=== PATIENT | female | born 1950 | race Caucasian/White ===

== ENCOUNTER 2019-06-16 08:32 | Emergency (ER) | payer MEDICARE, SELFPAY ==
--- NOTE | ~2019-06-16 | XR_ITS ---
XR humerus LT 06/16/2019 08:59 INDICATION: Left arm pain after fall. Bruising. PROCEDURE: 2 views left humerus COMPARISON: No prior studies for comparison. FINDINGS: Fracture, dislocation or subluxation is not identified. There are mild degenerative changes of the left shoulder and elbow. The soft tissues appear within normal limits. No foreign bodies are identified. IMPRESSION: 1: NO ACUTE BONE OR JOINT ABNORMALITY IDENTIFIED. Reviewed, dictated and finalized at location A.
--- NOTE | ~2019-06-16 | XR_ITS ---
[XR ribs LT 2V ] INDICATION: Left rib pain after fall TECHNIQUE: Frontal projection of the upper left ribs, frontal projection of the lower left ribs, obli que projection of all the left ribs, frontal inspiratory chest x-ray for interpretation. FINDINGS: There are no displaced rib fractures identified. There are no soft tissue abnormality see n. The lungs are clear. IMPRESSION: 1:No displaced rib fractures. Reviewed, dictated and finalized at location A.
[2019-06-16 08:42] VITALS: BP 176/7; PULSE 58; RESP 16; TEMP 36.9; O2SAT 96
--- NOTE | 2019-06-16 08:48 | ED.FALL ---
HPI - Fall General Chief Complaint: Fall Stated Complaint: fall Time Seen by Provider: 06/16/19 08:45 History of Present Illness HPI Narrative: 69 yo female presents from home c/o pain in the left arm and left chest wall. The pain started after a fall. She struck her arm on a counter she is not sure if her chest wall actually made contact with anything. The pain in the arm is moderate and associated with bruising and swelling. The chest wall is mild, but worse with coughing or deep breathing. No SOB, fever. Related Data Home Medications Medication Instructions Recorded Confirmed amlodipine 5 mg tablet 5 mg PO DAILY 12/17/18 cholecalciferol (vitamin D3) 50 2,000 unit PO DAILY 12/17/18 mcg (2,000 unit) tablet fluoxetine 40 mg capsule 40 mg PO QAM 12/17/18 levothyroxine 175 mcg tablet 175 mcg PO DAILY 12/17/18 loratadine 10 mg tablet 10 mg PO DAILY 12/17/18 omeprazole 20 mg capsule,delayed 20 mg PO BID 12/17/18 release scopolamine base 1 mg over 3 days 1 patch TRANSDERM Q3D PRN 12/17/18 transdermal patch Allergies Allergy/AdvReac Type Severity Reaction Status Date / Time Sulfa (Sulfonamide Allergy Unknown Unknown Verified 06/16/19 08:46 Antibiotics) Tetanus Vaccines and Toxoid Allergy Unknown Unknown Verified 06/16/19 08:46 Review of Systems Review of Systems: All systems reviewed & are unremarkable except as noted in HPI and below Constitutional: Constitutional: Denies fever(s) ENT: Denies sore throat Cardiovascular: Cardiovascular: Denies radiating jaw, neck or arm pain Respiratory: Respiratory: Denies chest congestion and Denies dyspnea Gastrointestinal: Gastrointestinal: Denies abdominal pain Musculoskeletal: Musculoskeletal: Denies back pain Neurologic: Denies dizziness and Denies weakness [facility] Past Medical History Medical History Chronic GERD Essential (primary) hypertension Hypothyroidism, unspecified Obstructive sleep apnea (adult) (pediatric) Osteoporosis Family History Family History Grandparent Family history of coronary artery disease Social History Social History Smoking status: Never smoker Alcohol intake: current Gender identity (if verbalized by the patient): Female Exam Const: General: healthy appearing, no acute distress and alert Orientation/consciousness: patient oriented x3 HENMT: Head: normal to inspection Neck: Neck: normal visual inspection Chest: Chest palpation & inspection: tenderness rib (left lateral) Resp: Effort & Inspection: normal respiratory effort Auscultation: clear to auscultation bilaterally, no rales, no rhonchi and no wheezes Cardio: Jugular venous distension: no JVD Rate: regular rate Rhythm: regular rhythm Heart sounds: no murmurs GI: GI Palp: Yes Soft to palpation and No Tenderness to palpation present (GI) Skin: Other: Bruising of left upper arm and proximal forearm Neuro: General: patient oriented x3 and moves all extremities Speech: normal speech Extrem: General: no edema Other: Tenderness over left midhumerus Psych: Appearance: well kempt Affect: normal affect Course Vital Signs Vital signs: Vital Signs Temperature 36.9 C 06/16/19 08:42 Pulse Rate 58 L 06/16/19 08:42 Respiratory Rate 16 06/16/19 08:42 Blood Pressure 176/7 H 06/16/19 08:42 Pulse Oximetry 96 06/16/19 08:42 Temperature 36.9 C 06/16/19 08:42 Pulse Rate 48 L 06/16/19 09:38 Respiratory Rate 20 06/16/19 09:38 Blood Pressure 145/65 H 06/16/19 09:38 Pulse Oximetry 99 06/16/19 09:38 MDM - Fall MDM Narrative Medical decision making narrative: DDx: humerus fracture, ribfracture, contusion, strain No fracture on imaging. Medical Records Attestation: I reviewed the patient's medical records. Imaging Data Attestation: I personally revi
[2019-06-16] MEDS: CYCLOBENZAPRINE HCL 10 MG TABLET PO (09:20)
[2019-06-16 09:38] VITALS: BP 145/65; PULSE 48; RESP 20; O2SAT 99
== END 2019-06-16 09:42 | disposition home or self-care (01) ==
PROVIDERS: Emergency Provider Emergency Medicine; PCP Family Medicine
DX: S29.011A Strain of muscle and tendon of front wall of thorax, initial encounter (principal); S40.022A Contusion of left upper arm, initial encounter; K21.9 Gastro-esophageal reflux disease without esophagitis; I10 Essential (primary) hypertension; E03.9 Hypothyroidism, unspecified; G47.33 Obstructive sleep apnea (adult) (pediatric); M81.0 Age-related osteoporosis without current pathological fracture; W01.198A Fall on same level from slipping, tripping and stumbling with subsequent striking against other object, initial encounter
CPT/HCPCS: 71100; 73060; 99284; A9270

== ENCOUNTER 2019-07-22 10:11 | Outpatient (CLI) | payer MEDICARE, SELFPAY ==
[2019-07-22 10:30] LABS: Hematocrit 39.9 % (37.0-47.0); Mean Corpuscular HGB Conc 32.6 g/dl (32-36); Mean Corpuscular Hemoglobin 29.3 pg (26-34); Mean Corpuscular Volume 89.9 fl (80-100); Platelet Count Result 253 k/mm3 (150-375); Red Blood Count 4.44 M/mm3 (4.2-5.4); Red Cell Distribution Width 12.9 % (11.5-14.5); White Blood Count 5.5 K/mm3 (4.5-10.0)
[2019-07-22 10:44] LABS: Alanine Aminotransferase 15 U/L (4-35); Albumin Level 4.2 g/dL (3.5-5.1); Alkaline Phosphatase 93 U/L (38-126); Aspartate Amino Transferase 18 U/L (14-36); Bilirubin,Total 0.7 mg/dL (0.2-1.3); Blood Urea Nitrogen 14 mg/dL (7-17); Carbon Dioxide 25 mmol/L (22-30); Chloride 106 mmol/L (98-107); Cholesterol 157 mg/dL (0-200); Estimated Glomerular Filt Rate > 60; Glucose 101 mg/dL (65-105); HDL Direct 44 mg/dL; Potassium 4.3 mmol/L (3.4-5.0); Sodium 139 mmol/L (137-145); Triglycerides 78 mg/dL (<150)
[2019-07-22 10:55] LABS: LDL Cholesterol Direct 95 mg/dL
[2019-07-22 11:24] LABS: Vitamin D 25 Hydroxy 43.2 ng/mL
[2019-07-22 11:37] LABS: Thyroid Stimulating Hormone Reflex 0.176 uIU/mL (0.465-4.68)
[2019-07-22 12:46] LABS: Free T4 Free Thyroxine Reflex 1.98 ng/dL (0.78-2.19)
[2019-07-22 15:06] LABS: Total Triiodothyronine (T3) 1.39 NG/ML (0.97-1.69)
== END 2019-07-22 10:12 | disposition home or self-care (01) ==
PROVIDERS: PCP Family Medicine; Visit Provider Nurse Practitioner Family
DX: I10 Essential (primary) hypertension (principal); E03.9 Hypothyroidism, unspecified; E55.9 Vitamin D deficiency, unspecified
CPT/HCPCS: 36415; 80053; 80061; 82306; 84439; 84443; 84480; 85027

== ENCOUNTER 2020-04-03 09:32 | Outpatient (CLI) | payer MEDICARE, SELFPAY ==
--- NOTE | 2020-04-03 09:49 | EST_ITS ---
Patient Info Name: Matilde Breen Age: 70 years : 1950 Gender: Female Ht: 66 in Wt: 240 lbs BSA: 2.30 m2 HR: 55 bpm BP: 146 / 63 mmHg Exam Date: 04/03/2020 10:00 AM Exam Location: [facility] Patient Status: Outpatient Admit Date: 04/03/2020 Staff Ordering Physician: Viktoria Caban NP 3D Specialist: Cassandra Chow RDCS Attending Provider: Viktoria Caban NP Referring Physician: Arsh BISHOP; Exercise Technologist: Sepideh Aquino RDCS Exercise Physician: Alexis Andersen DO Exam Type: CA stress echo Study Info Indications R06.02 - Shortness of breath Treadmill exercise stress echocardiogram is performed. Summary 1. 1. Negative Srinivasan exercise stress test for ischemic ST changes by ECG criteria. 2. 2. Poor functional capacity, achieving 5.6 METs of workload. 3. 3. Baseline hypertension. 4. 4. Appropriate HR response to exercise. 5. 5. Appropriate HR recovery at 1 minute post exercise. 6. 6. Negative stress echocardiogram for ischemia by wall motion analysis. 7. 7. Patient informed of the above results. Stress Echo Findings Left Ventricle Appropriate increase in LV endocardial thickening with systole. Appropriate augmentation of contractility with systole. No wall motion abnormality. Left Ventricle Normal LV systolic function, no wall motion abnormality. Protocol: Srinivasan Stress ECG Details Stage: REST Duration (min): 11 min : 17 sec Speed (mph): 0.0 Grade (%): 0 HR (bpm): 55 SBP (mmHg): 146 DBP (mmHg): 63 METS: --- Stage: REST Duration (min): 24 min : 7 sec Speed (mph): 0.0 Grade (%): 0 HR (bpm): 54 SBP (mmHg): 146 DBP (mmHg): 63 METS: --- Stage: STAGE 1 Duration (min): 1 min : 0 sec Speed (mph): 1.7 Grade (%): 10 HR (bpm): 89 SBP (mmHg): 146 DBP (mmHg): 63 METS: --- Stage: STAGE 1 Duration (min): 2 min : 0 sec Speed (mph): 1.7 Grade (%): 10 HR (bpm): 108 SBP (mmHg): 146 DBP (mmHg): 63 METS: --- Stage: STAGE 1 Duration (min): 3 min : 0 sec Speed (mph): 1.7 Grade (%): 10 HR (bpm): 117 SBP (mmHg): 173 DBP (mmHg): 66 METS: --- Stage: STAGE 2 Duration (min): 0 min : 35 sec Speed (mph): 0.0 Grade (%): 0 HR (bpm): 99 SBP (mmHg): 173 DBP (mmHg): 66 METS: --- Stage: RECOVERY Duration (min): 0 min : 24 sec Speed (mph): 0.0 Grade (%): 0 HR (bpm): 123 SBP (mmHg): 173 DBP (mmHg): 66 METS: --- Stage: RECOVERY Duration (min): 1 min : 24 sec Speed (mph): 0.0 Grade (%): 0 HR (bpm): 105 SBP (mmHg): 173 DBP (mmHg): 66 METS: --- Stage: RECOVERY Duration (min): 2 min : 24 sec Speed (mph): 0.0 Grade (%): 0 HR (bpm): 88 SBP (mmHg): 173 DBP (mmHg): 66 METS: --- Stage: RECOVERY Duration (min): 3 min : 24 sec Speed (mph): 0.0 Grade (%): 0 HR (bpm): 75 SBP (mmHg): 200 DBP (mmHg): 51 METS: --- Stage: RECOV
== END 2020-04-03 09:33 | disposition home or self-care (01) ==
PROVIDERS: PCP Family Medicine; Visit Provider Nurse Practitioner
DX: R06.02 Shortness of breath (principal); R00.1 Bradycardia, unspecified
CPT/HCPCS: 93351

== ENCOUNTER 2020-06-29 07:33 | Outpatient (CLI) | payer MEDICARE, SELFPAY ==
--- NOTE | ~2020-06-29 | XR_ITS ---
XR knee RT 2V DATE: 06/29/2020 08:07 INDICATION: Right knee pain for 3 weeks TECHNIQUE: AP and lateral views COMPARISON: None FINDINGS: There is tricompartment osteoarthritis, particularly severe at the patellofemoral and then medial compartments. No fracture or dislocation or joint effusion. No periosteal reaction or bone destruction. No radiopaq ue intra-articular loose body or chondrocalcinosis is evident. 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 IMPRESSION: Tricompartment osteoarthritis, most severe at the patellofemoral co mpartment and then the medial compartment
--- NOTE | ~2020-06-29 | XR_ITS ---
XR knee LT 2V DATE: 06/29/2020 08:07 INDICATION: Bilateral knee pain for 3 weeks TECHNIQUE: AP and lateral views COMPARISON: None FINDINGS: There is tricompartment osteoarthritis, most severe at the patellofemoral joint with very p rominent hypertrophic spurring. There is prominent periarticular spurring at the medial compartment a s well. Prominence of the tibial spines. The patellar enthesopathy at the quadriceps and patellar tendon insertion sites. No fracture or dislocation or joint effusion is evident. No periosteal reaction or bone destruction, radiopaque intra-articular loose body or chondrocalcinosis is evident. IMPRESSION: Tricompartment osteoarthritis, most severe at the patellofemoral and then medial compartm ents Reviewed, dictated and finalized at location B. IMPRESSION: Tricompartment osteoarthritis, most severe at the patellofemoral an d then medial compartments
== END 2020-06-29 07:34 | disposition home or self-care (01) ==
PROVIDERS: PCP Family Medicine; Visit Provider Nurse Practitioner Family
DX: M17.0 Bilateral primary osteoarthritis of knee (principal)
CPT/HCPCS: 73560

== ENCOUNTER 2020-07-01 05:02 | Emergency (ER) | payer MEDICARE, SELFPAY ==
[2020-07-01 05:10] VITALS: BP 176/65; PULSE 65; RESP 16; TEMP 36.1; O2SAT 99
--- NOTE | 2020-07-01 05:19 | PC.NURSE ---
Pt reports she took a sleeping pill last night and feels that as well as her sore feet/knees contributed to her falling. No CP or SOB. No CASTRO. No head trauma. Pt a/o x 3. No current active bleeding to buttock.
[2020-07-01 05:20] VITALS: BP 177/66; PULSE 53; RESP 18; O2SAT 97
--- NOTE | 2020-07-01 05:21 | ED.FALL ---
HPI - Fall General Chief Complaint: Fall Stated Complaint: dizziness, fell on wire basket, buttock wound Time Seen by Provider: 07/01/20 05:10 History of Present Illness HPI Narrative: 70 yo female presents to the ED after a fall. She reports that she turned too quickly and lost her balance. SHe says that this is not unusual for her. No dizziness, weakness, syncope. She did not hit her head. She did land on wire shelving which caused a laceration to her right bottock. She has moderate pain and significant bleeding. Denies any additional pain or injury. No blood thinners. Related Data Home Medications Medication Instructions Recorded Confirmed cholecalciferol (vitamin D3) 50 2,000 unit PO DAILY 12/17/18 06/18/20 mcg (2,000 unit) tablet Allergies Allergy/AdvReac Type Severity Reaction Status Date / Time Sulfa (Sulfonamide Allergy Unknown Unknown Verified 07/01/20 05:18 Antibiotics) Tetanus Vaccines and Toxoid Allergy Unknown Unknown Verified 07/01/20 05:18 Review of Systems Review of Systems: All systems reviewed & are unremarkable except as noted in HPI and below Constitutional: Constitutional: Denies fever(s) Eyes: Eyes: Reports no additional eye complaints ENT: Denies dizziness Cardiovascular: Cardiovascular: Denies chest pain Respiratory: Respiratory: Denies dyspnea Gastrointestinal: Gastrointestinal: Denies nausea Musculoskeletal: Musculoskeletal: Denies back pain Neurologic: Denies dizziness, Denies syncope, Denies numbness and Denies weakness Hematologic/Lymphatic: Hematologic/Lymphatic: Denies easy bleeding and Denies easy bruising PMFSH Past Medical History Medical History Chronic GERD Essential (primary) hypertension Hypothyroidism, unspecified Obstructive sleep apnea (adult) (pediatric) Osteoporosis Family History Family History Grandparent Family history of coronary artery disease Social History Social History Smoking status: Never smoker Alcohol intake: current Gender identity (if verbalized by the patient): Female Exam Const: General: no acute distress and alert Nutritional Appearance: obese Orientation/consciousness: patient oriented x3 HENMT: Head: normal to inspection Resp: Effort & Inspection: normal respiratory effort Auscultation: clear to auscultation bilaterally, no rales, no rhonchi and no wheezes Cardio: Jugular venous distension: no JVD Rate: regular rate Rhythm: regular rhythm Heart sounds: no murmurs GI: Inspection: non-distended GI Palp: Yes Soft to palpation and No Tenderness to palpation present (GI) Skin: General skin exam: normal color Other: 3 cm laceration to medial right buttock adjacent to rectum, but without rectal involvement. This is surrounded by numerous very small skin tears with large underlying hematoma Neuro: General: patient oriented x3 and moves all extremities Speech: normal speech Extrem: General: no edema Psych: Appearance: well kempt Affect: normal affect Course Vital Signs Vital signs: Vital Signs Temperature 36.1 C L 07/01/20 05:10 Pulse Rate 65 07/01/20 05:10 Respiratory Rate 16 07/01/20 05:10 Blood Pressure 176/65 H 07/01/20 05:10 Pulse Oximetry 99 07/01/20 05:10 Temperature 36.1 C L 07/01/20 05:10 Pulse Rate 55 L 07/01/20 07:14 Respiratory Rate 18 07/01/20 07:14 Blood Pressure 162/61 H 07/01/20 07:14 Pulse Oximetry 98 07/01/20 07:14 Procedures Laceration Laceration 1: Site: lower extremity Side (If applicable): right Size (cm): 3 Description: irregular Depth: simple, single layer Local Anesthetic: lidocaine 1% and with epi Amount of anesthesia used (mL): 5 Pre-repair: wound explored and irrigated extensively ====== Skin Level ======
[2020-07-01] MEDS: LIDO 1%/EPINEPHRINE 1:100,000 20 ML VIAL INFILTRATE (06:15)
[2020-07-01 06:19] VITALS: BP 135/52; PULSE 52; RESP 18
[2020-07-01] MEDS: AMOXICILLIN/CLAVULANATE K 875-125 MG TAB 1 TABLET PO (06:19)
[2020-07-01 06:47] VITALS: BP 133/49; PULSE 47; RESP 18
[2020-07-01 07:14] VITALS: BP 162/61; PULSE 55; RESP 18; O2SAT 98
== END 2020-07-01 07:13 | disposition home or self-care (01) ==
PROVIDERS: Emergency Provider Emergency Medicine; PCP Family Medicine
DX: S31.811A Laceration without foreign body of right buttock, initial encounter (principal); K21.9 Gastro-esophageal reflux disease without esophagitis; I10 Essential (primary) hypertension; E03.9 Hypothyroidism, unspecified; G47.33 Obstructive sleep apnea (adult) (pediatric); M81.0 Age-related osteoporosis without current pathological fracture; W01.118A Fall on same level from slipping, tripping and stumbling with subsequent striking against other sharp object, initial encounter
CPT/HCPCS: 12002; 99283; A9270

== ENCOUNTER 2020-09-26 12:32 | Outpatient (CLI) | payer MEDICARE, SELFPAY ==
--- NOTE | ~2020-09-26 | XR_ITS ---
EXAMINATION: XR lg joint inject/asp w image DATE: 09/26/2020 13:15 INDICATION: Unilateral primary osteoarthritis of the left hip TECHNIQUE: A time-out was performed to verify the patient's name, date of , and procedure to b e performed. The procedure including the risks, benefits, and alternatives was discussed with the pat ient. Risks discussed included bleeding and infection. The patient understood the risks and agreed to proceed. The skin overlying the left hip joint was prepped and draped in usual sterile fashion. Ane sthetic was administered with 1% lidocaine subcutaneously. A 22 G needle was advanced under fluorosc opic guidance into the joint. Injection of 1 mL of Omnipaque 240 confirmed intra-articular position of the needle. Subsequently, injectate consisting of 7 mm of a 5:2 mixture of 1% lidocaine: 10 mg/mL Kenalog for a total dosage of 20 mg Kenalog was instilled. Washout of contrast was seen confirming i ntra-articular administration. The needle was removed and the entry site was cleaned and dressed. Th ere were no immediate complications. Fluoroscopy exposure time was 0.1 minutes. The total number of i mages was 2. Total DAP was 0.98 mGycm^2 FINDINGS: Real-time fluoroscopy demonstrates the needle in the tip joint. Patient's pain prior to pro cedure:09/18. Patient's pain following the procedure: 02/18. IMPRESSION: 1. Left hip joint injection of local anesthetic and steroid with decrease in the patient's presenting pain. Reviewed, dictated and finalized at location A. IMPRESSION: 1. Left hip joint injection of local anesthetic and steroid with decrease in th e patient's presenting pain.
== END 2020-09-26 12:33 | disposition home or self-care (01) ==
PROVIDERS: PCP Family Medicine; Visit Provider Orthopaedic Surgery
DX: M16.12 Unilateral primary osteoarthritis, left hip (principal)
CPT/HCPCS: 20610; 77002; J3301; Q9966

== ENCOUNTER → 2021-01-14 10:36 | Outpatient (CLI) | payer MEDICARE, SELFPAY ==
--- NOTE | ~2021-01-14 | XR_ITS ---
EXAMINATION: XR chest 2V DATE: 01/14/2021 11:20 INDICATION: Wheezing TECHNIQUE: PA and lateral views of the chest are obtained. COMPARISON: 06/08/2009 FINDINGS: The lungs are free of acute opacities. There is no pleural effusion or pneumothorax. The ca rdiomediastinal silhouette is normal. There is moderate thoracic spondylosis. IMPRESSION: 1. No acute cardiopulmonary abnormality. Reviewed, dictated and finalized at location A. 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
== END ==
PROVIDERS: PCP Nurse Practitioner Family; Visit Provider Nurse Practitioner Family
DX: R06.2 Wheezing (principal)
CPT/HCPCS: 71046

== ENCOUNTER 2021-02-19 07:51 | Outpatient (CLI) | payer MEDICARE, SELFPAY ==
--- NOTE | 2021-02-19 12:37 | WPDPFTINT ---
PFT Procedure Performed PFT Procedure Performed Spirometry with Pre/Post Bronchodilator Plethysmography (Lung Vol) Diffusing Cap (DLCO) Flow Vol Loop PFT Interpretation This is a pulmonary function test with pre and post-bronchodilator spirometry, plethysmography and diffusing capacity. The test was performed and results interpreted in accordance with the 2019 and 2005 ATS/ERS Task Force guidelines respectively using the Global Lung Function Initiative-2012 reference equations. Patient demonstrated good effort and cooperation. Reproducibility criteria were met. The quality of the pre bronchodilator spirometry maneuver was Grade A and post bronchodilator spirometry maneuver was Grade A. Findings: Spirometry: The contour the inspiratory and expiratory flow tracing are normal. The pre bronchodilator FVC is 2.95 L, 104% predicted. The pre bronchodilator FEV1 is 2.39 L, 109% predicted. The FEV1: FVC ratio is 81%. The post bronchodilator FVC is 2.89 L, representing a 2% decrease. The post bronchodilator FEV1 is 2.42 L, representing a 2% increase. The post bronchodilator FEV1: FVC ratio was 84%. Plethysmography: The total lung capacity is 4.79 L, 92% predicted. The functional residual capacity is 1.95 L, 65% predicted. The residual volume is 1.84 L, 80% predicted. Diffusing capacity: The absolute diffusion capacity is 16.5, 80% predicted. The diffusing capacity corrected for alveolar volume is 3.68, 88% predicted. Impression: The spirometry is normal without evidence of an obstructive abnormality. There is no significant improvement after inhaling a single dose of albuterol. The lung volumes are normal. The diffusing capacity is normal. There are no prior studies for comparison
== END 2021-02-19 07:52 | disposition home or self-care (01) ==
PROVIDERS: PCP Family Medicine; Visit Provider Nurse Practitioner Family
DX: R06.00 Dyspnea, unspecified (principal)
CPT/HCPCS: 94060; 94726; 94729

== ENCOUNTER 2021-05-17 00:55 | Day surgery (SDC) | payer MEDICARE, SELFPAY ==
[2021-05-07 16:03] VITALS: BMI 38.1
--- NOTE | 2021-05-17 11:11 | WPDGICN ---
Assessment and Plan Assessment and plan (1) History of colon polyps: Code(s): Z86.010 - Personal history of colonic polyps Status: Acute Assessment and Plan: Patient has a history of adenomatous colon polyp removed from the colon 2015. She presents today for follow-up colonoscopy. Further recommendations will be given after endoscopy. (2) Family hx of colon cancer: Code(s): Z80.0 - Family history of malignant neoplasm of digestive organs Status: Acute Assessment and Plan: Patient gives a history that her father had cancer. She reports that it was located in the small bowel when eventually identified. Continued surveillance at intervals is advised of patient's colon. GI Consult Note Consult date/time: 05/17/21 11:11 HPI: Matilde Breen is a 71 year old female Presents for screening colonoscopy. Patient has a prior history of colon polyps. In 2016 adenomatous colon polyp was removed from the colon. Patient reports that her current weight appetite and bowel movements are normal. She denies abdominal pain. She has had no bleeding. Family history is significant her father had carcinoma in the small bowel. Patient presents today for neoplasia screening. [facility] Past Medical History Medical History (Updated 05/17/21 @ 11:13 by Juliocesar Witt MD) Achilles tendinitis of both lower extremities Chronic GERD Degenerative arthritis of knee, bilateral Essential (primary) hypertension Hypothyroidism, unspecified Insomnia Obstructive sleep apnea (adult) (pediatric) Surgical History Surgical History H/O: hysterectomy History of esophagogastroduodenoscopy (EGD) Family History Family History Grandparent Family history of coronary artery disease Father Colon cancer Mother Cerebrovascular accident Social History Social History Alcohol intake: current Alcohol use details: Rarely Substance use: never Substance use type: does not use Living arrangements: with family Additional living arrangements comments: . 2 children both grown and out of house. 2 grandchildren and 2 step-grandchildren Gender identity (if verbalized by the patient): Female Sexual Orientation (if Verbalized by the Patient): Straight or Heterosexual Spiritual care concerns: No Agree to blood products: Yes Meds Home Medications and Allergies Home Medications Medication Instructions Recorded Confirmed Type cholecalciferol (vitamin D3) 50 2,000 unit PO DAILY 12/17/18 05/07/21 History mcg (2,000 unit) tablet zolpidem 10 mg tablet 10 mg PO QHS PRN #90 tablet 08/29/20 05/07/21 Rx meloxicam 15 mg tablet 15 mg PO DAILY tablet 10/24/20 05/07/21 History loratadine 10 mg tablet 10 mg PO DAILY PRN tablet 01/14/21 05/07/21 History omeprazole 20 mg capsule,delayed 40 mg PO DAILY cap 01/14/21 05/07/21 History release losartan 100 1 tablet PO DAILY #90 tablet 04/09/21 05/07/21 Rx mg-hydrochlorothiazide 12.5 mg tablet albuterol sulfate 90 mcg/actuation 1 puff INHALATION Q4H PRN #8.5 g 04/19/21 05/07/21 Rx aerosol inhaler fluticasone propionate 50 2 spray NASAL DAILY #9.9 ml 04/19/21 05/07/21 Rx mcg/actuation nasal spray,suspension inhalational spacing device #1 ea 04/19/21 04/19/21 Rx verapamil 120 mg 24 hr 120 mg PO DAILY #90 cap 04/19/21 05/07/21 Rx capsule,extended release duloxetine 30 mg capsule,delayed 60 mg PO DAILY #60 cap 05/02/21 05/07/21 Rx release levothyroxine 175 mcg tablet 175 mcg PO DAILY tablet 05/10/21 History Allergies Allergy/AdvReac Type Severity Reaction Status Date / Time Sulfa (Sulfonamide Allergy Unknown Hives Verified 05/10/21 13:50 Antibiotics) Tetanus Vaccines and Toxoid Allergy Unknown Swelling Verified 05/10/21 13:50 Exam Narr
[2021-05-17 11:25] VITALS: BP 141/77; PULSE 77; RESP 18; TEMP 36.7; O2SAT 98
[2021-05-17] MEDS: LACTATED RINGERS 1,000 ML 150 ML IV CONT (11:32)
--- NOTE | 2021-05-17 12:10 | WPDANESEPPF ---
Anes - Initial Pre Proc Eval Procedure: Operation Date: 05/17/21 12:30 Proposed Procedures p Screening Colonoscopy - Juliocesar Witt MD Date/Time: 05/17/21 12:10 Surgeon: Juliocesar Witt MD Pre Op Diagnosis: family hx of colon ca, hx of colon polyps Patient Data Age: 71 Gender: F Height: 1.65 m Weight: 106.6 kg Last Vital Signs Temp 36.7 C 05/17/21 11:25 Pulse 77 05/17/21 11:25 Resp 18 05/17/21 11:25 BP 141/77 H 05/17/21 11:25 Pulse Ox 98 05/17/21 11:25 Allergies Allergy/AdvReac Type Severity Reaction Status Date / Time Sulfa (Sulfonamide Allergy Unknown Hives Verified 05/17/21 11:23 Antibiotics) Tetanus Vaccines and Toxoid Allergy Unknown Swelling Verified 05/17/21 11:23 Home Medications Medication Instructions Recorded Confirmed Type cholecalciferol (vitamin D3) 50 2,000 unit PO DAILY 12/17/18 05/17/21 History mcg (2,000 unit) tablet zolpidem 10 mg tablet 10 mg PO QHS PRN #90 tablet 08/29/20 05/17/21 Rx meloxicam 15 mg tablet 15 mg PO DAILY tablet 10/24/20 05/17/21 History loratadine 10 mg tablet 10 mg PO DAILY PRN tablet 01/14/21 05/17/21 History omeprazole 20 mg capsule,delayed 40 mg PO DAILY cap 01/14/21 05/17/21 History release losartan 100 1 tablet PO DAILY #90 tablet 04/09/21 05/17/21 Rx mg-hydrochlorothiazide 12.5 mg tablet albuterol sulfate 90 mcg/actuation 1 puff INHALATION Q4H PRN #8.5 g 04/19/21 05/17/21 Rx aerosol inhaler fluticasone propionate 50 2 spray NASAL DAILY #9.9 ml 04/19/21 05/17/21 Rx mcg/actuation nasal spray,suspension inhalational spacing device #1 ea 04/19/21 05/17/21 Rx verapamil 120 mg 24 hr 120 mg PO DAILY #90 cap 04/19/21 05/17/21 Rx capsule,extended release duloxetine 30 mg capsule,delayed 60 mg PO DAILY #60 cap 05/02/21 05/17/21 Rx release levothyroxine 175 mcg tablet 175 mcg PO DAILY tablet 05/10/21 05/17/21 History Patient hx anesthesia problems: none Family hx anesthesia problems: none Results Review: All pre-operative results and documents have been reviewed as part of the pre-operative evaluation. [facility] Past Medical History Medical History Achilles tendinitis of both lower extremities Chronic GERD Degenerative arthritis of knee, bilateral Essential (primary) hypertension Hypothyroidism, unspecified Insomnia Obstructive sleep apnea (adult) (pediatric) Surgical History Surgical History H/O: hysterectomy History of esophagogastroduodenoscopy (EGD) Family History Family History Grandparent Family history of coronary artery disease Father Colon cancer Mother Cerebrovascular accident Social History Social History Alcohol intake: current Alcohol use details: Rarely Substance use: never Substance use type: does not use Living arrangements: with family Additional living arrangements comments: . 2 children both grown and out of house. 2 grandchildren and 2 step-grandchildren Gender identity (if verbalized by the patient): Female Sexual Orientation (if Verbalized by the Patient): Straight or Heterosexual Spiritual care concerns: No Agree to blood products: Yes Anes - Eval Final PreProcedure Day of Procedure 05/17/21 12:10 Patient weight: obese Heart: regular rate and rhythm Lungs: clear to auscultation Airway: Mallampati scale class II Neurological: alert and oriented Last oral intake: >/= 8 hours ASA classification: III Emergent: no Anesthetic plan: proceed Anesthesia type and monitoring: general GIVS and standard monitoring Results Review: All pre-operative results and documents have been reviewed as part of the pre-operative evaluation. Informed Consent: The patient's anesthetic plan and its attendant risks and benef
[2021-05-17 12:41] VITALS: BP 138/68; PULSE 56; RESP 17; O2SAT 97
[2021-05-17 12:51] VITALS: BP 128/71; PULSE 54; RESP 15; O2SAT 97
[2021-05-17 13:01] VITALS: BP 151/78; PULSE 60; RESP 16; O2SAT 96
== END 2021-05-17 13:31 | disposition home or self-care (01) ==
PROVIDERS: PCP Family Medicine; Visit Provider Internal Medicine Gastroenterology
PROC: 0DJD8ZZ Inspection of Lower Intestinal Tract, Via Natural or Artificial Opening Endoscopic (ICD-10-PCS; CPT 45378; principal; 2021-05-17 12:30)
DX: Z12.11 Encounter for screening for malignant neoplasm of colon (principal); K64.8 Other hemorrhoids; K63.5 Polyp of colon; K57.30 Diverticulosis of large intestine without perforation or abscess without bleeding; Z80.0 Family history of malignant neoplasm of digestive organs; K21.9 Gastro-esophageal reflux disease without esophagitis; I10 Essential (primary) hypertension; E03.9 Hypothyroidism, unspecified; G47.33 Obstructive sleep apnea (adult) (pediatric); Z79.51 Long term (current) use of inhaled steroids; E66.9 Obesity, unspecified; Z68.39 Body mass index [BMI] 39.0-39.9, adult
CPT/HCPCS: 45385; 88305; J2704; J7120

== ENCOUNTER 2021-07-04 07:35 | Outpatient (CLI) | payer MEDICARE, SELFPAY ==
--- NOTE | 2021-07-04 07:46 | ECHO_ITS ---
Patient Info Name: Matilde Breen Age: 71 years : 1950 Gender: Female Ht: 55 in Wt: 240 lbs BSA: 2.14 m2 BP: 200 / 96 mmHg Technical Quality: Good Exam Date: 07/04/2021 8:25 AM Exam Location: [facility] Patient Status: Outpatient Admit Date: 07/04/2021 Staff Ordering Physician: Alexis Andersen DO [place] Guide: Marcos Huynh RDCS, RT Attending Provider: Alexis Andersen DO Referring Physician: Ganesh FRANCOIS; Exam Type: CA echo doppler color flow Study Info Indications R06.00 - Dyspnea, unspecified Complete two-dimensional, color flow and Doppler transthoracic echocardiogram is performed. Strain analysis performed. Summary 1. Complete two-dimensional, color flow and Doppler transthoracic echocardiogram is performed. 2. Left ventricular chamber dimension is normal. 3. Left ventricular systolic function is normal, estimated at 60-65%. 4. There is mildly increased left ventricular wall thickness. 5. The left ventricular diastolic function is grade I diastolic dysfunction. 6. E/e' 11 is mildly elevated. 7. Global longitudinal strain is normal at -17.5%. 8. Left atrial chamber dimension is moderately enlarged. 9. There is trace aortic valve regurgitation. 10. The mitral valve has mildly calcified annulus. 11. There is mild tricuspid valve regurgitation. 12. No pulmonary hypertension, estimated pulmonary arterial systolic pressure is 35 mmHg. Left Ventricle E/e' 11 is mildly elevated. Global longitudinal strain is normal at -17.5%. Left ventricular chamber dimension is normal. Left ventricular systolic function is normal, estimated at 60-65%. There is mildly increased left ventricular wall thickness. The left ventricular diastolic function is grade I diastolic dysfunction. Right Ventricle Right ventricular chamber dimension is normal. Right ventricular systolic function is normal. Left Atria Left atrial chamber dimension is moderately enlarged. Right Atria Right atrial chamber dimension is normal. Aortic Valve The aortic valve is trileaflet. There is no aortic valve stenosis. There is trace aortic valve regurgitation. Pulmonic Valve There is no pulmonic regurgitation. Mitral Valve The mitral valve has mildly calcified annulus. There is no mitral valve stenosis. There is no mitral valve regurgitation. Tricuspid Valve There is mild tricuspid valve regurgitation. No pulmonary hypertension, estimated pulmonary arterial systolic pressure is 35 mmHg. Pericardium/Pleural There is no pericardial effusion. Inferior Vena Cava Normal inferior vena cava with >50% collapse upon inspiration consistent with normal right atrial pressure, 5 mmHg. Aorta The aortic root size at the sinus of Valsalva is normal. Left Ventricular Outflow Tract Name Value Normal LVOT 2D LVOT Diameter 2.0 cm LVOT Doppler LVOT Peak Gradient 6 mmHg LVOT Mean Gradient 3 mmHg LVOT VTI 31 cm LVOT VTI/AV VTI Ratio 0.7 LVOT Stroke Volume 100 ml
== END 2021-07-04 07:36 | disposition home or self-care (01) ==
LOC: ANHCARD 07:36
PROVIDERS: PCP Family Medicine; Visit Provider Internal Medicine Cardiovascular Disease
DX: R06.00 Dyspnea, unspecified (principal); I36.1 Nonrheumatic tricuspid (valve) insufficiency
CPT/HCPCS: 93306

== ENCOUNTER 2021-10-21 11:26 | Outpatient (CLI) | payer MEDICARE, SELFPAY ==
[2021-10-21 19:06] LABS: Alanine Aminotransferase 19 U/L (6-35); Albumin Level 4.3 g/dL (3.5-5.1); Alkaline Phosphatase 82 U/L (38-126); Anion Gap 12 mmol/L (8-16); Aspartate Amino Transferase 24 U/L (14-36); Bilirubin,Total 0.6 mg/dL (0.2-1.3); Blood Urea Nitrogen 27 mg/dL (7-17); Calcium 9.6 mg/dL (8.4-10.2); Carbon Dioxide 26 mmol/L (22-30); Chloride 101 mmol/L (98-107); Cholesterol 177 mg/dL (0-200); Estimated Glomerular Filt Rate 54; Glucose 94 mg/dL (65-110); HDL Direct 49 mg/dL; Potassium 4.1 mmol/L (3.4-5.0); Sodium 139 mmol/L (137-145); Triglycerides 136 mg/dL (<150)
[2021-10-21 19:17] LABS: LDL Cholesterol Direct 93 mg/dL
[2021-10-21 19:33] LABS: Vitamin D 25 Hydroxy 32.3 ng/mL
[2021-10-21 19:47] LABS: Hemoglobin A1C 5.5 % (<5.7)
== END 2021-10-21 11:27 | disposition home or self-care (01) ==
LOC: ANHGOSHLAB 11:30
PROVIDERS: PCP Family Medicine; Visit Provider Nurse Practitioner Family
DX: R73.01 Impaired fasting glucose (principal); I10 Essential (primary) hypertension; E78.5 Hyperlipidemia, unspecified; E55.9 Vitamin D deficiency, unspecified; E03.9 Hypothyroidism, unspecified
CPT/HCPCS: 36415; 80053; 80061; 82306; 83036; 84443

== ENCOUNTER 2022-01-16 08:29 | Outpatient (CLI) | payer MEDICARE, SELFPAY ==
--- NOTE | 2022-02-17 23:52 | WPDSLEEPSTUD ---
Sleep Study Date of Study: 01/16/22 Ordering Provider: Diogo Holm MD Interpreting Physician: Omaira Miner DO Sleep Study Type: Polysomnogram Height: 1.65 m Weight: 108.409 kg Body Mass Index: 39.7 Neck Circumference (inches): 17.5 [place]: 2 Reason for Sleep Study Daytime hypersomnia despite CPAP use. Sleep History The patient is a 72-year-old female with anxiety, GERD, hypertension, hypothyroidism, left ventricular hypertrophy, Sjogren syndrome and previously diagnosed JAYME that had a sleep study ordered by her rubber flap tuber machine operator. Despite using her CPAP, she still has daytime hypersomnia. She had a split night study in March 2013 that showed an overall AHI of 31.2 with titration to CPAP 11 cm H2O. The patient rarely awakens at night with heartburn, belching or cough. She constantly snores loud enough that others complain. She frequently has trouble sleeping when she has a cold. She occasionally wakes up gasping for air throughout the night. She frequently has breathing problems at night observed by herself or others. She denies sweating excessively at night. He rarely has heart palpitations or irregular heartbeats during the night. She occasionally falls asleep during the day but never while driving. She denies sleep paralysis and cataplexy. She denies having trouble at school or work due to sleepiness. She occasionally experiences vivid dreamlike scenes upon awakening or falling asleep. She denies feeling afraid of going to sleep. She occasionally has nightmares and frequently remembers her dreams. She frequently has thoughts racing through her mind. She occasionally feels sad, depressed and anxious. She rarely has muscular tension. She denies noticing parts of her body jerk. She frequently kicks during the night. She rarely experiences crawling and aching feelings in her legs and never has leg pain during the night. She currently uses an oral appliance for teeth grinding. She denies awakening with morning jaw pain. She is frequently bothered by pain during the day but rarely awakened by pain during the night. She occasionally wakes up feeling stiff in the morning. She occasionally wakes up with sore or achy muscles. She rarely wakes up with pain in the neck, spine and other joints. She goes to bed at 10:30 p.m. on both weekdays and weekends. She wakes up 2-3 times throughout the night for unknown reasons. When she awakens, she will try to relax and get back to sleep. She wakes up at 8:30 a.m. on both weekdays and weekends. He typically gets 8-9 hours of sleep per night. She will stay in bed for a few minutes after waking up in the morning. She currently lives with her . She does not consume any caffeinated beverages within 2 hours of bedtime. She does not engage in physical exercise before bedtime. She will read and watch television before falling asleep. She does not take naps in the afternoon or the evening. She drinks 4 caffeinated beverages per day. She will rarely have a glass of wine. She denies tobacco and recreational drug use. [facility] Past Medical History Medical History Abnormality of heart beat Achilles tendinitis of both lower extremities Anxiety Arthritis Chronic GERD Chronic headaches Claustrophobia Degenerative arthritis of knee, bilateral Essential (primary) hypertension Flexion contracture of knee Hyperthyroidism Hypothyroidism, unspecified Insomnia Obstructive sleep apnea (adult) (pediatric) Posterior calcaneal exostosis Vision changes Surgical History Surgical History H/O: hysterectomy History of esophagogastroduodenoscopy (EGD) History of knee replacement procedure of right knee Family History Family History Grandparent Family history of coronary artery disease Father Colon ca
[2022-02-18 00:35] VITALS: BMI 39.7
== END 2022-01-17 06:45 | disposition home or self-care (01) ==
LOC: ANHCSM 08:35
PROVIDERS: PCP Family Medicine; Visit Provider Internal Medicine Pulmonary Disease
DX: G47.33 Obstructive sleep apnea (adult) (pediatric) (principal); K21.9 Gastro-esophageal reflux disease without esophagitis; I10 Essential (primary) hypertension; E03.9 Hypothyroidism, unspecified
CPT/HCPCS: 95810

== ENCOUNTER 2022-03-11 08:11 | Outpatient (CLI) | payer MEDICARE, SELFPAY ==
--- NOTE | 2022-03-30 19:31 | WPDSLEEPSTUD ---
Sleep Study Date of Study: 03/11/22 Ordering Provider: Diogo Holm MD Interpreting Physician: Sheila Lenz MD Sleep Study Type: CPAP Titration Height: 1.65 m Weight: 106.594 kg Body Mass Index: 39.1 Neck Circumference (inches): 18 [place]: 6 Reason for Sleep Study Basic sleep study 01/16/2022 with severe obstructive sleep apnea, overall AHI of 36.6 with desaturation down to 76%.? The patient did not qualify for CPAP in the 2nd part of the study due to a prolonged sleep latency.? She presents for a PAP titration study. Sleep History Matilde Breen s a 72-year-old female with anxiety, GERD, hypertension, hypothyroidism, left ventricular hypertrophy, Sjogren syndrome and previously diagnosed JAYME that had a sleep study ordered by her grass cutter.? Despite using her CPAP, she still has daytime hypersomnia.? She had a split night study in March 2013 that showed an overall AHI of 31.2 with titration to CPAP 11 cm H2O.? The patient rarely awakens at night with heartburn, belching or cough.? She constantly snores loud enough that others complain.? She frequently has trouble sleeping when she has a cold.? She occasionally wakes up gasping for air throughout the night.? She frequently has breathing problems at night observed by herself or others.? She denies sweating excessively at night.? He rarely has heart palpitations or irregular heartbeats during the night.? She occasionally falls asleep during the day but never while driving.? She denies sleep paralysis and cataplexy.? She denies having trouble at school or work due to sleepiness.? She occasionally experiences vivid dreamlike scenes upon awakening or falling asleep.? She denies feeling afraid of going to sleep.? She occasionally has nightmares and frequently remembers her dreams.? She frequently has thoughts racing through her mind.? She occasionally feels sad, depressed and anxious.? She rarely has muscular tension.? She denies noticing parts of her body jerk.??She frequently kicks during the night.? She rarely experiences crawling and aching feelings in her legs and never has leg pain during the night.? She currently uses an oral appliance for teeth grinding.? She denies awakening with morning jaw pain.? She is frequently bothered by pain during the day but rarely awakened by pain during the night.? She occasionally wakes up feeling stiff in the morning.? She occasionally wakes up with sore or achy muscles.? She rarely wakes up with pain in the neck, spine and other joints.? She goes to bed at 10:30 p.m. on both weekdays and weekends.? She wakes up 2-3 times throughout the night for unknown reasons.? When she awakens, she will try to relax and get back to sleep.? She wakes up at 8:30 a.m. on both weekdays and weekends.? He typically gets 8-9 hours of sleep per night.? She will stay in bed for a few minutes after waking up in the morning.? She currently lives with her .? She does not consume any caffeinated beverages within 2 hours of bedtime.? She does not engage in physical exercise before bedtime.? She will read and watch television before falling asleep.? She does not take naps in the afternoon or the evening.? She drinks 4 caffeinated beverages per day.? She will rarely have a glass of wine.? She denies tobacco and recreational drug use. [facility] Past Medical History Medical History (Updated 04/07/22 @ 12:40 by Sheila Lenz MD) Abnormality of heart beat Achilles tendinitis of both lower extremities Anxiety Arthritis Chronic GERD Chronic headaches Claustrophobia Degenerative arthritis of knee, bilateral Essential (primary) hypertension Flexion contracture of knee Hyperthyroidism Hypothyroidism, unspecified Insomnia Obstructive sleep apnea (adult) (pediatric) Posterior calcaneal exostosis Vision changes Surgical History Surgical History H/O: hysterectomy History of esophagogastroduodenoscopy (EGD) History of knee r
[2022-04-07 12:39] VITALS: BMI 39.1
== END 2022-03-12 07:11 | disposition home or self-care (01) ==
LOC: ANHCSM 08:12
PROVIDERS: PCP Family Medicine; Visit Provider Internal Medicine Pulmonary Disease
DX: G47.33 Obstructive sleep apnea (adult) (pediatric) (principal)
CPT/HCPCS: 95811

== ENCOUNTER 2022-04-10 08:32 | Outpatient (CLI) | payer MEDICARE, SELFPAY | END 2022-04-10 08:33 | disposition home or self-care (01) | LOC: ANHGOSHLAB 08:33 | PROVIDERS: PCP Family Medicine; Visit Provider Nurse Practitioner Family | DX: M25.50 Pain in unspecified joint (principal); G47.61 Periodic limb movement disorder | CPT/HCPCS: 36415; 82728 ==

== ENCOUNTER 2022-05-21 09:01 | Outpatient (CLI) | payer MEDICARE, SELFPAY ==
[2022-05-21 18:51] LABS: Basophils Absolute Auto 0.1 K/mm3 (0.0-0.1); Basophils Percent Auto 1.2 % (0.2-1.2); Eosinophils Absolute Auto 0.4 K/mm3 (0-0.3); Eosinophils Percent Auto 6.6 % (0-4.4); Hemoglobin 11.9 g/dL (12.0-15.0); Immature Granulocyte Absolute 0.03 K/mm3 (0.00-0.031); Immature Granulocyte Percent A 0.5 % (0-0.5); Lymphocytes Absolute Auto 1.33 K/mm3 (0.9-3.2); Mean Corpuscular HGB Conc 31.3 g/dl (32-36); Mean Corpuscular Hemoglobin 29.5 pg (26-34); Mean Corpuscular Volume 94.1 fl (80-100); Mean Platelet Volume 10.3 fl (7.4-10.4); Monocytes Absolute Auto 0.7 K/mm3 (0.1-0.6); Monocytes Percent Auto 11.8 % (2.6-8.5); Neutrophils Absolute Auto 3.3 K/mm3 (1.3-6.7); Neutrophils Percent Auto 56.9 % (45.5-73.1); Platelet Count Result 294 k/mm3 (150-375); Red Blood Count 4.04 M/mm3 (4.2-5.4); Red Cell Distribution Width 13.7 % (11.5-14.5); White Blood Count 5.8 K/mm3 (4.5-10.0)
[2022-05-21 19:32] LABS: Alanine Aminotransferase 45 U/L (6-35); Albumin Level 4.2 g/dL (3.5-5.1); Alkaline Phosphatase 74 U/L (38-126); Anion Gap 6 mmol/L (8-16); Aspartate Amino Transferase 50 U/L (14-36); Bilirubin,Total 0.7 mg/dL (0.2-1.3); Blood Urea Nitrogen 18 mg/dL (7-17); Calcium 9.2 mg/dL (8.4-10.2); Carbon Dioxide 31 mmol/L (22-30); Chloride 102 mmol/L (98-107); Cholesterol 145 mg/dL (0-200); Estimated Glomerular Filt Rate > 60; Glucose 101 mg/dL (65-110); HDL Direct 46 mg/dL; Potassium 4.4 mmol/L (3.4-5.0); Sodium 139 mmol/L (137-145); Triglycerides 134 mg/dL (<150)
[2022-05-21 19:43] LABS: LDL Cholesterol Direct 66 mg/dL
== END 2022-05-21 09:02 | disposition home or self-care (01) ==
LOC: ANHGOSHLAB 09:05
PROVIDERS: PCP Family Medicine; Visit Provider Nurse Practitioner Family
DX: E03.9 Hypothyroidism, unspecified (principal); I10 Essential (primary) hypertension; E78.5 Hyperlipidemia, unspecified
CPT/HCPCS: 36415; 80053; 80061; 84443; 85025

== ENCOUNTER 2022-07-03 09:01 | Outpatient (CLI) | payer MEDICARE, SELFPAY ==
--- NOTE | ~2022-07-03 | DEXA_ITS ---
Bone Density Report Name: FLO MACIAS Age: 72 Sex: Female Ethnicity: White Date of : 1950 Indication: postmenopausal; screening for osteoporosis; height loss; hysterectomy; rheumatoid arthritis; Referring Provider: DENISE BONNER Study: Bone densitometry was performed. Exam Date: July 03, 2022 Accession number: [id number] Bone Density: Region BMD T-score Z-score Classification AP Spine(L1-L4) 1.444 3.6 6.0 Normal Femoral Neck (Left) 0.861 0.1 2.2 Normal Total Hip (Left) 1.094 1.2 3.0 Normal Femoral Neck (Right) 0.781 -0.6 1.4 Normal Total Hip (Right) 1.058 0.9 2.7 Normal Total Hip Mean 1.076 1.1 2.9 Normal World Health Organization criteria for BMD impression classify patients as: Normal (T-score at or above -1.0), Osteopenia (T-score between -1.0 and -2.5), or Osteoporosis (T-score at or below -2.5). 10-year Fracture Risk: FRAX not reported because: All T-scores for Spine Total, Hip Total, Femoral Neck at or above -1.0 Previous Exams: Region Exam Age BMD T-score BMD Change BMD Change Date g/cm2 vs Baseline vs Previous Total Hip(Left) 07/03/2022 72 1.094 1.2 0.006 (0.5%) -0.067 (-5.7%) 02/22/2019 69 1.161 1.8 0.073 (6.7%)* 0.073 (6.7%)* 09/07/2015 65 1.089 1.2 Total Hip(Right) 07/03/2022 72 1.058 0.9 0.074 (7.5%)* 0.014 (1.3%) 02/22/2019 69 1.044 0.8 0.060 (6.1%)* 0.060 (6.1%)* 09/07/2015 65 0.984 0.3 *Denotes significance at 95% confidence level, LSC for Total Hip = 0.027 g/cm2 Clinical Information Provided by Patient: Has rheumatoid arthritis Has used the following medications: Vitamin D Has the following medical conditions: Hysterectomy Patient maximum height was 67 Menopause Age: 29 No regular weight bearing exercise Drinks caffeinated beverages Onset of menses at age 11 Number of children 2 Impression: The patient has normal bone mass. The BMD for the Total Hip(Left) decreased, changing by -5.7% since the last DXA exam. Discussion: BONE DENSITY IS ABOVE THE MINIMUM DESIRABLE LEVEL AT ALL SKELETAL SITES TESTED. This patient?s bone mineral density is above the minimum desirable level (T-score -1.0 or better) at all sites measured. The patient should follow a healthful lifestyle (good nutrition with adequate calcium and vitamin D, and appropriate weight-bearing exercise). Follow-Up: Consider repeating this study in 3 to 4 years to reassess this patient's status, or sooner if there is some new
== END 2022-07-03 09:02 | disposition home or self-care (01) ==
PROVIDERS: PCP Family Medicine; Visit Provider Nurse Practitioner Family
DX: Z78.0 Asymptomatic menopausal state (principal)
CPT/HCPCS: 77080

== ENCOUNTER 2022-10-20 08:57 | Outpatient (CLI) | payer MEDICARE, SELFPAY ==
[2022-10-20 19:44] LABS: Basophils Absolute Auto 0.1 K/mm3 (0.0-0.1); Basophils Percent Auto 1.4 % (0.2-1.2); Eosinophils Absolute Auto 0.4 K/mm3 (0-0.3); Eosinophils Percent Auto 6.3 % (0-4.4); Hematocrit 36.1 % (37.0-47.0); Hemoglobin 11.2 g/dL (12.0-15.0); Immature Granulocyte Absolute 0.02 K/mm3 (0.00-0.031); Immature Granulocyte Percent A 0.3 % (0-0.5); Lymphocytes Absolute Auto 1.35 K/mm3 (0.9-3.2); Lymphocytes Percent Auto 23.1 % (18.3-44.2); Mean Corpuscular Hemoglobin 29.2 pg (26-34); Mean Platelet Volume 10.3 fl (7.4-10.4); Monocytes Absolute Auto 0.5 K/mm3 (0.1-0.6); Monocytes Percent Auto 8.5 % (2.6-8.5); Neutrophils Absolute Auto 3.5 K/mm3 (1.3-6.7); Neutrophils Percent Auto 60.4 % (45.5-73.1); Platelet Count Result 290 k/mm3 (150-375); Red Blood Count 3.84 M/mm3 (4.2-5.4); Red Cell Distribution Width 13.1 % (11.5-14.5); White Blood Count 5.9 K/mm3 (4.5-10.0)
== END 2022-10-20 08:58 | disposition home or self-care (01) ==
PROVIDERS: Nurse Practitioner Family; PCP Family Medicine; Visit Provider Internal Medicine Pulmonary Disease
DX: G47.61 Periodic limb movement disorder (principal); J44.9 Chronic obstructive pulmonary disease, unspecified; M25.50 Pain in unspecified joint
CPT/HCPCS: 36415; 82728; 85025

== ENCOUNTER 2022-10-23 10:13 | Emergency (ER) | payer MEDICARE, SELFPAY ==
[2022-10-23 10:21] VITALS: BP 169/63; PULSE 66; RESP 16; TEMP 36.2; O2SAT 98
--- NOTE | 2022-10-23 10:40 | ED.WOUNDLAC ---
HPI - Wound/Laceration General Chief Complaint: Wound/Laceration Stated Complaint: FOREHEAD LACERATION Time Seen by Provider: 10/23/22 10:14 Source: patient Mode of arrival: ambulatory Limitations: no limitations History of Present Illness HPI narrative: Matilde is a 72-year-old female patient presenting to the clinic today with complaints of a forehead laceration. She reports that she tripped over shoe and hit her head on a cardboard box causing the laceration to her forehead. She is reporting a little bit of neck pain but thinks this may be muscle related. She denies any LOC. Onset (ago): unknown Related Data Home Medications Medication Instructions Recorded Confirmed cholecalciferol (vitamin D3) 50 2,000 unit PO DAILY 12/17/18 10/23/22 mcg (2,000 unit) tablet hydroxychloroquine 100 mg tablet 100 mg PO BID 04/28/22 10/23/22 Allergies Allergy/AdvReac Type Severity Reaction Status Date / Time Sulfa (Sulfonamide Allergy Unknown Hives Verified 10/15/22 08:57 Antibiotics) Tetanus Vaccines and Toxoid Allergy Unknown Swelling Verified 10/15/22 08:57 codeine Allergy Other Verified 10/23/22 10:19 Review of Systems Review of Systems: Pertinent positives per HPI. Patient denies any fever, chills, rash, headache, visual changes, dizziness, cough, runny nose, sore throat, shortness of breath, chest pain, palpitations, nausea, vomiting, diarrhea, constipation, abdominal pain, or any urinary issues. PMFSH Past Medical History Medical History Abnormality of heart beat Achilles tendinitis of both lower extremities Anxiety Arthritis Chronic GERD Chronic headaches Claustrophobia Degenerative arthritis of knee, bilateral Essential (primary) hypertension Flexion contracture of knee Hyperthyroidism Hypothyroidism, unspecified Insomnia Obstructive sleep apnea (adult) (pediatric) Posterior calcaneal exostosis Vision changes Surgical History Surgical History H/O: hysterectomy History of esophagogastroduodenoscopy (EGD) History of knee replacement procedure of right knee Family History Family History Grandparent Family history of coronary artery disease Father Colon cancer Mother Cerebrovascular accident Other Depression HLD (hyperlipidemia) Heart disease Hypertension Social History Social History Smoking status: Never smoker Alcohol intake: current Alcohol use details: Rarely Substance use: never Substance use type: does not use Lack of Transportation: No Lack of Food: Never True Current Housing: I Have Housing Concerned About Future Housing: No Difficulty Paying Gas/Electric Bills: No Difficulty Paying for Meds: No Currently Unemployed: No Education: Bachelor's Degree Difficulty w/ Childcare or Family Care: No Living arrangements: with family Additional living arrangements comments: . 2 children both grown and out of house. 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 Gender identity (if verbalized by the patient): Female Sexual Orientation (if Verbalized by the Patient): Straight or Heterosexual Spiritual care concerns: No Agree to blood products: Yes Comments At the time of my signature, I reviewed and agree with the nursing past medical, surgical, social, and family history. There is no relevant family history pertinent to the patient complaint. Exam Narrative: General: Well-developed, well nourished, in no apparent distress Head: Normocephalic, atraumatic. Cardio: Regular rate and rhythm, s1 and s2 normal, no murmur appreciated. Resp: Clear to auscultation bilaterally, no rh
== END 2022-10-23 10:52 | disposition home or self-care (01) ==
PROVIDERS: Emergency Provider Nurse Practitioner Family; PCP Family Medicine
DX: S01.81XA Laceration without foreign body of other part of head, initial encounter (principal); S16.1XXA Strain of muscle, fascia and tendon at neck level, initial encounter; W18.09XA Striking against other object with subsequent fall, initial encounter; M19.90 Unspecified osteoarthritis, unspecified site; K21.9 Gastro-esophageal reflux disease without esophagitis; M17.0 Bilateral primary osteoarthritis of knee; E05.90 Thyrotoxicosis, unspecified without thyrotoxic crisis or storm; E03.9 Hypothyroidism, unspecified; Z96.653 Presence of artificial knee joint, bilateral
CPT/HCPCS: 99212; G0463

== ENCOUNTER 2022-11-13 09:29 | Outpatient (CLI) | payer MEDICARE, SELFPAY ==
[2022-11-13 18:33] LABS: Basophils Absolute Auto 0.1 K/mm3 (0.0-0.1); Eosinophils Absolute Auto 0.3 K/mm3 (0-0.3); Eosinophils Percent Auto 5.4 % (0-4.4); Hematocrit 35.9 % (37.0-47.0); Hemoglobin 11.3 g/dL (12.0-15.0); Immature Granulocyte Absolute 0.01 K/mm3 (0.00-0.031); Immature Granulocyte Percent A 0.2 % (0-0.5); Lymphocytes Absolute Auto 1.15 K/mm3 (0.9-3.2); Lymphocytes Percent Auto 20.1 % (18.3-44.2); Mean Corpuscular HGB Conc 31.5 g/dl (32-36); Mean Corpuscular Hemoglobin 29.2 pg (26-34); Mean Corpuscular Volume 92.8 fl (80-100); Mean Platelet Volume 10.7 fl (7.4-10.4); Monocytes Absolute Auto 0.5 K/mm3 (0.1-0.6); Monocytes Percent Auto 9.1 % (2.6-8.5); Neutrophils Absolute Auto 3.7 K/mm3 (1.3-6.7); Neutrophils Percent Auto 64.2 % (45.5-73.1); Platelet Count Result 293 k/mm3 (150-375); Red Blood Count 3.87 M/mm3 (4.2-5.4); White Blood Count 5.7 K/mm3 (4.5-10.0)
[2022-11-13 19:02] LABS: Vitamin D 25 Hydroxy 39.9 ng/mL
[2022-11-13 19:10] LABS: Alanine Aminotransferase 18 U/L (6-35); Albumin Level 4.2 g/dL (3.5-5.1); Alkaline Phosphatase 73 U/L (38-126); Anion Gap 9 mmol/L (8-16); Aspartate Amino Transferase 27 U/L (14-36); Bilirubin,Total 0.7 mg/dL (0.2-1.3); Blood Urea Nitrogen 21 mg/dL (7-17); Calcium 9.2 mg/dL (8.4-10.2); Carbon Dioxide 25 mmol/L (22-30); Chloride 103 mmol/L (98-107); Cholesterol 155 mg/dL (0-200); Estimated Glomerular Filt Rate > 60; Glucose 108 mg/dL (65-110); HDL Direct 51 mg/dL; Potassium 4.2 mmol/L (3.4-5.0); Sodium 137 mmol/L (137-145); Triglycerides 106 mg/dL (<150)
[2022-11-13 19:21] LABS: LDL Cholesterol Direct 76 mg/dL
[2022-11-13 20:20] LABS: Hemoglobin A1C 5.4 % (<5.7)
== END 2022-11-13 09:30 | disposition home or self-care (01) ==
LOC: ANHGOSHLAB 09:31
PROVIDERS: Internal Medicine Pulmonary Disease; PCP Family Medicine; Visit Provider Nurse Practitioner Family
DX: I10 Essential (primary) hypertension (principal); Z13.29 Encounter for screening for other suspected endocrine disorder; Z00.00 Encounter for general adult medical examination without abnormal findings; Z13.220 Encounter for screening for lipoid disorders; E11.9 Type 2 diabetes mellitus without complications; Z13.21 Encounter for screening for nutritional disorder; D64.9 Anemia, unspecified
CPT/HCPCS: 36415; 80053; 80061; 82306; 82728; 83036; 84443; 85025

== ENCOUNTER 2023-04-24 08:53 | Outpatient (CLI) | payer MEDICARE, SELFPAY | END 2023-04-24 08:54 | disposition home or self-care (01) | PROVIDERS: PCP Family Medicine; Visit Provider Nurse Practitioner Family | DX: D64.9 Anemia, unspecified (principal); R53.83 Other fatigue | CPT/HCPCS: 36415; 82607; 82728 ==

== ENCOUNTER 2023-05-12 10:17 | Emergency (ER) | payer MEDICARE, SELFPAY ==
--- NOTE | ~2023-05-12 | XR_ITS ---
Left Hand Technique: PA, oblique, and lateral views were obtained. Clinical History: Injury Findings: No acute fracture or dislocation is seen. Osseous alignment is anatomic. There is severe de generative change of the first CMC joint. There are mild scattered degenerative changes of the interp halangeal joints in the hand. Soft tissues are unremarkable. Impression: Degenerative changes, as above. Reviewed, dictated and finalized at location M. Impression: Degenerative changes, as above.
[2023-05-12 10:22] VITALS: BP 146/63; PULSE 61; RESP 16; TEMP 36.6; O2SAT 97
--- NOTE | 2023-05-12 10:32 | ED.UPPEXIN ---
HPI - Extremity Injury (Upper) General Chief Complaint: Extremity Injury, Upper Stated Complaint: Injured Finger Time Seen by Provider: 05/12/23 11:01 Source: patient and RN notes reviewed Mode of arrival: ambulatory Limitations: no limitations History of Present Illness HPI narrative: 73-year-old female presents with concern for pain to the 5th digit of the left hand below the 5th digit. Reports last night she hyperextended the finger while using any animal tract. She reports pain, swelling, pain with flexion MD complaint: injury to: left and hand Related Data Home Medications Medication Instructions Recorded Confirmed cholecalciferol (vitamin D3) 50 2,000 unit PO DAILY 12/17/18 05/12/23 mcg (2,000 unit) tablet albuterol sulfate 90 mcg/actuation 2 inh inhalation DIRECTED 05/12/23 05/12/23 aerosol inhaler Allergies Allergy/AdvReac Type Severity Reaction Status Date / Time Sulfa (Sulfonamide Allergy Unknown Hives Verified 05/12/23 10:18 Antibiotics) Tetanus Vaccines and Toxoid Allergy Unknown Swelling Verified 05/12/23 10:18 codeine Allergy Other Verified 05/12/23 10:18 Review of Systems Review of Systems: CONSTITUTIONAL: Denies malaise, chills, sweats, or fever. CARDIOVASCULAR: Denies chest pain, palpitations, or edema. RESPIRATORY: Denies cough or dyspnea. SKIN: Denies rash or itching, bruising, redness MUSCULOSKELETAL: Reports pain the 5th digit of left hand, swelling NEUROLOGIC: Denies numbness, weakness All systems reviewed & are unremarkable except as noted in HPI and below PMFSH Past Medical History Medical History Abnormality of heart beat Achilles tendinitis of both lower extremities Anxiety Arthritis Chronic GERD Chronic headaches Claustrophobia COVID Degenerative arthritis of knee, bilateral Essential (primary) hypertension Flexion contracture of knee Hyperthyroidism Hypothyroidism, unspecified Insomnia Obstructive sleep apnea (adult) (pediatric) Posterior calcaneal exostosis Vision changes Surgical History Surgical History H/O: hysterectomy History of esophagogastroduodenoscopy (EGD) History of knee replacement procedure of right knee Family History Family History Grandparent Family history of coronary artery disease Father Colon cancer Mother Cerebrovascular accident Other Depression HLD (hyperlipidemia) Heart disease Hypertension Social History Social History Smoking status: Never smoker Alcohol intake: current Alcohol use details: Rarely Substance use: never Substance use type: does not use Lack of Transportation: No Lack of Food: Never True Current Housing: I Have Housing Concerned About Future Housing: No Difficulty Paying Gas/Electric Bills: No Difficulty Paying for Meds: No Currently Unemployed: No Education: Bachelor's Degree Difficulty w/ Childcare or Family Care: No Living arrangements: with family Additional living arrangements comments: . 2 children both grown and out of house. 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 Gender identity (if verbalized by the patient): Female Sexual Orientation (if Verbalized by the Patient): Straight or Heterosexual Spiritual care concerns: No Agree to blood products: Yes Comments At time of signature, agree with nursing past medical, surgical, social and family history. There is no relevant family history pertinent to the presenting complaint Exam Narrative: GENERAL: Well-appearing, well-nourished, and in no acute distress. HEAD: Normocephalic, atraumatic. EYES: PERRLA, conjunctivae clear NECK: Supple. CHEST: Speaks in ful
== END 2023-05-12 11:20 | disposition home or self-care (01) ==
PROVIDERS: Emergency Provider Nurse Practitioner; PCP Family Medicine
DX: S63.92XA Sprain of unspecified part of left wrist and hand, initial encounter (principal); X50.9XXA Other and unspecified overexertion or strenuous movements or postures, initial encounter; M19.90 Unspecified osteoarthritis, unspecified site; K21.9 Gastro-esophageal reflux disease without esophagitis; M17.0 Bilateral primary osteoarthritis of knee; E05.90 Thyrotoxicosis, unspecified without thyrotoxic crisis or storm; E03.9 Hypothyroidism, unspecified; Z86.16 Personal history of COVID-19
CPT/HCPCS: 29130; 73130; 99213; G0463

== ENCOUNTER 2023-05-22 09:10 | Outpatient (CLI) | payer MEDICARE, SELFPAY ==
[2023-05-22 12:41] LABS: Basophils Absolute Auto 0.1 K/mm3 (0.0-0.1); Eosinophils Absolute Auto 0.5 K/mm3 (0-0.3); Eosinophils Percent Auto 7.7 % (0-4.4); Hematocrit 38.7 % (37.0-47.0); Hemoglobin 12.2 g/dL (12.0-15.0); Immature Granulocyte Absolute 0.02 K/mm3 (0.00-0.031); Immature Granulocyte Percent A 0.3 % (0-0.5); Lymphocytes Absolute Auto 1.39 K/mm3 (0.9-3.2); Lymphocytes Percent Auto 22.3 % (18.3-44.2); Mean Corpuscular HGB Conc 31.5 g/dl (32-36); Mean Corpuscular Hemoglobin 30.3 pg (26-34); Mean Platelet Volume 10.5 fl (7.4-10.4); Monocytes Absolute Auto 0.5 K/mm3 (0.1-0.6); Monocytes Percent Auto 8.2 % (2.6-8.5); Neutrophils Absolute Auto 3.8 K/mm3 (1.3-6.7); Neutrophils Percent Auto 60.5 % (45.5-73.1); Platelet Count Result 267 k/mm3 (150-375); Red Blood Count 4.03 M/mm3 (4.2-5.4); Red Cell Distribution Width 13.1 % (11.5-14.5); White Blood Count 6.2 K/mm3 (4.5-10.0)
[2023-05-22 12:58] LABS: Alanine Aminotransferase 15 U/L (6-35); Albumin Level 4.4 g/dL (3.5-5.1); Alkaline Phosphatase 84 U/L (38-126); Anion Gap 7 mmol/L (4-12); Aspartate Amino Transferase 28 U/L (14-36); Bilirubin,Total 0.5 mg/dL (0.2-1.3); Blood Urea Nitrogen 23 mg/dL (7-17); Calcium 9.7 mg/dL (8.4-10.2); Carbon Dioxide 26 mmol/L (22-30); Chloride 105 mmol/L (98-107); Cholesterol 158 mg/dL (0-200); Estimated Glomerular Filt Rate 48; Glucose 107 mg/dL (65-110); HDL Direct 48 mg/dL; Potassium 4.5 mmol/L (3.4-5.0); Sodium 138 mmol/L (137-145); Triglycerides 116 mg/dL (<150)
[2023-05-22 13:09] LABS: LDL Cholesterol Direct 84 mg/dL
[2023-05-22 14:26] LABS: Vitamin D 25 Hydroxy 29.3 ng/mL
[2023-05-22 15:11] LABS: Hemoglobin A1C 5.4 % (<5.7)
[2023-05-27 09:33] LABS: CRP, High Sensitivity >10.0 mg/L
== END 2023-05-22 09:11 | disposition home or self-care (01) ==
LOC: ANHGOSHLAB 09:11
PROVIDERS: PCP Family Medicine; Visit Provider Nurse Practitioner Family
DX: D64.9 Anemia, unspecified (principal); E03.9 Hypothyroidism, unspecified; E78.5 Hyperlipidemia, unspecified; G47.33 Obstructive sleep apnea (adult) (pediatric); G47.61 Periodic limb movement disorder; I10 Essential (primary) hypertension; I47.29 Other ventricular tachycardia; R79.82 Elevated C-reactive protein (CRP); Z13.29 Encounter for screening for other suspected endocrine disorder; E55.9 Vitamin D deficiency, unspecified; R73.03 Prediabetes; R06.02 Shortness of breath; E53.8 Deficiency of other specified B group vitamins
CPT/HCPCS: 36415; 80053; 80061; 82306; 82607; 83036; 84443; 85025; 86141

== ENCOUNTER 2023-06-26 11:27 | Outpatient (CLI) | payer MEDICARE, SELFPAY ==
--- NOTE | ~2023-06-26 | XR_ITS ---
AP view of the pelvis and AP and lateral views of the right hip Clinical history: Pain Findings: No acute fracture or dislocation is seen. Osseous alignment is anatomic. There is mild bila teral hip joint degenerative change. There is also mild degenerative change of the bilateral SI joint s. Soft tissues are unremarkable. Impression: Mild bilateral hip joint degenerative change. Mild degenerative changes bilateral SI joints. Reviewed, dictated and finalized at location . Impression: Mild bilateral hip joint degenerative change. Mild degenerative changes bilateral SI joints.
== END 2023-06-26 11:28 ==
PROVIDERS: PCP Family Medicine; Visit Provider Nurse Practitioner Family
DX: M25.551 Pain in right hip (principal); M16.0 Bilateral primary osteoarthritis of hip
CPT/HCPCS: 73502

== ENCOUNTER 2023-08-04 13:22 | Outpatient (CLI) | payer MEDICARE, SELFPAY ==
--- NOTE | ~2023-08-04 | XR_ITS ---
EXAMINATION: XR lg joint inject/asp w image DATE: 08/04/2023 14:08 INDICATION: Right hip pain. TECHNIQUE: A time-out was performed to verify the patient's name, date of , and procedure to b e performed. The procedure including the risks, benefits, and alternatives was discussed with the pat ient. Risks discussed included bleeding and infection. The patient understood the risks and agreed to proceed. The skin overlying the right hip joint was prepped and draped in usual sterile fashion. A nesthetic was administered with 1% lidocaine subcutaneously. A 22 G needle was advanced under fluoro scopic guidance into the joint. Subsequently, injectate consisting of 5 mL 1% lidocaine and 2 mL 10 mg/mL Kenalog was instilled. The needle was removed and the entry site was cleaned and dressed. The re were no immediate complications. Fluoroscopy exposure time w 0.1 minutes. The total number of jamal ges was 1. FINDINGS: Real-time fluoroscopy demonstrates the needle in the right hip joint. IMPRESSION: 1. Fluoroscopy guided right hip joint injection of local anesthetic and steroid. Reviewed, dictated and finalized at location A. IMPRESSION: 1. Fluoroscopy guided right hip joint injection of local anesthetic and steroid .
== END 2023-08-04 13:23 | disposition home or self-care (01) ==
PROVIDERS: PCP Family Medicine; Visit Provider Nurse Practitioner Family
DX: M25.551 Pain in right hip (principal)
CPT/HCPCS: 20610; 77002; J3301

== ENCOUNTER 2023-11-02 09:22 | Outpatient (CLI) | payer MEDICARE, SELFPAY ==
--- NOTE | ~2023-11-02 | XR_ITS ---
Lumbosacral Spine: AP and lateral views Clinical History: Pain Findings: The normal lordotic curve is maintained. No fracture seen. There is minimal grade 1 anterol isthesis of L4 over L5. There is advanced degenerative disc narrowing at L3-L4 and L5-S1. There is mo derate degenerative disc narrowing at remaining lumbar levels. There is severe facet arthropathy thro ughout the lumbar spine. The sacroiliac joints are normally outlined. Impression: Severe degenerative spondylosis, as above. Minimal grade 1 anterolisthesis of L4 over L5. Reviewed, dictated and finalized at location M. Impression: Severe degenerative spondylosis, as above. Minimal grade 1 anterolisthesis of L 4 over L5.
== END 2023-11-02 09:23 | disposition home or self-care (01) ==
PROVIDERS: PCP Chiropractor; Visit Provider Nurse Practitioner Family
DX: M54.50 Low back pain, unspecified (principal)
CPT/HCPCS: 72100

== ENCOUNTER 2024-01-19 07:45 | Outpatient (CLI) | payer MEDICARE, SELFPAY ==
--- NOTE | ~2024-01-19 | MR_ITS ---
MRI of the lumbar spine Clinical History: Spondylolisthesis Technique: Axial T2-weighted images, and sagittal T1-weighted, T2-weighted, and T2 fat-sat images wer e acquired. Findings: There is no fracture or subluxation of lumbar spine. Vertebral bodies maintain normal heigh t. No bone marrow signal abnormality seen. At L1-L2, there is moderate degenerative disc narrowing. There is mild disc bulge and moderate to adv anced facet arthropathy. No central canal stenosis. There is severe left neural foraminal narrowing, and moderate right neural foraminal narrowing. At L2-L3, there is moderate degenerative disc narrowing. Diffuse disc bulge and severe facet arthropa thy result in severe spinal canal stenosis/thecal sac compression. There is severe bilateral neural f oraminal, otherwise. At L3-L4, there is advanced degenerative disc narrowing. Disc bulge and severe facet arthropathy resu lt in severe spinal canal stenosis/thecal sac compression. There is severe bilateral neural foraminal compromise. At L4-L5, there is moderate to advanced degenerative disc narrowing. Disc bulge and severe facet arth ropathy result in severe spinal canal stenosis/thecal sac compression. There is moderate to advanced bilateral neural foraminal narrowing. At L5-S1, there is moderate degenerative disc narrowing. There is advanced facet arthropathy. No spin al canal stenosis. There is severe bilateral neural foraminal narrowing, left worse than right. Paravertebral soft tissues are unremarkable. Impression: Severe degenerative spondylosis throughout the lumbar spine, as detailed above. Reviewed, dictated and finalized at [facility]. RECOVERY OPERATOR Impression: Severe degenerative spondylosis throughout the lumbar spine, as detailed above.
== END 2024-01-19 07:46 | disposition home or self-care (01) ==
PROVIDERS: PCP Nurse Practitioner Family; Referring Provider Chiropractor; Visit Provider Nurse Practitioner Family
DX: M43.10 Spondylolisthesis, site unspecified (principal); M47.816 Spondylosis without myelopathy or radiculopathy, lumbar region
CPT/HCPCS: 72148

== ENCOUNTER 2024-03-10 08:00 | Outpatient (CLI) | payer MEDICARE, SELFPAY ==
--- NOTE | ~2024-03-10 | XR_ITS ---
EXAMINATION: XR hip BI 2V w AP pelvis DATE: 03/10/2024 09:06 INDICATION: Spondylosis without myelopathy or radiculopathy. TECHNIQUE: An anteroposterior view of the pelvis and 2 views of each hip were obtained. COMPARISON: Pelvis and hip radiographs 06/26/2023 FINDINGS: Alignment is normal. No fracture. There is severe lumbar spondylosis. There is severe right hip osteoarthritis and moderate left hip osteoarthritis. IMPRESSION: 1. Severe right hip osteoarthritis and moderate left hip osteoarthritis. Reviewed, dictated and finalized at location A. OUND SALES PROFESSIONAL
--- NOTE | ~2024-03-10 | XR_ITS ---
EXAMINATION: XR lumbar spine 6V w bending DATE: 03/10/2024 09:06 INDICATION: Spondylosis without myelopathy or radiculopathy. TECHNIQUE: 7 views of lumbar spine including standing views and flexion and extension views were obta ined. COMPARISON: Lumbar spine radiographs 11/02/2023 FINDINGS: There is 11 degrees dextroscoliosis of thoracolumbar spine. There is 3 mm anterolisthesis o f L4 on L5. Vertebral body heights are normal. There is mildly decreased disc height at L1-L2 and L2 on L3, moderately decreased disc height at L3-L4 and L4-L5, and severely decreased disc height at L5- S1. There is multilevel severe facet joint osteoarthritis. There is no abnormal motion on flexion or extension. IMPRESSION: 1. Severe lumbar spondylosis. 2. Thoracolumbar dextroscoliosis. Reviewed, dictated and finalized at location A. SECURITY CONSULTANT
--- NOTE | ~2024-03-10 | XR_ITS ---
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 TECHNIQUE: 3 views of the sacroiliac joints were obtained. COMPARISON: None. FINDINGS: There is thoracolumbar dextroscoliosis and severe lumbar spondylosis. No fracture. There is severe right hip osteoarthritis and moderate left hip osteoarthritis. There is mild osteoarthritis o f the sacroiliac joints. IMPRESSION: 1. Mild osteoarthritis of the sacroiliac joints. Reviewed, dictated and finalized at location A. T PREPPER
== END 2024-03-10 08:01 ==
LOC: GOSHIMG 03-30 10:13
PROVIDERS: PCP Nurse Practitioner Family; Referring Provider Family Medicine; Visit Provider Anesthesiology Pain Medicine
DX: M53.3 Sacrococcygeal disorders, not elsewhere classified (principal); M16.0 Bilateral primary osteoarthritis of hip; M47.896 Other spondylosis, lumbar region
CPT/HCPCS: 72114; 72202; 73521

== ENCOUNTER 2024-04-26 07:57 | Day surgery (SDC) | payer MEDICARE, SELFPAY ==
[2024-03-15 14:29] VITALS: BMI 41.6
--- NOTE | ~2024-04-26 | XR_ITS ---
INTRAOPERATIVE FLUOROSCOPY: CLINICAL HISTORY: 74 years old Female; NAKUL INTRA-ARTICULAR SI JT STEROID INJ PROCEDURE COMMENTS: Limited intraoperative fluoroscopy of the pelvis was performed. CUMULATIVE DOSE: 43.6 mGy FLUOROSCOPY TIME: 54.2 seconds FINDINGS/IMPRESSION: Please refer to operative note for further details. Reviewed, dictated and finalized at location A.
[2024-04-26 09:21] VITALS: BMI 41.3
--- OUTSIDE RECORDS SUMMARY | 2024-04-26 09:21 | XMS_ITS ---
Author Organization [facility] Address [address] [place], [place] [id number] Care Team Providers Care Stock Checker Name Role Phone IGLESIA TREVINO MD Primary Care Provider Unavailable Manjula Gallegos Unavailable [phone] Chaparrita Rivera Unavailable [phone] ALLERGIES Allergen (clinical drug ingredient) Drug/Non Drug Allergy documented on EMR Reaction Allergy Type Onset Date Status Tetanus (uncoded) swelling, loss of consciousness Allergy Active Sulfa (uncoded) hives Allergy Acti ve RESULTS Component Value Reference Range Notes AST (SGOT) Reviewed date:04/21/2024 03:04:50 PM Interpretation: Performing Lab:[facility] [place], [address] [place] [address], Phone - [phone], Director - PhDFreedomi Notes/Report: AST (SGOT) 17 0-40 IU/L Creatinine, Serum Reviewed date:04/21/2024 03:04:50 PM Interpretation: Performing Lab:[facility], [address] [place] [address], Phone - [phone], Director - PhDRicchiuti Notes/Report: Creatinine 1.03 0.57-1.00 mg/dL eGFR 56 >59 mL/min/1.73 ALT (SGPT) Reviewed date:04/21/2024 03:04:50 PM Interpretation: Performing Lab:[facility] [place], [address] [facility], Phone - [phone], Director - PhDRicflaviai Notes/Report: ALT (SGPT) 12 0-32 IU/L CBC With Differential/Platel et Reviewed date:04/21/2024 03:04:50 PM Interpretation: Performing Lab:[facility] [place], [address] [facility], Phone - [phone], Director - Sascha Notes/Report: WBC 6.5 3.4-10.8 [...] Westergren Reviewed date:04/21/2024 03:04:50 PM Interpretation: Performing Lab:[facility] [place], [address] [facility], Phone - [phone], Director - Sascha Notes/Report: Sedimentation Rate-Westergren 19 0-40 mm/hr Rheumatoid Arthritis Factor Reviewed date:04/21/2024 03:04:50 PM Interpretation: Performing Lab:[facility] [place], [address] [facility], Phone - [phone], Director - Sascha Notes/Report: Rheumatoid Factor (RF) <10.0 <14.0 IU/mL C-Reactive Protein, Quant Reviewed date:04/21/2024 03:04:50 PM Interpretation: Performing Lab:[facility], [address] [facility], Phone - [phone], Director - [facility] Notes/Report: C-Reactive Protein, Quant 14 0-10 mg/L CCP IgG Antibodies Reviewed date:04/21/2024 03:04:50 PM Interpretation: Performing Lab:[facility], [address] [facility], Phone - [phone], Director - Sascha Notes/Report: Anti-CCP Ab, IgG/IgA [...] [facility], [address] [place], [place] [id number] 04/20/2024 Chaparrita Rivera Primary generalized (osteo)arthritis M15.0 ; Positive anti-CCP test R76.8 and Other chcf (current) drug therapy Z79.899 ASSESSMENTS Encounter Date Diagnosis Assessment Notes Treatment Notes Treatment Clinical Notes 04/20/2024 Primary generalized (osteo)arthritis (ICD-10 - M15.0) 04/20/2024 Positive anti-CCP test (ICD-10 - R76.8) 04/20/2024 Other chcf (current) drug therapy (ICD-10 - Z79.899) PLAN OF TREATMENT Medication Medication Name Sig [...] Appt Details Follow Up: 6 Months, Reason: Provider Name:Chaparrita mcknight, 10/13/2024 10:20:00 AM, [address] [facility], [address], [place], [place], [id number], Progress Notes * Examination Category Sub-Category Detail Notes General Constitutional: No acute distres s HEENT: PERRLA, Neck supple, Normal sclerae and [...] Exam Shoulders No swelling. No tenderness. NROM. Elbows No swelling. No tend erness. NROM. [...] of Present Illness) Category Sub-Category Detail Notes Rheumatology Joint pain knees and hips Joint swelling Dyspnea/SOB dry eyes dry mouth Raynaud's/ dicoloration of fingers rash dysphagia photosensitivity Back pain Oral sores Crohn's/ ulcerative colitis Family History of Rheumatic Disease NSAID's difficulty sleeping Physical Examination Category Sub-Category Detail Notes MDHAQ Summary Function (0-10):: PATIENT DID NO T COMPLETE Pain (0-10):: PATIENT DID NOT COMPLETE Patient Global Assessment of Disease Activity (0-10):: PATIENT DID NOT COMPLETE RAPID3 Score (0-30):: COULD NOT SCORE PATIENT DID NOT COMPLETE ALL CATEGORIES Physician Global Assessment of Disease Activity (0-10):: 3 Prognosis Good w/tx Erosive Damage No
--- OUTSIDE RECORDS SUMMARY | 2024-04-26 09:21 | XMS_ITS ---
Author Organization [facility] Address [address] [place], [place] [phone] Care Team Providers Care Survival Specialist Name Role Phone IGLESIA TREVINO MD Primary Care Provider Unavailable Manjula Gallegos [phone] Encounters Encounter Location Date Provider Diagnosis [facility] [address], [address] [place], [place] [phone] 10/23/2023 Manjula Gallegos PLAN OF TREATMENT Next Appt Details Provider Name:Chaparrita mcknight, 10/13/2024 10:20:00 AM, [address], [address], [place], [place], [phone],
--- OUTSIDE RECORDS SUMMARY | 2024-04-26 09:21 | XMS_ITS ---
Author Organization [facility] Address [address] [place], [place] [id number] Care Team Providers Care Cardiovascular Tech Name Role Phone IGLESIA TREVINO MD Primary Care Provider Manjula Caldwell [phone] MEDICATIONS Medication SIG (Take, Route, Frequency, Duration) Notes Start Date End Date Status Hydroxychloroquine Sulfate 2 00 mg 1 tab(s) orally 2 times a day for 90 days Active meloxicam 15 mg 1 tab(s) orally once a day for 90 days Active Encounters Encounter Location Date Provider Diagnosis [facility] [address], [address] [place], [place] [id number] 10/22/2023 Manjula Gallegos PLAN OF TREATMENT Medication Medication Name Sig Start Date Stop Date Notes Hydroxychloroquine Sulfate 200 mg 1 tab( s) orally 2 times a day for 90 days meloxicam 15 mg 1 tab(s) orally once a day for 90 days Next Appt Details Provider Name:Chaparrita mcknight, 10/13/2024 10:20:00 AM, [address], [address], [place], [place], [phone],
--- OUTSIDE RECORDS SUMMARY | 2024-04-26 09:21 | XMS_ITS | Patient Health Record ---
Author Organization [facility] Address [address] [facility] [address] [place], [place] [address] Care Team Providers Care Window Draper Name Role Phone IGLESIA TREVINO MD Primary Care Provider Unavailable Manjula Gallegos Unavailable [phone] Chaparrita Rivera Unavailable [phone] ALLERGIES Allergen (clinical drug ingredient) Drug/Non Drug Allergy documented on EMR Reaction Allergy Type Onset Date Status Tetanus (uncoded) swelling, loss of consciousness Allergy Active Sulfa (uncoded) hives Allergy Acti ve RESULTS Component Value Reference Range Notes AST (SGOT) Reviewed date:10/23/2023 03:44:56 PM Interpretation: Performing Lab:[facility], [address] [place] [address], Phone - [phone], Director - PhDFreedomi Notes/Report: AST (SGOT) 15 0-40 IU/L Creatinine, Serum Reviewed date:10/23/2023 03:45:51 PM Interpretation: Performing Lab:[facility] [place], [address] [facility], Phone - [phone], Director - PhDRicchiuti Notes/Report: Creatinine 1.21 0.57-1.00 mg/dL eGFR 47 >59 mL/min/1.73 ALT (SGPT) Reviewed date:10/23/2023 03:44:56 PM Interpretation: Performing Lab:[facility] [place], [address] [facility], Phone - [phone], Director - PhDRicflaviai Notes/Report: ALT (SGPT) 13 0-32 IU/L CBC With Differential/Platel et Reviewed date:10/23/2023 03:46:11 PM Interpretation: [facility]forming [facility], [address] [place] [address], Phone - [phone], [facility] Notes/Report: WBC 6.1 3.4-10.8 x10E3/uL RBC 3.82 [...] Westergren Reviewed date:10/23/2023 03:46:00 PM Interpretation: Performing [facility], [address] [place] [address], Phone - [phone], [facility] - [facility] Notes/Report: Sedimentation Rate-Barronergren 19 0-40 mm/hr Rheumatoid Arthritis Factor Reviewed date:10/23/2023 03:46:11 PM Interpretation: Performing [facility], [address] [place] [address], Phone - [phone], Director - Sascha Notes/Report: Rheumatoid Factor (RF) <10.0 <14.0 IU/mL C-Reactive Protein, Quant Reviewed date:10/23/2023 03:46:11 PM Interpretation: Performing Lab:[address], Phone - [phone], [facility] Notes/Report: C-Reactive Protein, Quant 16 0-10 mg/L CCP IgG Antibodies Reviewed date:10/23/2023 03:45:55 PM Interpretation: Performing Lab:[address], Phone - [phone], [facility] Notes/Report: Anti-CCP Ab, IgG/IgA 77 0-19 units Negative <20 Weak positive 20 - 39 Moderate positive 40 - 59 Strong positive >59 AST (SGOT) Reviewed date:04/21/2024 03:04:50 PM Interpretation: Performing Lab:[address], Phone - [phone], [facility] Notes/Report: AST (SGOT) 17 0-40 IU/L Creatinine, Serum Reviewed date:04/21/2024 03:04:50 PM Interpretation: Performing Lab:[address], Phone - [phone], [facility] Notes/Report: Creatinine 1.03 0.57-1.00 mg/dL eGFR 56 >59 mL/min/1.73 ALT (SGPT) Reviewed date:04/21/2024 03:04:50 PM Interpretation: Performing Lab:[address], Phone - [phone], [facility] Notes/Report: ALT (SGPT) 12 0-32 IU/L CBC With Differential/Platel et Reviewed date:04/21/2024 03:04:50 PM Interpretation: Performing Lab:[address], Phone - [phone], [facility] Notes/Report: WBC 6.5 3.4-10.8 x10E3/uL RBC 3.93 [...] Westergren Reviewed date:04/21/2024 03:04:50 PM Interpretation: Performing Lab:[facility] [address], Phone - [phone], Director - [facility] Notes/Report: Sedimentation Rate-Westergren 19 0-40 mm/hr Rheumatoid Arthritis Factor Reviewed date:04/21/2024 03:04:50 PM Interpretation: Performing Lab:[facility], [address] [place] [address], Phone - [phone], Director - [facility] Notes/Report: Rheumatoid Factor (RF) <10.0 <14.0 IU/mL C-Reactive Protein, Quant Reviewed date:04/21/2024 03:04:50 PM Interpretation: Performing Lab:[facility], [address] [place] [address], Phone - [phone], Director - [facility] Notes/Report: C-Reactive Protein, Quant 14 0-10 mg/L CCP IgG Antibodies Reviewed date:04/21/2024 03:04:50 PM Interpretation: Performing Lab:[facility], [address] [place] [address], Phone - [phone], Director - [facility] Notes/Report: Anti-CCP Ab, IgG/IgA 67 0-19 units Negative <20 Weak positive 20 - 39 Moderate positive 40 - 59 Strong positive >59 REASON FOR REFERRAL No Information MEDICATIONS Medication SIG (Take, Route, Frequency, Duration) Notes Start Date End Date Status DULoxetine 30 mg 1 cap(s) orally 2 times a day Active Flonase 50 mcg/inh 1 spray(s) in each nostril once a day Active levothyroxine 175 mcg (0.175 mg) 1 tab(s) orally once a day Active metoprolol 50 mg 1 tab(s) orally once a day Active hydrALAZINE 50 mg 1 tab(s) oral bid Active omeprazole 20 mg 1 cap(s) orally once a day Active meloxicam 15 mg 1 tab(s) orally once a day Active Losartan-HCTZ 100/12.5mg Active Hydroxychloroquine Sulfate 2 00 mg 1 tab(s) orally 2 times a day Active SOCIAL HISTORY Sex Assigned At : Social History Observation Description Sex Assigned At Unknown PROBLEMS Problem Type ICD Code Onset Dates Problem Status W/U Status Risk SNOMED Code Notes Problem Sleeping difficulty (G47.9) Active confirmed 891866037 Problem Dry eye (H04.129) Active confirmed 1622 90116 Problem Polyarthralgia (M25.50) Active confirmed 38368920 Problem Dry mouth (R68.2) Active confirmed 8771 5008 Problem Low back pain at multiple sites (M54.5) Active confirmed Low back pain (finding) (021623986) Problem Primary generalized (osteo)arthritis (M15.0) Active confirmed 929694507 Problem Positive anti-CCP test (R76.8) Active confirmed 683775424 Problem Essential (primary) hypertension (I10) Active confirmed 05155752 VITAL SIGNS Heart Rate 59 /min 04/20/2024 Blood pressure diastolic 89 mm Hg 04/20/2024 Height 65 in 04/20/2024 Blood pressure systolic 160 mm Hg 04/20/2024 Weight 254 lbs 04/20/2024 BMI 42.26 kg/m2 04/20/2024 Encounters Encounter Location Date Provider Diagnosis [facility] [address], [address] [place], [place] [id number] 10/22/2023 Chaparrita Rivera Primary generalized (osteo)arthritis M15.0 ; Positive anti-CCP test R76.8 and Other intermediate accountant (current) drug therapy Z79.899 [facility], [address] [place], [place] [id number] 04/20/2024 Chaparrita Rivera Primary generalized (osteo)arthritis M15.0 ; Positive anti-CCP test R76.8 and Other long-term (current) drug therapy Z79.899 [facility], [address] [place], [place] [phone] 10/22/2023 Manjula Gallegos [facility], [address] [place], [place] [phone] 10/23/2023 Manjula Gallegos ASSESSMENTS Encounter Date Diagnosis Assessment Notes Treatment Notes Treatment Clinical Notes 10/22/2023 Positive anti-CCP test (ICD-10 - R76.8) 10/22/2023 Primary generalized (osteo)arthritis (ICD-10 - M15.0) 04/20/2024 Positive anti-CCP test (ICD-10 - R76.8) 04/20/2024 Primary generalized (osteo)arthritis (ICD-10 - M15.0) 10/22/2023 Other long-term (current) drug therapy (ICD-10 - Z79.899) 04/20/2024 Other intermediate accountant (current) drug therapy (ICD-10 - Z79.899) PLAN OF TREATMENT Pending Test Test Name Order Date Sed Rate (IH) 06/21/2021 AST (SGOT) 04/22/2023 Creatinine, Serum 04/22/2023 ALT (SGPT) 04/22/2023 CBC With Differential/Platelet Sed Rate - Westergren 04/22/2023 C-Reactive Protein, Quant 04/22/2023 Joint Injection - knee, left 10/22/2021 AST (IH) 10/23/2020 ALT (IH) 10/23/2020 Creatinine (IH) 10/23/2020 X ray : SI joints- outside order 021 X ray : Knee, right 3 views- outside ord er 08/09/2020 X ray : Knee, left, 3 views- outside ord er 08/09/2020 Eye exam - Plaquenil 02/19/2022 Eye exam - Plaquenil 06/19/2022 X ray : Foot Left- outside order 021 X ray : Foot Right- outside order 2020 Lab slip given 04/22/2023 PT Evaluate and treat 06/19/2022 Next Appt Details Provider Name:Chaparrita mcknight, 10/13/2024 10:20:00 AM, [address] [facility], [address], [place], [place], [phone], Insurance Providers Payer Name Payer Address Payer Phone Subscriber Number Group Number Insured Name Patient Relationship to Insured Coverage Start Date Coverage End Date MEDICARE [address] [address] [place] [address] [id number] Matilde Breen Self - patient is the insured 3 DEVIN Conde/SHANA SUPP [address] [place] [address] [id number] Matilde Breen Self - patient is the insured 3 MEDICAL (GENERAL) HISTORY Medical History History ICD Code depression tension headaches sinus problems thyroid disease anxiety irregular heart beat difficulty breathing diarrhea Lack of bladder control Hot Flashes high blood pressure hemorrhoids frequent urination Surgical History Surgery Date(Month/Year) prolapse 2012 esophagus 1996,2001 hysterectomy 1979
--- OUTSIDE RECORDS SUMMARY | 2024-04-26 09:21 | XMS_ITS | Referral Summary ---
Author Organization [facility] Address [address] [place] [address] Care Team Providers Care Robotic Machine Tender Production Name Role Phone Vonda Leahy MD Primary Care Provider Allergies No known active allergies Social History Tobacco Use Types Packs/Day Years Used Date Smoking Tobacco: Never Assessed Comments No Sex and Gender Information Value Date Recorded Sex Assigned at Not on file Legal Sex Female 2:44 AM MUSEUM DOCENT Gender Identity Not on file Sexual Orientation Not on file Last Filed Vital Signs Vital Sign Reading Time Taken Comments Blood Pressure 168/79 07/10/2021 10:24 AM CDT Pulse 52 07/10/2021 10:24 AM CDT Temperature - - Respiratory Rate - - Oxygen Saturation - - Inhaled Oxygen Concentration - - Weight 98.9 kg (218 lb) 12/31/2019 8:25 AM MUSEUM DOCENT Height 165.1 cm (5' 5 ) 12/31/2019 8:25 AM MUSEUM DOCENT Body Mass Index 36.28 12/31/2019 8:25 AM MUSEUM DOCENT Plan of Treatment Not on file Procedures Procedure Name Priority Date/Time Associated Diagnosis Comments SCREENING MAMMOGRAM BILATERAL W PETAR Schedule Routine, Read Routine (OP Routine) 03/26/2023 8:41 AM MUSEUM DOCENT Screening mammogram, encounter for from Last 3 Months or Most Recently Relevant to Health Maintenance Results * Screening Mammogram Bilateral W Petar (03/26/2023 8:41 AM MUSEUM DOCENT) Anatomical Region Laterality Modality Breast Bilateral Mammography 03/26/2023 8:4 8 AM MUSEUM DOCENT Impressions 03/26/2023 8:48 AM MUSEUM DOCENT There is no mammographic evidence of malignancy. A 1 year screening mammogram is recommended. BI-RADS: 1 - Negative. The patient has been or will be contacted. The patient will be entered into a reminder system with a target due date of 1 year for her next mammogram. Electronically signed by: Earl Dee M.D. Narrative 03/26/2023 8:48 AM MUSEUM DOCENT EXAMINATION: SCREENING MAMMOGRAM BILATERAL W PETAR ORDERING HEALTHCARE PROVIDER: SELF SCREENING MAMMOGRAM HISTORY: Routine screening mammography. COMPARISON: 11/20/2021, 01/10/2021, 12/31/2019, 11/22/2018, 10/14/2017 TECHNIQUE: CC and MLO views of the bilateral breasts were obtained with digital technique using breast tomosynthesis with C view. Computer aided detection was utilized. FINDINGS: DENSITY: There are scattered fibroglandular elements in the bilateral breasts. BREASTS: There are no suspicious masses, suspicious calcifications, or other suspicious findings in either breast. There has been no suspicious interval change. us Self Screening Mammogram IMG MAMMO PROCEDURES Fi nal Result from Last 3 Months or Most Recently Relevant to Health Maintenance Insurance MEDICARE [facility] MEDICARE MEDICARE Care Teams Robotic Machine Tender Production Relationship Specialty Start Date End Date Vonda Leahy MD PCP - General Family Practice 01/16/22
--- OUTSIDE RECORDS SUMMARY | 2024-04-26 09:21 | XMS_ITS | Clinical Summary ---
Author Organization [facility] Address [address] [place] [address] Care Team Providers Care Milling Machine Set Up Operator Name Role Phone Vonda Leahy MD Primary Care Provider Allergies No known active allergies Surgical History Surgery Date Site/Laterality Comments HYSTERECTOMY Social History Tobacco Use Types Packs/Day Years Used Date Smoking Tobacco: Never Assessed Comments No Sex and Gender Information Value Date Recorded Sex Assigned at Not on file Legal Sex Female 2:44 AM PHARMACEUTICAL SALESPERSON Gender Identity Not on file Sexual Orientation Not on file Obstetrics History Para Term AB IAB SAB Ectopic Multiple Livin g Live Births 2 2 2 Date Outcome GA Total Labor Labor/2nd/3rd Weight Sex Type Anes PTL Meredith A1 A5 Name Clin Term Term Last Filed Vital Signs Vital Sign Reading Time Taken Comments Blood Pressure 168/79 07/10/2021 10:24 AM CDT Pulse 52 07/10/2021 10:24 AM CDT Temperature - - Respiratory Rate - - Oxygen Saturation - - Inhaled Oxygen Concentration - - Weight 98.9 kg (218 lb) 12/31/2019 8:25 AM PHARMACEUTICAL SALESPERSON Height 165.1 cm (5' 5 ) 12/31/2019 8:25 AM PHARMACEUTICAL SALESPERSON Body Mass Index 36.28 12/31/2019 8:25 AM PHARMACEUTICAL SALESPERSON Plan of Treatment Health Maintenance Due Date Last Done Comments Depression Screening 1948 Fall Risk Assessment 1950 Hepatitis C Screening 1950 Osteoporosis Screening-Bone Density Scan 1950 DTaP/Tdap/Td Vaccine (1 - Tdap) 02/08/1959 Hepatitis B Screening 02/08/1966 Well Visit 65+ 02/08/2013 Pneumococcal vaccine 65+ (2 of 2 - PCV) 2017 02/10/2016 Zoster Vaccine (2 of 2) 01/04/2019 11/09/2018 Influenza Vaccine (#1) 2023 9, 11/09/2017, 02/17/2013 Breast Cancer Screening-Mammogram Discontinued 03/26/2023, 01/18/2022, 01/10/2021, Additional history exists Procedures Procedure Name Priority Date/Time Associated Diagnosis Comments SCREENING MAMMOGRAM BILATERAL W PETAR Schedule Routine, Read Routine (OP Routine) 03/26/2023 8:41 AM PHARMACEUTICAL SALESPERSON Screening mammogram, encounter for from Last 3 Months or Most Recently Relevant to Health Maintenance Results * Screening Mammogram Bilateral W Petar (03/26/2023 8:41 AM PHARMACEUTICAL SALESPERSON) Anatomical Region Laterality Modality Breast Bilateral Mammography 03/26/2023 8:48 AM PHARMACEUTICAL SALESPERSON Impressions 03/26/2023 8:48 AM PHARMACEUTICAL SALESPERSON There is no mammographic evidence of malignancy. A 1 year screening mammogram is recommended. BI-RADS: 1 - Negative. The patient has been or will be contacted. The patient will be entered into a reminder system with a target due date of 1 year for her next mammogram. Electronically signed by: Earl Dee M.D. Narrative 03/26/2023 8:48 AM PHARMACEUTICAL SALESPERSON EXAMINATION: SCREENING MAMMOGRAM BILATERAL W PETAR ORDERING [...] Relevant to Health Maintenance Insurance MEDICARE [facility] MEDICARE MEDICARE Care Teams Milling Machine Set Up Operator Relationship Specialty Start Date End Date Vonda Leahy MD PCP - General Family Practice 01/16/22
--- OUTSIDE RECORDS SUMMARY | 2024-04-26 09:21 | XMS_ITS | Clinical Summary ---
Author Organization [facility] Address [address] [facility] [place] [address] Care Team Providers Care Shoe Reconditioner Name Role Phone Vonda Leahy MD Primary Care Provider Alexis Andersen DO Unavailable Source Comments [facility],non-owned Affiliates and Associated Physician Practices is amultiple site organization consisting of ambulatory clinics and hospital sitesin [place], [place], [place] and [place]. This disclosure is being madepursuant to the Care Everywhere program and may not contain all information available regarding this patient. Last updated 17.[facility] Allergies Active Allergy Reactions Criticality Noted Date Comments Codeine Other Medium 03/25/2011 Tachycardia and Light headed Sulfa Drugs Urticaria Medium 03/25/2011 Sulfacetamide Urticaria Medium 08/04/2022 Tetanus Toxoid Swelling,Other High 04/02/2011 Loss of consciousness/ passed out Other reaction(s): swelling, loss of consciousness Medications * Be aware that medications may not be up to date on this document. Alwaysverify current medications with the patient. Medication Sig Dispensed Refills Start Date End Date Status docusate sodium (COLACE) 100 MG capsuleIndicatio ns:Constipation Take 1 Cap by mouth 2 times daily. 60 Cap 2 04/08/2011 Active omeprazole (PRILOSEC) 20 MG capsuleIndicatio ns:Gastroesophag eal Reflux Disease Take 1 capsule by mouth 2 times daily Reasons: Gastroesophageal Reflux Disease 06/07/2021 Active meloxicam (MOBIC) 15 MG tabletIndication s:Rheumatoid Arthritis Take 1 tablet by mouth once daily Reasons: Rheumatoid Arthritis 06/19/2021 Active DULoxetine (CYMBALTA) 30 MG capsuleIndicatio ns:Major Depressive Disorder Take 2 capsules by mouth once daily Reasons: Major Depressive Disorder 07/03/2021 Active EUTHYROX 175 MCG tabletIndication s:Hypothyroidism Take 1 tablet by mouth once daily Reasons: Underactive Thyroid 05/02/2021 Active hydrALAZINE (Apresoline) 50 MG tabletIndication s:Hypertension Take 1 tablet by mouth 2 times daily Reasons: High Blood Pressure Disorder 09/16/2021 Active tobramycin-dexAM ETHasone (Tobradex) 0.3-0.1 % ophthalmic suspension INSTILL 1 DROP INTO EACH EYE AT BEDTIME 10/11/2021 Active fluticasone propionate (Flonase) 50 MCG/ACT nasal sprayIndications :Allergic Rhinitis [place] 2 (two) sprays into each nostril once daily Reasons: Allergic Rhinitis Active zolpidem (Ambien) 10 MG tabletIndication s:Insomnia Take 1 tablet by mouth nightly as needed for Insomnia Reasons: Trouble Sleeping Active Vitamin D, Cholecalciferol, 25 MCG (1000 UT) CAPSIndications: Vitamin D Deficiency Take 3 capsules by mouth once daily Reasons: Vitamin D Deficiency Active Probiotic Product (PROBIOTIC BLEND PO) Take 1 tablet by mouth once daily Active losartan-hydroCH LOROthiazide (Hyzaar) 100-12.5 MG tabletIndication s:Hypertension Take 1 (one) tablet by mouth once daily Reasons: High Blood Pressure Disorder Active metoprolol succinate XL 24hr (Toprol XL) 25 MG tabletIndication s:Hypertension Take 25 mg by mouth once daily Reasons: High Blood Pressure Disorder 05/30/2022 Active FeroSul 325 (65 Fe) MG tabletIndication s:Iron Deficiency Take 1 tablet by mouth once daily Reasons: Iron Deficiency 04/15/2022 Active hydroxychloroqui ne (Plaquenil) 200 MG tabletIndication s:Rheumatoid Arthritis Take 1 tablet by mouth 2 times daily Reasons: Rheumatoid Arthritis Active polyethylene glycol 3350 (GlycoLax) 17 GM/SCOOP powderIndication s:Constipation Take 17 g by mouth once daily as needed for Constipation. Indications: Constipation Active oxyCODONE, immediate release, (Roxicodone) 5 MG tabletIndication s:Acute Pain Take 1 (one) tablet to 2 (two) tablets by mouth every 6 hours as needed for Pain (pain) Reasons: Acute Pain 56 tablet 07/18/2022 Active Active Problems Problem Noted Date Diagnosed Date Primary osteoarthritis of both knees 08/01/2021 Family History Medical History Relation Name Comments Elevated Lipids Father DVT - Deep Vein Thrombosis Mother A fter hsyterectomy Elevated Lipids Mother Relation Name Status Comments Father Mother Social History Tobacco Use Types Packs/Day Years Used Date Smoking Tobacco: Never Smokeless Tobacco: Never Tobacco Cessation:Counseling Given: Not Answered Alcohol Use Standard Drinks/Week Comments Yes 0 (1 standard drink = 0.6 oz pur e alcohol) rare OASIS D0700: Social Isolation Answer Da te Recorded Frequency of experiencing loneliness or isolatio n Never 08/01/2022 OASIS A1250: Transportation Answer Date Recorded Lack of Transportation (Medical) No 08/01/2022 Lack of Transportation (Non-Medical) No 08/01/2022 Patient Unable or Declines to Respond No 08/01/2022 OASIS B1300: Health Literacy Answer Uriah e Recorded Frequency of needing help to read materials from doctor or pharmacy Never 08/01/2022 AUDIT-C Answer Date Recorded Q1: How often do you have a drink containing alc ohol? Monthly or less 07/14/2022 Q2: How many drinks containi ng alcohol do you have on a typical day when you are drinking? 1 or 2 07/14/2022 Q3: How often do you have si x or more drinks on one occasion? Never 07/14/2022 Hunger Vital Sign Answer Date Recorded Within the past 12 months, y ou worried that your food would run out before you got the money to buy more. Never true 11/13/19 22 Within the past 12 months, t he food you bought just didn't last and you didn't have money to get more. Never true 11/12/2021 Sex and Gender Information Value Date Recorded Sex Assigned at Not on file Gender Identity Not on file Sexual Orientation Not on file Last Filed Vital Signs Vital Sign Reading Time Taken Comments Blood Pressure 130/70 08/01/2022 9:16 AM CDT Pulse 54 08/01/2022 9:16 AM CDT Temperature 36.1 C (96.9 F) 08/01/2022 9:16 AM CDT Respiratory Rate 16 08/01/2022 9:16 AM CDT Oxygen Saturation 95% 08/01/2022 9:16 AM CDT Inhaled Oxygen Concentration - - Weight 112.9 kg (249 lb) 07/14/2022 5:59 AM CDT Height 162.6 cm (5' 4 ) 07/14/2022 5:59 AM CDT Body Mass Index 42.74 07/14/2022 5:59 AM CDT Plan of Treatment Health Maintenance Due Date Last Done Comments BONE DENSITY TESTING 1948 COLOGUARD (AGES 45-75) - COL ON CA SCREENING 1948 COLON MONITORING 1948 COLONOSCOPY - COLON CA SCREENING 1948 CT COLONOGRAPHY - COLON CA SCREENING 1948 Colorectal Cancer Screening 1948 FIT - COLON CA SCREENING 1948 FLEX SIG - COLON CA SCREENING 1948 LIPID TESTING 1948 MAMMOGRAM 1948 01/18/2022, 01/10/2021 MEDICARE AWV 12 MONTHS 1948 HEPATITIS C SCREENING 02/04/1966 DTAP/TDAP/TD VACCINES (1 - Tdap) 02/08/1967 PNEUMOCOCCAL VACCINE 50+ (1 of 1 - PCV) 02/08/1998 ZOSTER VACCINE (1 of 2) 02/08/1998 Respiratory Syncytial Virus (RSV) Vaccine Pt: or over 60 yrs (1 - 1-dose 75+ series) 02/08/2023 COVID-19 VACCINE ( - 2023-2 5 season) 2023 INFLUENZA VACCINE (#1) 2023 DEPRESSION SCREENING 02/10/2024 HEPATITIS B VACCINE Aged Out No longe r eligible based on patient's age to complete this topic HIB VACCINE Aged Out No longer eligi ble based on patient's age to complete this topic HPV VACCINE Aged Out No longer eligi ble based on patient's age to complete this topic MENINGOCOCCAL (Group B) VACCINE SHARED DECISION-MAKING Aged Out No longer eligible based on patient's age to complete this topic MENINGOCOCCAL GROUPS A/C/Y/W VACCINE Aged Out No longer eligible b ased on patient's age to complete this topic Medical Devices Implanted Type Area Skoog Machine Operator Device Identifier Shelf Expiration Date Model / Serial / Lot Glenn Bone Temple-G Hv 40/20 Implanted:Qty: 1 on 11/11/2021 by Carlos Manuel Acevedo MD at [facility] Right: Knee [employer] 03/07/2023 [id number] / / [id number] Tray Tib 71mm Kn Cocr I Beam Implanted:Qty: 1 on 11/11/2021 by Carlos Manuel Acevedo MD at [facility] Right: Knee [employer] 09/07/2031 [id number] / / [id number] Cmpnt Fem Kn Rt Cr Cmnt Prm Vngrd Intlk 67.5 Mm Implanted:Qty: 1 on 11/11/2021 by Carlos Manuel Acevedo MD at [facility] Right: Knee [employer] 10/05/2031 [id number] / / [id number] Cmpnt Ptlr Std 28mm 1 Pg Wire Kn Ser A Implanted:Qty: 1 on 11/11/2021 by Carlos Manuel Acevedo MD at [facility] Right: Knee [employer] 10/23/2025 [id number] / / [id number] Brng [id number] Vngrd Arcm Kn Ant Stab Implanted:Qty: 1 on 11/11/2021 by Carlos Manuel Acevedo MD at [facility] Right: Knee [employer] 09/02/2026 [id number] / / [id number] Brng [id number] Vngrd Arcm Kn Ant Stab Implanted:Qty: 1 on 07/14/2022 by Carlos Manuel Acevedo MD at [facility] Left: Knee [employer] 03/31/2027 [id number] / / [id number] Cmnt Bone Plc R 40gm Grn Implanted:Qty: 1 on 07/14/2022 by Carlos Manuel Acevedo MD at [facility] Left: Knee [employer] 08/08/2024 [id number] / / [id number] Cmpnt Fem Kn Lt Cr Cmnt Prm Vngrd Intlk 67.5mm Implanted:Qty: 1 on 07/14/2022 by Carlos Manuel Acevedo MD at [facility] Left: Knee [employer] 03/06/2032 [id number] / / [id number] Tray Tib 75mm Kn Cocr I Beam Implanted:Qty: 1 on 07/14/2022 by Carlos Manuel Acevedo MD at [facility] Left: Knee [employer] 03/22/2032 [id number] / / [id number] Cmpnt Ptlr Std 28mm 3 Pg Kn Ser A Implanted:Qty: 1 on 07/14/2022 by Carlos Manuel Acevedo MD at [facility] Left: Knee [employer] 05/23/2027 [id number] / / [id number] Advance Directives * Full Code (Latest Code Status on File) Date Activated Date Inactivated Comments 07/16/2022 1:18 PM To update the p atient's code status, place a code status order. Do not modify or discontinue any currently active code status orders. * Full Code Date Activated Date Inactivated Comments 07/14/2022 10:40 AM 07/15/2022 5:30 PM * Full Code Date Activated Date Inactivated Comments 11/11/2021 3:32 PM 11/13/2021 3:28 PM * FULL RESUSCITATION Date Activated Date Inactivated Comments 04/07/2011 1:40 PM 04/08/2011 11:08 PM Care Teams Shoe Reconditioner Relationship Specialty Start Date End Date Vonda Leahy MD [address] [place] [address] PCP - General Family Medicine 07/23/21 Alexis Andersen DO [address] [place] [address] Internal Medicine 07/02/22
--- OUTSIDE RECORDS SUMMARY | 2024-04-26 09:21 | XMS_ITS | Encounter Summary ---
Author Organization [facility] Address [address] [place] [address] Care Team Providers Care Manager Ct Name Role Phone Vonda Leahy MD Primary Care Provider Alexis Andersen DO Unavailable Encounter Details Date Type Department Care Team (Late st Contact Info) Description 03/06/2022 Lab Requisition [facility] Care DermPath Lab [address] [facility] [place] [id number] Juan Yuan MD [address] [place] [address] Social History Tobacco Use Types Packs/Day Years Used Date Smoking Tobacco: Never Smokeless Tobacco: Never Alcohol Use Standard Drinks/Week Comments Yes 0 (1 standard drink = 0.6 oz pur e alcohol) rare Hunger Vital Sign Answer Date Recorded Within [...] on file Sexual Orientation Not on file documented as of this encounter Functional Status Functional Status Response Date of Assess ment Is person deaf or have serious hearing difficult y? No 11/13/2021 Is person blind or have serious difficulty seein g? No 11/13/2021 Does person have serious dif ficulty walking/climbing stairs? Yes 11/13/2021 Does person have difficulty dressing/bathing? Ye s 11/13/2021 Does person have difficulty doing errands alone? Yes 11/13/2021 Cognitive Status Response Date of Assessm ent Does person have difficulty concentrating/remembering/making decisions? No 11/13/2021 documented as of this encounter Plan of Treatment Not on file documented as of this encounter Procedures Procedure Name Priority Date/Time Associated Diagnosis Comments DERMATOPATHOLOGY Routine 03/04/2022 12:0 0 AM [employer]BER POL[employer]Y AND STRATEGY PLANNER documented in this encounter Results * DERMATOPATHOLOGY (03/04/2022 12:00 AM CYBER POLICY AND STRATEGY PLANNER) Case Report Dermatopathology Report Case: [id number] Authorizing Provider: Juan Yuan MD Collected: 03/04/2022 12:00 AM Ordering Location: [facility] DermPath Lab Received: 03/06/2022 01:29 PM Pathologist: Elizabeth Garvin MD Specimen: Skin, right medial cheek 3 3:47 PM [facility] DERMATOPATHOLOGY LABORATORY Final Diagnosis Specimen A. SKIN, right medial cheek: SEBACEOUS HYPERPLASIA, SUPERFICIAL PORTIONS OF (L73.8) (see microscopic description and comment) 3 3:47 PM [facility] DERMATOPATHOLOGY LABORATORY Clinical History R/O SCC, BCC 3 3:47 PM [facility] DERMATOPATHOLOGY LABORATORY Gross Description Specimen A: Received is one formalin filled container labeled with the patient's name and designated right medial cheek. The specimen consists of a shave biopsy measuring 3x3x1 mm. Jar 0. 3 3:47 PM [facility] DERMATOPATHOLOGY LABORATORY Microscopic Description Specimen A. SKIN, right medial cheek: There are superficial portions of prominent sebaceous gland lobules surrounding a dilated hair follicle. Additional deeper sections were obtained and reviewed. COMMENT: Given the superficial nature of the biopsy specimen, a deeper dermal process cannot be excluded. 3 3:47 PM [facility] DERMATOPATHOLOGY LABORATORY Disclaimer An external and internal positive and negative controls are appropriate for the histochemical, immunohistochemical and immunofluorescence stain(s) in this case (if any), except where stated explicitly. The performance characteristics of the stain(s) cited in this report were developed and its performance characteristic determined by the Dermatopathology Laboratory at [facility], directed by Dr. Sadia Barillas. These tests need not be, and therefore are not, approved by the [place] Food and Drug Administration. The tests are used for clinical purposes. Billing Codes Specimen Charges Stain Charges 29009 1 3 3:47 PM [employer] DERMATOPATHOLOGY LABORATORY Embedded Images 3 3:47 PM [employer] DERMATOPATHOLOGY LABORATORY Pathology/Cytolog y TISSUE SPECIMEN FROM SKIN / Unknown 03/04/2022 03/06/2022 1:29 PM CYBER POL[employer] AND STRATEGY PL[employer]NER Juan Yuan MD LAB - PATHOLOGY/CYTO LOGY ORDERABLES Performing Organization Address City/State/[facility] Co de Phone Number DERMATOPATHOLOGY LABORATORY [facility] - Department of Dermatology [address], [address] [phone] documented in this encounter Visit Diagnoses Not on filedocumented in this encounter Care Teams Manager Ct Relationship Specialty Start Date End Date Vonda Leahy MD [address] [place] [address] PCP - General Family Medicine 07/23/21 Alexis Andersen DO [address] [facility] [address] [place], [place] [id number] Internal Medicine 07/02/22 documented as of this encounter
[2024-04-26 09:22] VITALS: BP 161/67; PULSE 54; RESP 18; TEMP 36.6; O2SAT 95
--- NOTE | 2024-04-26 09:53 | PM.HPGS ---
History of Present Illness History of Present Illness Consent: Risks, benefits, and alternatives have been discussed and questions answered. Patient agrees to proceed with procedure. Chief complaint: Sacroiliitis, chronic low back pain Narrative: Matilde Breen is a 74 year old female with chronic, recalcitrant and disabling bilateral lumbosacral back pain secondary to degenerative spondylosis, sacroiliac joint arthropathy, sacroiliitis with failure to respond to aggressive conservative measures including PT, oral and topical analgesics, opioid and nonopioid analgesics, rest, time and activity/behavioral modification over the past 1-2 years who presents for therapeutic intra-articular steroid injection of the bilateral SI joints under fluoroscopic guidance and with contrast control. [facility] Past Medical History Medical History Degenerative spondylolisthesis (~10/2023) Lumbar xray 11/02/23 severe lumbar spondylosis Posterior calcaneal exostosis Flexion contracture of knee Arthritis Anxiety Hyperthyroidism Abnormality of heart beat Vision changes Chronic headaches Claustrophobia Insomnia Degenerative arthritis of knee, bilateral Achilles tendinitis of both lower extremities Chronic GERD Essential (primary) hypertension Hypothyroidism, unspecified Obstructive sleep apnea (adult) (pediatric) Surgical History Surgical History History of knee replacement procedure of right knee History of esophagogastroduodenoscopy (EGD) H/O: hysterectomy Family History Family History Grandparent Family history of coronary artery disease Father Colon cancer Mother Cerebrovascular accident Other Depression HLD (hyperlipidemia) Heart disease Hypertension Social History Social History Smoking status: Never smoker Second hand tobacco smoke exposure: No Alcohol intake: current Alcohol use details: rarely glass of wine Substance use: never Substance use type: does not use Lack of Transportation: No Lack of Food: Never True Current Housing: I Have Housing Concerned About Future Housing: No Difficulty Paying Gas/Electric Bills: No Difficulty Paying for Meds: No Currently Unemployed: No Education: Bachelor's Degree Difficulty w/ Childcare or Family Care: No Living arrangements: with family Additional living arrangements comments: . 2 children both grown and out of house. 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 Gender identity (if verbalized by the patient): Female Sexual Orientation (if Verbalized by the Patient): Straight or Heterosexual Spiritual care concerns: No Agree to blood products: Yes Meds Home Medications and Allergies Home Medications ?Medication ?Instructions ?Recorded ?Confirmed ?Type cholecalciferol (vitamin D3) 50 2,000 unit PO DAILY 12/17/18 04/26/24 History mcg (2,000 unit) tablet fluticasone propionate 50 2 spray intranasal DAILY #9.9 mL 04/19/21 04/26/24 Rx mcg/actuation nasal spray,suspension (Flonase Allergy Relief) hydroxychloroquine 200 mg tablet 200 mg PO BID 05/21/23 04/26/24 History hydralazine 50 mg tablet See Rx Instructions .Route 10/15/23 04/26/24 Rx .COMPLEX #135 tabs meloxicam 7.5 mg tablet 7.5 mg PO DAILY #90 tabs 12/21/23 04/26/24 Rx metoprolol succinate 25 mg See Rx Instructions .Route 01/05/24 04/26/24 Rx tablet,extended release 24 hr .COMPLEX #90 tabs levothyroxine 175 mcg tablet See Rx Instructions .Route 03/03/24 04/26/24 Rx .COMPLEX #90 tabs duloxetine 60 mg capsule,delayed 60 mg PO DAILY 03/07/24 04/26/24 History release hydrocodone 5 mg-acetaminophen 325 1 tablet PO BID PRN pain 30 days 03/28/24 04/26/24 Rx mg tablet #60 tabs zolpidem 10 mg tablet (Ambien) 10 mg PO QHS PRN sleep #90 tabs 03/29/24 04/26/24 Rx losartan 100 1 tablet PO DAILY #90 tabs 03/30/24 04/26/24 Rx mg-hydrochlorothiazide 12.5 mg tablet acetaminophen 650 mg 650 mg PO Q8H PRN pain 04/05/24 04/26/24 History tablet,extended release (Arthritis Pain Relief (acetaminophen) ER) ferrous sulfate 325 mg (65 mg 325 mg PO DAILY 04/05/24 04/26/24 History iron) tablet (iron) omeprazole 20 mg capsule,delayed 20 mg PO BID #180 caps 04/18/24 04/26/24 Rx release Allergies Allergy/AdvReac Type Severity Reaction Status Date / Time Sulfa (Sulfonamide Allergy Unknown Hives Verified 04/26/24 09:12 Antibiotics) Tetanus Vaccines and Toxoid Allergy Unknown Swelling Verified 04/26/24 09:12 codeine AdvReac Other Verified 04/26/24 09:12 Vital Signs Vital Signs - 24 hr 04/26/24 09:22 Temperature 97.9 F Pulse Rate 54 L Respiratory Rate 18 Blood Pressure 161/67 H Pulse Oximetry 95 Oxygen Delivery Room Air Exam Narrative: The patient's physical exam is essentially unchanged from prior examination on 03/07/2024. Specifically, patient demonstrates normal lung capacity, tidal volume and respiratory rate without wheezes, crackles, rales or rubs. Heart rate and rhythm are regular without murmurs, gallops or rubs. No JVD. Pulses 2+ globally without increasing peripheral edema. AAOx3 with no evidence of confusion, intoxication or altered mental state, NC/AT without acute distress or altered consciousness. Speech, cognition, mood, insight and judgment at baseline and within normal limits. Assessment and Plan Assessment and plan (1) Dorsalgia: Code(s): M54.9 - Dorsalgia, unspecified Status: Acute (2) Bilateral sacroiliitis: Code(s): M46.1 - Sacroiliitis, not elsewhere classified Status: Acute (3) Arthropathy of sacroiliac joint: Code(s): M47.818 - Spondylosis without myelopathy or radiculopathy, sacral and sacrococcygeal region Status: Acute (4) Chronic low back pain: Code(s): M54.50 - Low back pain, unspecified; G89.29 - Other chronic pain Status: Acute Plan Okay to proceed with planned therapeutic intra-articular steroid injection of the bilateral SI joints under fluoroscopic guidance and with contrast control.
--- NOTE | 2024-04-26 09:56 | WPDHPUPDATE1 ---
History and Physical Update Update Date/Time: 04/26/24 09:56 History and Physical has been reviewed, including an updated exam of the patient. There are NO changes in the patient's condition. Risks, benefits, and alternatives have been discussed and questions answered. Patient agrees to proceed with procedure.
--- NOTE | 2024-04-26 09:57 | P.OP_ITS ---
Procedure Note - Detailed Date of Procedure 04/26/24 Pre-op Diagnosis Sacroiliitis, chronic low back pain Post-op Diagnosis Same Procedure Performed Bilateral Sacroiliac Joint Steroid Injection under Fluoroscopic Guidance and with Contrast Control. Surgeon Carlos Manuel Jose MD Owner Professional Engineer None Anesthesia Local Description of Procedure INFORMED CONSENT: Risks, benefits and alternatives to the procedure were discussed in detail with the patient who expressed explicit understanding and consent to proceed. Patient was informed verbally and in written form regarding the risks associated with the procedure including the low risk of serious infection, bleeding/bruising, allergic reaction, nerve or organ injury, paralysis, procedural site pain or discomfort, worsening pain and/or mobility, failure to treat and/or disfigurement. The patient expressed explicit understanding and consent to proceed. All materials required for the procedure were available prior to procedure start. Site and side were marked prior to procedure and confirmed in the presence of the patient. PROCEDURE IN DETAIL: The patient was brought to the procedural suite and placed in the prone position. Patient was made comfortable with use of pillows under the head/chest, hips and ankles. Skin overlying the injection site on the affected side(s) was prepared broadly with ChloraPrep applicator and draped in a sterile manner. Aseptic technique was used throughout. The right SI joint was identified in the AP view and contralateral oblique angulation with caudal tilt was utilized to optimize visualization of the inferior and medial joint line representing the posterior portion of the joint. Local anesthesia was established by infiltration with approximately 5 mL of 2% lidocaine via a 1-1/2 inch 27-gauge needle. A 22-gauge 3.5 inch Quincke spinal needle was advanced until the needle entered the inferior third of the joint space approximately 1cm cephalad from its most inferior point. In the AP view, 0.5 mL of Omnipaque 300 contrast medium was injected after negative aspiration for CSF, blood or other bodily fluid, showing appropriate intra-articular spread of contrast without evidence of intravascular, perineural or intrathecal placement. A 1.5 mL solution containing 3 mg of betamethasone in 0.5% PF bupivacaine was injected after repeat negative aspiration. Appropriate spread of the injectate was confirmed with washout of previous injected contrast. No parasthesias were elicited. Needle was removed completely intact without difficulty. The same exact procedure was repeated for all remaining levels on the contralateral side, left SI joint, modified as necessary to accommodate for the new target location with identical findings/results and no evidence of complication. Images were saved and documented in the patient chart. Patient's skin was cleansed and sterile bandage applied. The patient tolerated the procedure well. The patient was transported to the recovery area in stable condition where they were observed for an appropriate amount of time prior to discharge, without evidence of complication. The patient was instructed to avoid excessive activity for the next 48 hours, including climbing and frequent use of stairs. Showers only for 48 hours. They were instructed not to drive or operate heavy machinery for 24 hours. They are to monitor for severe headaches, fevers, chills, night sweats, erythema/swelling at the site or any other signs of infection, bleeding/bruising, bowel or bladder changes as well as new pain, weakness or numbness in the upper or lower extremity. Should they notice these changes, they are instructed to call our office immediately or report directly to the nearest Emergency Department if no answer or if after posted office hours. COMPLICATIONS: None COMMENTS: None CONTRAST WASTED: 29mL Omnipaque 300. Complications No immediate complications Condition Stable Disposition Same day [facility] Billing Surgery - Charge Forward: Surgery Billing
[2024-04-26 10:06] VITALS: BP 138/75; PULSE 72; RESP 16; O2SAT 96
[2024-04-26 10:12] VITALS: BP 159/81; PULSE 60; RESP 18; O2SAT 97
[2024-04-26] MEDS: BETAMETHASONE SODIUM PHOSPHATE PF INJ 6 MG/ML VIAL INFILTRATE (10:12)
[2024-04-26 10:15] VITALS: BP 173/78; PULSE 57; RESP 17; O2SAT 95
[2024-04-26 10:19] VITALS: BP 154/57; PULSE 54; RESP 16; O2SAT 98
[2024-04-26] MEDS: LIDOCAINE 1% PF INJ 5 ML VIAL INFILTRATE (10:21)
[2024-04-26] MEDS: BUPivacaine HCL 0.5% 10 ML AMP 2 ML INFILTRATE (10:21)
== END 2024-04-26 10:36 | disposition home or self-care (01) ==
PROVIDERS: PCP Nurse Practitioner Family; Visit Provider Anesthesiology Pain Medicine
PROC: (CPT G0260; principal; 2024-04-26 10:00)
DX: M46.1 Sacroiliitis, not elsewhere classified (principal); M54.50 Low back pain, unspecified; G89.29 Other chronic pain
CPT/HCPCS: G0260; 27096; 99199

== ENCOUNTER 2024-05-16 01:25 | Day surgery (SDC) | payer MEDICARE, SELFPAY ==
--- NOTE | 2024-05-13 09:28 | PC.NURSE ---
Report to the Outpatient Waiting Room, entrance under the green pavilion located off [facility], at time __2:30 pm on date __05/16/24 . Planned Procedure Time: __3:30 pm .? Time changes happen often and if your time is changed the preop area will call you the afternoon before. - You and your visitor will be asked to self-screen and do not enter if you have any COVID symptoms. Please call surgeon if you need to reschedule. - A mask is optional within the hospital at this time. MAY HAVE A LIGHT LUNCH-NOTHING TO EAT OR DRINK 2 HOURS PRIOR TO PROCEDURE TIME(1:30 PM) PER DR MCCORD MAY TAKE MEDS WITH A SIP OF WATER Take only the following medications with a SIP of water on the morning of surgery: ____ALL ROUTINE MEDICATIONS DO NOT STOP ANY OF YOUR OTHER PRESCRIPTION MEDICATIONS PRIOR TO SURGERY EXCEPT THE FOLLOWING Medications to discontinue per physician NONE Please no make-up, nail pashto, hairspray, perfume, deodorant, or body powder the day of surgery.? No jewelry (including any body piercings) or valuables the day of surgery, leave them at home.? Please take a shower or bath the night before, AND the morning of, surgery with an antibacterial soap.? Wear comfortable, loose fitting clothing.? Children are encouraged to wear pajamas. - Jewelry must be removed prior to entering the operating room.? Rings and piercings that are not removed may be cut off. - The hospital will not accept responsibility for valuables.? - Please leave all valuables, including medications, at home the day of surgery. If you are going home after surgery, a licensed solo truck driver must drive you home.? - NO public transportation without another adult if you receive anesthesia. - We recommend that an adult stay with you for 24 hours following discharge. - We also recommend that you do not drive, make important decision, drink alcoholic beverages, or take any drugs that were not prescribed by your health care provider for at least 24 hours after your discharge time. DO NOT DRIVE 24 HOURS AFTER PROCEDURE PER DR MCCORD Follow any additional instructions given to you from your surgeon. Telephone instructions given to __PATIENT and asked if any additional questions and then verbalized understanding. Patient advised to call surgeon office or pre surgery nurse liaison [phone] if any additional questions.
[2024-05-13 09:45] VITALS: BMI 39.9
--- NOTE | ~2024-05-16 | XR_ITS ---
INTRAOPERATIVE FLUOROSCOPY: CLINICAL HISTORY: 74 years old Female; BLOCK BILATERAL L3, L4, L5 MEDIAL BRANCH/DORSAL RAMI PROCEDURE COMMENTS: Limited intraoperative fluoroscopy of the lumbar spine was performed. CUMULATIVE DOSE: 83 mGy FLUOROSCOPY TIME: 60 seconds FINDINGS/IMPRESSION: Please refer to operative note for further details. Reviewed, dictated and finalized at location A.
--- OUTSIDE RECORDS SUMMARY | 2024-05-16 01:29 | XMS_ITS | Encounter Summary ---
Author Organization [facility] Address [address] [place] [address] Care Team Providers Care Finishing Frame Runner Name Role Phone Vonda Leahy MD Primary Care Provider Alexis Andersen DO Unavailable Encounter Details Date Type Department Care Team (Late st Contact Info) Description 03/06/2022 Lab Requisition [facility] Care DermPath Lab [address] [place] [id number] Juan Yuan MD [address] [place] [address] Social History Tobacco Use Types [...] Comments DERMATOPATHOLOGY Routine 03/04/2022 12:0 0 AM ORTHODONTIC TECHNICIAN ASSISTANT documented in this encounter Results * DERMATOPATHOLOGY (03/04/2022 12:00 AM ORTHODONTIC TECHNICIAN ASSISTANT) Case Report Dermatopathology Report Case: [id number] Authorizing Provider: Juan Yuan MD Collected: 03/04/2022 12:00 AM Ordering Location: [facility] DermPath Lab Received: 03/06/2022 01:29 PM Pathologist: Elizabeth Garvin MD Specimen: Skin, right medial cheek 3 3:47 PM [facility] DERMATOPATHOLOGY [facility]OR[facility] Final Diagnosis Specimen A. SKIN, right medial cheek: SEBACEOUS HYPERPLASIA, SUPERFICIAL PORTIONS OF (L73.8) (see microscopic description and comment) 3 3:47 PM [facility] DERMATOPATH[facility]Y [facility] Clinical History R/O SCC, BCC 3 3:47 PM [facility]ERMAT[facility] Gross Description Specimen A: Received is one formalin filled container labeled with the patient's name and designated right medial cheek. The specimen consists of a shave biopsy measuring 3x3x1 mm. Jar 0. 3 3:47 PM [facility] DERMATOPATH[facility]Y [facility] Microscopic Description Specimen A. SKIN, right medial cheek: There are superficial portions of prominent sebaceous gland lobules surrounding a dilated hair follicle. Additional deeper sections were obtained and reviewed. COMMENT: Given the superficial nature of the biopsy specimen, a deeper dermal process cannot be excluded. 3 3:47 PM [facility]ERMATOP[facility] Disclaimer An external and internal positive and negative controls are appropriate for the histochemical, immunohistochemical and immunofluorescence stain(s) in this case (if any), except where stated explicitly. The performance characteristics of the stain(s) cited in this report were developed and its performance characteristic determined by the Dermatopathology Laboratory at [facility], directed by Dr. Sadia Barillas. These tests need not be, and therefore are not, approved by the [place] Food and Drug Administration. The tests are used for clinical purposes. Billing Codes Specimen Charges Stain Charges 38854 1 3 3:47 PM ORTHODONTIC TECHNICIAN ASSISTANT DERMATOPATHOLOGY LABORATORY Embedded Images 3 3:47 PM ORTHODONTIC TECHNICIAN ASSISTANT DERMATOPATHOLOGY LABORATORY Pathology/Cytolog y TISSUE SPECIMEN FROM SKIN / Unknown 03/04/2022 03/06/2022 1:29 PM ORTHODONTIC TECHNICIAN ASSISTANT Juan Yuan MD LAB - PATHOLOGY/CYTO LOGY ORDERABLES Performing Organization Address City/State/[facility] Co de Phone Number DERMATOPATHOLOGY LABORATORY [facility] - Department of Dermatology [address], [address] [phone] documented in this encounter Visit Diagnoses Not on filedocumented in this encounter Care Teams Finishing Frame Runner Relationship Specialty Start Date End Date Vonda Leahy MD [address] [place] [address] PCP - General Family Medicine 07/23/21 Alexis Andersen DO [address] [place], [place] [id number] Internal Medicine 07/02/22 documented as of this encounter
--- OUTSIDE RECORDS SUMMARY | 2024-05-16 01:29 | XMS_ITS | Referral Summary ---
Author Organization [facility] Address [address] [place] [address] Care Team Providers Care Boiler Repair Supervisor Name Role Phone Vonda Leahy MD Primary Care Provider Allergies No known active allergies Social History Tobacco Use Types Packs/Day Years Used Date Smoking Tobacco: Never Assessed Comments No Sex and Gender Information Value Date Recorded Sex Assigned at Not on file Legal Sex Female 2:44 AM CERTIFIED WELDING INSPECTOR Gender Identity Not on file Sexual Orientation Not on file Last Filed Vital Signs Vital Sign Reading Time Taken Comments Blood Pressure 168/79 07/10/2021 10:24 AM CDT Pulse 52 07/10/2021 10:24 AM CDT Temperature - - Respiratory Rate - - Oxygen Saturation - - Inhaled Oxygen Concentration - - Weight 98.9 kg (218 lb) 12/31/2019 8:25 AM CERTIFIED WELDING INSPECTOR Height 165.1 cm (5' 5 ) 12/31/2019 8:25 AM CERTIFIED WELDING INSPECTOR Body Mass Index 36.28 12/31/2019 8:25 AM CERTIFIED WELDING INSPECTOR Plan of Treatment Not on file Procedures Procedure Name Priority Date/Time Associated Diagnosis Comments SCREENING MAMMOGRAM BILATERAL W PETAR Schedule Routine, Read Routine (OP Routine) 03/26/2023 8:41 AM CERTIFIED WELDING INSPECTOR Screening mammogram, encounter for from Last 3 Months or Most Recently Relevant to Health Maintenance Results * Screening Mammogram Bilateral W Petar (03/26/2023 8:41 AM CERTIFIED WELDING INSPECTOR) Anatomical Region Laterality Modality Breast Bilateral Mammography 03/26/2023 8:4 8 AM CERTIFIED WELDING INSPECTOR Impressions 03/26/2023 8:48 AM CERTIFIED WELDING INSPECTOR There is no mammographic evidence of malignancy. A 1 year screening mammogram is recommended. BI-RADS: 1 - Negative. The patient has been or will be contacted. The patient will be entered into a reminder system with a target due date of 1 year for her next mammogram. Electronically signed by: Earl Dee M.D. Narrative 03/26/2023 8:48 AM CERTIFIED WELDING INSPECTOR EXAMINATION: SCREENING MAMMOGRAM BILATERAL W PETAR ORDERING [...] Recently Relevant to Health Maintenance Insurance MEDICARE [facility] MEDICARE BLUE CROSS MEDICARE SUPPLEMENT MEDICARE Care Teams Boiler Repair Supervisor Relationship Specialty Start Date End Date Vonda Leahy MD PCP - General Family Practice 01/16/22
--- OUTSIDE RECORDS SUMMARY | 2024-05-16 01:29 | XMS_ITS | Clinical Summary ---
Author Organization [facility] Address [address] [place] [address] Care Team Providers Care Aviation Engineer Name Role Phone Vonda Leahy MD Primary Care Provider Alexis Andersen DO Unavailable Source Comments [facility],non-owned Affiliates and Associated Physician Practices is amultiple site organization consisting of ambulatory clinics and hospital sitesin [place], [place], [place] and [place]. This disclosure is being madepursuant to the Care Everywhere program and may not contain all information available regarding this patient. Last updated 17.[facility] Allergies Active Allergy Reactions Criticality Noted Date [...] (Flonase) 50 MCG/ACT nasal sprayIndications :Allergic Rhinitis [place] 2 (two) sprays into each nostril once [...] VACCINE ( - 2023-2 5 season) 2023 DEPRESSION SCREENING 02/10/2024 INFLUENZA VACCINE (Season Ended) 2024 HEPATITIS B VACCINE Aged Out No longe [...] this topic Medical Devices Implanted Type Area Youth Services Specialist Device Identifier Shelf Expiration Date Model / Serial / Lot Glenn Bone Duson-G Hv 40/20 Implanted:Qty: 1 on 11/11/2021 by Carlos Manuel Acevedo MD at [facility] Right: Knee [employer] 03/07/2023 [id number] / / [id number] Tray Tib 71mm Kn Cocr I Beam Implanted:Qty: 1 on 11/11/2021 by Carlos Manuel Acevedo MD at [facility] Right: Knee [employer] 09/07/2031 [id number] / / [id number] Cmpnt Fem Kn Rt Cr Cmnt Prm Vngrd Intlk 67.5 Mm Implanted:Qty: 1 on 11/11/2021 by Carlos Manuel Acevedo MD at [facility] Right: Knee [employer] 10/05/2031 [id number] / / [id number] Cmpnt Ptlr Std 28mm 1 Pg Wire Kn Ser A Implanted:Qty: 1 on 11/11/2021 by Carlos Manuel Acevedo MD at [facility] Right: Knee [employer] 10/23/2025 [id number] / / [id number] Brng [id number] Vngrd Arcm Kn Ant Stab Implanted:Qty: 1 on 11/11/2021 by Carlos Manuel Acevedo MD at [facility] Right: Knee [employer] 09/02/2026 [id number] / / [id number] Brng [id number] Vngrd Arcm Kn Ant Stab Implanted:Qty: 1 on 07/14/2022 by Carlos Manuel Acevedo MD at [facility] Left: Knee [employer] 03/31/2027 [id number] / / [id number] Cmnt Bone Plc R 40gm Grn Implanted:Qty: 1 on 07/14/2022 by Carlos Manuel Acevedo MD at [facility] Left: Knee [employer] 08/08/2024 [id number] / / [id number] Cmpnt Fem Kn Lt Cr Cmnt Prm Vngrd Intlk 67.5mm Implanted:Qty: 1 on 07/14/2022 by Carlos Manuel Acevedo MD at [facility] Left: Knee [employer] 03/06/2032 [id number] / / [id number] Tray Tib 75mm Kn Cocr I Beam Implanted:Qty: 1 on 07/14/2022 by Carlos Manuel Acevedo MD at [facility] Left: Knee [employer] 03/22/2032 [id number] / / [id number] Cmpnt Ptlr Std 28mm 3 Pg Kn Ser A Implanted:Qty: 1 on 07/14/2022 by Carlos Manuel Acevedo MD at [facility] Left: Knee [employer] 05/23/2027 [id number] / / [id number] Advance Directives * Full Code (Latest Code [...] 1:40 PM 04/08/2011 11:08 PM Care Teams Aviation Engineer Relationship Specialty Start Date End Date Vonda Leahy MD [address] [place] [address] PCP - General Family Medicine 07/23/21 Alexis Andersen DO [address] [place] [address] Internal Medicine 07/02/22
--- OUTSIDE RECORDS SUMMARY | 2024-05-16 01:29 | XMS_ITS | Clinical Summary ---
Author Organization [facility] Address [address] [place] [address] Care Team Providers Care Corporate Development Manager Name Role Phone Vonda Leahy MD Primary Care Provider Allergies No known active allergies Surgical History Surgery Date Site/Laterality Comments HYSTERECTOMY Social History Tobacco Use Types Packs/Day Years Used Date Smoking Tobacco: Never Assessed Comments No Sex and Gender Information Value Date Recorded Sex Assigned at Not on file Legal Sex Female 2:44 AM GUIDE RAIL CLEANER Gender Identity Not on file Sexual Orientation [...] 98.9 kg (218 lb) 12/31/2019 8:25 AM GUIDE RAIL CLEANER Height 165.1 cm (5' 5 ) 12/31/2019 8:25 AM GUIDE RAIL CLEANER Body Mass Index 36.28 12/31/2019 8:25 AM GUIDE RAIL CLEANER Plan of Treatment Health Maintenance Due Date Last Done Comments Depression Screening 1950 Fall Risk Assessment 1950 Hepatitis C Screening 1950 Osteoporosis Screening-Bone Density Scan 1950 DTaP/Tdap/Td Vaccine (1 - Tdap) 02/08/1959 Hepatitis B Screening 02/08/1966 Well Visit 65+ 02/08/2013 Pneumococcal vaccine 65+ (2 of 2 - PCV) 2017 02/10/2016 Zoster Vaccine (2 of 2) 01/04/2019 11/09/2018 Influenza Vaccine (Season Ended) 2024 11/09/2018, 11/09/2017, 02/17/2013 Breast Cancer Screening-Mammogram Discontinued 03/26/2023, 01/18/2022, 01/10/2021, Additional history exists Procedures Procedure Name Priority Date/Time Associated Diagnosis Comments SCREENING MAMMOGRAM BILATERAL W PETAR Schedule Routine, Read Routine (OP Routine) 03/26/2023 8:41 AM GUIDE RAIL CLEANER Screening mammogram, encounter for from Last 3 Months or Most Recently Relevant to Health Maintenance Results * Screening Mammogram Bilateral W Petar (03/26/2023 8:41 AM GUIDE RAIL CLEANER) Anatomical Region Laterality Modality Breast Bilateral Mammography 03/26/2023 8:48 AM GUIDE RAIL CLEANER Impressions 03/26/2023 8:48 AM GUIDE RAIL CLEANER There is no mammographic evidence of malignancy. A 1 year screening mammogram is recommended. BI-RADS: 1 - Negative. The patient has been or will be contacted. The patient will be entered into a reminder system with a target due date of 1 year for her next mammogram. Electronically signed by: Earl Dee M.D. Narrative 03/26/2023 8:48 AM GUIDE RAIL CLEANER EXAMINATION: SCREENING MAMMOGRAM BILATERAL W PETAR ORDERING [...] Recently Relevant to Health Maintenance Insurance MEDICARE [facility] MEDICARE BLUE CROSS MEDICARE SUPPLEMENT MEDICARE Care Teams Corporate Development Manager Relationship Specialty Start Date End Date Vonda Leahy MD PCP - General Family Practice 01/16/22
--- NOTE | 2024-05-16 13:36 | WPDHPUPDATE1 ---
History and Physical Update Update Date/Time: 05/16/24 13:36 History and Physical has been reviewed, including an updated exam of the patient. There are NO changes in the patient's condition. Risks, benefits, and alternatives have been discussed and questions answered. Patient agrees to proceed with procedure.
--- NOTE | 2024-05-16 13:37 | P.OP_ITS ---
Procedure Note - Detailed Date of Procedure 05/16/24 Pre-op Diagnosis Spondylosis of Lumbar Sacral Region Post-op Diagnosis Same Procedure Performed Diagnostic Bilateral Lumbar Medial Branch/Dorsal Ramus Blocks at L3, L4, L5 Treating the Bilateral L4-5, L5-S1 Facet Joints Under Fluoroscopic Guidance and with Contrast Control. (4 levels blocked). Surgeon Carlos Manuel Jose MD Facility Rehab Director None. Anesthesia Local Description of Procedure INFORMED CONSENT: Risks, benefits and alternatives to the procedure were discussed in detail with the patient who expressed explicit understanding and consent to proceed. Patient was informed verbally and in written form regarding the risks associated with the procedure including the low risk of serious infection, bleeding/bruising, allergic reaction, nerve or organ injury, paralysis, procedural site pain or discomfort, worsening pain and/or mobility, failure to treat and/or disfigurement. The patient expressed explicit understanding and consent to proceed. All materials required for the procedure were available prior to procedure start. Site and side were marked prior to procedure and confirmed in the presence of the patient. PROCEDURE IN DETAIL: The patient was brought to the procedural suite and placed in the prone position. Patient was made comfortable with use of pillows under the head/chest, hips and ankles. Skin overlying the injection site on the affected side(s) was prepared broadly with ChloraPrep applicator and draped in a sterile manner. Aseptic technique was used throughout. The endplates of the vertebral bodies at the site(s) of interest were aligned in the AP view. Ipsilateral oblique angulation was utilized to optimize visualization of the intersection between the superior articulating process and transverse process at each target site. Local anesthesia was established by infiltration with approximately 5 mL of 1% lidocaine via a 1-1/2 inch 27-gauge needle. A 25-gauge 5.0 inch Quincke spinal needle was advanced until the needle tip contacted periosteum at the target site, right L3. Lateral view was utilized to confirm the appropriate placement of the needle tip just anterior to the facet line and superior to the pedicle. In the Lateral view, 0.25 mL of Omnipaque 300 contrast medium was injected after negative aspiration for CSF, blood or other bodily fluid, showing appropriate extra-articular spread of contrast without evidence of intravascular, foraminal or intrathecal placement. A 0.5 mL solution of 0.5% PF bupivacaine was injected after negative repeat aspiration. Appropriate spread of the injectate was confirmed with washout of previously injected contrast. No parasthesias were elicited. Needle was removed completely intact without difficulty. The same exact procedure was repeated for all remaining levels on the ipsilateral side, right L4, L5 medial branches/dorsal ramus, modified as necessary to accommodate for the new target location with identical findings and results and no evidence of complication. The same exact procedure was repeated for all remaining levels on the contralateral side, left L3, L4, L5 medial branches/dorsal ramus, modified as necessary to accommodate for the new target location with identical findings and results and no evidence of complication. Images were saved and documented in the patient chart. Patient's skin was cleaned and sterile bandage applied. The patient tolerated the procedure well. The patient was transported to the recovery area in stable condition where they were observed for an appropriate amount of time prior to discharge, without evidence of complication. Patient was instructed on the appropriate completion of a pain diary over the next 12-24 hours. The patient was instructed to avoid excessive activity for the next 48 hours, including climbing and frequent use of stairs. Showers only for 48 hours. They were instructed not to drive or operate heavy machinery for 24 hours. They are to monitor for severe headaches, fevers, chills, night sweats, erythema/swelling at the site or any other signs of infection, bleeding/bruising, bowel or bladder changes as well as new pain, weakness or numbness in the upper or lower extremity. Should they notice these changes, they are instructed to call our office immediately or report directly to the nearest Emergency Department if no answer or if after posted office hours. COMPLICATIONS: None COMMENTS: None CONTRAST WASTED: 28.5mL Omnipaque 300. Complications No immediate complications Condition Stable Disposition Same day [facility] Billing Surgery - Charge Forward: Surgery Billing
[2024-05-16 14:00] VITALS: BP 175/69; PULSE 51; RESP 14; TEMP 36.2; O2SAT 98
[2024-05-16 14:22] VITALS: BP 186/97; PULSE 60; RESP 14; O2SAT 96
[2024-05-16] MEDS: BUPivacaine HCL 0.5% PF 30 ML VIAL INFILTRATE (14:30)
[2024-05-16 14:31] VITALS: BP 194/91; PULSE 59; RESP 16; O2SAT 97
[2024-05-16 14:42] VITALS: BP 167/66; PULSE 52; RESP 16; O2SAT 96
== END 2024-05-16 15:06 | disposition home or self-care (01) ==
PROVIDERS: Visit Provider Anesthesiology Pain Medicine
PROC: (CPT 64493; principal; 2024-05-16 14:15)
DX: M54.9 Dorsalgia, unspecified (principal); M47.817 Spondylosis without myelopathy or radiculopathy, lumbosacral region; I10 Essential (primary) hypertension; E03.9 Hypothyroidism, unspecified; G47.33 Obstructive sleep apnea (adult) (pediatric); K21.9 Gastro-esophageal reflux disease without esophagitis; F41.9 Anxiety disorder, unspecified; E05.90 Thyrotoxicosis, unspecified without thyrotoxic crisis or storm; R51.9 Headache, unspecified; R00.9 Unspecified abnormalities of heart beat; F40.240 Claustrophobia; G47.00 Insomnia, unspecified; M17.0 Bilateral primary osteoarthritis of knee; M16.11 Unilateral primary osteoarthritis, right hip; Z98.890 Other specified postprocedural states; Z80.0 Family history of malignant neoplasm of digestive organs; Z82.49 Family history of ischemic heart disease and other diseases of the circulatory system
CPT/HCPCS: 64493; 64494; 64495; 99199; J2003; Q9965

== ENCOUNTER 2024-06-03 16:20 | Emergency (ER) | payer MEDICARE, SELFPAY ==
[2024-06-03 16:32] VITALS: BP 110/62; PULSE 58; RESP 16; TEMP 36.4; O2SAT 99
--- NOTE | 2024-06-03 16:33 | ED_ITS ---
HPI - URI/Sore Throat General Chief Complaint: Upper Respiratory Infection Stated Complaint: COUGH Time Seen by Provider: 06/03/24 16:24 Source: patient and RN notes reviewed Mode of arrival: ambulatory Limitations: no limitations History of Present Illness HPI Narrative: 74-year-old female presents with concern for cough that started yesterday. She reports history of bronchitis. She denies fever. Reports runny nose. MD elicited complaint: cough Related Data Home Medications ?Medication ?Instructions ?Recorded ?Confirmed ?Last Taken ?Type cholecalciferol (vitamin D3) 50 2,000 unit PO DAILY 12/17/18 05/13/24 04/26/24 History mcg (2,000 unit) tablet hydroxychloroquine 200 mg tablet 200 mg PO BID 05/21/23 05/13/24 04/26/24 History acetaminophen 650 mg 650 mg PO Q8H PRN pain 04/05/24 05/13/24 04/26/24 History tablet,extended release (Arthritis Pain Relief (acetaminophen) ER) ferrous sulfate 325 mg (65 mg 325 mg PO DAILY 04/05/24 05/13/24 04/26/24 History iron) tablet (iron) Allergies Allergy/AdvReac Type Severity Reaction Status Date / Time Sulfa (Sulfonamide Allergy Unknown Hives Verified 06/03/24 16:33 Antibiotics) Tetanus Vaccines and Toxoid Allergy Unknown Swelling Verified 06/03/24 16:33 codeine AdvReac Other Verified 06/03/24 16:33 Review of Systems Review of Systems: CONSTITUTIONAL: Denies malaise, chills, sweats, or fever. EYES: Denies visual changes, redness, or discharge. ENT: Reports rhinorrhea. Denies congestion, sinus pain, otalgia and sore throat. CARDIOVASCULAR: Denies chest pain, palpitations, or edema. RESPIRATORY: Reports cough. Denies dyspnea. GASTROINTESTINAL: Denies abdominal pain, nausea, vomiting, diarrhea SKIN: Denies rash or itching. MUSCULOSKELETAL: Denies myalgia. NEUROLOGIC: Denies headache. All systems reviewed & are unremarkable except as noted in HPI and below PMFSH Past Medical History Medical History Degenerative spondylolisthesis (~10/2023) Lumbar xray 11/02/23 severe lumbar spondylosis Posterior calcaneal exostosis Flexion contracture of knee Arthritis Anxiety Hyperthyroidism Abnormality of heart beat Vision changes Chronic headaches Claustrophobia Insomnia Degenerative arthritis of knee, bilateral Achilles tendinitis of both lower extremities Chronic GERD Essential (primary) hypertension Hypothyroidism, unspecified Obstructive sleep apnea (adult) (pediatric) Surgical History Surgical History History of knee replacement procedure of right knee History of esophagogastroduodenoscopy (EGD) H/O: hysterectomy Family History Family History Grandparent Family history of coronary artery disease Father Colon cancer Mother Cerebrovascular accident Other Depression HLD (hyperlipidemia) Heart disease Hypertension Social History Social History Smoking status: Never smoker Second hand tobacco smoke exposure: No Alcohol intake: current Alcohol use details: rarely glass of wine Substance use: never Substance use type: does not use Lack of Transportation: No Lack of Food: Never True Current Housing: I Have Housing Concerned About Future Housing: No Difficulty Paying Gas/Electric Bills: No Difficulty Paying for Meds: No Currently Unemployed: No Education: Bachelor's Degree Difficulty w/ Childcare or Family Care: No Living arrangements: with family Additional living arrangements comments: . 2 children both grown and out of house. 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 Gender identity (if verbalized by the patient): Female Sexual Orientation (if Verbalized by the Patient): Straight or Heterosexual Spiritual care concerns: No Agree to blood products: Yes Comments At time of signature, agree with nursing past medical, surgical, social and family history. There is no relevant family history pertinent to the presenting complaint Exam Narrative: GENERAL: Well-appearing, well-nourished, and in no acute distress. HEAD: Normocephalic EYES: PERRLA, conjunctivae clear ENT: Nares clear, turbinates edematous and erythematous, clear discharge. Mucous membranes moist. TM pearly moraes with dull light reflex bilaterally; no tragal tenderness. Oropharynx not erythematous without lesions. Tonsils not enlarged and without exudate, no drooling, no hoarseness, no trismus, uvula midline. NECK: Supple. No lymphadenopathy CHEST: Clear to auscultation, breath sounds equal. No wheezing, rhonchi, rales, or stridor. No respiratory distress, speaks in full sentences. HEART: Regular rate and rhythm. No murmur heard. SKIN: Warm, dry, no rash. NEURO: Alert and oriented x3. PSYCH: Normal mood and affect Course Course Emergency Course: Patient is aware of diagnosis, understands and agrees to treatment plan. Anticipatory guidance given. Patient agrees to follow-up as directed and is aware of reasons to seek care at the emergency department. Portions of this record may have been created with voice recognition software Level of Care: Express Care Visit Vital Signs Vital signs: Vital Signs Temperature 97.5 F L 06/03/24 16:32 Pulse Rate 58 L 06/03/24 16:32 Respiratory Rate 16 06/03/24 16:32 Blood Pressure 110/62 06/03/24 16:32 Pulse Oximetry 99 06/03/24 16:32 Temperature 97.5 F L 06/03/24 16:32 Pulse Rate 58 L 06/03/24 16:32 Respiratory Rate 16 06/03/24 16:32 Blood Pressure 110/62 06/03/24 16:32 Pulse Oximetry 99 06/03/24 16:32 Reviewed. MDM - URI/Sore Throat MDM Narrative Medical decision making narrative: Differential diagnosis considered: Hyde virus, strep pharyngitis, allergic rhinitis, upper respiratory tract infection, sinusitis, rhinosinusitis, nasopharyngitis. viral pharyngitis, otitis media, otitis externa, pneumonia, bronchitis, viral cough syndrome, viral syndrome, and influenza. Exam findings show no acute concerns or changes; patient is non-toxic appearing and is in no distress. Patient is appropriate for outpatient treatment and follow-up. Lab Data Attestation: I reviewed the patient's lab results. Critical Care Time Critical Care Time Critical Care Time: No Discharge Plan Discharge Clinical Impression: Bronchitis Patient Disposition: Home Condition: Stable Instructions: How to Use a Metered-Dose Inhaler (ED), Acute Bronchitis (ED) Additional Instructions: Viral illness may last between 7-21 days; antibiotics do not cure viral illness and are NOT recommended at this time. Recommend antihistamine such as Benadryl at night time and Zyrtec or Leslie during the day Use inhaler as needed for cough, wheezing, shortness of breath or chest tightness. Also, recommend symptomatic treatment includes: rest, fluids, and increase humidity of the air at home. Recommend Acetaminophen as directed on the bottle to reduce fever, pain, headache. Avoid smoking/second-hand smoke. Please schedule a follow-up visit with your personal physician for further evaluation and treatment within 3-5days. If your symptoms persist, change or worsen significantly before you can contact your personal physician then please, without delay, go to the emergency department for further evaluation. Patient Language: Spanish Prescriptions: New methylprednisolone [Medrol (Lucian)] 4 mg tablets,dose pack See Rx Instructions .ROUTE .COMPLEX Qty: 21 0RF Rx Instructions: orally per package directions albuterol sulfate 90 mcg/actuation HFA aerosol inhaler 2 puff INHALATION QID PRN (Reason: shortness of breath or wheezing) Qty: 8.5 0RF No Action metoprolol succinate 25 mg tablet extended release 24 hr See Rx Instructions .ROUTE .COMPLEX Qty: 90 2RF Dose Instruction: Take 1 tablet by mouth once daily Rx Instructions: Take 1 tablet by mouth once daily hydrocodone-acetaminophen 5-325 mg tablet 1 tablet PO QHS PRN (Reason: pain) 30 Days Qty: 30 0RF Rx Instructions: take 1 tab p.o. q.h.s. p.r.n. severe pain, maximum 1 per day cholecalciferol (vitamin D3) 2,000 unit tablet 2,000 unit PO DAILY fluticasone propionate [Flonase Allergy Relief] 50 mcg/actuation spray,suspension 2 spray NASAL DAILY Qty: 9.9 3RF Patient Comments: prn hydroxychloroquine 200 mg tablet 200 mg PO BID meloxicam 7.5 mg tablet 7.5 mg PO DAILY Qty: 90 1RF hydralazine 50 mg tablet See Rx Instructions .ROUTE .COMPLEX Qty: 135 5RF Dose Instruction: TAKE 1 & 1/2 (ONE & ONE-HALF) TABLETS BY MOUTH TWICE DAILY Rx Instructions: TAKE 1 & 1/2 (ONE & ONE-HALF) TABLETS BY MOUTH TWICE DAILY zolpidem [Ambien] 10 mg tablet 10 mg PO QHS PRN (Reason: sleep) Qty: 90 0RF losartan-hydrochlorothiazide 100-12.5 mg tablet 1 tablet PO DAILY Qty: 90 1RF omeprazole 20 mg capsule,delayed release(DR/EC) 20 mg PO BID Qty: 180 1RF duloxetine 60 mg capsule,delayed release(DR/EC) See Rx Instructions .ROUTE .COMPLEX Qty: 90 1RF Dose Instruction: Take 1 capsule by mouth once daily Rx Instructions: Take 1 capsule by mouth once daily levothyroxine 175 mcg tablet See Rx Instructions .ROUTE .COMPLEX Qty: 90 1RF Dose Instruction: Take 1 tablet by mouth once daily Rx Instructions: Take 1 tablet by mouth once daily ferrous sulfate [iron] 325 mg (65 mg iron) tablet 325 mg PO DAILY acetaminophen [Arthritis Pain Relief (acetam)] 650 mg tablet extended release 650 mg PO Q8H PRN (Reason: pain) Follow-up/Referrals: Pedro Pablo Leahy MD [Primary Care Provider] - Time of Disposition: 16:43
== END 2024-06-03 16:55 | disposition home or self-care (01) ==
PROVIDERS: Emergency Provider Nurse Practitioner; PCP Family Medicine
DX: J40 Bronchitis, not specified as acute or chronic (principal); I10 Essential (primary) hypertension; E03.9 Hypothyroidism, unspecified
CPT/HCPCS: 99213; G0463

== ENCOUNTER 2024-06-14 01:10 | Day surgery (SDC) | payer MEDICARE, SELFPAY ==
[2024-06-09 09:49] VITALS: BMI 40.8
--- NOTE | 2024-06-09 10:02 | PC.NURSE ---
Report to the Outpatient Waiting Room, entrance under the green pavilion located off [facility], at time __1:45pm on date _06/14/24 . Planned Procedure Time: _2:45pm .? Time changes happen often and if your time is changed the preop area will call you the afternoon before. - You and your visitor will be asked to self-screen and do not enter if you have any COVID symptoms. Please call surgeon if you need to reschedule. - A mask is optional within the hospital at this time. MAY HAVE A LIGHT LUNCH-NOTHING TO EAT OR DRINK 2 HOURS PRIOR TO PROCEDURE TIME(12:45 PM) PER DR MCCORD MAY TAKE MEDS WITH A SIP OF WATER Take only the following medications with a SIP of water on the morning of surgery: ____ALL ROUTINE MEDICATIONS DO NOT STOP ANY OF YOUR OTHER PRESCRIPTION MEDICATIONS PRIOR TO SURGERY EXCEPT THE FOLLOWING Medications to discontinue per physician NONE Date to take last dose None Please no make-up, nail romansh, hairspray, perfume, deodorant, or body powder the day of surgery.? No jewelry (including any body piercings) or valuables the day of surgery, leave them at home.? Please take a shower or bath the night before, or the morning of, surgery with an antibacterial soap.? Wear comfortable, loose fitting clothing.? Children are encouraged to wear pajamas. - Jewelry must be removed prior to entering the operating room.? Rings and piercings that are not removed may be cut off. - The hospital will not accept responsibility for valuables.? - Please leave all valuables, including medications, at home the day of surgery. If you are going home after surgery, a licensed flatbed truck driver must drive you home.? - NO public transportation without another adult if you receive anesthesia. - We recommend that an adult stay with you for 24 hours following discharge. - We also recommend that you do not drive, make important decision, drink alcoholic beverages, or take any drugs that were not prescribed by your health care provider for at least 24 hours after your discharge time. Follow any additional instructions given to you from your surgeon. Telephone instructions given to ___Patient and asked if any additional questions and then verbalized understanding. Patient advised to call surgeon office or pre surgery nurse liaison [phone] if any additional questions.
--- NOTE | ~2024-06-14 | XR_ITS ---
EXAMINATION: XR fluoroscopy no charge DATE: 06/14/2024 13:40 CDT INDICATION: DIAG/PROG BLKS OF NAKLU L3,L4,L5 MED BRANCHES/DORSAL RAMI . TECHNIQUE: 13 fluoroscopic images of the lumbar spine were obtained during diagnostic/prognostic bloc ks of the bilateral L3, L4, and L5 medial branches and dorsal rami, performed by Carlos Manuel Jose MD. I was not present during the procedure. Fluoroscopy exposure time was 1 minute 4.6 seconds. Air Kerm a 71.003 mGy. DAP 12.324 mGym2. COMPARISON: None FINDINGS/IMPRESSION: Fluoroscopic documentation of diagnostic/prognostic blocks of the bilateral L3, L4, and L5 medial bra nches and dorsal rami. Please refer to the operative note for complete procedural details. Reviewed, dictated and finalized at location K.
--- OUTSIDE RECORDS SUMMARY | 2024-06-14 01:15 | XMS_ITS | Referral Summary ---
Author Organization [facility] Address [address] [place] [address] Care Team Providers Care Canning Machine Operator Name Role Phone Vonda Leahy MD Primary Care Provider Encounters Date Type Department Care Team Description 05/21/2024 11:12 AM CDT - 05/21/2024 11:59 PM CDT Hospital Encounter [facility] [address] [place], [place] [id number] Screening mammogram, encounter for Discharge Disposition: Discharge to home or self care from Last 3 Months Allergies No known active allergies Social History Tobacco Use Types Packs/Day Years Used Date Smoking Tobacco: Never Assessed Comments No Sex and Gender Information Value Date Recorded Sex Assigned at Not on file Legal Sex Female 2:44 AM JAVA TECH LEAD Gender Identity Not on file Sexual Orientation Not on file Last Filed Vital Signs Vital Sign Reading Time Taken Comments Blood Pressure 168/79 07/10/2021 10:24 AM CDT Pulse 52 07/10/2021 10:24 AM CDT Temperature - - Respiratory Rate - - Oxygen Saturation - - Inhaled Oxygen Concentration - - Weight 98.9 kg (218 lb) 12/31/2019 8:25 AM JAVA TECH LEAD Height 165.1 cm (5' 5 ) 12/31/2019 8:25 AM JAVA TECH LEAD Body Mass Index 36.28 12/31/2019 8:25 AM JAVA TECH LEAD Plan of Treatment Not on file Procedures Procedure Name Priority Date/Time Associated Diagnosis Comments SCREENING MAMMOGRAM BILATERAL W PETAR Schedule Routine, Read Routine (OP Routine) 05/21/2024 11:28 AM CDT Screening mammogram, encounter for from Last 3 Months Results * Screening Mammogram Bilateral W Petar (05/21/2024 11:28 AM CDT) Anatomical Region Laterality Modality Breast Bilateral Mammography 05/23/2024 8:26 AM CDT Impressions 05/23/2024 8:26 AM CDT There is no mammographic evidence of malignancy. A 1 year screening mammogram is recommended. BI-RADS: 1 - Negative. The patient has been or will be contacted. The patient will be entered into a reminder system with a target due date of 1 year for her next mammogram. Electronically signed by: Jessica Henderson M.D. Narrative 05/23/2024 8:26 AM CDT EXAMINATION: SCREENING MAMMOGRAM BILATERAL W PETAR ORDERING HEALTHCARE PROVIDER: SELF SCREENING MAMMOGRAM HISTORY: Routine screening mammography. COMPARISON: 03/26/2023, 01/18/2022, 01/10/2021, 12/31/2019, 11/22/2018 TECHNIQUE: CC and MLO views of the bilateral breasts were obtained with digital technique using breast tomosynthesis with C view. Computer aided detection was utilized. FINDINGS: DENSITY: There are scattered areas of fibroglandular density. BREASTS: There are benign bilateral microcalcifications. There are no suspicious masses, suspicious calcifications, or other suspicious findings in either breast. There has been no suspicious interval change. us Self Screening Mammogram IMG MAMMO PROCEDURES Fi nal Result from Last 3 Months Insurance MEDICARE [facility] MEDICARE BLUE CROSS MEDICARE SUPPLEMENT MEDICARE [facility] MEDICARE SUPPLEMENT Care Teams Canning Machine Operator Relationship Specialty Start Date End Date Vonda Leahy MD PCP - General Family Practice 01/16/22
--- OUTSIDE RECORDS SUMMARY | 2024-06-14 01:15 | XMS_ITS | Clinical Summary ---
Author Organization [facility] Address [address] [place] [address] Care Team Providers Care Auto Adjudication Specialist Name Role Phone Vonda Leahy MD Primary Care Provider Allergies No known active allergies Encounters Date Type Department Care Team Description 05/21/2024 11:12 AM CDT - 05/21/2024 11:59 PM CDT Hospital Encounter [facility] Center [address] [place], [place] [id number] Screening mammogram, encounter for Discharge Disposition: Discharge to home or self care from Last 3 Months Surgical History Surgery Date Site/Laterality Comments HYSTERECTOMY Social History Tobacco Use Types Packs/Day Years Used Date Smoking Tobacco: Never Assessed Comments No Sex and Gender Information Value Date Recorded Sex Assigned at Not on file Legal Sex Female 2:44 AM TAX EXPERT Gender Identity Not on file Sexual Orientation [...] 98.9 kg (218 lb) 12/31/2019 8:25 AM TAX EXPERT Height 165.1 cm (5' 5 ) 12/31/2019 8:25 AM TAX EXPERT Body Mass Index 36.28 12/31/2019 8:25 AM TAX EXPERT Plan of Treatment Health Maintenance Due Date [...] 11/09/2018, 11/09/2017, 02/17/2013 Breast Cancer Screening-Mammogram Discontinued 05/21/2024, 03/26/2023, 01/18/2022, Additional history exists Procedures Procedure Name Priority [...] Last 3 Months Insurance MEDICARE [facility] MEDICARE BLUE CROSS MEDICARE SUPPLEMENT MEDICARE [facility] Address: [address] [phone] [facility] MEDICARE SUPPLEMENT Care Teams Auto Adjudication Specialist Relationship Specialty Start Date End Date Vonda Leahy MD PCP - General Family Practice 01/16/22
--- OUTSIDE RECORDS SUMMARY | 2024-06-14 01:15 | XMS_ITS | Encounter Summary ---
Author Organization [facility] Address [address] [place] [address] Care Team Providers Care Employment Director Name Role Phone Vonda Leahy MD Primary Care Provider Alexis Andersen DO Unavailable Encounter Details Date Type Department Care Team (Late st Contact Info) Description 03/06/2022 Lab Requisition [facility] [address] [place] [id number] Juan Yuan MD [address] [place] [address] Social History Tobacco Use Types [...] money to get more. Never true 11/12/2021 Comments Unknown Sex and Gender Information Value Date Recorded Sex Assigned at Not on file Legal Sex Female 1:01 PM CONTACT AGENT Gender Identity Not on file Sexual Orientation Not on file documented as of this encounter Functional Status * Is person deaf or have serious hearing difficulty? Answer Date of Assessment Author No 11/13/2021 2:21 PM CDRoshan Smith RN * Is person blind or have serious difficulty seeing? Answer Date of Assessment Author No 11/13/2021 2:21 PM CDT Roshan Miranda RN * Does person have serious difficulty walking/climbing stairs? Answer Date of Assessment Author Yes 11/13/2021 2:21 PM CDT Roshan Miranda RN * Does person have difficulty dressing/bathing? Answer Date of Assessment Author Yes 11/13/2021 2:21 PM CDT Roshan Miranda RN * Does person have difficulty doing errands alone? Answer Date of Assessment Author Yes 11/13/2021 2:21 PM CDT Roshan Miranda RN documented as of this encounter Mental Status * Does person have difficulty concentrating/remembering/making decisions? Answer Entry Date Author No 11/13/2021 2:21 PM CDT Roshan Miranda RN documented in this encounter Plan of Treatment Upcoming Encounters Date Type Department Care Team (Late st Contact Info) Description 06/16/2024 10:30 AM CDT Office Visit [facility] [address], [address] [place] [phone] Jane Chung [place] [address] [place] [address] documented as of this encounter Procedures Procedure Name Priority Date/Time Associated Diagnosis Comments DERMATOPATHOLOGY Routine 03/04/2022 12:0 0 AM CONTACT AGENT documented in this encounter Results * DERMATOPATHOLOGY (03/04/2022 12:00 AM CONTACT AGENT) Case Report Dermatopathology Report Case: [id number] Authorizing Provider: Juan Yuan MD Collected: 03/04/2022 12:00 AM Ordering Location: [facility] DermPath Lab Received: 03/06/2022 01:29 PM Pathologist: Elizabeth Garvin MD Specimen: Skin, right medial cheek 3:47 PM CONTACT AGENT DERMATOPATHOLOGY LABORATORY Final Diagnosis Specimen A. SKIN, right medial cheek: SEBACEOUS HYPERPLASIA, SUPERFICIAL PORTIONS OF (L73.8) (see microscopic description and comment) 3 3:47 PM [facility] DERMATOPATHOLOGY LABORATORY Clinical History R/O SCC, BCC 3 3:47 PM [facility] DERMATOPATHOLOGY LABORATORY Gross Description Specimen A: Received is one formalin filled container labeled with the patient's name and designated right medial cheek. The specimen consists of a shave biopsy measuring 3x3x1 mm. Jar 0. 3 3:47 PM [facility] DERMATOPATHOLOGY LABORATORY Microscopic Description Specimen A. SKIN, right medial cheek: There are superficial portions of prominent sebaceous gland lobules surrounding a dilated hair follicle. Additional deeper sections were obtained and reviewed. COMMENT: Given the superficial nature of the biopsy specimen, a deeper dermal process cannot be excluded. 3 3:47 PM [facility] DERMATOPATHOLOGY LABORATORY Disclaimer An external and internal positive and negative controls are appropriate for the histochemical, immunohistochemical and immunofluorescence stain(s) in this case (if any), except where stated explicitly. The performance characteristics of the stain(s) cited in this report were developed and its performance characteristic determined by the Dermatopathology Laboratory at [facility], directed by Dr. Sadia Barillas. These tests need not be, and therefore are not, approved by the [place] Food and Drug Administration. The tests are used for clinical purposes. Billing Codes Specimen Charges Stain Charges 65028 1 3 3:47 PM [facility] DERMATOPATHOLOGY LABORATORY Embedded Images 3 3:47 PM [facility] DERMATOPATHOLOGY LABORATORY Pathology/Cytolog y TISSUE SPECIMEN FROM SKIN / Unknown 03/04/2022 03/06/2022 1:29 PM CONTACT AGENT us Juan Yuan MD LAB - PATHOLOGY/CYTOLOGY ORD ERABLES Final Result DERMATOPATHOLOGY LABORATORY [facility] - Department of Dermatology [address] [phone] documented in this encounter Visit Diagnoses Not on filedocumented in this encounter Care Teams Employment Director Relationship Specialty Start Date End Date Vonda Leahy MD [address] [place] [phone] PCP - General Family Medicine 07/23/21 Alexis Andersen DO [address] [place], [place] [phone] Internal Medicine 07/02/22 documented as of this encounter
--- OUTSIDE RECORDS SUMMARY | 2024-06-14 01:15 | XMS_ITS | Clinical Summary ---
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 This disclosure is being madepursuant to the Care Everywhere program and may not contain all information available regarding this patient. Last updated 17.[facility] Allergies Active Allergy Reactions Criticality Noted Date Comments Codeine Other Medium 03/25/2011 Tachycardia and Light headed Sulfa Drugs Urticaria Medium 03/25/2011 Sulfacetamide Urticaria Medium 08/04/2022 Tetanus Toxoid Swelling,Other High 04/02/2011 Loss of consciousness/ passed out Other reaction(s): swelling, loss of consciousness Medications * Be aware that medications may not be up to date on this document. Alwaysverify current medications with the patient. docusate sodium (COLACE) 100 MG capsuleIndicat ions:Constipat ion Take 1 Cap by mouth 2 times daily. 60 Cap 2 04/08/19 12 Active omeprazole (PRILOSEC) 20 MG capsuleIndicat ions:Gastroeso phageal Reflux Disease Take 1 capsule by mouth 2 times daily Reasons: Gastroesophageal Reflux Disease 06/08/19 22 Active meloxicam (MOBIC) 15 MG tabletIndicati ons:Rheumatoid Arthritis Take 1 tablet by mouth once daily Reasons: Rheumatoid Arthritis 06/20/19 22 Active DULoxetine (CYMBALTA) 30 MG capsuleIndicat ions:Major Depressive Disorder Take 2 capsules by mouth once daily Reasons: Major Depressive Disorder 07/04/19 22 Active EUTHYROX 175 MCG tabletIndicati ons:Hypothyroi dism Take 1 tablet by mouth once daily Reasons: Underactive Thyroid 05/03/19 22 Active hydrALAZINE (Apresoline) 50 MG tabletIndicati ons:Hypertensi on Take 1 tablet by mouth 2 times daily Reasons: High Blood Pressure Disorder 09/17/19 22 Active tobramycin-dex AMETHasone (Tobradex) 0.3-0.1 % ophthalmic suspension INSTILL 1 DROP INTO EACH EYE AT BEDTIME 10/12/19 22 Active fluticasone propionate (Flonase) 50 MCG/ACT nasal sprayIndicatio ns:Allergic Rhinitis [place] 2 (two) sprays into each nostril once daily Reasons: Allergic Rhinitis Active zolpidem (Ambien) 10 MG tabletIndicati ons:Insomnia Take 1 tablet by mouth nightly as needed for Insomnia Reasons: Trouble Sleeping Active Vitamin D, Cholecalcifero l, 25 MCG (1000 UT) CAPSIndication s:Vitamin D Deficiency Take 3 capsules by mouth once daily Reasons: Vitamin D Deficiency Active Probiotic Product (PROBIOTIC BLEND PO) Take 1 tablet by mouth once daily Active losartan-hydro CHLOROthiazide (Hyzaar) 100-12.5 MG tabletIndicati ons:Hypertensi on Take 1 (one) tablet by mouth once daily Reasons: High Blood Pressure Disorder Active metoprolol succinate XL 24hr (Toprol XL) 25 MG tabletIndicati ons:Hypertensi on Take 25 mg by mouth once daily Reasons: High Blood Pressure Disorder 05/31/19 23 Active FeroSul 325 (65 Fe) MG tabletIndicati ons:Iron Deficiency Take 1 tablet by mouth once daily Reasons: Iron Deficiency 04/16/19 23 Active hydroxychloroq uine (Plaquenil) 200 MG tabletIndicati ons:Rheumatoid Arthritis Take 1 tablet by mouth 2 times daily Reasons: Rheumatoid Arthritis Active polyethylene glycol 3350 (GlycoLax) 17 GM/SCOOP powderIndicati ons:Constipati on Take 17 g by mouth once daily as needed for Constipation. Indications: Constipation Active oxyCODONE, immediate release, (Roxicodone) 5 MG tabletIndicati ons:Acute Pain Take 1 (one) tablet to 2 (two) tablets by mouth every 6 hours as needed for Pain (pain) Reasons: Acute Pain 56 tablet 07/19/19 Active Active Problems Problem Noted Date Diagnosed [...] money to buy more. Never true 11/13/19 Within the past 12 months, t he food you bought just didn't last and you didn't have money to get more. 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, [address] [place] [address] Jane Chung PA [facility] [address] [address] [place] [address] Health Maintenance Due Date Last Done Comments BONE DENSITY TESTING 1950 MEDICARE AWV 12 MONTHS 1950 HEPATITIS C SCREENING 02/04/1966 DTAP/TDAP/TD VACCINES (1 - Tdap) 02/08/1967 PNEUMOCOCCAL VACCINE 50+ (1 of 1 - PCV) 02/08/1998 ZOSTER VACCINE (1 of 2) 02/08/1998 Respiratory Syncytial Virus (RSV) Vaccine Pt: or over 60 yrs (1 - 1-dose 75+ series) 02/08/2023 COVID-19 VACCINE (1 - 2023-2 5 season) 2023 DEPRESSION SCREENING [...] to complete this topic MENINGOCOCCAL (Group B) VACC INE SHARED DECISION-MAKING Aged Out No longer eligibl e based on patient's age to complete this topic MENINGOCOCCAL GROUPS A/C/Y/W VACCINE Aged Out No longer eligible b ased on patient's age to complete this topic Medical Devices Implanted Type Area Hyperion Developer Device Identifier Shelf Expiration Date Model / Serial / Lot Glenn Bone [place]-G Hv 40/20 Implanted:Qty: 1 on 11/11/2021 by Carlos Manuel Acevedo MD at [facility] Right: Knee [employer] 03/07/2023 [id number] / / [id number] Tray Tib 71mm Kn Cocr I Beam Implanted:Qty: 1 on 11/11/2021 by Carlos Manuel Acevedo MD at [facility] Right: Knee [employer] 09/07/2031 [id number] / / [id number] Cmpnt Fem Kn Rt Cr Cmnt Prm Vngrd Intlk 67.5 Mm Implanted:Qty: 1 on 11/11/2021 by Carlos Manuel Acevedo MD at [facility] Right: Knee [employer] 10/05/2031 [id number] / / [id number] Cmpnt Ptlr Std 28mm 1 Pg Wire Kn Ser A Implanted:Qty: 1 on 11/11/2021 by Carlos Manuel Acevedo MD at [facility] Right: Knee [employer] 10/23/2025 [id number] / / [id number] Brng [id number] Vngrd Arcm Kn Ant Stab Implanted:Qty: 1 on 11/11/2021 by Carlos Manuel Acevedo MD at [facility] Right: Knee [employer] 09/02/2026 [id number] / / [id number] Brng [id number] Vngrd Arcm Kn Ant Stab Implanted:Qty: 1 on 07/14/2022 by Carlos Manuel Acevedo MD at [facility] Left: Knee [employer] 03/31/2027 [id number] / / [id number] Cmnt Bone Plc R 40gm Grn Implanted:Qty: 1 on 07/14/2022 by Carlos Manuel Acevedo MD at [facility] Left: Knee [employer] 08/08/2024 [id number] / / [id number] Cmpnt Fem Kn Lt Cr Cmnt Prm Vngrd Intlk 67.5mm Implanted:Qty: 1 on 07/14/2022 by Carlos Manuel Acevedo MD at [facility] Left: Knee [employer] 03/06/2032 [id number] / / [id number] Tray Tib 75mm Kn Cocr I Beam Implanted:Qty: 1 on 07/14/2022 by Carlos Manuel Acevedo MD at [facility] Left: Knee [employer] 03/22/2032 [id number] / / [id number] Cmpnt Ptlr Std 28mm 3 Pg Kn Ser A Implanted:Qty: 1 on 07/14/2022 by Carlos Manuel Acevedo MD at [facility] Left: Knee [employer] 05/23/2027 [id number] / / [id number] Insurance MEDICARE [facility] MEDICARE [facility] Advance Directives * Full Code (Latest Code [...] 1:40 PM 04/08/2011 11:08 PM 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
--- NOTE | 2024-06-14 13:32 | P.OP_ITS ---
Procedure Note - Detailed Date of Procedure 06/14/24 Pre-op Diagnosis spondylosis lumbosacral region Post-op Diagnosis Same Procedure Performed Diagnostic bilateral Lumbar Medial Branch/Dorsal Ramus Blocks (# 2) at L3, L4, L5 Treating the bilateral L4-5, L5-S1 Facet Joints Under Fluoroscopic Guidance and with Contrast Control. (4 levels blocked). Surgeon Carlos Manuel Jose MD Compressor Station Chief Engineer None. Anesthesia Local Description of Procedure INFORMED CONSENT: Risks, benefits and alternatives to the procedure were discussed in detail with the patient who expressed explicit understanding and consent to proceed. Patient was informed verbally and in written form regarding the risks associated with the procedure including the low risk of serious infection, bleeding/bruising, allergic reaction, nerve or organ injury, paralysis, procedural site pain or discomfort, worsening pain and/or mobility, failure to treat and/or disfigurement. The patient expressed explicit understanding and consent to proceed. All materials required for the procedure were available prior to procedure start. Site and side were marked prior to procedure and confirmed in the presence of the patient. PROCEDURE IN DETAIL: The patient was brought to the procedural suite and placed in the prone position. Patient was made comfortable with use of pillows under the head/chest, hips and ankles. Skin overlying the injection site on the affected side(s) was prepared broadly with ChloraPrep applicator and draped in a sterile manner. Aseptic technique was used throughout. The endplates of the vertebral bodies at the site(s) of interest were aligned in the AP view. Ipsilateral oblique angulation was utilized to optimize visualization of the intersection between the superior articulating process and transverse process at each target site. Local anesthesia was established by infiltration with approximately 5 mL of 1% lidocaine via a 1-1/2 inch 27-gauge needle. A 25-gauge 5.0 inch Quincke spinal needle was advanced until the needle tip contacted periosteum at the target site, right L3. Lateral view was utilized to confirm the appropriate placement of the needle tip just anterior to the facet line and superior to the pedicle. In the Lateral view, 0.25 mL of Omnipaque 300 contrast medium was injected after negative aspiration for CSF, blood or other bodily fluid, showing appropriate extra-articular spread of contrast without evidence of intravascular, foraminal or intrathecal placement. A 0.5 mL solution of 2.0% PF lidocaine was injected after negative repeat aspiration. Appropriate spread of the injectate was confirmed with washout of previously injected contrast. No parasthesias were elicited. Needle was removed completely intact without difficulty. The same exact procedure was repeated for all remaining levels on the ipsilateral side, right L4, L5 medial branches/dorsal ramus, modified as necessary to accommodate for the new target location with identical findings and results and no evidence of complication. The same exact procedure was repeated for all remaining levels on the contralateral side, left L3, L4, L5 medial branches/dorsal ramus, modified as necessary to accommodate for the new target location with identical findings and results and no evidence of complication. Images were saved and documented in the patient chart. Patient's skin was cleaned and sterile bandage applied. The patient tolerated the procedure well. The patient was transported to the recovery area in stable condition where they were observed for an appropriate amount of time prior to discharge, without evidence of complication. Patient was instructed on the appropriate completion of a pain diary over the next 12-24 hours. The patient was instructed to avoid excessive activity for the next 48 hours, including climbing and frequent use of stairs. Showers only for 48 hours. They were instructed not to drive or operate heavy machinery for 24 hours. They are to monitor for severe headaches, fevers, chills, night sweats, erythema/swelling at the site or any other signs of infection, bleeding/bruising, bowel or bladder changes as well as new pain, weakness or numbness in the upper or lower extremity. Should they notice these changes, they are instructed to call our office immediately or report directly to the nearest Emergency Department if no answer or if after posted office hours. COMPLICATIONS: None COMMENTS: None CONTRAST WASTED: 28.5mL Omnipaque 300. Complications No immediate complications Condition Stable Disposition Same day [facility] Billing Surgery - Charge Forward: Surgery Billing
--- NOTE | 2024-06-14 13:32 | WPDHPUPDATE1 ---
History and Physical Update Update Date/Time: 06/14/24 13:32 History and Physical has been reviewed, including an updated exam of the patient. There are NO changes in the patient's condition. Risks, benefits, and alternatives have been discussed and questions answered. Patient agrees to proceed with procedure.
[2024-06-14 13:50] VITALS: BP 162/66; PULSE 56; RESP 16; O2SAT 97
[2024-06-14 13:55] VITALS: BP 153/70; PULSE 52; RESP 16; O2SAT 97
[2024-06-14] MEDS: LIDOCAINE 2% PF LOCAL INJ 5 ML VIAL 10 ML INFILTRATE (13:55)
[2024-06-14] MEDS: LIDOCAINE 1% PF INJ 5 ML VIAL INFILTRATE (13:58)
[2024-06-14 14:00] VITALS: BP 138/58; BP 147/72; PULSE 52; PULSE 59; RESP 14; RESP 16; TEMP 36.2; O2SAT 95
[2024-06-14 14:06] VITALS: BP 150/77; PULSE 51; RESP 17; O2SAT 96
[2024-06-14 14:35] VITALS: BP 157/65; PULSE 50; RESP 16
--- NOTE | 2024-06-14 14:43 | SUR.PHASEII ---
Pt is awaiting ride from friend to discharge home.
[2024-06-14 15:05] VITALS: BP 139/60; PULSE 50; RESP 16
== END 2024-06-14 15:10 | disposition home or self-care (01) ==
PROVIDERS: PCP Family Medicine; Visit Provider Anesthesiology Pain Medicine
PROC: (CPT 64493; principal; 2024-06-14 14:45)
DX: M47.817 Spondylosis without myelopathy or radiculopathy, lumbosacral region (principal)
CPT/HCPCS: 64493; 64494 ×2; 64495 ×2; 99199; J2003

== ENCOUNTER 2024-07-02 08:03 | Outpatient (CLI) | payer MEDICARE, SELFPAY ==
--- OUTSIDE RECORDS SUMMARY | 2024-07-02 08:06 | XMS_ITS ---
Author Organization [facility] Address [address] [place], [place] [id number] Care Team Providers Care Rn Support Services Name Role Phone IGLESIA TREVINO MD Primary Care Provider Unavailable Manjula Gallegos [phone] Encounters Encounter Location Date Provider Diagnosis [facility] [address], [address] [place], [place] [phone] 10/23/2023 Manjula Gallegos PLAN OF TREATMENT Next Appt Details Provider Name:Chaparrita mcknight, 10/13/2024 10:20:00 AM, [address], [address], [place], [place], [phone],
--- OUTSIDE RECORDS SUMMARY | 2024-07-02 08:06 | XMS_ITS | Patient Health Record ---
Author Organization [facility] Address [address] [facility] [address] [place], [place] [id number] Care Team Providers Care Director Of Acquisitions Name Role Phone IGLESIA TREVINO MD Primary Care Provider Unavailable Manjula Gallegos Unavailable [phone] Chaparrita Rivera Unavailable [phone] ALLERGIES Allergen (clinical drug ingredient) Drug/Non Drug Allergy documented on EMR Reaction Allergy Type Onset Date Status Tetanus (uncoded) swelling, loss of consciousness Allergy Active Sulfa (uncoded) hives Allergy Acti ve RESULTS Component Value Reference Range Notes AST (SGOT) Reviewed date:10/23/2023 03:44:56 PM Interpretation: Performing Lab:[facility] [place], [address] [place] [address], Phone - [phone], Director - PhDFreedomi Notes/Report: AST (SGOT) 15 0-40 IU/L Creatinine, Serum Reviewed date:10/23/2023 03:45:51 PM Interpretation: Performing Lab:[facility] [place], [address] [facility], Phone - [phone], Director - PhDRicchiuti Notes/Report: Creatinine 1.21 0.57-1.00 mg/dL eGFR 47 >59 mL/min/1.73 ALT (SGPT) Reviewed date:10/23/2023 03:44:56 PM Interpretation: Performing Lab:[facility] [place], [address] [facility], Phone - [phone], Director - PhDRicflaviai Notes/Report: ALT (SGPT) 13 0-32 IU/L CBC With Differential/Platel et Reviewed date:10/23/2023 03:46:11 PM Interpretation: Performing [facility], [address] [place] [address], Phone - [phone], Director - [facility] Notes/Report: WBC 6.1 3.4-10.8 x10E3/uL RBC [...] Westergren Reviewed date:10/23/2023 03:46:00 PM Interpretation: Performing [facility], [address] [place] [address], Phone - [phone], Director - [facility] Notes/Report: Sedimentation Rate-Barronergren 19 0-40 mm/hr Rheumatoid Arthritis Factor Reviewed date:10/23/2023 03:46:11 PM Interpretation: Performing [facility], [address] [place] [address], Phone - [phone], Director - Sascha Notes/Report: Rheumatoid Factor (RF) <10.0 <14.0 IU/mL C-Reactive Protein, Quant Reviewed date:10/23/2023 03:46:11 PM Interpretation: Performing Lab:[address], Phone - [phone], [facility] Notes/Report: C-Reactive Protein, Quant 16 0-10 mg/L CCP IgG Antibodies Reviewed date:10/23/2023 03:45:55 PM Interpretation: Performing Lab:[address], Phone - [phone], [facility] Notes/Report: Anti-CCP Ab, IgG/IgA 77 0-19 units Negative <20 Weak positive 20 - 39 Moderate positive 40 - 59 Strong positive >59 AST (SGOT) Reviewed date:04/21/2024 03:04:50 PM Interpretation: Performing Lab:[address], Phone - [phone], [facility] Notes/Report: AST (SGOT) 17 0-40 IU/L Creatinine, Serum Reviewed date:04/21/2024 03:04:50 PM Interpretation: Performing Lab:[address], Phone - [phone], [facility] Notes/Report: Creatinine 1.03 0.57-1.00 mg/dL eGFR 56 >59 mL/min/1.73 ALT (SGPT) Reviewed date:04/21/2024 03:04:50 PM Interpretation: Performing Lab:[address], Phone - [phone], [facility] Notes/Report: ALT (SGPT) 12 0-32 IU/L CBC With Differential/Platel et Reviewed date:04/21/2024 03:04:50 PM Interpretation: Performing Lab:[address], Phone - [phone], [facility] Notes/Report: WBC 6.5 3.4-10.8 x10E3/uL RBC 3.93 [...] Westergren Reviewed date:04/21/2024 03:04:50 PM Interpretation: Performing Lab:[facility] [address], Phone - [phone], Director - [facility] Notes/Report: Sedimentation Rate-Westergren 19 0-40 mm/hr Rheumatoid Arthritis Factor Reviewed date:04/21/2024 03:04:50 PM Interpretation: Performing Lab:[facility] [place], [address] [place] [address], Phone - [phone], Director - [facility] Notes/Report: Rheumatoid Factor (RF) <10.0 <14.0 IU/mL C-Reactive Protein, Quant Reviewed date:04/21/2024 03:04:50 PM Interpretation: Performing Lab:[facility] [place], [address] [place] [address], Phone - [phone], Director - [facility] Notes/Report: C-Reactive Protein, Quant 14 0-10 mg/L CCP IgG Antibodies Reviewed date:04/21/2024 03:04:50 PM Interpretation: Performing Lab:[facility] [place], [address] [place] [address], Phone - [phone], Director - [facility] Notes/Report: Anti-CCP Ab, IgG/IgA 67 0-19 units Negative <20 Weak positive 20 - 39 Moderate positive 40 - 59 Strong positive >59 REASON FOR REFERRAL No Information MEDICATIONS Medication SIG (Take, Route, Frequency, Duration) Notes Start Date End Date Status DULoxetine 30 mg 1 cap(s) orally 2 times a day Active Flonase 50 mcg/inh 1 spray(s) in each nostril once a day Active meloxicam 15 mg 1 tab(s) orally once a day for 90 days Active levothyroxine 175 mcg (0.175 mg) 1 tab(s) orally once a day Active Hydroxychloroquine Sulfate 2 00 mg 1 tab(s) orally 2 times a day for 90 days Active metoprolol 50 mg 1 tab(s) orally once a day Active hydrALAZINE 50 mg 1 tab(s) oral bid Active omeprazole 20 mg 1 cap(s) orally once a day Active Losartan-HCTZ 100/12.5mg Active SOCIAL HISTORY Sex Assigned At : Social History Observation Description Sex Assigned At Unknown PROBLEMS Problem Type ICD Code Onset Dates Problem Status W/U Status Risk SNOMED Code Notes Problem Sleeping difficulty (G47.9) Active confirmed 356491687 Problem Dry eye (H04.129) Active confirmed 1622 41899 Problem Polyarthralgia (M25.50) Active confirmed 32425790 Problem Dry mouth (R68.2) Active confirmed 8771 5008 Problem Low back pain at multiple sites (M54.5) Active confirmed Problem Primary generalized (osteo)arthritis (M15.0) Active confirmed 385282075 Problem Positive anti-CCP test (R76.8) Active confirmed 265759355 Problem Essential (primary) hypertension (I10) Active confirmed 10756407 VITAL SIGNS Heart Rate 59 /min 04/20/2024 Blood pressure diastolic 89 mm Hg 04/20/2024 Height 65 in 04/20/2024 Blood pressure systolic 160 mm Hg 04/20/2024 Weight 254 lbs 04/20/2024 BMI 42.26 kg/m2 04/20/2024 Encounters Encounter Location Date Provider Diagnosis [facility], [address], [address] [place], [place] [phone] 10/22/2023 Chaparrita Rivera Primary generalized (osteo)arthritis M15.0 ; Positive anti-CCP test R76.8 and Other intermediate accountant (current) drug therapy Z79.899 [facility], [address], [address] [place], [place] [phone] 04/20/2024 Chaparrita Rivera Primary generalized (osteo)arthritis M15.0 ; Positive anti-CCP test R76.8 and Other intermediate accountant (current) drug therapy Z79.899 [facility] [address] [facility], [address] [place], [place] [phone] 10/22/2023 Manjula Gallegos [facility] [address] [facility], [address] [place], [place] [phone] 10/23/2023 Manjula Gallegos ASSESSMENTS Encounter Date Diagnosis Assessment Notes Treatment Notes Treatment Clinical Notes 10/22/2023 Positive anti-CCP test (ICD-10 - R76.8) 10/22/2023 Primary generalized (osteo)arthritis (ICD-10 - M15.0) 04/20/2024 Positive anti-CCP test (ICD-10 - R76.8) 04/20/2024 Primary generalized (osteo)arthritis (ICD-10 - M15.0) 10/22/2023 Other fdc (current) drug therapy (ICD-10 - Z79.899) 04/20/2024 [...] Name:Chaparrita mcknight, 10/13/2024 10:20:00 AM, [address], [address], [place], [place], [id number], Insurance Providers Payer Name Payer Address Payer Phone Subscriber Number Group Number Insured Name Patient Relationship to Insured Coverage Start Date Coverage End Date MEDICARE [address] [address] [place] [address] [id number] Matilde Breen Self - patient is the insured [facility] [address] [place] [address] [id number] Matilde Breen Self - patient is the insured 3 MEDICAL (GENERAL) HISTORY Medical History History ICD Code depression tension headaches sinus problems thyroid disease anxiety irregular heart beat difficulty breathing diarrhea Lack of bladder control Hot Flashes high blood pressure hemorrhoids frequent urination Surgical History Surgery Date(Month/Year) prolapse 2012 esophagus 1996,2001 hysterectomy 1979
--- OUTSIDE RECORDS SUMMARY | 2024-07-02 08:07 | XMS_ITS ---
Author Organization [facility] Address [address] [place], [place] [address] Care Team Providers Care Residential Green Building Designer Name Role Phone IGLESIA TREVINO MD Primary Care Provider Unavailable Manjula Gallegos Unavailable [phone] Chaparrita Rivera Unavailable [phone] ALLERGIES Allergen (clinical drug ingredient) Drug/Non Drug Allergy documented on EMR Reaction Allergy Type Onset Date Status Tetanus (uncoded) swelling, loss of consciousness Allergy Active Sulfa (uncoded) hives Allergy Acti ve RESULTS Component Value Reference Range Notes AST (SGOT) Reviewed date:04/21/2024 03:04:50 PM Interpretation: Performing Lab:[facility], [address] [place] [address], Phone - [phone], Director - PhDFreedomi Notes/Report: AST (SGOT) 17 0-40 IU/L Creatinine, Serum Reviewed date:04/21/2024 03:04:50 PM Interpretation: Performing Lab:[facility], [address] [place] [address], Phone - [phone], Director - PhDRicchiuti Notes/Report: Creatinine 1.03 0.57-1.00 mg/dL eGFR 56 >59 mL/min/1.73 ALT (SGPT) Reviewed date:04/21/2024 03:04:50 PM Interpretation: Performing Lab:[facility], [address] [facility], Phone - [phone], Director - PhDRicflaviai Notes/Report: ALT (SGPT) 12 0-32 IU/L CBC With Differential/Platel et Reviewed date:04/21/2024 03:04:50 PM Interpretation: Performing Lab:[facility] [place], [address] [facility], Phone - [phone], Director - Sascha Notes/Report: WBC 6.5 3.4-10.8 [...] Westergren Reviewed date:04/21/2024 03:04:50 PM Interpretation: Performing Lab:[facility] [place], [address] [facility], Phone - [phone], Director - Sascha Notes/Report: Sedimentation Rate-Westergren 19 0-40 mm/hr Rheumatoid Arthritis Factor Reviewed date:04/21/2024 03:04:50 PM Interpretation: Performing Lab:[facility] [place], [address] [facility], Phone - [phone], Director - Sascha Notes/Report: Rheumatoid Factor (RF) <10.0 <14.0 IU/mL C-Reactive Protein, Quant Reviewed date:04/21/2024 03:04:50 PM Interpretation: Performing Lab[facility], [address] [facility], Phone - [phone], [facility] - [facility] Notes/Report: C-Reactive Protein, Quant 14 0-10 mg/L CCP IgG Antibodies Reviewed date:04/21/2024 03:04:50 PM Interpretation: Performing Lab[facility] [place], [address] [facility], Phone - [phone], Director - Ssacha Notes/Report: Anti-CCP Ab, IgG/IgA 67 0-19 units [...] Location Date Provider Diagnosis [facility], [address] [place], [place] [phone] 04/20/2024 Chaparrita Rivera Primary generalized (osteo)arthritis M15.0 ; Positive anti-CCP test R76.8 and 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 [facility], [address], [place], [place], [phone], Progress Notes * Examination Category Sub-Category Detail [...]
--- OUTSIDE RECORDS SUMMARY | 2024-07-02 08:07 | XMS_ITS | Referral Summary ---
Author Organization [facility] Address [address] [place] [address] Care Team Providers Care Renewable Energy Project Manager Name Role Phone Vonda Leahy MD Primary Care Provider Encounters Date Type Department Care Team Description 05/21/2024 11:12 AM CDT - 05/21/2024 11:59 PM CDT Hospital Encounter [facility] [address] [place], [place] [id number] Screening mammogram, encounter for Discharge Disposition: Discharge to home or self care from Last 3 Months Allergies No known active allergies Social History Tobacco Use Types Packs/Day Years Used Date Smoking Tobacco: Never Assessed Comments No Sex and Gender Information Value Date Recorded Sex Assigned at Not on file Legal Sex Female 2:44 AM LENDING CONSULTANT Gender Identity Not on file Sexual Orientation Not on file Last Filed Vital Signs Vital Sign Reading Time Taken Comments Blood Pressure 168/79 07/10/2021 10:24 AM CDT Pulse 52 07/10/2021 10:24 AM CDT Temperature - - Respiratory Rate - - Oxygen Saturation - - Inhaled Oxygen Concentration - - Weight 98.9 kg (218 lb) 12/31/2019 8:25 AM LENDING CONSULTANT Height 165.1 cm (5' 5 ) 12/31/2019 8:25 AM LENDING CONSULTANT Body Mass Index 36.28 12/31/2019 8:25 AM LENDING CONSULTANT Plan of Treatment Not on file Procedures [...] Result from Last 3 Months Insurance MEDICARE [facility] MEDICARE BLUE CROSS MEDICARE SUPPLEMENT MEDICARE [facility] MEDICARE SUPPLEMENT Care Teams Renewable Energy Project Manager Relationship Specialty Start Date End Date Vonda Leahy MD PCP - General Family Practice 01/16/22
--- OUTSIDE RECORDS SUMMARY | 2024-07-02 08:07 | XMS_ITS | Encounter Summary ---
Author Organization [facility] Address [address] [facility] [place] [address] Care Team Providers Care Microeconomics Professor Name Role Phone Vonda Leahy MD Primary Care Provider Alexis Andersen DO Unavailable Encounter Details Date Type Department Care Team (Late st Contact Info) Description 03/06/2022 Lab Requisition [facility] D[facility] Lab [address] [facility], [place] [phone] Juan Yuan MD [address] [place] [address] Social History Tobacco Use Types [...] on file Legal Sex Female 1:01 PM MAGNETIC RESONANCE TECHNOLOGIST Gender Identity Not on file Sexual Orientation [...] Upcoming Encounters Date Type Department Care Team (Latest Contact Info) Description 08/19/2024 9:50 AM CDT Office Visit [facility] Orthopedics [address] [facility] [address] [place] [address] [place] [address] [address] [address] 08/29/2024 9:30 AM CDT [facility] [address] [place] [address] 10/06/2024 10:45 AM CDT Hospital Encounter [facility] - Perioperative Surgery [address] [place] [address] [place] [address] [address] [place], [place] [phone] Surgery General 10/06/2024 10:45 AM CDT - 10/06/2024 1:31 PM CDT Surgery [facility] - Perioperative Surgery [address] [place] [address] [place] [address] [address] [place] [address] RIGHT TOTAL ANTERIOR HIP ARTHROPLASTY 10/24/2024 4:00 PM CDT Office Visit [facility] [address] [place] [address], [address] [phone] [place] [address] [address] [address] 11/11/2024 9:45 AM CDT Office Visit [facility] [address] [place] [address], [address] [address] Maribell Ramirez PA-C [address] [address] [address] 12/19/2024 2:50 PM MAGNETIC RESONANCE TECHNOLOGIST Office Visit [address], [address] [address] [place] [address] [address] [address] Scheduled Procedures Name Priority Associated Diagnoses Date/Ti me ARTHROPLASTY TOTAL HIP (ANTERIOR) 10/06/2024 10:45 AM CDT documented as of this encounter Procedures Procedure Name Priority Date/Time Associated Diagnosis Comments DERMATOPATHOLOGY Routine 03/04/2022 12:0 0 AM MAGNETIC RESONANCE TECHNOLOGIST documented in this encounter Results * DERMATOPATHOLOGY (03/04/2022 12:00 AM MAGNETIC RESONANCE TECHNOLOGIST) Case Report Dermatopathology Report Case: [id number] Authorizing Provider: Juan Yuan MD Collected: 03/04/2022 12:00 AM Ordering Location: [facility] DermPath Lab Received: 03/06/2022 01:29 PM Pathologist: Elizabeth Garvin MD Specimen: Skin, right medial cheek 3:47 PM MAGNETIC RESONANCE TECHNOLOGIST DERMATOPATHOLOGY LABORATORY Final Diagnosis Specimen A. SKIN, right medial cheek: SEBACEOUS HYPERPLASIA, SUPERFICIAL PORTIONS OF (L73.8) (see microscopic description and comment) 3 3:47 PM [facility] DERMATOPATHOLOGY LABORATORY at [address]47 MAGNETIC RESONANCE TECHNOLOGIST Clinical History R/O SCC, BCC 3 3:47 PM [facility] DERMATOPATHOLOGY LABORATORY Gross Description Specimen A: Received is one formalin filled container labeled with the patient's name and designated right medial cheek. The specimen consists of a shave biopsy measuring 3x3x1 mm. Jar 0. 3 3:47 PM [facility] DERMATOPATHOLOGY LABORATORY Microscopic Description Specimen A. SKIN, right medial cheek: There are superficial portions of prominent sebaceous gland lobules surrounding a dilated hair follicle. Additional deeper sections were obtained and reviewed. COMMENT: Given the superficial nature of the biopsy specimen, a deeper dermal process cannot be excluded. 3 3:47 PM [facility] DERMATOPATHOLOGY LABORATORY Disclaimer An external and internal positive and negative controls are appropriate for the histochemical, immunohistochemical and immunofluorescence stain(s) in this case (if any), except where stated explicitly. The performance characteristics of the stain(s) cited in this report were developed and its performance characteristic determined by the Dermatopathology Laboratory at [facility], directed by Dr. Sadia Barillas. These tests need not be, and therefore are not, approved by the [place] Food and Drug Administration. The tests are used for clinical purposes. Billing Codes Specimen Charges Stain Charges 71049 1 3 3:47 PM [facility] DERMATOPATHOLOGY LABORATORY Embedded Images 3 3:47 PM [facility] DERMATOPATHOLOGY LABORATORY Pathology/Cytolog y TISSUE SPECIMEN FROM SKIN / Unknown 03/04/2022 03/06/2022 1:29 PM [facility] us Juan Yuan MD LAB - PATHOLOGY/CYTOLOGY ORD ERABLES Final Result DERMATOPATHOLOGY LABORATORY [facility] - Department of Dermatology [address], [address] [phone] documented in this encounter Visit Diagnoses Not on filedocumented in this encounter Care Teams Microeconomics Professor Relationship Specialty Start Date End Date Vonda Leahy MD [address] [place] [address] PCP - General Family Medicine 07/23/21 Alexis Andersen DO [address] [facility] [address] [place] [address] Internal Medicine 07/02/22 documented as of this encounter
--- OUTSIDE RECORDS SUMMARY | 2024-07-02 08:07 | XMS_ITS ---
Author Organization [facility] Address [address] [place], [place] [id number] Care Team Providers Care Field Party Manager Name Role Phone IGLESIA TREVINO MD Primary Care Provider Manjula Caldwell [phone] MEDICATIONS Medication SIG (Take, Route, Frequency, Duration) Notes Start Date End Date Status Hydroxychloroquine Sulfate 2 00 mg 1 tab(s) orally 2 times a day for 90 days Active meloxicam 15 mg 1 tab(s) orally once a day for 90 days Active Encounters Encounter Location Date Provider Diagnosis [facility] [address] [place], [place] [phone] 10/22/2023 Manjula Gallegos PLAN OF TREATMENT Medication Medication Name Sig Start Date Stop Date Notes Hydroxychloroquine Sulfate 200 mg 1 tab( s) orally 2 times a day for 90 days meloxicam 15 mg 1 tab(s) orally once a day for 90 days Next Appt Details Provider Name:Chaparrita mcknight, 10/13/2024 10:20:00 AM, [address], [address], [place], [place], [phone],
--- OUTSIDE RECORDS SUMMARY | 2024-07-02 08:07 | XMS_ITS | Clinical Summary ---
Author Organization [facility] Address [address] [place] [address] Care Team Providers Care Track Repairer Helper Name Role Phone Vonda Leahy MD Primary Care Provider Allergies No known active allergies Encounters Date Type Department Care Team Description 05/21/2024 11:12 AM CDT - 05/21/2024 11:59 PM CDT Hospital Encounter [facility] [address] [place], [place] [id number] Screening mammogram, encounter for Discharge Disposition: Discharge to home or self care from Last 3 Months Surgical History Surgery Date Site/Laterality Comments HYSTERECTOMY Social History Tobacco Use Types Packs/Day Years Used Date Smoking Tobacco: Never Assessed Comments No Sex and Gender Information Value Date Recorded Sex Assigned at Not on file Legal Sex Female 2:44 AM CONCRETE BUCKET HOOKER Gender Identity Not on file Sexual Orientation [...] 98.9 kg (218 lb) 12/31/2019 8:25 AM CONCRETE BUCKET HOOKER Height 165.1 cm (5' 5 ) 12/31/2019 8:25 AM CONCRETE BUCKET HOOKER Body Mass Index 36.28 12/31/2019 8:25 AM CONCRETE BUCKET HOOKER Plan of Treatment Health Maintenance Due Date [...] from Last 3 Months Insurance MEDICARE [facility] MEDICARE BLUE CROSS MEDICARE SUPPLEMENT MEDICARE [facility] Address: [address] [address] [facility] MEDICARE SUPPLEMENT Care Teams Track Repairer Helper Relationship Specialty Start Date End Date Vonda Leahy MD PCP - General Family Practice 01/16/22
--- OUTSIDE RECORDS SUMMARY | 2024-07-02 08:07 | XMS_ITS | Clinical Summary ---
Author Organization [facility] Address [address] [facility] [place] [address] Care Team Providers Care Customer Support Agent Name Role Phone Vonda Leahy MD Primary Care Provider Alexis Andersen DO Unavailable Source Comments [facility],non-owned Affiliates and Associated Physician Practices is amultiple site organization consisting of ambulatory clinics and hospital sitesin [place], [place], [place] and [place]. This disclosure is being madepursuant to the Care Everywhere program and may not contain all information available regarding this patient. Last updated 17.[facility] Allergies Active Allergy Reactions Criticality Noted Date [...] (Flonase) 50 MCG/ACT nasal sprayIndicatio ns:Allergic Rhinitis Newell 2 (two) sprays into each nostril once [...] Date Primary osteoarthritis of both knees 08/01/2021 Encounters Date Type Department Care Team Description 06/22/2024 Travel 06/16/2024 10:30 AM CDT Office Visit [facility] [address] [facility], [address] [place] [address] Jane Chung PA Right hip pain (Primary Dx) 06/16/2024 10:10 AM CDT Ancillary Procedure [facility] - Radiology [address] [place] [address] Jane Chung PA Right hip pain from Last 3 Months Family History Medical History Relation Name Comments [...] on file Legal Sex Female 1:01 PM OUTSOLE SKIVER Gender Identity Not on file Sexual Orientation [...] Description 08/19/2024 9:50 AM CDT Office Visit [facility] [address] [facility], [facility] [address] [place] [address] [place] [address] [address] [address] 08/29/2024 9:30 AM CDT Appointment [facility] [address] [place] [address] 10/06/2024 10:45 AM CDT Hospital Encounter [facility] - Perioperative Surgery [address] [place] [address] [place] [address] [address] [place] [address] Surgery General 10/06/2024 10:45 AM CDT - 10/06/2024 1:31 PM CDT Surgery [facility] - Perioperative Surgery [address] [place] [address] [place] [address] [address] [address] RIGHT TOTAL ANTERIOR HIP ARTHROPLASTY 10/24/2024 4:00 PM CDT Office Visit [facility] [address] [place] [address], [address] [address] [place] [address] [address] [address] 11/11/2024 9:45 AM CDT Office Visit [address], [address] [address] Maribell Ramirez PAAdonisC [address] [address] [address] 12/19/2024 2:50 PM OUTSOLE SKIVER Office Visit [address], [address] [address] [place] [address] [address] [address] Scheduled Procedures Name Priority Associated Diagnoses Date/Ti me ARTHROPLASTY TOTAL HIP (ANTERIOR) 10/06/2024 10:45 AM CDT Health Maintenance Due Date Last Done Comments [...] on patient's age to complete this topic Goals Goal Patient Goal Type Associated Problems Recent Progress Patient-Stated? Author Autogenera breezy Goal Care Plan Autogenerated Problem No Jaimie [employer] Implanted Type Area Cigar Making Supervisor Device Identifier Shelf Expiration Date Model / Serial / Lot Glenn Bone Hoopa-G Hv 40/20 Implanted:Qty: 1 on 11/11/2021 by Carlos Manuel Acevedo MD at [facility] Right: Knee [employer] 03/07/2023 600-15-100 / / [id number] Tray Tib 71mm Kn Cocr I Beam Implanted:Qty: 1 on 11/11/2021 by Carlos Manuel Acevedo MD at [facility] Right: Knee [employer] 09/07/2031 [id number] / / [id number] Cmpnt Fem Kn Rt Cr Cmnt Prm Vngrd Intlk 67.5 Mm Implanted:Qty: 1 on 11/11/2021 by Carlos Manuel Acevedo MD at [facility] Right: Knee [employer] 10/05/2031 [id number] / / [id number] Cmpnt Ptlr Std 28mm 1 Pg Wire Kn Ser A Implanted:Qty: 1 on 11/11/2021 by Carlos Manuel Acevedo MD at [facility] Right: Knee [employer] 10/23/2025 [id number] / / [id number] Brng [id number] Vngrd Arcm Kn Ant Stab Implanted:Qty: 1 on 11/11/2021 by Carlos Manuel Acevedo MD at [facility] Right: Knee [employer] 09/02/2026 [id number] / / [id number] Brng [id number] Vngrd Arcm Kn Ant Stab Implanted:Qty: 1 on 07/14/2022 by Carlos Manuel Acevedo MD at [facility] Left: Knee [employer] 03/31/2027 [id number] / / [id number] Cmnt Bone Plc R 40gm Grn Implanted:Qty: 1 on 07/14/2022 by Carlos Manuel Acevedo MD at [facility] Left: Knee [employer] 08/08/2024 [id number] / / [id number] Cmpnt Fem Kn Lt Cr Cmnt Prm Vngrd Intlk 67.5mm Implanted:Qty: 1 on 07/14/2022 by Carlos Manuel Acevedo MD at [facility] Left: Knee [employer] 03/06/2032 [id number] / / [id number] Tray Tib 75mm Kn Cocr I Beam Implanted:Qty: 1 on 07/14/2022 by Carlos Manuel Acevedo MD at [facility] Left: Knee [employer] 03/22/2032 [id number] / / [id number] Cmpnt Ptlr Std 28mm 3 Pg Kn Ser A Implanted:Qty: 1 on 07/14/2022 by Carlos Manuel Acevedo MD at [facility] Left: Knee [employer] 05/23/2027 [id number] / / [id number] Procedures Procedure Name Priority Date/Time Associated Diagnosis Comments XR HIP RIGHT 2VW OR MORE Routine 06/16/2024 10:17 AM CDT Right hip pain from Last 3 Months Results * XR Hip Right 2Vw or More (06/16/2024 10:17 AM CDT) Narrative [facility] [address] - 06/16/2024 10:17 AM CDT Please see progress note in Epic for results. us Jane [facility] ORDERABLES Final Result [facility] [address] from Last 3 Months Additional Health Concerns Active Problems Noted Date Diagnosed Date Autogenerated Problem 06/16/2024 Insurance MEDICARE [facility] MEDICARE [facility] Advance Directives * Full Code (Latest Code [...] 1:40 PM 04/08/2011 11:08 PM Care Teams Customer Support Agent Relationship Specialty Start Date End Date Vonda Leahy MD [address] [place] [address] PCP - General Family Medicine 07/23/21 Alexis Andersen DO [address] [facility] [address] [place] [address] Internal Medicine 07/02/22
[2024-07-02 08:41] LABS: Basophils Absolute Auto 0.1 K/mm3 (0.0-0.1); Basophils Percent Auto 0.9 % (0.2-1.2); Eosinophils Absolute Auto 0.4 K/mm3 (0-0.3); Eosinophils Percent Auto 6.6 % (0-4.4); Hematocrit 36.9 % (37.0-47.0); Hemoglobin 12.1 g/dL (12.0-15.0); Immature Granulocyte Absolute 0.02 K/mm3 (0.00-0.031); Immature Granulocyte Percent A 0.3 % (0-0.5); Lymphocytes Absolute Auto 1.52 K/mm3 (0.9-3.2); Lymphocytes Percent Auto 23.5 % (18.3-44.2); Mean Corpuscular HGB Conc 32.8 g/dl (32-36); Mean Corpuscular Volume 94.6 fl (80-100); Mean Platelet Volume 9.4 fl (7.4-10.4); Monocytes Absolute Auto 0.6 K/mm3 (0.1-0.6); Monocytes Percent Auto 9.4 % (2.6-8.5); Neutrophils Absolute Auto 3.8 K/mm3 (1.3-6.7); Neutrophils Percent Auto 59.3 % (45.5-73.1); Platelet Count Result 282 k/mm3 (150-375); Red Cell Distribution Width 12.9 % (11.5-14.5); White Blood Count 6.5 K/mm3 (4.5-10.0)
[2024-07-02 08:51] LABS: Alanine Aminotransferase 20 U/L (6-35); Albumin Level 4.2 g/dL (3.5-5.1); Alkaline Phosphatase 76 U/L (38-126); Anion Gap 6 mmol/L (4-12); Aspartate Amino Transferase 25 U/L (14-36); Bilirubin,Total 0.6 mg/dL (0.2-1.3); Blood Urea Nitrogen 23 mg/dL (7-17); Calcium 9.1 mg/dL (8.4-10.2); Carbon Dioxide 28 mmol/L (22-30); Chloride 104 mmol/L (98-107); Cholesterol 143 mg/dL (0-200); Estimated Glomerular Filt Rate 55; Glucose 97 mg/dL (65-110); HDL Direct 52 mg/dL; Potassium 4.1 mmol/L (3.4-5.0); Sodium 138 mmol/L (137-145); Triglycerides 121 mg/dL (<150)
[2024-07-02 09:02] LABS: LDL Cholesterol Direct 56 mg/dL
[2024-07-02 10:06] LABS: Vitamin D 25 Hydroxy 30.3 ng/mL
== END 2024-07-02 08:04 | disposition home or self-care (01) ==
PROVIDERS: PCP Family Medicine; Visit Provider Nurse Practitioner Family
DX: I10 Essential (primary) hypertension (principal); E55.9 Vitamin D deficiency, unspecified
CPT/HCPCS: 36415; 80053; 80061; 82306; 85025

== ENCOUNTER 2024-07-21 16:26 | Outpatient (CLI) | payer MEDICARE, SELFPAY ==
--- OUTSIDE RECORDS SUMMARY | 2024-07-21 15:58 | XMS_ITS ---
Author Organization [facility] Address [address] [place], [place] [id number] Care Team Providers Care Otologist Name Role Phone IGLESIA TREVINO MD Primary Care Provider Unavailable Manjula Gallegos [phone] Encounters Encounter Location Date Provider Diagnosis [facility] [address] [place], [place] [phone] 10/23/2023 Manjula Gallegos PLAN OF TREATMENT Next Appt Details Provider Name:Chaparrita mcknight, 10/13/2024 10:20:00 AM, [address], [address], [place], [place], [phone],
--- OUTSIDE RECORDS SUMMARY | 2024-07-21 15:59 | XMS_ITS | Referral Summary ---
Author Organization [facility] Address [address] [place] [address] Care Team Providers Care Reset Merchandiser Name Role Phone Vonda Leahy MD Primary Care Provider Encounters Date Type Department Care Team Description 05/21/2024 11:12 AM CDT - 05/21/2024 11:59 PM CDT Hospital Encounter [facility] [address] [place], [place] [id number] Screening mammogram, encounter for Discharge Disposition: Discharge to home or self care from Last 3 Months Allergies No known active allergies Social History Tobacco Use Types Packs/Day Years Used Date Smoking Tobacco: Never Assessed Comments No Sex and Gender Information Value Date Recorded Sex Assigned at Not on file Legal Sex Female 2:44 AM BUSINESS CONTINUITY CONSULTANT Gender Identity Not on file Sexual Orientation Not on file Last Filed Vital Signs Vital Sign Reading Time Taken Comments Blood Pressure 168/79 07/10/2021 10:24 AM CDT Pulse 52 07/10/2021 10:24 AM CDT Temperature - - Respiratory Rate - - Oxygen Saturation - - Inhaled Oxygen Concentration - - Weight 98.9 kg (218 lb) 12/31/2019 8:25 AM BUSINESS CONTINUITY CONSULTANT Height 165.1 cm (5' 5) 12/31/2019 8:25 AM BUSINESS CONTINUITY CONSULTANT Body Mass Index 36.28 12/31/2019 8:25 AM BUSINESS CONTINUITY CONSULTANT Plan of Treatment Not on file [...] Result from Last 3 Months Insurance MEDICARE [facility]1983 MEDICARE BLUE CROSS MEDICARE SUPPLEMENT MEDICARE [facility] MEDICARE SUPPLEMENT Care Teams Reset Merchandiser Relationship Specialty Start Date End Date Vonda Leahy MD PCP - General Family Practice 01/16/22
--- OUTSIDE RECORDS SUMMARY | 2024-07-21 15:59 | XMS_ITS | Encounter Summary ---
Author Organization [facility] Address [address] [place] [address] Care Team Providers Care Doughnut Fryer Name Role Phone Vonda Leahy MD Primary Care Provider Alexis Andersen DO Unavailable Encounter Details Date Type Department Care Team (Late st Contact Info) Description 03/06/2022 Lab Requisition [facility] [address] [facility], [place] [phone] Juan Yuan MD [address] [place] [address] Social History Tobacco Use Types [...] on file Legal Sex Female 1:01 PM BASS SINGER Gender Identity Not on file Sexual Orientation [...] Description 08/19/2024 9:50 AM CDT Office Visit [facility] [address] [facility], [facility] [address] [place] [address] [place] [address] [address] [address] 08/23/2024 9:30 AM CDT [facility] [address] [place] [address] 10/06/2024 10:45 AM CDT Hospital Encounter [facility] - Perioperative Surgery [address] [place] [address] [place] [address] [address] [place], [place] [id number] Surgery General 10/06/2024 10:45 AM CDT - 10/06/2024 1:31 PM CDT Surgery [facility] - Perioperative Surgery [address] [place] [address] [place] [address] [address] [place] [address] RIGHT TOTAL ANTERIOR HIP ARTHROPLASTY 10/24/2024 4:00 PM CDT Office Visit [facility] [address] [place] [address], [address] [phone] [place] [address] [address] [address] 11/11/2024 9:45 AM CDT Office Visit [facility] [address] [place] [address], [address] [address] Maribell Ramirez PA-C [address] [address] 12/19/2024 2:50 PM BASS SINGER Office Visit [address], [address] [address] [place] [address] [address] [address] Scheduled Procedures Name Priority Associated Diagnoses Date/Ti me ARTHROPLASTY TOTAL HIP (ANTERIOR) 10/06/2024 10:45 AM CDT documented as of this encounter Procedures Procedure Name Priority Date/Time Associated Diagnosis Comments DERMATOPATHOLOGY Routine 03/04/2022 12:0 0 AM BASS SINGER documented in this encounter Results * DERMATOPATHOLOGY (03/04/2022 12:00 AM BASS SINGER) Case Report Dermatopathology Report Case: [id number] Authorizing Provider: Juan Yuan MD Collected: 03/04/2022 12:00 AM Ordering Location: [facility] DermPath Lab Received: 03/06/2022 01:29 PM Pathologist: Elizabeth Garvin MD Specimen: Skin, right medial cheek 3:47 PM BASS SINGER DERMATOPATHOLOGY LABORATORY Final Diagnosis Specimen A. SKIN, right medial cheek: SEBACEOUS HYPERPLASIA, SUPERFICIAL PORTIONS OF (L73.8) (see microscopic description and comment) 3 3:47 PM [facility] DERMATOPATHOLOGY LABORATORY at [address] BASS SINGER Clinical History R/O SCC, BCC 3 3:47 PM [facility] DERMATOPATHOLOGY LABORATORY Gross Description Specimen A: Received is one formalin filled container labeled with the patient's name and designated right medial cheek. The specimen consists of a shave biopsy measuring 3x3x1 mm. Jar 0. 3 3:47 PM [facility] DERMATOPATHOLOGY LABORATORY Microscopic Description Specimen A. SKIN, right medial cheek: There are superficial portions of prominent sebaceous gland lobules surrounding a dilated hair follicle. Additional deeper sections were obtained and reviewed. COMMENT: Given the superficial nature of the biopsy specimen, a deeper dermal process cannot be excluded. 3 3:47 PM [facility] DERMATOPATHOLOGY LABORATORY Disclaimer An external and internal positive and negative controls are appropriate for the histochemical, immunohistochemical and immunofluorescence stain(s) in this case (if any), except where stated explicitly. The performance characteristics of the stain(s) cited in this report were developed and its performance characteristic determined by the Dermatopathology Laboratory at [facility], directed by Dr. Sadia Barillas. These tests need not be, and therefore are not, approved by the [place] Food and Drug Administration. The tests are used for clinical purposes. Billing Codes Specimen Charges Stain Charges 85786 1 3 3:47 PM [facility] DERMATOPATHOLOGY LABORATORY Embedded Images 3 3:47 PM [facility] DERMATOPATHOLOGY LABORATORY Pathology/Cytolog y TISSUE SPECIMEN FROM SKIN / Unknown 03/04/2022 03/06/2022 1:29 PM [facility] us Juan Yuan MD LAB - PATHOLOGY/CYTOLOGY ORD ERABLES Final Result DERMATOPATHOLOGY LABORATORY [facility] - Department of Dermatology [address], [address] [phone] documented in this encounter Visit Diagnoses Not on filedocumented in this encounter Care Teams Doughnut Fryer Relationship Specialty Start Date End Date Vonda Leahy MD [address] [place] [address] PCP - General Family Medicine 07/23/21 Alexis Andersen DO [address] [facility] [address] [place] [address] Internal Medicine 07/02/22 documented as of this encounter
--- OUTSIDE RECORDS SUMMARY | 2024-07-21 15:59 | XMS_ITS | Patient Health Record ---
Author Organization [facility] Address [address] [facility] [address] [place], [place] [address] Care Team Providers Care Machine Group Leader Name Role Phone IGLESIA TREVINO MD Primary Care Provider Unavailable Manjula Gallegos Unavailable [phone] Chaparrita Rivera Unavailable [phone] ALLERGIES Allergen (clinical drug ingredient) Drug/Non Drug Allergy documented on EMR Reaction Allergy Type Onset Date Status Tetanus (uncoded) swelling, loss of consciousness Allergy Active Sulfa (uncoded) hives Allergy Acti ve RESULTS Component Value Reference Range Notes AST (SGOT) Reviewed date:10/23/2023 03:44:56 PM Interpretation: Performing Lab:[facility], [address] [place] [address], Phone - [phone], Director - PhDFreedomi Notes/Report: AST (SGOT) 15 0-40 IU/L Creatinine, Serum Reviewed date:10/23/2023 03:45:51 PM Interpretation: Performing Lab:[facility] [place], [address] [facility], Phone - [phone], Director - PhDRicchiuti Notes/Report: Creatinine 1.21 0.57-1.00 mg/dL eGFR 47 >59 mL/min/1.73 ALT (SGPT) Reviewed date:10/23/2023 03:44:56 PM Interpretation: Performing Lab:[facility] [place], [address] [facility], Phone - [phone], Director - PhDRicflaviai Notes/Report: ALT (SGPT) 13 0-32 IU/L CBC With Differential/Platel et Reviewed date:10/23/2023 03:46:11 PM Interpretation: Performing Lab:[facility], [address] [place] [address], Phone - [phone], Director - [facility] Notes/Report: WBC 6.1 3.4-10.8 x10E3/uL RBC 3.82 [...] Westergren Reviewed date:10/23/2023 03:46:00 PM Interpretation: Performing Lab:[facility], [address] [place] [address], Phone - [phone], Director - [facility] Notes/Report: Sedimentation Rate-Barronergren 19 0-40 mm/hr Rheumatoid Arthritis Factor Reviewed date:10/23/2023 03:46:11 PM Interpretation: Performing Lab[facility], [address] [place] [address], Phone - [phone], Director - Sascha Notes/Report: Rheumatoid Factor (RF) <10.0 <14.0 IU/mL C-Reactive Protein, Quant Reviewed date:10/23/2023 03:46:11 PM Interpretation: Performing Lab:[address], Phone - [phone], [facility] Notes/Report: C-Reactive Protein, Quant 16 0-10 mg/L CCP IgG Antibodies Reviewed date:10/23/2023 03:45:55 PM Interpretation: Performing Lab:[address], Phone - [phone], [facility] Notes/Report: Anti-CCP Ab, IgG/IgA 77 0-19 units Negative <20 Weak positive 20 - 39 Moderate positive 40 - 59 Strong positive >59 AST (SGOT) Reviewed date:04/21/2024 03:04:50 PM Interpretation: Performing Lab:[address], Phone - [phone], [facility] Notes/Report: AST (SGOT) 17 0-40 IU/L Creatinine, Serum Reviewed date:04/21/2024 03:04:50 PM Interpretation: Performing Lab:[address], Phone - [phone], [facility] Notes/Report: Creatinine 1.03 0.57-1.00 mg/dL eGFR 56 >59 mL/min/1.73 ALT (SGPT) Reviewed date:04/21/2024 03:04:50 PM Interpretation: Performing Lab:[address], Phone - [phone], [facility] Notes/Report: ALT (SGPT) 12 0-32 IU/L CBC With Differential/Platel et Reviewed date:04/21/2024 03:04:50 PM Interpretation: Performing Lab:[address], Phone - [phone], [facility] Notes/Report: WBC 6.5 3.4-10.8 x10E3/uL RBC 3.93 [...] [place]gren Reviewed date:04/21/2024 03:04:50 PM Interpretation: Performing Lab:[facility] [address], Phone - [phone], Director - [facility] Notes/Report: Sedimentation Rate-Westergren 19 0-40 mm/hr Rheumatoid Arthritis Factor Reviewed date:04/21/2024 03:04:50 PM Interpretation: Performing Lab:[facility] [place], [address] [place] [address], Phone - [phone], Director - [facility] Notes/Report: Rheumatoid Factor (RF) <10.0 <14.0 IU/mL C-Reactive Protein, Quant Reviewed date:04/21/2024 03:04:50 PM Interpretation: Performing Lab:[facility], [address] [place] [address], Phone - [phone], Director - [facility] Notes/Report: C-Reactive Protein, Quant 14 0-10 mg/L CCP IgG Antibodies Reviewed date:04/21/2024 03:04:50 PM Interpretation: Performing Lab:[facility], [address] [place] [address], Phone - [phone], Director - [facility] Notes/Report: Anti-CCP Ab, IgG/IgA 67 0-19 [...] once a day Active Losartan-HCTZ 100/12.5mg Active PROBLEMS Problem Type ICD Code Onset Dates Problem Status W/U Status Risk SNOMED Code Notes Problem Sleeping difficulty (G47.9) Active confirmed 086836317 Problem Dry eye (H04.129) Active confirmed 1622 83954 Problem Polyarthralgia (M25.50) Active confirmed 71185662 Problem Dry mouth (R68.2) Active confirmed 8771 5008 Problem Low back pain at multiple sites (M54.5) Active confirmed Problem Primary generalized (osteo)arthritis (M15.0) Active confirmed 207787427 Problem Positive anti-CCP test (R76.8) Active confirmed 998822199 Problem Essential (primary) hypertension (I10) Active confirmed 13610949 VITAL SIGNS Heart Rate 59 /min 04/20/2024 Blood pressure diastolic 89 mm Hg 04/20/2024 Height 65 in 04/20/2024 Blood pressure systolic 160 mm Hg 04/20/2024 Weight 254 lbs 04/20/2024 BMI 42.26 kg/m2 04/20/2024 Encounters Encounter Location Date Provider Diagnosis 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 [address], [address] [place], [place] [phone] 04/20/2024 Chaparrita Rivera Primary generalized (osteo)arthritis M15.0 ; Positive anti-CCP test R76.8 and Other retirement (current) drug therapy Z79.899 [facility] [address] [place], [place] [phone] 10/22/2023 Manjula Gallegos [facility] 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 Continue current therapy. Avoid OTC NSAIDS. Labs today. Continue eye exam. Discussed if creatinine is elevated may need to stop NSAIDS (meloxicam). On Duloxetine. Continue PT. F/u scheduled. 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 Continue current therapy. Avoid OTC NSAIDS. Labs today. Continue eye exam. Discussed if creatinine is elevated may need to stop NSAIDS (meloxicam). On Duloxetine. Continue PT. F/u scheduled. 04/20/2024 Positive anti-CCP test (ICD-10 [...] to help with pain. F/u scheduled. 04/20/2024 Primary generalized (osteo)arthritis (ICD-10 - M15.0) [...] mg to help with pain. F/u scheduled. 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 Continue current therapy. Avoid OTC NSAIDS. Labs today. Continue eye exam. Discussed if creatinine is elevated may need to stop NSAIDS (meloxicam). On Duloxetine. Continue PT. F/u scheduled. 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 F/u scheduled. PLAN OF TREATMENT Pending Test Test Name [...] treat 06/19/2022 Next Appt Details Provider Name:Chaparrita Vazquez , 10/13/2024 10:20:00 AM, [address] [facility], [address], [place], [place], [phone], Insurance Providers Payer Name Payer Address Payer Phone Subscriber Number Group Number Insured Name Patient Relationship to Insured Coverage Start Date Coverage End Date MEDICARE [address] [address] [place] [address] [id number] Matilde Breen Self - patient is the insured DEVIN Conde/[employer] [facility] [address] [place] [address] [id number] Matilde Breen Self - patient is the insured 3 MEDICAL (GENERAL) HISTORY Medical History History ICD Code depression tension headaches sinus problems thyroid disease anxiety irregular heart beat difficulty breathing diarrhea Lack of bladder control Hot Flashes high blood pressure hemorrhoids frequent urination Surgical History Surgery Date(Month/Year) prolapse 2012 esophagus 1996,2001 hysterectomy 1979
--- OUTSIDE RECORDS SUMMARY | 2024-07-21 15:59 | XMS_ITS | Clinical Summary ---
Author Organization [facility] Address [address] [place] [address] Care Team Providers Care Hay Stacker Name Role Phone Vonda Leahy MD Primary Care Provider Allergies No known active allergies Encounters Date Type Department Care Team Description 05/21/2024 11:12 AM CDT - 05/21/2024 11:59 PM CDT Hospital Encounter [facility] [address] [place], [place] [phone] Screening mammogram, encounter for Discharge Disposition: Discharge to home or self care from Last 3 Months Surgical History Surgery Date Site/Laterality Comments HYSTERECTOMY Social History Tobacco Use Types Packs/Day Years Used Date Smoking Tobacco: Never Assessed Comments No Sex and Gender Information Value Date Recorded Sex Assigned at Not on file Legal Sex Female 2:44 AM STORE SHOPPER Gender Identity Not on file Sexual Orientation [...] 98.9 kg (218 lb) 12/31/2019 8:25 AM STORE SHOPPER Height 165.1 cm (5' 5) 12/31/2019 8:25 AM STORE SHOPPER Body Mass Index 36.28 12/31/2019 8:25 AM STORE SHOPPER Plan of Treatment Health Maintenance Due Date [...] Last 3 Months Insurance MEDICARE [facility] MEDICARE BLUE CROSS MEDICARE SUPPLEMENT MEDICARE [facility] MEDICARE SUPPLEMENT Care Teams Hay Stacker Relationship Specialty Start Date End Date Vonda Leahy MD PCP - General Family Practice 01/16/22
--- OUTSIDE RECORDS SUMMARY | 2024-07-21 15:59 | XMS_ITS | Clinical Summary ---
Author Organization [facility] Address [address] [facility] [address] Care Team Providers Care Cheese Specialist Name Role Phone Vonda Leahy MD Primary Care Provider Alexis Andersen DO Unavailable Source Comments [facility],non-owned Affiliates and Associated Physician Practices is amultiple site organization consisting of ambulatory clinics and hospital sitesin [place], [place], [place] and [place]. This disclosure is being madepursuant to the Care Everywhere program and may not contain all information available regarding this patient. Last updated 17.[facility] Allergies Active Allergy Reactions Criticality Noted [...] (Flonase) 50 MCG/ACT nasal sprayIndicatio ns:Allergic Rhinitis Ruby 2 (two) sprays into each nostril once [...] Travel 06/16/2024 10:30 AM CDT Office Visit [facility]oped[facility] [address], [address] [place] [address] Jane Chung PA Right hip pain (Primary Dx) 06/16/2024 10:10 AM CDT Ancillary Procedure [facility] - Radiology [id number] [place] [address] Jane Chung PA Right hip pain [...] on file Legal Sex Female 1:01 PM AGRONOMY LOCATION MANAGER Gender Identity Not on file Sexual Orientation [...] 5:59 AM CDT Height 162.6 cm (5' 4) 07/14/2022 5:59 AM CDT Body Mass Index 42.74 07/14/2022 5:59 AM CDT Plan of Treatment Upcoming Encounters Date Type Department Care Team (Latest Contact Info) Description 08/19/2024 9:50 AM CDT Office Visit [facility] Orthopedics [address] [facility], [facility] [address] [place] [address] [place] [address] [address] [address] 08/23/2024 9:30 AM CDT Appointment [facility] [address] [place] [address] 10/06/2024 10:45 AM CDT Hospital Encounter [facility] - Perioperative Surgery [address] [place] [address] [place] [address] [address] [place] [address] Surgery General 10/06/2024 10:45 AM CDT - 10/06/2024 1:31 PM CDT Surgery [facility] - Perioperative Surgery [address] [place] [address] [place] [address] [address] [address] [address] RIGHT TOTAL ANTERIOR HIP ARTHROPLASTY 10/24/2024 4:00 PM CDT Office Visit [facility] [address] [place] [address], [address] [address] [place] [address] [address] [address] 11/11/2024 9:45 AM CDT Office Visit [address], [address] [address] Maribell Ramirez PAAdonisC [address] [address] 12/19/2024 2:50 PM AGRONOMY LOCATION MANAGER Office Visit [address], [address] [address] [place] [address] [address] [address] Scheduled Procedures Name Priority Associated Diagnoses Date/Ti [...] Goal Care Plan Autogenerated Problem No Jaimie Butler Medical Devices Implanted Type Area Home Care Scheduler Device Identifier Shelf Expiration Date Model / Serial / Lot Glenn Bone [place]-G Hv 40/20 Implanted:Qty: 1 on 11/11/2021 by Carlos Manuel Acevedo MD at [facility] Right: Knee [employer] 03/07/2023 600-15-100 / / [id number] Tray Tib 71mm Kn Cocr I Beam Implanted:Qty: 1 on 11/11/2021 by Carlos Manuel Acevedo MD at [facility] Right: Knee [employer] 09/07/2031 [id number] / / [id number] Cmpnt Fem Kn Rt Cr Cmnt Prm Vngrd Intlk 67.5 Mm Implanted:Qty: 1 on 11/11/2021 by Carlos Manuel Acevedo MD at [facility] Right: Knee [employer] 10/05/2031 [id number] / / [id number] Cmpnt Ptlr Std 28mm 1 Pg Wire Kn Ser A Implanted:Qty: 1 on 11/11/2021 by Carlos Manuel Acevedo MD at [facility] Right: Knee [employer] 10/23/2025 [id number] / / [id number] Brng [id number] Vngrd Arcm Kn Ant Stab Implanted:Qty: 1 on 11/11/2021 by Carlos Manuel Acevedo MD at [facility] Right: Knee [employer] 09/02/2026 [id number] / / [id number] Brng [id number] Vngrd Arcm Kn Ant Stab Implanted:Qty: 1 on 07/14/2022 by Carlos Manuel Acevedo MD at [facility] Left: Knee [employer] 03/31/2027 [id number] / / [id number] Cmnt Bone Plc R 40gm Grn Implanted:Qty: 1 on 07/14/2022 by Carlos Manuel Acevedo MD at [facility] Left: Knee [employer] 08/08/2024 [id number] / / [id number] Cmpnt Fem Kn Lt Cr Cmnt Prm Vngrd Intlk 67.5mm Implanted:Qty: 1 on 07/14/2022 by Carlos Manuel Acevedo MD at [facility] Left: Knee [employer] 03/06/2032 [id number] / / [id number] Tray Tib 75mm Kn Cocr I Beam Implanted:Qty: 1 on 07/14/2022 by Carlos Manuel Acevedo MD at [facility] Left: Knee [employer] 03/22/2032 [id number] / / [id number] Cmpnt Ptlr Std 28mm 3 Pg Kn Ser A Implanted:Qty: 1 on 07/14/2022 by Carlos Manuel Acevedo MD at [facility] Left: Knee [employer] 05/23/2027 [id number] / / [id number] Procedures Procedure Name Priority Date/Time Associated Diagnosis Comments XR HIP RIGHT 2VW OR MORE Routine 06/16/2024 10:17 AM CDT Right hip pain from Last 3 Months Results * XR Hip Right 2Vw or More (06/16/2024 10:17 AM CDT) Narrative [facility] [address] - 06/16/2024 10:17 AM CDT Please see progress note in Epic for results. us Jane [facility] DIAGNO[facility] IMAG[facility] ORDERABLES Final Result [facility] [address] from Last 3 Months Additional Health Concerns Active Problems Noted Date Diagnosed Date Autogenerated Problem 06/16/2024 Insurance MEDICARE [facility] MEDICARE [facility] Advance Directives * Full Code (Latest [...] 1:40 PM 04/08/2011 11:08 PM Care Teams Cheese Specialist Relationship Specialty Start Date End Date Vonda Leahy MD [address] [place] [address] PCP - General Family Medicine 07/23/21 Alexis Andersen DO [address] [facility] [address] [place] [address] Internal Medicine 07/02/22
--- OUTSIDE RECORDS SUMMARY | 2024-07-21 15:59 | XMS_ITS ---
Author Organization [facility] Address [address] [place], [place] [address] Care Team Providers Care Javascript Programmer Name Role Phone IGLESIA TREVINO MD Primary Care Provider Unavailable Manjula Gallegos Unavailable [phone] Chaparrita Rivera Unavailable [phone] ALLERGIES Allergen (clinical drug ingredient) Drug/Non Drug Allergy documented on EMR Reaction Allergy Type Onset Date Status Tetanus (uncoded) swelling, loss of consciousness Allergy Active Sulfa (uncoded) hives Allergy Acti ve RESULTS Component Value Reference Range Notes AST (SGOT) Reviewed date:04/21/2024 03:04:50 PM Interpretation: Performing Lab:[facility], [address] [place] [address], Phone - [phone], Director - PhDFreedomi Notes/Report: AST (SGOT) 17 0-40 IU/L Creatinine, Serum Reviewed date:04/21/2024 03:04:50 PM Interpretation: Performing Lab:[facility], [address] [place] [address], Phone - [phone], Director - PhDRicchiuti Notes/Report: Creatinine 1.03 0.57-1.00 mg/dL eGFR 56 >59 mL/min/1.73 ALT (SGPT) Reviewed date:04/21/2024 03:04:50 PM Interpretation: Performing Lab:[facility], [address] [facility], Phone - [phone], Director - PhDRicflaviai Notes/Report: ALT (SGPT) 12 0-32 IU/L CBC With Differential/Platel et Reviewed date:04/21/2024 03:04:50 PM Interpretation: Performing Lab:[facility] [place], [address] [facility], Phone - [phone], Director - Sascha Notes/Report: WBC 6.5 3.4-10.8 [...] Westergren Reviewed date:04/21/2024 03:04:50 PM Interpretation: Performing Lab:[facility] [place], [address] [facility], Phone - [phone], Director - Sascha Notes/Report: Sedimentation Rate-Westergren 19 0-40 mm/hr Rheumatoid Arthritis Factor Reviewed date:04/21/2024 03:04:50 PM Interpretation: Performing Lab:[facility] [place], [address] [facility], Phone - [phone], Director - Sascha Notes/Report: Rheumatoid Factor (RF) <10.0 <14.0 IU/mL C-Reactive Protein, Quant Reviewed date:04/21/2024 03:04:50 PM Interpretation: Performing Lab:[facility], [address] [facility], Phone - [phone], Director - Sascha Notes/Report: C-Reactive Protein, Quant 14 0-10 mg/L CCP IgG Antibodies Reviewed date:04/21/2024 03:04:50 PM Interpretation: Performing Lab:[facility], [address] [facility], Phone - [phone], Director - Sascha Notes/Report: Anti-CCP Ab, IgG/IgA [...] Location Date Provider Diagnosis [facility], [address] [place], [place] [id number] 04/20/2024 Chaparrita Rivera Primary generalized (osteo)arthritis M15.0 ; Positive anti-CCP test R76.8 and Other [facility] (current) drug therapy Z79.899 ASSESSMENTS Encounter Date [...] help with pain. F/u scheduled. 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 [facility], [address], [place], [place], [phone], Progress Notes * Examination Category Sub-Category Detail [...]
--- OUTSIDE RECORDS SUMMARY | 2024-07-21 15:59 | XMS_ITS ---
Author Organization [facility] Address [address] [place], [place] [address] Care Team Providers Care Message Clerk Name Role Phone IGLESIA TREVINO MD Primary Care Provider Manjula Caldwell [phone] MEDICATIONS Medication SIG (Take, Route, Frequency, Duration) Notes Start Date End Date Status Hydroxychloroquine Sulfate 2 00 mg 1 tab(s) orally 2 times a day for 90 days Active meloxicam 15 mg 1 tab(s) orally once a day for 90 days Active Encounters Encounter Location Date Provider Diagnosis [facility] [address] [place], [place] [id number] 10/22/2023 Manjula Gallegos PLAN OF TREATMENT Medication Medication Name Sig Start Date Stop Date Notes Hydroxychloroquine Sulfate 200 mg 1 tab( s) orally 2 times a day for 90 days meloxicam 15 mg 1 tab(s) orally once a day for 90 days Next Appt Details Provider Name:Chaparrita mcknight, 10/13/2024 10:20:00 AM, [address], [address], [place], [place], [phone],
--- OUTSIDE RECORDS SUMMARY | 2024-07-21 16:34 | XMS_ITS | Clinical Summary ---
Author Organization [facility] Address [address] [facility] [place] [address] Care Team Providers Care Yard Engineer Name Role Phone Vonda Leahy MD Primary Care Provider Alexis Andersen DO Unavailable Source Comments [facility],non-owned Affiliates and Associated Physician Practices is amultiple site organization consisting of ambulatory clinics and hospital sitesin [place], [place], [place] and [place]. This disclosure is being madepursuant to the Care Everywhere program and may not contain all information available regarding this patient. Last updated 17.[facility] Allergies Active Allergy Reactions Criticality Noted [...] (Flonase) 50 MCG/ACT nasal sprayIndicatio ns:Allergic Rhinitis [place] 2 (two) sprays into each nostril once [...] Travel 06/16/2024 10:30 AM CDT Office Visit [facility] Orthopedics [address] [facility], [address] [place] [address] Jane Chung PA Right hip pain (Primary Dx) 06/16/2024 10:10 AM CDT Ancillary Procedure [facility] Orthopedics - Radiology [id number] [place] [address] Jane Chung PA Right hip pain [...] on file Legal Sex Female 1:01 PM ENGAGEMENT ENGINEER Gender Identity Not on file Sexual Orientation [...] Description 08/19/2024 9:50 AM CDT Office Visit [facility] [address] [facility], [facility] [address] [place] [address] [place] [address] [address] [address] 08/23/2024 9:30 AM CDT Appointment [facility] Pret[facility] Center [address] [place] [address] 10/06/2024 10:45 AM CDT Hospital Encounter [facility] - Perioperative Surgery [address] [place] [address] [place] [address] [address] [place] [address] Surgery General 10/06/2024 10:45 AM CDT - 10/06/2024 1:31 PM CDT Surgery [facility] - Perioperative Surgery [address] [place] [address] [place] [address] [address] [address] RIGHT TOTAL ANTERIOR HIP ARTHROPLASTY 10/24/2024 4:00 PM CDT Office Visit [facility] [address] [place] [address], [address] [address] [place] [address] [address] [address] 11/11/2024 9:45 AM CDT Office Visit [address], [address] [address] Maribell Ramirez PAAdonisC [address] [address] [address] 12/19/2024 2:50 PM ENGAGEMENT ENGINEER Office Visit [address], [address] [address] [place] [address] [address] [address] Scheduled Procedures Name Priority Associated Diagnoses Date/Ti [...] Jaimie Butler Medical Devices Implanted Type Area Extrusion Supervisor Device Identifier Shelf Expiration Date Model / Serial / Lot Glenn Bone [place]-G Hv 40/20 Implanted:Qty: 1 on 11/11/2021 by Carlos Manuel Acevedo MD at [facility] Right: Knee [employer] 03/07/2023 600-15-100 / / [id number] Tray Tib 71mm Kn Cocr I Beam Implanted:Qty: 1 on 11/11/2021 by Carlos Manuel Acevedo MD at [facility] Right: Knee [employer] 09/07/2031 [id number] / / [id number] Cmpnt Fem Kn Rt Cr Cmnt Prm Vngrd Intlk 67.5 Mm Implanted:Qty: 1 on 11/11/2021 by Carlos Manuel Acevedo MD at [facility] Right: Knee [employer] 10/05/2031 [id number] / / [id number] Cmpnt Ptlr Std 28mm 1 Pg Wire Kn Ser A Implanted:Qty: 1 on 11/11/2021 by Carlos Manuel Acevedo MD at [facility] Right: Knee [employer] 10/23/2025 [id number] / / [id number] Brng [id number] Vngrd Arcm Kn Ant Stab Implanted:Qty: 1 on 11/11/2021 by Carlos Manuel Acevedo MD at [facility] Right: Knee [employer] 09/02/2026 [id number] / / [id number] Brng [id number] Vngrd Arcm Kn Ant Stab Implanted:Qty: 1 on 07/14/2022 by Carlos Manuel Acevedo MD at [facility] Left: Knee [employer] 03/31/2027 [id number] / / [id number] Cmnt Bone Plc R 40gm Grn Implanted:Qty: 1 on 07/14/2022 by Carlos Manuel Acevedo MD at [facility] Left: Knee [employer] 08/08/2024 [id number] / / [id number] Cmpnt Fem Kn Lt Cr Cmnt Prm Vngrd Intlk 67.5mm Implanted:Qty: 1 on 07/14/2022 by Carlos Manuel Acevedo MD at [facility] Left: Knee [employer] 03/06/2032 [id number] / / [id number] Tray Tib 75mm Kn Cocr I Beam Implanted:Qty: 1 on 07/14/2022 by Carlos Manuel Acevedo MD at [facility] Left: Knee [employer] 03/22/2032 [id number] / / [id number] Cmpnt Ptlr Std 28mm 3 Pg Kn Ser A Implanted:Qty: 1 on 07/14/2022 by Carlos Manuel Acevedo MD at [facility] Left: Knee [employer] 05/23/2027 [id number] / / [id number] Procedures Procedure Name Priority Date/Time Associated Diagnosis Comments XR HIP RIGHT 2VW OR MORE Routine 06/16/2024 10:17 AM CDT Right hip pain from Last 3 Months Results * XR Hip Right 2Vw or More (06/16/2024 10:17 AM CDT) Narrative [facility] [address] - 06/16/2024 10:17 AM CDT Please see progress note in Epic for results. us Jane [facility]ER DIAGNOST[facility] IMAGING ORDERABLES Final Result [facility] [address] from Last 3 Months Additional Health Concerns Active Problems Noted Date Diagnosed Date Autogenerated Problem 06/16/2024 Insurance [facility]ICARE [facility] Advance Directives * Full Code (Latest [...] 1:40 PM 04/08/2011 11:08 PM Care Teams Yard Engineer Relationship Specialty Start Date End Date Vonda Leahy MD [address] [place] [address] PCP - General Family Medicine 07/23/21 Alexis Andersen DO [address] [facility] [address] [place] [address] Internal Medicine 07/02/22
--- OUTSIDE RECORDS SUMMARY | 2024-07-21 16:34 | XMS_ITS | Referral Summary ---
Author Organization [facility] Address [address] [place] [address] Care Team Providers Care Mine Equipment Design Engineer Name Role Phone Vonda Leahy MD Primary Care Provider Encounters Date Type Department Care Team Description 05/21/2024 11:12 AM CDT - 05/21/2024 11:59 PM CDT Hospital Encounter [facility] [address] [place], [place] [phone] Screening mammogram, encounter for Discharge Disposition: Discharge to home or self care from Last 3 Months Allergies No known active allergies Social History Tobacco Use Types Packs/Day Years Used Date Smoking Tobacco: Never Assessed Comments No Sex and Gender Information Value Date Recorded Sex Assigned at Not on file Legal Sex Female 2:44 AM BEAM SEALER Gender Identity Not on file Sexual Orientation Not on file Last Filed Vital Signs Vital Sign Reading Time Taken Comments Blood Pressure 168/79 07/10/2021 10:24 AM CDT Pulse 52 07/10/2021 10:24 AM CDT Temperature - - Respiratory Rate - - Oxygen Saturation - - Inhaled Oxygen Concentration - - Weight 98.9 kg (218 lb) 12/31/2019 8:25 AM BEAM SEALER Height 165.1 cm (5' 5) 12/31/2019 8:25 AM BEAM SEALER Body Mass Index 36.28 12/31/2019 8:25 AM BEAM SEALER Plan of Treatment Not on file Procedures [...] Result from Last 3 Months [place] [address] [facility] [place] [address] [employer] MEDICARE SUPPLEMENT MEDICARE [facility] MEDICARE SUPPLEMENT Care Teams Mine Equipment Design Engineer Relationship Specialty Start Date End Date Vonda Leahy MD PCP - General Family Practice 01/16/22
--- OUTSIDE RECORDS SUMMARY | 2024-07-21 16:34 | XMS_ITS | Encounter Summary ---
Author Organization [facility] Address [address] [place] [address] Care Team Providers Care Major Gifts Officer Name Role Phone Vonda Leahy MD Primary Care Provider Alexis Andersen DO Unavailable Encounter Details Date Type Department Care Team (Late st Contact Info) Description 03/06/2022 Lab Requisition [facility] DermPath Lab [address] [facility], [place] [phone] Juan Yuan MD [address] [place] [address] Social History Tobacco Use Types [...] on file Legal Sex Female 1:01 PM SAP SD ANALYST Gender Identity Not on file Sexual Orientation [...] 08/19/2024 9:50 AM CDT Office Visit [facility] Orthopedics [address] [facility], [facility] [address] [place] [address] [place] [address] [address] [address] 08/23/2024 9:30 AM CDT [facility] [address] [place] [address] 10/06/2024 10:45 AM CDT Hospital Encounter [facility] - Perioperative Surgery [address] [place] [address] [place] [address] [address] [place], [place] [address] Surgery General 10/06/2024 10:45 AM CDT - 10/06/2024 1:31 PM CDT Surgery [facility] - Perioperative Surgery [address] [place] [address] [place] [address] [address] [place] [address] RIGHT TOTAL ANTERIOR HIP ARTHROPLASTY 10/24/2024 4:00 PM CDT Office Visit [facility] [address] [place] [address], [address] [address] [place] [address] [address] [address] 11/11/2024 9:45 AM CDT Office Visit [facility] [address] [place] [address], [address] [address] Maribell Ramirez PA-C [address] [address] [address] 12/19/2024 2:50 PM SAP SD ANALYST Office Visit [address], [address] [address] [place] [address] [address] [address] Scheduled Procedures Name Priority Associated Diagnoses Date/Ti me ARTHROPLASTY TOTAL HIP (ANTERIOR) 10/06/2024 10:45 AM CDT documented as of this encounter Procedures Procedure Name Priority Date/Time Associated Diagnosis Comments DERMATOPATHOLOGY Routine 03/04/2022 12:0 0 AM SAP SD ANALYST documented in this encounter Results * DERMATOPATHOLOGY (03/04/2022 12:00 AM SAP SD ANALYST) Case Report Dermatopathology Report Case: [id number] Authorizing Provider: Juan Yuan MD Collected: 03/04/2022 12:00 AM Ordering Location: [facility] DermPath Lab Received: 03/06/2022 01:29 PM Pathologist: Elizabeth Garvin MD Specimen: Skin, right medial cheek 3:47 PM SAP SD ANALYST DERMATOPATHOLOGY LABORATORY Final Diagnosis Specimen A. SKIN, right medial cheek: SEBACEOUS HYPERPLASIA, SUPERFICIAL PORTIONS OF (L73.8) (see microscopic description and comment) 3 3:47 PM [facility] DERMATOPATHOLOGY LABORATORY at [address]47 SAP SD ANALYST Clinical History R/O SCC, BCC 3 3:47 PM [facility] DERMATOPATHOLOGY LABORATORY Gross Description Specimen A: Received is one formalin filled container labeled with the patient's name and designated right medial cheek. The specimen consists of a shave biopsy measuring 3x3x1 mm. Jar 0. 3 3:47 PM [facility] DERMATOPATHOLOGY LABORATORY Microscopic Description Specimen A. SKIN, right medial cheek: There are superficial portions of prominent sebaceous gland lobules surrounding a dilated hair follicle. Additional deeper sections were obtained and reviewed. COMMENT: Given the superficial nature of the biopsy specimen, a deeper dermal process cannot be excluded. 3 3:47 PM [facility] DERMATOPATHOLOGY LABORATORY Disclaimer An external and internal positive and negative controls are appropriate for the histochemical, immunohistochemical and immunofluorescence stain(s) in this case (if any), except where stated explicitly. The performance characteristics of the stain(s) cited in this report were developed and its performance characteristic determined by the Dermatopathology Laboratory at [facility], directed by Dr. Sadia Barillas. These tests need not be, and therefore are not, approved by the [place] Food and Drug Administration. The tests are used for clinical purposes. Billing Codes Specimen Charges Stain Charges 07533 1 3 3:47 PM [facility] DERMATOPATHOLOGY LABORATORY Embedded Images 3 3:47 PM [facility] DERMATOPATHOLOGY LABORATORY Pathology/Cytolog y TISSUE SPECIMEN FROM SKIN / Unknown 03/04/2022 03/06/2022 1:29 PM [facility] us Juan Yuan MD LAB - PATHOLOGY/CYTOLOGY ORD ERABLES Final Result DERMATOPATHOLOGY LABORATORY [facility] - Department of Dermatology [address] [phone] documented in this encounter Visit Diagnoses Not on filedocumented in this encounter Care Teams Major Gifts Officer Relationship Specialty Start Date End Date Vonda Leahy MD [address] [place] [address] PCP - General Family Medicine 07/23/21 Alexis Andersen DO [address] [facility] [address] [place] [address] Internal Medicine 07/02/22 documented as of this encounter
--- OUTSIDE RECORDS SUMMARY | 2024-07-21 16:34 | XMS_ITS | Clinical Summary ---
Author Organization [facility] Address [address] [place] [address] Care Team Providers Care Wave Solder Offbearer Name Role Phone Vonda Leahy MD Primary Care Provider Allergies No known active allergies Encounters Date Type Department Care Team Description 05/21/2024 11:12 AM CDT - 05/21/2024 11:59 PM CDT Hospital Encounter [facility] 1 [place], [place] [phone] Screening mammogram, encounter for Discharge Disposition: Discharge to home or self care from Last 3 Months Surgical History Surgery Date Site/Laterality Comments HYSTERECTOMY Social History Tobacco Use Types Packs/Day Years Used Date Smoking Tobacco: Never Assessed Comments No Sex and Gender Information Value Date Recorded Sex Assigned at Not on file Legal Sex Female 2:44 AM HUMAN RESOURCES SUPERVISOR Gender Identity Not on file Sexual Orientation [...] 98.9 kg (218 lb) 12/31/2019 8:25 AM HUMAN RESOURCES SUPERVISOR Height 165.1 cm (5' 5) 12/31/2019 8:25 AM HUMAN RESOURCES SUPERVISOR Body Mass Index 36.28 12/31/2019 8:25 AM HUMAN RESOURCES SUPERVISOR Plan of Treatment Health Maintenance Due Date [...] Result from Last 3 Months Insurance MEDICARE [facility] MEDICARE BLUE CROSS MEDICARE SUPPLEMENT MEDICARE [facility] Address: [address] [address] [facility] MEDICARE SUPPLEMENT Care Teams Wave Solder Offbearer Relationship Specialty Start Date End Date Vonda Leahy MD PCP - General Family Practice 01/16/22
[2024-07-21 16:58] LABS: Partial Thromboplastin Time 26.9 Seconds (22.3-36.8)
== END 2024-07-21 16:27 | disposition home or self-care (01) ==
PROVIDERS: Anesthesiology Pain Medicine; PCP Nurse Practitioner Family; Visit Provider Anesthesiology
DX: R06.02 Shortness of breath (principal)
CPT/HCPCS: 36415; 85610; 85730

== ENCOUNTER 2024-07-26 02:51 | Day surgery (SDC) | payer MEDICARE, SELFPAY ==
[2024-07-15 11:11] VITALS: BMI 41.2
--- NOTE | 2024-07-15 11:39 | PC.NURSE ---
Report to the Outpatient Waiting Room, entrance under the green pavilion located off [facility], at time _12:45PM on date ___07/26/24____. Planned Procedure Time: __2:45PM .? Time changes happen often and if your time is changed the preop area will call you the afternoon before. - You and your visitor will be asked to self-screen and do not enter if you have any COVID symptoms. Please call surgeon if you need to reschedule. - A mask is optional within the hospital at this time. - NO FOOD OR DRINK PER DR MCCORD from midnight until time of surgery and no smoking, or chewing tobacco (or any form of nicotine). No chewing gum, candy or mints. Take only the following medications with a SIP of water on the morning of surgery: __DULOXETINE, HYDRALAZINE, LEVOTHYROXINE, METOPROLOL DO NOT STOP ANY OF YOUR OTHER PRESCRIPTION MEDICATIONS PRIOR TO SURGERY EXCEPT THE FOLLOWING Hold all vitamins and supplements for 3 days per anesthesiologist.-LAST DOSE 07/22/24. Medications to discontinue per physician ____HOLD MELOXICAM(NSAIDS) PER DR MCCORD Date to take last dose Please no make-up, nail kazakh, hairspray, perfume, deodorant, or body powder the day of surgery.? No jewelry (including any body piercings) or valuables the day of surgery, leave them at home.? Please take a shower or bath the night before, or the morning of, surgery with an antibacterial soap.? Wear comfortable, loose fitting clothing.? TAKE SHOWER OR BATH NIGHT BEFORE AND MORNING OF PROCEDURE PER DR MCCORD. - Jewelry must be removed prior to entering the operating room.? Rings and piercings that are not removed may be cut off. - The hospital will not accept responsibility for valuables.? - Please leave all valuables, including medications, at home the day of surgery. If you are going home after surgery, a licensed tow driver must drive you home.? - NO public transportation without another adult if you receive anesthesia. - We recommend that an adult stay with you for 24 hours following discharge. - We also recommend that you do not drive, make important decision, drink alcoholic beverages, or take any drugs that were not prescribed by your health care provider for at least 24 hours after your discharge time. Follow any additional instructions given to you from your surgeon. Telephone instructions given to ___PATIENT and asked if any additional questions and then verbalized understanding. Patient advised to call surgeon office or pre surgery nurse liaison [phone] if any additional questions.
--- NOTE | 2024-07-21 15:48 | PC.NURSE ---
PT CANCELED, NOW RESCHEDULED ON SAME DAY(07/26/24) AFTER MEDICARE APPROVAL. Report to the Outpatient Waiting Room, entrance under the green pavilion located off [facility], at time ___11:30AM____ on date ____07/26/24___. Planned Procedure Time: __1:30PM .? Time changes happen often and if your time is changed the preop area will call you the afternoon before. - You and your visitor will be asked to self-screen and do not enter if you have any COVID symptoms. Please call surgeon if you need to reschedule. - A mask is optional within the hospital at this time. PER DR MCCORD, NO FOOD OR DRINK FROM MIDNIGHT until time of surgery and no smoking, or chewing tobacco (or any form of nicotine). No chewing gum, candy or mints. Take only the following medications with a SIP of water on the morning of surgery: ____DULOXETINE, HYDRALAZINE, LEVOTHYROXINE, METOPROLOL DO NOT STOP ANY OF YOUR OTHER PRESCRIPTION MEDICATIONS PRIOR TO SURGERY EXCEPT THE FOLLOWING Hold all vitamins and supplements for 3 days per anesthesiologist.-LAST DOSE 07/22/24. Medications to discontinue per physician ___HOLD MELOXICAM PER DR MCCORD. Date to take last dose Please no make-up, nail british, hairspray, perfume, deodorant, or body powder the day of surgery.? No jewelry (including any body piercings) or valuables the day of surgery, leave them at home.? Please take a shower or bath the night before, or the morning of, surgery with an antibacterial soap.? Wear comfortable, loose fitting clothing.? - Jewelry must be removed prior to entering the operating room.? Rings and piercings that are not removed may be cut off. - The hospital will not accept responsibility for valuables.? - Please leave all valuables, including medications, at home the day of surgery. If you are going home after surgery, a licensed milk delivery driver must drive you home.? - NO public transportation without another adult if you receive anesthesia. - We recommend that an adult stay with you for 24 hours following discharge. - We also recommend that you do not drive, make important decision, drink alcoholic beverages, or take any drugs that were not prescribed by your health care provider for at least 24 hours after your discharge time. Follow any additional instructions given to you from your surgeon. Telephone instructions given to ____PATIENT and asked if any additional questions and then verbalized understanding. Patient advised to call surgeon office or pre surgery nurse liaison [phone] if any additional questions.
--- NOTE | ~2024-07-26 | XR_ITS ---
EXAMINATION: XR fluoroscopy no charge DATE: 07/26/2024 15:05 INDICATION: Lumbar ablation TECHNIQUE: 10 fluoroscopic images of the lumbar spine were obtained during procedure performed by Dr. Jose. Radiologist was not present for the imaging or procedure. The amount of fluoroscopy time used during this procedure was 1.1 minutes. Total DAP was 15.749 Gycm^2. COMPARISON: None. FINDINGS/IMPRESSION: Images demonstrate needles advanced with distal tips projecting along the superolateral margin of the pedicles on the left and right at L4, L5 and S1. See procedure note for further detail. Reviewed, dictated and finalized at location B.
--- OUTSIDE RECORDS SUMMARY | 2024-07-26 02:55 | XMS_ITS | Clinical Summary ---
Author Organization [facility] Address [address] [facility] [place] [address] Care Team Providers Care Financial Sales Representative Name Role Phone Vonda Leahy MD Primary Care Provider Alexis Andersen DO Unavailable Source Comments [facility],non-owned Affiliates and Associated Physician Practices is amultiple site organization consisting of ambulatory clinics and hospital sitesin [place], [place]. This disclosure is being madepursuant to the Care Everywhere program and may not contain all information available regarding this patient. Last updated 17.[facility] Allergies Active Allergy Reactions Criticality Noted Date [...] (Flonase) 50 MCG/ACT nasal sprayIndicatio ns:Allergic Rhinitis [place] 2 (two) sprays into each nostril once [...] Travel 06/16/2024 10:30 AM CDT Office Visit [facility] [address] [facility] [place], [address] [place] [address] Jane Chung PA Right hip pain (Primary Dx) 06/16/2024 10:10 AM CDT Ancillary Procedure [facility] - Radiology [id number] [place] [address] Jane Chung PA Right hip pain [...] on file Legal Sex Female 1:01 PM COMMUNITY THEATER ACTOR Gender Identity Not on file Sexual Orientation [...] Description 08/19/2024 9:50 AM CDT Office Visit [facility] [address] [facility], [place], [facility] [address] [place] [address] [place] [address] [address] [address] 08/23/2024 9:30 AM CDT Appointment [facility] [address] [place] [address] 10/06/2024 10:45 AM CDT Hospital Encounter [facility] - Perioperative Surgery [address] [place] [address] [place] [address] [address] [place] [address] Surgery General 10/06/2024 10:45 AM CDT - 10/06/2024 1:31 PM CDT Surgery [facility]operative Surgery [address] [place] [address] [place] [address] [address] [address] RIGHT TOTAL ANTERIOR HIP ARTHROPLASTY 10/24/2024 4:00 PM CDT Office Visit [facility] [address] [place] [address], [address] [address] [place] [address] [address] [address] 11/11/2024 9:45 AM CDT Office Visit [address], [address] [address] Maribell Ramirez PAAdonisC [address] [address] [address] 12/19/2024 2:50 PM COMMUNITY THEATER ACTOR Office Visit [address], [address] [address] [place] [address] [address] [address] Scheduled Procedures Name Priority Associated Diagnoses Date/Ti [...] [employer] Devices Implanted Type Area Substance Abuse Clinician Device Identifier Shelf Expiration Date Model / Serial / Lot Glenn Bone Markle-G Hv 40/20 Implanted:Qty: 1 on 11/11/2021 by Carlos Manuel Acevedo MD at [facility] Right: Knee [employer] 03/07/2023 [id number] / / [id number] Tray Tib 71mm Kn Cocr I Beam Implanted:Qty: 1 on 11/11/2021 by Carlos Manuel Acevedo MD at [facility] Right: Knee [employer] 09/07/2031 [id number] / / [id number] Cmpnt Fem Kn Rt Cr Cmnt Prm Vngrd Intlk 67.5 Mm Implanted:Qty: 1 on 11/11/2021 by Carlos Manuel Acevedo MD at [facility] Right: Knee [employer] 10/05/2031 [id number] / / [id number] Cmpnt Ptlr Std 28mm 1 Pg Wire Kn Ser A Implanted:Qty: 1 on 11/11/2021 by Carlos Manuel Acevedo MD at [facility] Right: Knee [employer] 10/23/2025 [id number] / / [id number] Brng [id number] Vngrd Arcm Kn Ant Stab Implanted:Qty: 1 on 11/11/2021 by Carlos Manuel Acevedo MD at [facility] Right: Knee [employer] 09/02/2026 [id number] / / [id number] Brng [id number] Vngrd Arcm Kn Ant Stab Implanted:Qty: 1 on 07/14/2022 by Carlos Manuel Acevedo MD at [facility] Left: Knee [employer] 03/31/2027 [id number] / / [id number] Cmnt Bone Plc R 40gm Grn Implanted:Qty: 1 on 07/14/2022 by Carlos Manuel Acevedo MD at [facility] Left: Knee [employer] 08/08/2024 [id number] / / [id number] Cmpnt Fem Kn Lt Cr Cmnt Prm Vngrd Intlk 67.5mm Implanted:Qty: 1 on 07/14/2022 by Carlos Manuel Acevedo MD at [facility] Left: Knee [employer] 03/06/2032 [id number] / / [id number] Tray Tib 75mm Kn Cocr I Beam Implanted:Qty: 1 on 07/14/2022 by Carlos Manuel Acevedo MD at [facility] Left: Knee [employer] 03/22/2032 [id number] / / [id number] Cmpnt Ptlr Std 28mm 3 Pg Kn Ser A Implanted:Qty: 1 on 07/14/2022 by Carlos Manuel Acevedo MD at [facility] Left: Knee [employer] 05/23/2027 [id number] / / [id number] Procedures Procedure Name Priority Date/Time Associated Diagnosis Comments XR HIP RIGHT 2VW OR MORE Routine 06/16/2024 10:17 AM CDT Right hip pain from Last 3 Months Results * XR Hip Right 2Vw or More (06/16/2024 10:17 AM CDT) Narrative [facility] [address] - 06/16/2024 10:17 AM CDT Please see progress note in Epic for results. us Jane [facility] ORDER[facility]LES Final Result [facility] [address] from Last 3 Months Additional Health Concerns Active Problems Noted Date Diagnosed Date Autogenerated Problem 06/16/2024 Insurance MEDICARE [facility]IC[facility] Advance Directives * Full Code (Latest Code [...] 1:40 PM 04/08/2011 11:08 PM Care Teams Financial Sales Representative Relationship Specialty Start Date End Date Vonda Leahy MD [address] [place] [address] PCP - General Family Medicine 07/23/21 Alexis Andersen DO [address] [facility] [address] [place] [address] Internal Medicine 07/02/22
--- OUTSIDE RECORDS SUMMARY | 2024-07-26 02:55 | XMS_ITS | Clinical Summary ---
Author Organization [facility] Address [address] [place] [address] Care Team Providers Care Tricot Knitting Machine Operator Name Role Phone Vonda Leahy MD Primary Care Provider Allergies No known active allergies Encounters Date Type Department Care Team Description 05/21/2024 11:12 AM CDT - 05/21/2024 11:59 PM CDT Hospital Encounter [facility] 1 [place], [place] [id number] Screening mammogram, encounter for Discharge Disposition: Discharge to home or self care from Last 3 Months Surgical History Surgery Date Site/Laterality Comments HYSTERECTOMY Social History Tobacco Use Types Packs/Day Years Used Date Smoking Tobacco: Never Assessed Comments No Sex and Gender Information Value Date Recorded Sex Assigned at Not on file Legal Sex Female 2:44 AM SMOKING PIPE DRILLER AND THREADER Gender Identity Not on file Sexual Orientation [...] 98.9 kg (218 lb) 12/31/2019 8:25 AM SMOKING PIPE DRILLER AND THREADER Height 165.1 cm (5' 5) 12/31/2019 8:25 AM SMOKING PIPE DRILLER AND THREADER Body Mass Index 36.28 12/31/2019 8:25 AM SMOKING PIPE DRILLER AND THREADER Plan of Treatment Health Maintenance Due Date [...] Result from Last 3 Months Insurance MEDICARE [facility] MEDICARE BLUE CROSS MEDICARE SUPPLEMENT [facility]ARE [facility] MEDICARE SUPPLEMENT Care Teams Tricot Knitting Machine Operator Relationship Specialty Start Date End Date Vonda Leahy MD PCP - General Family Practice 01/16/22
--- OUTSIDE RECORDS SUMMARY | 2024-07-26 02:55 | XMS_ITS | Encounter Summary ---
Author Organization [facility] Address [address] [place] [place] [address] Care Team Providers Care Electric Motor Winder Name Role Phone Vonda Leahy MD Primary Care Provider Alexis Andersen DO Unavailable Encounter Details Date Type Department Care Team (Late st Contact Info) Description 03/06/2022 Lab Requisition [facility] Care Derm[facility] Lab [address] [facility], [place] [phone] Juan Yuan MD [address] [place] [address] Social History Tobacco Use Types [...] on file Legal Sex Female 1:01 PM BOOM STICK MAN Gender Identity Not on file Sexual Orientation [...] Description 08/19/2024 9:50 AM CDT Office Visit [facility] [address] [facility] [address] [place] [address] [place] [address] [address] [address] 08/23/2024 9:30 AM CDT [facility]ment [facility] [address] [place] [address] 10/06/2024 10:45 AM CDT Hospital Encounter [facility] - Perioperative Surgery [address] [place] [address] [place] [address] [address] [place], [place] [phone] Surgery General 10/06/2024 10:45 AM CDT - 10/06/2024 1:31 PM CDT Surgery [facility] - Perioperative Surgery [address] [place] [address] [place] [address] [address] [place] [address] RIGHT TOTAL ANTERIOR HIP ARTHROPLASTY 10/24/2024 4:00 PM CDT Office Visit [facility] [address] [place] [address], [address] [phone] [place] [address] [address] [address] 11/11/2024 9:45 AM CDT Office Visit [facility] [address] [place] [address], [address] [address] Maribell Ramirez PA-C [address] [address] [address] 12/19/2024 2:50 PM BOOM STICK MAN Office Visit [address], [address] [address] [place] [address] [address] [address] Scheduled Procedures Name Priority Associated Diagnoses Date/Ti me ARTHROPLASTY TOTAL HIP (ANTERIOR) 10/06/2024 10:45 AM CDT documented as of this encounter Procedures Procedure Name Priority Date/Time Associated Diagnosis Comments DERMATOPATHOLOGY Routine 03/04/2022 12:0 0 AM BOOM STICK MAN documented in this encounter Results * DERMATOPATHOLOGY (03/04/2022 12:00 AM BOOM STICK MAN) Case Report Dermatopathology Report Case: [id number] Authorizing Provider: Juan Yuan MD Collected: 03/04/2022 12:00 AM Ordering Location: [facility] Received: 03/06/2022 01:29 PM Pathologist: Elizabeth Garvin MD Specimen: Skin, right medial cheek 3:47 PM BOOM STICK MAN DERMATOPATHOLOGY LABORATORY Final Diagnosis Specimen A. SKIN, right medial cheek: SEBACEOUS HYPERPLASIA, SUPERFICIAL PORTIONS OF (L73.8) (see microscopic description and comment) 3 3:47 PM [facility] DERMATOPATHOLOGY LABORATORY at [address] BOOM STICK MAN Clinical History R/O SCC, BCC 3 3:47 PM [facility] DERMATOPATHOLOGY LABORATORY Gross Description Specimen A: Received is one formalin filled container labeled with the patient's name and designated right medial cheek. The specimen consists of a shave biopsy measuring 3x3x1 mm. Jar 0. 3 3:47 PM [facility] DERMATOPATHOLOGY LABORATORY Microscopic Description Specimen A. SKIN, right medial cheek: There are superficial portions of prominent sebaceous gland lobules surrounding a dilated hair follicle. Additional deeper sections were obtained and reviewed. COMMENT: Given the superficial nature of the biopsy specimen, a deeper dermal process cannot be excluded. 3 3:47 PM [facility] DERMATOPATHOLOGY LABORATORY Disclaimer An external and internal positive and negative controls are appropriate for the histochemical, immunohistochemical and immunofluorescence stain(s) in this case (if any), except where stated explicitly. The performance characteristics of the stain(s) cited in this report were developed and its performance characteristic determined by the Dermatopathology Laboratory at [facility], directed by Dr. Sadia Barillas. These tests need not be, and therefore are not, approved by the [place] Food and Drug Administration. The tests are used for clinical purposes. Billing Codes Specimen Charges Stain Charges 75476 1 3 3:47 PM [facility] DERMATOPATHOLOGY LABORATORY Embedded Images 3 3:47 PM [facility] DERMATOPATHOLOGY LABORATORY Pathology/Cytolog y TISSUE SPECIMEN FROM SKIN / Unknown 03/04/2022 03/06/2022 1:29 PM [facility] us Juan Yuan MD LAB - PATHOLOGY/CYTOLOGY ORD ERABLES Final Result DERMATOPATHOLOGY LABORATORY [facility] - Department of Dermatology [address], [address] [phone] documented in this encounter Visit Diagnoses Not on filedocumented in this encounter Care Teams Electric Motor Winder Relationship Specialty Start Date End Date Vonda Leahy MD [address] [place] [address] PCP - General Family Medicine 07/23/21 Alexis Andersen DO [address] [facility] [address] [place] [address] Internal Medicine 07/02/22 documented as of this encounter
--- OUTSIDE RECORDS SUMMARY | 2024-07-26 02:55 | XMS_ITS | Referral Summary ---
Author Organization [facility] Address [address] [place] [address] Care Team Providers Care Waitress Name Role Phone Vonda Leahy MD Primary Care Provider Encounters Date Type Department Care Team Description 05/21/2024 11:12 AM CDT - 05/21/2024 11:59 PM CDT Hospital Encounter [facility] 1 [place], [place] [phone] Screening mammogram, encounter for Discharge Disposition: Discharge to home or self care from Last 3 Months Allergies No known active allergies Social History Tobacco Use Types Packs/Day Years Used Date Smoking Tobacco: Never Assessed Comments No Sex and Gender Information Value Date Recorded Sex Assigned at Not on file Legal Sex Female 2:44 AM KINDERGARTNER Gender Identity Not on file Sexual Orientation Not on file Last Filed Vital Signs Vital Sign Reading Time Taken Comments Blood Pressure 168/79 07/10/2021 10:24 AM CDT Pulse 52 07/10/2021 10:24 AM CDT Temperature - - Respiratory Rate - - Oxygen Saturation - - Inhaled Oxygen Concentration - - Weight 98.9 kg (218 lb) 12/31/2019 8:25 AM KINDERGARTNER Height 165.1 cm (5' 5) 12/31/2019 8:25 AM KINDERGARTNER Body Mass Index 36.28 12/31/2019 8:25 AM KINDERGARTNER Plan of Treatment Not on file Procedures [...] Result from Last 3 Months Insurance MEDICARE [facility] MEDICARE BLUE CROSS MEDICARE SUPPLEMENT MEDICARE [facility] MEDICARE SUPPLEMENT Care Teams Waitress Relationship Specialty Start Date End Date Vonda Leahy MD PCP - General Family Practice 01/16/22
--- NOTE | 2024-07-26 10:11 | WPDHPUPDATE1 ---
History and Physical Update Update Date/Time: 07/26/24 10:11 History and Physical has been reviewed, including an updated exam of the patient. There are NO changes in the patient's condition. Risks, benefits, and alternatives have been discussed and questions answered. Patient agrees to proceed with procedure.
--- NOTE | 2024-07-26 10:13 | W.PM.PROC2 ---
Procedure Note - Detailed Date of Procedure 07/26/24 Pre-op Diagnosis spondylosis lumbosacral region Post-op Diagnosis Same Procedure Performed Thermal Radiofrequency Ablation of the Bilateral Lumbar Medial Branches/Dorsal Ramus at the L3, L4, L5 Levels Treating the Bilateral L4-5, L5-S1 Facet Joints Under Fluoroscopic Guidance (4 Levels Treated). Surgeon Carlos Manuel Jose MD Weighbridge Operator None. Anesthesia Local (w/ MAC) Description of Procedure INFORMED CONSENT: Risks, benefits and alternatives to the procedure were discussed in detail with the patient who expressed explicit understanding and consent to proceed. Patient was informed verbally and in written form regarding the risks associated with the procedure including the low risk of serious infection, bleeding/bruising, allergic reaction, nerve or organ injury, paralysis, procedural site pain or discomfort, worsening pain and/or mobility, failure to treat and/or disfigurement. The patient expressed explicit understanding and consent to proceed. All materials required for the procedure were available prior to procedure start. Site and side were marked prior to procedure and confirmed in the presence of the patient. PROCEDURE IN DETAIL: The patient was brought to the procedural suite and placed in the prone position. Patient was made comfortable with use of pillows under the head/chest, hips and ankles. ASA standard monitors were applied and used throughout the procedure. Skin overlying the injection site on the affected side(s) was prepared broadly with ChloraPrep applicator and draped in a sterile manner. Aseptic technique was used throughout. The endplates of the vertebral bodies at the site(s) of interest were aligned in the AP view. Ipsilateral oblique angulation was utilized to optimize visualization of the intersection between the superior articulating process and transverse process at each target site. Local anesthesia was established by infiltration with approximately 5 mL of 1% lidocaine via a 1-1/2 inch 27-gauge needle divided over each site treated. A 16-gauge 150mm Cmuneian RF needle with curved 10mm active tip was advanced in the AP view until the needle tip contacted the periosteum at the target site, the right L3 medial branch. Lateral view was utilized to adjust and confirm the appropriate placement of the needle tip just anterior to the facet line, superior to the pedicle and posterior to the foramen. Grounding electrode was in place and functioning. The appropriately-sized RF cannula was inserted into the RF needle and motor stimulation was performed with no subjective or objective evidence of recruited muscle activity with stimulation up to 2.0 volts at a frequency of 2Hz. 1.5 mL of 2.0% PF lidocaine was injected after negative aspiration. After a 90s pause, lesioning was performed to 90 degrees centigrade for 90s ensuring lack of symptoms in the extremity throughout. Needle was rotated 180 degrees and lesioning repeated in a similar manner. Patient tolerated this well. No parasthesias were elicited. Needle was removed completely intact without difficulty. The same procedure was repeated for all intended levels/ structures on the ipsilateral side, right L4, L5 medial branch/dorsal ramus with identical methodology, modified to compensate for new location, with similar results and no evidence of complication. The same exact procedure was repeated for all remaining levels on the contralateral side, left L3, L4, L5 medial branches/dorsal ramus, modified as necessary to accommodate for the new target location with identical findings/results and no evidence of complication. Images were saved and documented in the patient chart. Patient's skin was cleansed and sterile bandage applied. The patient tolerated the procedure well. The patient was transported to the recovery area in stable condition where they were observed for an appropriate amount of time prior to discharge, without evidence of complication. The patient was instructed to avoid excessive activity for the next 48 hours, including climbing and frequent use of stairs. Showers only for 48 hours. They were instructed not to drive or operate heavy machinery for 24 hours. They are to monitor for severe headaches, fevers, chills, night sweats, erythema/swelling at the site or any other signs of infection, bleeding/bruising, bowel or bladder changes as well as new pain, weakness or numbness in the upper or lower extremity. Should they notice these changes, they are instructed to call our office immediately or report directly to the nearest Emergency Department if no answer or if after posted office hours. COMPLICATIONS: None COMMENTS: None Complications No immediate complications Condition Stable Disposition PACU [facility] Billing Surgery - Charge Forward: Surgery Billing
[2024-07-26 12:23] VITALS: BP 145/57; PULSE 51; RESP 14; TEMP 36.4; O2SAT 97
[2024-07-26 12:24] VITALS: BMI 43.4
--- NOTE | 2024-07-26 13:05 | P.PNAN_ITS ---
Anes - Initial Pre Proc Eval Procedure: Operation Date: 07/26/24 13:00 Proposed Procedures p Thermal Radio Frequency Ablation Bilateral L3, L4, L5 Medial Branches/Dorsal Rami Addressing Bilateral L4-5, L5-S1 Facet Joints Under Fluoroscopic Guidance - Carlos Manuel Jose MD Date/Time: 07/26/24 13:05 Surgeon: Carlos Manuel Jose MD Pre Op Diagnosis: spondylosis lumbosacral region Patient Data Age: 74 Gender: F Height: 1.63 m Weight: 115 kg Last Vital Signs Temp 36.4 C L 07/26/24 12:23 Pulse 51 L 07/26/24 12:23 Resp 14 07/26/24 12:23 BP 145/57 H 07/26/24 12:23 Pulse Ox 97 07/26/24 12:23 Allergies Allergy/AdvReac Type Severity Reaction Status Date / Time Sulfa (Sulfonamide Allergy Unknown Hives Verified 07/26/24 12:16 Antibiotics) Tetanus Vaccines and Toxoid Allergy Unknown Swelling Verified 07/26/24 12:16 codeine AdvReac Other Verified 07/26/24 12:16 Home Medications ?Medication ?Instructions ?Recorded ?Confirmed ?Type cholecalciferol (vitamin D3) 50 2,000 unit PO DAILY 12/17/18 07/18/24 History mcg (2,000 unit) tablet hydroxychloroquine 200 mg tablet 200 mg PO BID 05/21/23 07/18/24 History losartan 100 1 tablet PO DAILY #90 tabs 03/30/24 07/18/24 Rx mg-hydrochlorothiazide 12.5 mg tablet acetaminophen 650 mg 1,300 mg PO Q8H PRN pain 04/05/24 07/26/24 History tablet,extended release (Arthritis Pain Relief (acetaminophen) ER) ferrous sulfate 325 mg (65 mg 650 mg PO DAILY 04/05/24 07/18/24 History iron) tablet (iron) omeprazole 20 mg capsule,delayed 20 mg PO BID #180 caps 04/18/24 07/18/24 Rx release meloxicam 7.5 mg tablet 3.75 mg PO DAILY 06/09/24 07/18/24 History duloxetine 60 mg capsule,delayed 60 mg PO DAILY 07/05/24 07/26/24 History release hydralazine 50 mg tablet 75 mg PO BID 07/05/24 07/26/24 History hydrocodone 5 mg-acetaminophen 325 1 tablet PO QHS PRN pain 07/05/24 07/18/24 History mg tablet levothyroxine 175 mcg tablet 175 mcg PO DAILY 07/05/24 07/18/24 History metoprolol succinate 25 mg 25 mg PO DAILY 07/05/24 07/26/24 History tablet,extended release 24 hr zolpidem 10 mg tablet (Ambien) 10 mg PO QHS PRN sleep #90 tabs 07/05/24 07/18/24 Rx albuterol sulfate 90 mcg/actuation 2 puff inhalation Q4-6H PRN 07/15/24 07/18/24 History aerosol inhaler shortness of breath or wheezing fluticasone propionate 50 2 spray intranasal DAILY PRN nasal 07/15/24 07/21/24 History mcg/actuation nasal congestion spray,suspension (Flonase Allergy Relief) Patient hx anesthesia problems: none Family hx anesthesia problems: none Results Review: All pre-operative results and documents have been reviewed as part of the pre- operative evaluation. [facility] Past Medical History Medical History PSVT (paroxysmal supraventricular tachycardia) Degenerative spondylolisthesis (~10/2023) Lumbar xray 11/02/23 severe lumbar spondylosis Posterior calcaneal exostosis Flexion contracture of knee Arthritis Anxiety Hyperthyroidism Abnormality of heart beat Vision changes Chronic headaches Claustrophobia Insomnia Degenerative arthritis of knee, bilateral Achilles tendinitis of both lower extremities Chronic GERD Essential (primary) hypertension Hypothyroidism, unspecified Obstructive sleep apnea (adult) (pediatric) Surgical History Surgical History History of knee replacement procedure of right knee History of esophagogastroduodenoscopy (EGD) H/O: hysterectomy Family History Family History Grandparent Family history of coronary artery disease Father Colon cancer Mother Cerebrovascular accident Other Depression HLD (hyperlipidemia) Heart disease Hypertension Social History Social History Smoking status: Never smoker Second hand tobacco smoke exposure: No Alcohol intake: current Alcohol use details: rarely glass of wine Substance use: never Substance use type: does not use Lack of Transportation: No Lack of Food: Never True Current Housing: I Have Housing Concerned About Future Housing: No Difficulty Paying Gas/Electric Bills: No Difficulty Paying for Meds: No Currently Unemployed: No Education: Bachelor's Degree Difficulty w/ Childcare or Family Care: No Living arrangements: with family Additional living arrangements comments: [facility] Occupation/Education: occupation 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 Gender identity (if verbalized by the patient): Female Sexual Orientation (if Verbalized by the Patient): Straight or Heterosexual Spiritual care concerns: No Agree to blood products: Yes Anes - Eval Final PreProcedure Day of Procedure 07/26/24 13:05 Patient weight: morbidly obese Heart: regular rate and rhythm Lungs: clear to auscultation Airway: Mallampati scale class II Neurological: alert and oriented Last oral intake: >/= 8 hours ASA classification: III Emergent: no Anesthetic plan: proceed Anesthesia type and monitoring: general GIVS and standard monitoring Results Review: All pre-operative results and documents have been reviewed as part of the pre- operative evaluation. Informed Consent: The patient's anesthetic plan and its attendant risks and benefits were discu ssed with the patient/family/POA. Questions were solicited and answers provided to the satisfaction of the patient/family/POA.
[2024-07-26] MEDS: LIDOCAINE 2% PF LOCAL INJ 5 ML VIAL 10 ML INFILTRATE (14:26)
[2024-07-26] MEDS: BUPivacaine HCL 0.5% 10 ML AMP INFILTRATE (14:26)
[2024-07-26] MEDS: LIDOCAINE 1% PF INJ 5 ML VIAL 10 ML INFILTRATE (14:49)
[2024-07-26 14:54] VITALS: BP 162/54; PULSE 48; RESP 16; O2SAT 96
[2024-07-26] MEDS: LACTATED RINGERS 1,000 ML 30 ML IV CONT (14:54)
[2024-07-26 15:20] VITALS: BP 159/55; PULSE 48; RESP 16; O2SAT 93
[2024-07-26 15:40] VITALS: BP 149/52; PULSE 49; RESP 16
== END 2024-07-26 15:55 | disposition home or self-care (01) ==
PROVIDERS: PCP Nurse Practitioner Family; Visit Provider Anesthesiology Pain Medicine
PROC: (CPT 64635; principal; 2024-07-26 13:00)
DX: M47.817 Spondylosis without myelopathy or radiculopathy, lumbosacral region (principal); E66.01 Morbid (severe) obesity due to excess calories; Z68.41 Body mass index [BMI] 40.0-44.9, adult
CPT/HCPCS: 64635; 64636 ×6; 99199; J2003; J2250; J2704; J3010; J7120

== ENCOUNTER 2024-09-13 12:29 | Emergency (ER) | payer MEDICARE, SELFPAY ==
--- NOTE | ~2024-09-13 | US_ITS ---
EXAMINATION: US venous doppler LE RT DATE: 09/13/2024 15:10 INDICATION: Right lower limb swelling TECHNIQUE: Grayscale ultrasound images without and with compression and Doppler ultrasound images of the right lower extremity veins were obtained. COMPARISON: None. FINDINGS: The visualized portions of right common femoral vein, profunda (deep) femoral vein, femoral vein, pop liteal vein, peroneal trunk, posterior tibial veins, peroneal veins, gastrocnemius vein and proximal to mid greater saphenous vein are patent. IMPRESSION: 1. No deep venous thrombosis in the right lower limb. Reviewed, dictated and finalized at location A.
--- OUTSIDE RECORDS SUMMARY | 2024-09-13 12:31 | XMS_ITS ---
Author Organization [facility] Address [address] [place], [place] [id number] Care Team Providers Care Diesel Mechanic Helper Name Role Phone IGLESIA TREVINO MD Primary Care Provider Manjula Caldwell [phone] MEDICATIONS Medication SIG (Take, Route, Frequency, Duration) Notes Start Date End Date Status Hydroxychloroquine Sulfate 2 00 mg 1 tab(s) orally 2 times a day for 90 days Active meloxicam 15 mg 1 tab(s) orally once a day for 90 days Active Encounters Encounter Location Date Provider Diagnosis [facility] [address] [place], [place] [phone] 10/22/2023 Manjula Gallegos PLAN OF TREATMENT Medication Medication Name Sig Start Date Stop Date Notes Hydroxychloroquine Sulfate 200 mg 1 tab( s) orally 2 times a day for 90 days meloxicam 15 mg 1 tab(s) orally once a day for 90 days Next Appt Details Provider Name:Chaparrita mcknight, 10/13/2024 10:20:00 AM, [address], [address], [place], [place], [phone],
--- OUTSIDE RECORDS SUMMARY | 2024-09-13 12:31 | XMS_ITS | Encounter Summary ---
Author Organization [facility] Address [address] [place] [address] Care Team Providers Care Data Operations Manager Name Role Phone Vonda Leahy MD Primary Care Provider Alexis Andersen DO Unavailable Alexis Andersen DO Unavailable Chaparrita Rivera CUSTOMER TECHNICAL SERVICES MANAGER-BIOSTATISTICS DIRECTOR Unavailable Manjula Gallegos MD Unavailable Encounter Details Date Type Department Care Team (Late st Contact Info) Description 09/13/2024 Results Follow-Up [facility] [address] [place] [address] Steph Vergara APRN-CNP [address] [place] [address] Social History Tobacco Use Types Packs/Day Years [...] on file Legal Sex Female 1:01 PM CORPORATE PILOT Gender Identity Not on file Sexual Orientation Not on file documented as of this encounter Functional Status * Is person deaf or have serious hearing difficulty? Answer Date of Assessment Author No 07/14/2022 10:46 AM Chacha Romero RN * Is person blind or have serious difficulty seeing? Answer Date of Assessment Author No 07/14/2022 10:46 AM Chacha Romero RN * Does person have serious difficulty walking/climbing stairs? Answer Date of Assessment Author No 07/14/2022 10:46 AM Chacha Romero RN * Does person have difficulty dressing/bathing? Answer Date of Assessment Author No 07/14/2022 10:46 AM Chacha Romero RN * Does person have difficulty doing errands alone? Answer Date of Assessment Author No 07/14/2022 10:46 AM Chacha Romero RN documented as of this encounter Mental Status * Does person have difficulty concentrating/remembering/making decisions? Answer Entry Date Author No 07/14/2022 10:46 AM Chacha Romero RN documented in this encounter Plan of Treatment Upcoming Encounters Date Type Department Care Team (Latest Contact Info) Description 10/06/2024 10:45 AM CDT Hospital Encounter [facility] - Perioperative Surgery [address] [place] [address] [place] [address] [address] [address] Surgery General 10/06/2024 10:45 AM CDT - 10/06/2024 1:31 PM CDT Surgery [facility] - Perioperative Surgery [address] [place] [address] [place] [address] [address] [address] RIGHT TOTAL ANTERIOR HIP ARTHROPLASTY 10/06/2024 11:00 AM CDT Procedure visit [address] [address] 10/24/2024 4:00 PM CDT Office Visit [address] [address] [place] [address] [address] [address] 11/11/2024 9:45 AM CDT Office Visit [address] [address] Maribell Ramirez PAAdonisC [address] [address] [address] 12/19/2024 2:50 PM CORPORATE PILOT Office Visit [facility] [address] [place] [phone] [place] [address] [address] [address] Scheduled Procedures Name Priority Associated Diagnoses Date/Ti me ARTHROPLASTY TOTAL HIP (ANTERIOR) 10/06/2024 10:45 AM CDT documented as of this encounter Goals Goal Patient Goal Type Associated Problems Recent Progress Patient-Stated? Author Autogenera breezy Goal Care Plan Autogenerated Problem No Jaimie Butler documented as of this encounter Visit Diagnoses Not on filedocumented in this encounter Additional Health Concerns Active Problems Noted Date Diagnosed Date Autogenerated Problem 06/16/2024 documented as of this encounter Care Teams Data Operations Manager Relationship Specialty Start Date End Date Vonda Leahy MD [address] [place] [address] PCP - General Family Medicine 07/23/21 Alexis Andersen DO [address] [place] [address] Internal Medicine 07/02/22 Alexis Andersen DO [address] [place] [address] Internal Medicine 09/13/24 Chaparrita Rivera APRN-BIOSTATISTICS DIRECTOR [address] [facility] [address] [place] [address] Nurse Practitioner 09/13/24 Manjula Gallegos MD [address] [address] Rheumatology 09/13/24 documented as of this encounter
--- OUTSIDE RECORDS SUMMARY | 2024-09-13 12:31 | XMS_ITS ---
Author Organization [facility] Address [address] [place], [place] [phone] Care Team Providers Care Cna Pct Name Role Phone IGLESIA TREVINO MD Primary Care Provider Unavailable Manjula Gallegos [phone] Encounters Encounter Location Date Provider Diagnosis [facility] [address] [place], [place] [phone] 10/23/2023 Manjula Gallegos PLAN OF TREATMENT Next Appt Details Provider Name:Chaparrita mcknight, 10/13/2024 10:20:00 AM, [address], [address], [place], [place], [phone],
--- OUTSIDE RECORDS SUMMARY | 2024-09-13 12:31 | XMS_ITS | Referral Summary ---
Author Organization [facility] Address [address] [place] [address] Care Team Providers Care Transfer Worker Name Role Phone Vonda Leahy MD Primary Care Provider Allergies No known active allergies Social History Tobacco Use Types Packs/Day Years Used Date Smoking Tobacco: Never Assessed Comments No Sex and Gender Information Value Date Recorded Sex Assigned at Not on file Legal Sex Female 2:44 AM TIMBER CUTTER Gender Identity Not on file Sexual Orientation Not on file Last Filed Vital Signs Vital Sign Reading Time Taken Comments Blood Pressure 168/79 07/10/2021 10:24 AM CDT Pulse 52 07/10/2021 10:24 AM CDT Temperature - - Respiratory Rate - - Oxygen Saturation - - Inhaled Oxygen Concentration - - Weight 98.9 kg (218 lb) 12/31/2019 8:25 AM TIMBER CUTTER Height 165.1 cm (5' 5) 12/31/2019 8:25 AM TIMBER CUTTER Body Mass Index 36.28 12/31/2019 8:25 AM TIMBER CUTTER Plan of Treatment Not on file Procedures [...] Maintenance Insurance MEDICARE [facility] MEDICARE [facility] MEDICARE SUPPLEMENT MEDICARE [facility] MEDICARE SUPPLEMENT Care Teams Transfer Worker Relationship Specialty Start Date End Date Vonda Leahy MD PCP - General Family Practice 01/16/22
--- OUTSIDE RECORDS SUMMARY | 2024-09-13 12:31 | XMS_ITS | Encounter Summary ---
Author Organization [facility] Address [address] [place] [address] Care Team Providers Care Chief Steward/Stewardess Name Role Phone Vonda Leahy MD Primary Care Provider Alexis Andersen DO Unavailable Alexis Andersen DO Unavailable Chaparrita Rivera APRN-SOURCE WATER PROTECTION SPECIALIST Unavailable Manjula Gallegos MD Unavailable Encounter Details Date Type Department Care Team (Late st Contact Info) Description 09/13/2024 8:45 AM CDT Hospital Encounter [facility] [address] [place] [address] [place] [address] [address] [place] [address] Social History Tobacco Use Types [...] on file 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 Gender Identity Not on file Sexual Orientation Not on file documented as of this encounter Last Filed Vital Signs Vital Sign Reading Time Taken Comments Blood Pressure 140/76 09/13/2024 10:00 AM CDT Pulse 66 09/13/2024 9:38 AM CDT Temperature 36.3 C (97.3 F) 09/13/2024 9:15 AM CDT Respiratory Rate - - Oxygen Saturation 98% 09/13/2024 9:38 AM CDT Inhaled Oxygen Concentration - - Weight 115.7 kg (255 lb) 09/13/2024 9:15 AM CDT Height 157.5 cm (5' 2) 09/13/2024 9:15 AM CDT Body Mass Index 46.64 09/13/2024 9:15 AM CDT documented in this encounter Functional Status * Is person deaf or have serious hearing difficulty? Answer Date of Assessment Author No 07/14/2022 10:46 AM CDT Chacha Coe RN * Is person blind or have serious difficulty seeing? Answer Date of Assessment Author No 07/14/2022 10:46 AM CDT Chacha Coe RN * Does person have serious difficulty walking/climbing stairs? Answer Date of Assessment Author No 07/14/2022 10:46 AM CDT Chacha Coe RN * Does person have difficulty dressing/bathing? Answer Date of Assessment Author No 07/14/2022 10:46 AM CDT Chacha Coe RN * Does person have difficulty doing errands alone? Answer Date of Assessment Author No 07/14/2022 10:46 AM HEMANTT Chacha Coe RN documented as of this encounter Mental Status * Does person have difficulty concentrating/remembering/making decisions? Answer Entry Date Author No 07/14/2022 10:46 AM HEMANTT Chacha Coe RN documented in this encounter Discharge Instructions * Patient Instructions* Vergara StephFABRICIO-SOURCE WATER PROTECTION SPECIALIST - 09/13/2024 9:10 AM CDT Our anesthesia team is requiring a documented note of cardiac risk stratification (clearance) prior to surgery. Please give a call to your transportation consultant's office in order to schedule an appointment in his/her office prior to surgery. Please ensure the documented clearance note has been received byyour surgeon's office a minimum of 3 business days prior to your surgery date. The completed transportation consultant documented note can then be faxed to your surgeon's office, OR to our office at fax # [phone] ([facility]). Date of surgery: 10/06/2024 Arrival Time: 0900 Time of surgery: 1100 PLEASE BE AWARE THESE TIMES ARE NOT FINAL AND SUBJECT TO CHANGE. IF you do have a time change, you will be notified the day before your surgery, or on Thursday if your surgery is scheduled on a Thursday. You will only be notified again IF you have a time change. Our address is [address] [place] [address]. Park in parking lot 1 or 2. Please report to the [facility] Building. Take the elevators across from outpatient registration to the second floor, exit left out of the elevator and enter theOutpatient Surgery waiting room on the left hand side. Sign in and be seated. Bring a copy of your living will or power of director hris form if we do not have a current copy. Preoperative Instructions The evening before surgery, drink two 20 oz electrolyte drinks. Example: Gatorade or Powerrade. G2 Gatorade for diabetic patients. Beginning at midnight the day of your surgery, NO SOLID FOODS. You may consume clear liquids after midnight until 2 hours before your scheduled arrival time to the hospital. Studies have shown that drinking clear liquids before you leave home can help your recovery after surgery. Clear liquid diet includes: Any liquid you can see through, water, flavored water (coconut water OK), hot or ice tea, black coffee, clear fat free broth, apple juice, cranberry juice, grape juice, gelatin, ice pops without fruit pieces, pulp or seeds. Please consume one 20 oz electrolyte drink with your clear liquids. Example: Gatorade or Powerrade.G2 Gatorade for diabetic patients. What is NOT allowed on Clear Liquid diet Liquids you cannot see through, no milk, creamer or sugar in coffee, no milk products, almond milk,soy milk, no orange juice, grapefruit juice, tomato juice, and no carbonated or alcoholic beverages. No gum, mints, or candy. You may brush your teeth, swish and spit. No tobacco products after midnight and avoid alcohol 24 hours prior to surgery. If you use a CPAP/BiPAP machine, please bring it with you on the day of surgery (for overnight stay). If you use home oxygen continuously or intermittently, please bring your home O2 tank with you to the hospital. Do not bring or wear jewelry (including body piercings). Leave valuables at home Bring your eyeglasses. Do not wear contacts. Take a shower using the antibacterial soap, following the instructions given. Dress in clean clothing appropriate to wear after your surgery. Arrange for a responsible adult to bring you to the hospital, and to drive you home. Bring you insurance information and proof of identification, such as your warehouse delivery driver's license, with you to the hospital, and any necessary co-insurance. Leave weapons at home (pocket knives, sharps, guns, pepper spray, etc). If you are having any problems on the day of surgery, please call the Ambulatory Surgery desk at [phone]. When you arrive to the hospital the day of your surgery you will enter the [facility]. Masking optional and no longer required. VISITOR GUIDELINES: Visiting hours once/if you are admitted to the hospital after surgery are from 8AM-8PM. PREOPERATIVE CHLORHEXIDINE (CHG) ? BATHING INSTRUCTIONS Before surgery, you can play an important role in your own health. Because skin is not sterile, we need to be sure that your skin is as free of germs as possible before surgery. You can reduce the number of germs on your skin by carefully washing before surgery. Following these instructions will help you be sure that your skin is clean before surgery IMPORTANT: You will need to shower with a special soap called Chlorohexidine gluconate (CHG) ?. A common brand name for this soap is Hibiclens, but any brand is acceptable to use. The soap will come in a liquid. This may be purchased at any local pharmacy. If you are allergic to Chlorohexidine use Dial antibacterial soap for your shower. Shower or bathe with CHG? the night before and the morning of surgery. Don???t shave any body part below the neck for at least five days before surgery. Wash your hair usual with your normal shampoo. Rinse your hair and body thoroughly after you shampoo remove all shampoo residues. Apply the CHG? to the entire body ONLY FROM THE NECK DOWN. Do not use CHG? near your eyes or ears to avoid permanent injury to those areas. Wash thoroughly, paying special attention to the area where surgery will be performed. Turn the water off to prevent rinsing the soap off too soon. Wash your body gently for five (5) minutes. Do not scrub your skin too hard. Do not wash with your regular soap after CHG? is used. Turn the water back on and rinse your body thoroughly. Pat yourself dry with a clean, soft towel. Do not use lotion, cream, or powder. Make sure clean linens are on your bed the night prior to surgery. Wear clean clothes. Repeat this process the morning of surgery using ONLY CHG soap. * Not to be used by people allergic to Chlorhexidine INCENTIVE SPIROMETER The following provides an overview of how you will use the spirometer after your surgery. Our goal is for you to become familiar with usage prior to your surgery date, as this improves the ability touse properly. Please attempt to use 2-3 times daily in the week leading up to your surgery date. DO NOT bring this spirometer with you the day of surgery, as you will be provided a new one after your surgery. Using your incentive spirometer after surgery will help your lungs clear and will help keep your lungs active throughout the recovery process, as if you were performing your daily activities. How to use the incentive spirometer: 1. Sit on the edge of your bed if possible, or sit up as far as you can in bed. 2. Hold the incentive spirometer in an upright position. 3. Place the mouthpiece in your mouth and seal your lips tightly around it. 4. Breathe in slowly and as deeply as possible. Notice the blue piston rising toward the top of thecolumn. The blue indicator on the right should float between the two blue arrows. 5. Hold your breath as long as possible. Then exhale slowly and allow the piston to fall to fall tothe bottom of the column. 6. Rest for a few seconds and repeat steps one to 5 at least 10 times every hour. 7. Position the blue indicator on the left side of the spirometer to show your best effort. Use theindicator as a goal to work toward during each slow deep breath. 8. After each set of 10 deep breaths. Cough to be sure your lungs are clear. If you have an incision, support your incision when coughing by placing a pillow firmly against it. 9. Once you are able to get out of bed safely, take frequent walks and practice the cough. If you are taking any NSAIDs (Advil, Ibuprofen, Naproxen, Aleve, Motrin, Meloxicam, etc.), please stop 7 days prior to surgery as these are considered blood thinning medications. Your surgeon recommends taking Vitamin D3 5,000 units (IU) daily for 4 weeks preoperatively and to continue for 2 weeks postoperatively. This can be purchased over the counter. If you are currently on a higher dose of Vitamin D3, please continue. Additional Vitamin D3 is not necessary. Medication Instructions for Surgery Current Outpatient Medications Medication Sig Note Dispense Refill docusate sodium (COLACE) 100 MG capsule Take 1 Cap by mouth 2 times daily. 60 Cap 2 DULoxetine (CYMBALTA) 30 MG capsule Take 2 (two) capsules by mouth once daily Reasons: Major Depressive Disorder 09/13/2024: TAKE MORNING OF SURGERY WITH A SIP OF WATER EUTHYROX 175 MCG tablet Take 1 (one) tablet by mouth once daily Reasons: Underactive Thyroid 09/13/2024: TAKE MORNING OF SURGERY WITH A SIP OF WATER FeroSul 325 (65 Fe) MG tablet Take 1 (one) tablet by mouth once daily Reasons: Iron Deficiency fluticasone propionate (Flonase) 50 MCG/ACT nasal spray Allen 2 (two) sprays into each nostril oncedaily Reasons: Allergic Rhinitis 09/13/2024: Use AM of Surgery hydrALAZINE (Apresoline) 50 MG tablet Take 1.5 (one and one-half) tablets by mouth 2 times daily Reasons: High Blood Pressure 09/13/2024: TAKE MORNING OF SURGERY WITH A SIP OF WATER HYDROmorphone (Dilaudid) 2 MG tablet TAKE 1 TABLET BY MOUTH EVERY 12 HOURS NEEDED FOR SEVERE PAIN . DO NOT EXCEED 2 PER 24 HOURS. DO NOT COMBINE WITH HYDROCODONE. DO NOT DRIVE UNTIL FAMILIAR WITH MEDICATIONS EFFECTS. CALL CLINIC FOR REFILL hydroxychloroquine (Plaquenil) 200 MG tablet Take 1 (one) tablet by mouth 2 times daily Reasons: Rheumatoid Arthritis 09/13/2024: ASK YOUR PRESCRIBER IF YOU SHOULD STOP PRIOR TO SURGERY losartan-hydroCHLOROthiazide (Hyzaar) 100-12.5 MG tablet Take 1 (one) tablet by mouth once daily Reasons: High Blood Pressure meloxicam (MOBIC) 15 MG tablet Take 0.5 (one-half) tablet by mouth once daily Reasons: Rheumatoid Arthritis 09/13/2024: Stop taking 7 days prior to surgery. metoprolol succinate XL 24hr (Toprol XL) 25 MG tablet Take 1 (one) tablet by mouth once daily Reasons: High Blood Pressure 09/13/2024: TAKE MORNING OF SURGERY WITH A SIP OF WATER omeprazole (PriLOSEC) 40 MG capsule Take 1 (one) capsule by mouth daily before breakfast Reasons: Gastroesophageal Reflux Disease 09/13/2024: TAKE MORNING OF SURGERY WITH A SIP OF WATER oxyCODONE, immediate release, (Roxicodone) 5 MG tablet Take 1 (one) tablet to 2 (two) tablets by mouth every 6 hours as needed for Pain (pain) Reasons: Acute Pain (Patient not taking: Reported on 09/13/2024) 56 tablet 0 polyethylene glycol 3350 (GlycoLax) 17 GM/SCOOP powder Take 17 (seventeen) g by mouth once daily asneeded for Constipation Reasons: Constipation Vitamin D, Cholecalciferol, 25 MCG (1000 UT) CAPS Take 3 (three) capsules by mouth once daily Reasons: Vitamin D Deficiency 09/13/2024: Your surgeon recommends taking Vitamin D3 5,000 units daily for 4weeks preoperatively and to continue for 2 weeks postoperatively. This can be purchased over the counter. If you are currently on a higher dose of Vitamin D3, please continue. Additional Vitamin D3 is not necessary. zolpidem (Ambien) 10 MG tablet Take 1 (one) tablet by mouth nightly as needed for Insomnia Reasons:Trouble Sleeping documented in this encounter Progress Notes * Steph Vergara APRN-CNP - 09/13/2024 8:45 AM CDT Images from the original note were not included. PRESURGICAL OPTIMIZATION EVALUATION Patient Name: Matilde Breen : 1950 SUBJECTIVE: Matilde Breen is a 74 year old y.o. White/ female presenting to the [facility]. She is scheduled for the followin10/06/24 RIGHT TOTAL ANTERIOR HIP ARTHROPLASTY Vivek Mckeon IV, MD +Delayed emergence with anesthesia in the past. Denies any family history of anesthetic complications. Denies history of glaucoma. 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 Consider elective closure, however, given on echo normal size and function RV, will monitor. -endorses history of white coat HTN -murmur not appreciated on exam today -managed by Dr. Alexis Andersen (cardiology) -- Cardiac clearance requested, patient aware BP Readings from Last 3 Encounters: 09/13/24 140/76 08/01/22 130/70 07/30/22 132/66 JAYME -compliant with nightly CPAP Hypothyroidism -compliant with daily Euthyrox -denies recent Euthyrox dosage changes RA -compliant with daily Plaquenil -patient to hold Plaquenil prior to surgery per prescribing provider instructions -managed by Dr. Manjula Gallegos (rheumatology) GERD -compliant with daily Prilosec with symptom control Patient denies h/o asthma, COPD, PE, HLD, CAD, CHF, cardiac devices, stroke, seizure, neuromusculardiseases, bleeding/clotting disorders, diabetes, kidney disease, liver disease. PCP is Dr. Vonda Leahy Review of Systems: As noted in HPI and also as outlined below Denies chest pain, palpitations, irregular heart beat, syncope, CARDONA, orthopnea, PND, or swelling ofthe feet or ankles. No cough, wheezing or shortness of breath Denies rash, open or unhealed sores, and lesions No URI's in past 4-6 weeks. Functional Status Assessment: METS (Metabolic Equivalents of Task) Score: > or equal to 4 METs Limited by back and right hip pain. Patient endorses completing daily household ADLs including walking throughout grocery store without CP or SOB. Patient was able to walk into today's appointment from car in parking lot using walker and can climb one full flight of stairs without CP or SOB. PMH: Past Medical History[1] PSH: Past Surgical History[2] Allergies: Allergies[3] Current Medications: Medications[4] OBJECTIVE: BP 140/76 Pulse 66 Temp 97.3 ??F (36.3 ??C) Ht 1.575 m (5' 2) Wt 115.7 kg (255 lb) SpO2 98% Physical Exam: Airway/Mallamapati Score: Grade 4: Soft palate obscured by base of tongue Mouth Opening Distance: 3 fingerwidths Neck ROM: normal range of motion and supple TM Distance: > 3 FB Teeth: caps/crowns General appearance - alert, well appearing, and in no distress and overweight Mental status - alert, oriented to person, place, and time Chest - clear to auscultation, no wheezes, rales or rhonchi, symmetric air entry Heart - normal rate, regular rhythm, normal S1, S2, no murmurs, rubs, clicks or gallops No BLE edema Pertinent Diagnostic Tests: CT Cardiac Angio 07/10/21 in [facility] 1. Dilated tortuous right coronary artery with possible fistula to the right ventricle. Recommend correlation with catheter angiography. 2. Dilated, tortuous left coronary system without definite evidence of fistula. 3. No coronary atherosclerosis in either the right or left coronary system. Echocardiogram 07/04/21 in [facility] Recent Labs Component Name 09/13/24 0914 10/16/21 0754 WBC 7.1 6.5 RBC 4.07 4.05 HGB 12.4 12.0 HCT 38.0 37.4 MCV 93.4 92.3 MCHC 32.6 32.1 PLTCOUNT 323 280 NEUTPCT 66.9 64.4 LYMPHPCT 18.8 21.8 BASOPHILPCT - 0.8 GRANSIMMPCT - 0.3 NEUTABS - 4.17 LYMPHABS 1.34 1.41 BASOABS 0.08 0.05 Recent Labs Component Name 09/13/24 0914 06/06/22 1241 10/16/21 0754 SODIUM 138 139 140 POTASSIUM 4.0 4.1 4.4 CHLORIDE 103 106 104 CO2 25 23 28 BUN 23 20 19 CREATININE 1.10 0.92 0.96 GLUCOSE 121* 94 99 CALCIUM 9.8 9.6 9.5 ALT 17 10 13 ALKPHOS 91 74 75 AST 23 13 15 TBIL 0.4 0.6 0.4 TPROT 7.4 7.1 7.5 EGFR 52* 65* 62* A/P Encounter for other pre-procedural examination 2. Per anesthesia guidelines, due to known cardiac history, pt will need documented cardiac clearance/risk stratification prior to surgery. Patient made aware and was advised to contact transportation consultant's office accordingly to schedule an appointment YESSI. Will notify surgeon's office of above info. 3. BMI 46.63 4. eGFR 52 -advised f/u with PCP regarding lab results -will send a copy of all labs done today to PCP office for presurgical review and continuity/coordination of care -further management perioperatively, surveillance in future, and additional work-up as deemed necessary will be deferred to PCP. All labs completed today were discussed with patient during clinic visit. Thoroughly discussed withpatient that all labs done today were obtained for preoperative screening purposes, and further management/recommendations and additional work-up (if necessary) will be deferred to the patient's primary care provider. All labwork done today will be sent to patient's primary care provider for continuity/coordination of care. Preoperative Domain Results Recommendations BMI BMI (Calculated): 46.63 Initiate anti-inflammatory (Mediterranean) style diet in the perioperative period, unless otherwise contraindicated. Nutrition Recent Labs Component Name 09/13/24 0914 06/06/22 1241 10/16/21 0754 ALBUMIN 4.1 4.1 4.0 Anti-inflammatory (Mediterranean) style diet discussed/encouraged perioperatively. Educational resource provided. Diabetes No results for input(s): HGBA1C, A1C, IUGDXPOLM3T, EAG in the last [id number] hours. N/A Non-diabetic Cardiac Records reviewed-NSR 67 bpm EKG obtained today per anesthesia team. Cardiology to complete final confirmatory read of EKG. Willdefer to both PCP and anesthesia team to determine if any additional cardiac testing/work-up is necessary prior to upcoming scheduled surgery. Pulmonary /JAYME History of JAYME, compliant with nightly CPAP Incentive Spirometer (IS) provided and patient was instructed regarding use. Encouraged daily use of IS prior to surgery. Smoking History[5] N/A Non-smoker Infection Prevention Denies h/o MRSA/MSSA. CHG bathing instructions given to patient by nursing staff per protocol. Encouraged good hygiene and handwashing preoperatively. Chronic narcotic use Reviewed medication use with patient, specifically regarding if currently taking narcotics or not. If patient reported current narcotic use: Discussed with patient that if able to minimize narcotic use in the preoperative period, it will certainly aid/help with pain control/management postoperatively. VTE prophylaxis N/A Education provided re: Post-op VTE prevention. Follow specific recommendations from surgeon's office re: VTE prophylaxis. Preoperative testing CBC CMP results reviewed See notes above NPO instructions given to patient by RN per protocol. Preoperative/Day of Surgery medication instructions given to patient by RN per surgeon/anesthesia standing orders. AVS printed and given to patient. See AVS for additional instructions/information that was given topatient during this clinic visit. The total time spent today was 39 minutes performing chart review, note preparation, face to face evaluation, review of labs/EKG, and consultation with other providers. Steph Vergara APRN-SOURCE WATER PROTECTION SPECIALIST [1] Past Medical History: Diagnosis Date Acid reflux Cardiac dysrhythmia SVT Delayed emergence from anesthesia Depressive disorder, not elsewhere classified HTN (hypertension) Hypothyroidism Low back pain JAYME on CPAP [2] Past Surgical History: Procedure Laterality Date Appendectomy Arthroplasty Left 07/14/2022 ARTHROPLASTY LEFT TOTAL KNEE - Left BIOPSY CERVIX Cataract Removal Bilateral CERVICAL BIOPSY, CONE DILATION AND CURETTAGE ENDOSCOPY, COLON, DIAGNOSTIC ESOPHAGEAL STRICTURE, DILATION x2 Hysterectomy, Total Abdominal 1978 fibroids KNEE ARTHROPLASTY Right 11/11/2021 Right; ARTHROPLASTY RIGHT TOTAL KNEE KNEE ARTHROPLASTY Left 07/14/2022 Left; ARTHROPLASTY LEFT TOTAL KNEE SURGICAL HISTORY OF 04/07/2011 Post Repair Graft TOT Vault Suspension, Perinealplassty, Cysto Tonsillectomy [3] Allergies Allergen Reactions Tetanus Toxoid Swelling and Other Loss of consciousness/ passed out Other reaction(s): swelling, loss of consciousness Codeine Other Tachycardia and Light headed Sulfa Drugs Urticaria Sulfacetamide Urticaria [4] Outpatient Medications Marked as Taking for the 09/13/24 encounter (Hospital Encounter) with [facility] OPTIMIZATION Medication Sig docusate sodium (COLACE) 100 MG capsule Take 1 Cap by mouth 2 times daily. DULoxetine (CYMBALTA) 30 MG capsule Take 2 (two) capsules by mouth once daily Reasons: Major Depressive Disorder EUTHYROX 175 MCG tablet Take 1 (one) tablet by mouth once daily Reasons: Underactive Thyroid FeroSul 325 (65 Fe) MG tablet Take 1 (one) tablet by mouth once daily Reasons: Iron Deficiency fluticasone propionate (Flonase) 50 MCG/ACT nasal spray Allen 2 (two) sprays into each nostril oncedaily Reasons: Allergic Rhinitis hydrALAZINE (Apresoline) 50 MG tablet Take 1.5 (one and one-half) tablets by mouth 2 times daily Reasons: High Blood Pressure HYDROmorphone (Dilaudid) 2 MG tablet TAKE 1 TABLET BY MOUTH EVERY 12 HOURS NEEDED FOR SEVERE PAIN . DO NOT EXCEED 2 PER 24 HOURS. DO NOT COMBINE WITH HYDROCODONE. DO NOT DRIVE UNTIL FAMILIAR WITH MEDICATIONS EFFECTS. CALL CLINIC FOR REFILL hydroxychloroquine (Plaquenil) 200 MG tablet Take 1 (one) tablet by mouth 2 times daily Reasons: Rheumatoid Arthritis losartan-hydroCHLOROthiazide (Hyzaar) 100-12.5 MG tablet Take 1 (one) tablet by mouth once daily Reasons: High Blood Pressure meloxicam (MOBIC) 15 MG tablet Take 0.5 (one-half) tablet by mouth once daily Reasons: Rheumatoid Arthritis metoprolol succinate XL 24hr (Toprol XL) 25 MG tablet Take 1 (one) tablet by mouth once daily Reasons: High Blood Pressure omeprazole (PriLOSEC) 40 MG capsule Take 1 (one) capsule by mouth daily before breakfast Reasons: Gastroesophageal Reflux Disease polyethylene glycol 3350 (GlycoLax) 17 GM/SCOOP powder Take 17 (seventeen) g by mouth once daily asneeded for Constipation Reasons: Constipation Vitamin D, Cholecalciferol, 25 MCG (1000 UT) CAPS Take 3 (three) capsules by mouth once daily Reasons: Vitamin D Deficiency zolpidem (Ambien) 10 MG tablet Take 1 (one) tablet by mouth nightly as needed for Insomnia Reasons:Trouble Sleeping [5] Social History Tobacco Use Smoking Status Never Smokeless Tobacco Never documented in this encounter Plan of Treatment Upcoming Encounters Date Type Department Care Team (Latest Contact Info) Description 10/06/2024 10:45 AM CDT Hospital Encounter [facility] - Perioperative Surgery [address] [place] [id number] [place] [address] [address] [address] Surgery General 10/06/2024 10:45 AM CDT - 10/06/2024 1:31 PM CDT [facility] [place] - Perioperative Surgery [address] [place] [id number] [place] [address] [place] [address] [address] RIGHT TOTAL ANTERIOR HIP ARTHROPLASTY 10/06/2024 11:00 AM CDT Procedure visit [facility] [address] [place] [phone] 10/24/2024 4:00 PM CDT Office Visit [address] [address] [place], [place] [address] [address] 11/11/2024 9:45 AM CDT Office Visit [facility] [address] [place] [address] [place] [address] Maribell Ramirez PA-C [address] [place] [address] [address] 12/19/2024 2:50 PM BISTRO ATTENDANT Office Visit [facility] [address] [facility], [address] [address] [place] [address] [place] [address] [address] Scheduled Procedures Name Priority Associated Diagnoses Date/Ti me ARTHROPLASTY TOTAL HIP (ANTERIOR) 10/06/2024 10:45 AM CDT documented as of this encounter Goals Goal Patient Goal Type Associated Problems Recent Progress Patient-Stated? Author Autogenera breezy Goal Care Plan Autogenerated Problem No Jaimie Butler documented as of this encounter Procedures Procedure Name Priority Date/Time Associated Diagnosis Comments EKG 12-LEAD Routine 09/13/2024 9:45 AM CDT Pre-op evaluation CBC W AUTO DIFFERENTIAL STAT 09/13/2024 9:14 AM CDT Pre-op evaluation COMPREHENSIVE METABOLIC PANEL STAT 09/13/2024 9:14 AM CDT Pre-op evaluation documented in this encounter Results * EKG 12-Lead (09/13/2024 9:45 AM CDT) Ventricular Rate 67 BPM [facility] Atrial Rate 67 BPM [facility] P-R Interval 166 ms [facility] QRS Duration ms 90 ms [facility] Q-T Interval ms 418 ms [facility] QTC Calculation (Bezet) 441 ms [facility] Calculated P [place] 53 degrees [facility] Calculated R [place] -4 degrees [facility] Calculated T [place] 93 degrees [facility] Interpretation EKG Normal sinus rhythm Inferior infarct , age undetermined Anterior infarct (cited on or before 16-OCT-2021) Abnormal ECG When compared with ECG of 06-JUN-2022 12:26, Premature ventricular complexes are no longer Present Inferior infarct is now Present Inverted T waves have replaced nonspecific T wave abnormality in Lateral leads Confirmed by VIDA MANTILLA, MIGNON ([id number]) on 09/13/2024 10:01:21 AM [facility] 09/13/2024 9:4 5 AM CDT 09/13/2024 10:01 AM CDT us Emma Quick DO ECG ORDERABLES Edited Result - Final [facility] * (ABNORMAL) COMPREHENSIVE METABOLIC PANEL (09/13/2024 9:14 AM CDT) Glucose 121(H) 70 - 99 mg/dL 09/13/2024 9:35 AM CDT [facility] Sodium 138 136 - 145 mmol/L 09/13/2024 9:35 AM CDT [facility] Potassium 4.0 3.5 - 5.1 mmol/L 09/13/2024 9:35 AM CDT [facility] Chloride 103 98 - 107 mmol/L 09/13/2024 9:35 AM CDT [facility] CO2 25 22 - 29 mmol/L 09/13/2024 9:35 AM CDT [facility] Calcium 9.8 8.4 - 10.4 mg/dL 09/13/2024 9:35 AM CDT [facility] Anion Gap 10 6 - 16 mmol/L 09/13/2024 9:35 AM CDT [facility] BUN 23 7 - 26 mg/dL 09/13/2024 9:35 AM CDT [facility] Creatinine 1.10 0.57 - 1.11 mg/dL 09/13/2024 9:35 AM CDT [facility] Alkaline Phosphatase 91 40 - 150 U/L 09/13/2024 9:35 AM CDT [facility] ALT 17 6 - 57 U/L 09/13/2024 9:35 AM CDT [facility] AST 23 10 - 48 U/L 09/13/2024 9:35 AM CDT [facility] Protein Total 7.4 6.4 - 8.3 gm/dL 09/13/2024 9:35 AM CDT [facility] Albumin 4.1 3.1 - 4.5 gm/dL 09/13/2024 9:35 AM CDT [facility] Bilirubin Total 0.4 0.2 - 1.2 mg/dL 09/13/2024 9:35 AM CDT [facility] eGFR by CKD-EPI 52(L) >=90 mL/min/1.7 3 m2 09/13/2024 9:35 AM CDT [facility] Comment:Estimated Glomerular Filtration Rate (eGFR) calculated using the CKD-EPI Creatinine Equation (2020), per the National Kidney Foundation and [place] [employer]ph[employer] recommendations. Blood BLOOD SPECIMEN / Unknown Venipuncture / Unknown 09/13/2024 9:14 AM CDT 09/13/2024 9:19 AM CDT Steph Vergara SUBSCRIPTION AGENT-SOURCE [employer] PROTE[employer] SPECIALIST LAB - CHEMISTRY ORDERABLE S Final Result [facility] [address] [place] [address] * CBC W AUTO DIFFERENTIAL (09/13/2024 9:14 AM CDT) WBC 7.1 4.0 - 10.7 x10E9/L 09/13/2024 9:28 AM CDT [facility] RBC Count 4.07 3.90 - 5.20 x10E12/L 09/13/2024 9:28 AM CDT [facility] Hemoglobin 12.4 11.9 - 15.8 g/dL 09/13/2024 9:28 AM CDT [facility] Hematocrit 38.0 34.8 - 46.1 % 09/13/2024 9:28 AM CDT [facility] MCV 93.4 80.0 - 98.0 fL 09/13/2024 9:28 AM CDT [facility] MCH 30.5 26.7 - 33.6 pg 09/13/2024 9:28 AM CDT [facility] MCHC 32.6 31.7 - 36.3 g/dL 09/13/2024 9:28 AM CDT [facility] RDW-CV 12.4 11.3 - 14.8 % 09/13/2024 9:28 AM CDT [facility] Platelet Count 323 150 - 420 x10E9/L 09/13/2024 9:28 AM CDT [facility] MPV 9.6 7.8 - 11.4 fL 09/13/2024 9:28 AM CDT [facility] Neutrophil % 66.9 41.0 - 74.0 % 09/13/2024 9:28 AM CDT [facility] Lymphocyte % 18.8 17.0 - 47.0 % 09/13/2024 9:28 AM CDT [facility] Monocyte % 8.0 3.0 - 11.0 % 09/13/2024 9:28 AM CDT [facility] Eosinophil % 4.8 0.0 - 7.0 % 09/13/2024 9:28 AM CDT [facility] Basophil % 1.1 0.0 - 1.6 % 09/13/2024 9:28 AM CDT [facility] Immature Granulocytes % 0.4 0.0 - 1.0 % 09/13/2024 9:28 AM CDT [facility] Neutrophil Absolute 4.78 1.60 - 7.50 x10E9/L 09/13/2024 9:28 AM CDT [facility] Lymphocyte Absolute 1.34 1.00 - 4.40 x10E9/L 09/13/2024 9:28 AM CDT [facility] Monocyte Absolute 0.57 0.15 - 1.00 x10E9/L 09/13/2024 9:28 AM CDT [facility] Eosinophil Absolute 0.34 0.00 - 0.60 x10E9/L 09/13/2024 9:28 AM CDT [facility] Basophil Absolute 0.08 0.00 - 0.13 x10E9/L 09/13/2024 9:28 AM CDT [facility] Blood BLOOD SPECIMEN / Unknown Venipuncture / Unknown 09/13/2024 9:14 AM CDT 09/13/2024 9:19 AM CDT Steph Vergara SUBSCRIPTION AGENT-[employer] SPECIALIST LAB - HEMATOLOGY ORDERABL ES Final Result [facility] [address] [place] [address] documented in this encounter Visit Diagnoses Diagnosis Pre-op evaluation- Primary Preoperative examination, unspecified documented in this encounter Additional Health Concerns Active Problems Noted Date Diagnosed Date Autogenerated Problem 06/16/2024 documented as of this encounter Care Teams Chief Steward/Stewardess Relationship Specialty Start Date End Date Vonda Leahy MD [address] [place] [address] PCP - General Family Medicine 07/23/21 Alexis Andersen DO [address] [facility] [address], [address] [address] Internal Medicine 07/02/22 Alexis Andersen DO [address] [facility] [address], [address] [address] Internal Medicine 09/13/24 Chaparrita Rivera APRN-SOURCE [employer] SPECIALIST [address] [address] Nurse Practitioner 09/13/24 Manjula Gallegos MD [address] [address] Rheumatology 09/13/24 documented as of this encounter
--- OUTSIDE RECORDS SUMMARY | 2024-09-13 12:31 | XMS_ITS | Clinical Summary ---
Author Organization [facility] Address [address] [place] [address] Care Team Providers Care Turn Laster Name Role Phone Vonda Leahy MD Primary Care Provider Allergies No known active allergies Surgical History Surgery Date Site/Laterality Comments HYSTERECTOMY Social History Tobacco Use Types Packs/Day Years Used Date Smoking Tobacco: Never Assessed Comments No Sex and Gender Information Value Date Recorded Sex Assigned at Not on file Legal Sex Female 2:44 AM YARD CRANE OPERATOR Gender Identity Not on file Sexual Orientation [...] 98.9 kg (218 lb) 12/31/2019 8:25 AM YARD CRANE OPERATOR Height 165.1 cm (5' 5) 12/31/2019 8:25 AM YARD CRANE OPERATOR Body Mass Index 36.28 12/31/2019 8:25 AM YARD CRANE OPERATOR Plan of Treatment Health Maintenance Due Date Last Done Comments Depression Screening 1950 Fall Risk Assessment 1950 Hepatitis C Screening 1950 Osteoporosis Screening-Bone Density Scan 1950 DTaP/Tdap/Td Vaccine (1 - Tdap) 02/08/1959 Hepatitis B Screening 02/08/1966 Well Visit 65+ 02/08/2013 Pneumococcal vaccine 65+ (2 of 2 - PCV) 2017 02/10/2016 Zoster Vaccine (2 of 2) 01/04/2019 11/09/2018 Influenza Vaccine (#1) 2024 9, 11/09/2017, 02/17/2013 Breast Cancer Screening-Mammogram Discontinued 05/21/2024, [...] Recently Relevant to Health Maintenance Insurance MEDICARE [facility] MEDICARE [employer] MEDICARE SUPPLEMENT MEDICARE [facility] MEDICARE SUPPLEMENT Care Teams Turn Laster Relationship Specialty Start Date End Date Vonda Leahy MD PCP - General Family Practice 01/16/22
--- OUTSIDE RECORDS SUMMARY | 2024-09-13 12:31 | XMS_ITS | Clinical Summary ---
Author Organization [facility] Address [address] [facility] [place] [address] Care Team Providers Care Filler Operator Name Role Phone Vonda Leahy MD Primary Care Provider Alexis Andersen DO Unavailable Alexis Andersen DO Unavailable Chaparrita Rivera APRN-BREAKER UP Unavailable [phone] Manjula Gallegos MD Unavailable Source Comments [facility],non-owned Affiliates and Associated Physician Practices is amultiple site organization consisting of ambulatory clinics and hospital sitesin [place], [place], [place] and [place]. This disclosure is being madepursuant to the Care Everywhere program and may not contain all information available regarding this patient. Last updated 17.[facility] Allergies Active Allergy Reactions Criticality Noted Date [...] 60 Cap 2 04/08/19 12 Active omeprazole (PriLOSEC) 40 MG capsuleIndicat ions:Gastroeso phageal Reflux Disease Take 1 (one) capsule by mouth daily before breakfast Reasons: Gastroesophageal Reflux Disease 06/08/19 22 Active meloxicam (MOBIC) 15 MG tabletIndicati ons:Rheumatoid Arthritis Take 0.5 (one-half) tablet by mouth once daily Reasons: Rheumatoid Arthritis 06/20/19 22 Active DULoxetine (CYMBALTA) 30 MG capsuleIndicat ions:Major Depressive Disorder Take 2 (two) capsules by mouth once daily Reasons: Major Depressive Disorder 07/04/19 22 Active EUTHYROX 175 MCG tabletIndicati ons:Hypothyroi dism Take 1 (one) tablet by mouth once daily Reasons: Underactive Thyroid 05/03/19 22 Active hydrALAZINE (Apresoline) 50 MG tabletIndicati ons:Hypertensi on Take 1.5 (one and one-half) tablets by mouth 2 times daily Reasons: High Blood Pressure 09/17/19 22 Active fluticasone propionate (Flonase) 50 MCG/ACT nasal sprayIndicatio ns:Allergic Rhinitis [place] 2 (two) sprays into each nostril once daily Reasons: Allergic Rhinitis Active zolpidem (Ambien) 10 MG tabletIndicati ons:Insomnia Take 1 (one) tablet by mouth nightly as needed for Insomnia Reasons: Trouble Sleeping Active Vitamin D, Cholecalcifero l, 25 MCG (1000 UT) CAPSIndication s:Vitamin D Deficiency Take 3 (three) capsules by mouth once daily Reasons: Vitamin D Deficiency Active losartan-hydro CHLOROthiazide (Hyzaar) 100-12.5 MG tabletIndicati ons:Hypertensi on Take 1 (one) tablet by mouth once daily Reasons: High Blood Pressure Active metoprolol succinate XL 24hr (Toprol XL) 25 MG tabletIndicati ons:Hypertensi on Take 1 (one) tablet by mouth once daily Reasons: High Blood Pressure 05/31/19 23 Active FeroSul 325 (65 Fe) MG tabletIndicati ons:Iron Deficiency Take 1 (one) tablet by mouth once daily Reasons: Iron Deficiency 04/16/19 23 Active hydroxychloroq uine (Plaquenil) 200 MG tabletIndicati ons:Rheumatoid Arthritis Take 1 (one) tablet by mouth 2 times daily Reasons: Rheumatoid Arthritis Active polyethylene glycol 3350 (GlycoLax) 17 GM/SCOOP powderIndicati ons:Constipati on Take 17 (seventeen) g by mouth once daily as needed for Constipation Reasons: Constipation Active oxyCODONE, immediate release, (Roxicodone) 5 MG tabletIndicati ons:Acute Pain Take 1 (one) tablet to 2 (two) tablets by mouth every 6 hours as needed for Pain (pain) Reasons: Acute Pain 56 tablet 07/19/19 23 Active Additional Information Patient not taking.Reason: Patient adjusted, Reported on 09/13/2024 HYDROmorphone (Dilaudid) 2 MG tablet TAKE 1 TABLET BY MOUTH EVERY 12 HOURS NEEDED FOR SEVERE PAIN . DO NOT EXCEED 2 PER 24 HOURS. DO NOT COMBINE WITH HYDROCODONE. DO NOT DRIVE UNTIL FAMILIAR WITH MEDICATIONS EFFECTS. CALL CLINIC FOR REFILL 09/08/19 25 Active tobramycin-dex AMETHasone (Tobradex) 0.3-0.1 % ophthalmic suspension INSTILL 1 DROP INTO EACH EYE AT BEDTIME 10/12/19 22 025 Discontin ued(List Clean-Up) Probiotic Product (PROBIOTIC BLEND PO) Take 1 tablet by mouth once daily 025 Discontin ued(List Clean-Up) Active Problems Problem Noted Date Diagnosed Date Primary osteoarthritis of both knees 08/01/2021 Encounters Date Type Department Care Team Description 09/13/2024 8:45 AM CDT Hospital Encounter [facility] [address] [place] [address] Vivek Mckeon IV, MD 09/13/2024 Results Follow-Up [facility] [address] [place] [address] Steph Vergara APRN-CNP 09/13/2024 Travel 08/19/2024 9:50 AM CDT Office Visit [facility] [address] [facility], [address] [place] [phone] Vivek Mckeon IV, MD Right hip pain (Primary Dx) 06/22/2024 Travel 06/16/2024 10:30 AM CDT Office Visit [facility] [address] [facility], [address] [place] [phone] Jane Chung PA Right hip pain (Primary Dx) 06/16/2024 10:10 AM CDT Ancillary Procedure [facility] - Radiology [address] [place] [address] Jane Chung PA Right hip [...] on file Legal Sex Female 1:01 PM GRINDER SET UP OPERATOR UNIVERSAL Gender Identity Not on file Sexual Orientation Not on file Last Filed Vital Signs Vital Sign Reading Time Taken Comments Blood Pressure 140/76 09/13/2024 10:00 AM CDT Pulse 66 09/13/2024 9:38 AM CDT Temperature 36.3 C (97.3 F) 09/13/2024 9:15 AM CDT Respiratory Rate 16 08/01/2022 9:16 AM CDT Oxygen Saturation 98% 09/13/2024 9:38 AM CDT Inhaled Oxygen Concentration - - Weight 115.7 kg (255 lb) 09/13/2024 9:15 AM CDT Height 157.5 cm (5' 2) 09/13/2024 9:15 AM CDT Body Mass Index 46.64 09/13/2024 9:15 AM CDT Plan of Treatment Upcoming Encounters Date Type Department Care Team (Latest Contact Info) Description 10/06/2024 10:45 AM CDT Hospital Encounter [facility] - Perioperative Surgery [address] [place] [address] [place] [address] [address] [address] [address] Surgery General 10/06/2024 10:45 AM CDT - 10/06/2024 1:31 PM CDT Surgery [facility] - Perioperative Surgery [address] [place] [address] [place] [address] [address] [address] [address] RIGHT TOTAL ANTERIOR HIP ARTHROPLASTY 10/06/2024 11:00 AM CDT Procedure visit [address] [phone] 10/24/2024 4:00 PM CDT Office Visit [address], [address] [phone] [place] [address] [address] [address] [address] 11/11/2024 9:45 AM CDT Office Visit [address], [address] [phone] Maribell Ramirez, PA-C [address] [place] [address] [address] 12/19/2024 2:50 PM GRINDER SET UP OPERATOR UNIVERSAL Office Visit [facility] [address] [facility], [facility] [address] [place] [address] [place] [address] [facility] [address] [place] [address] Scheduled Procedures Name Priority Associated Diagnoses [...] season) 2023 DEPRESSION SCREENING 02/10/2024 INFLUENZA VACCINE (#1) 2024 HEPATITIS B VACCINE Aged Out No [...] [employer] Implanted Type Area Dog Day Care Attendant Device Identifier Shelf Expiration Date Model / Serial / Lot Glenn Bone [place]-G Hv 40/20 Implanted:Qty: 1 on 11/11/2021 by Carlos Manuel Acevedo MD at [facility] Right: Knee [employer] 03/07/2023 [id number] / / [id number] Tray Tib 71mm Kn Cocr I Beam Implanted:Qty: 1 on 11/11/2021 by Carlos Manuel Acevedo MD at [facility] Right: Knee [employer] 09/07/2031 [id number] / / [id number] Cmpnt Fem Kn Rt Cr Cmnt Prm Vngrd Intlk 67.5 Mm Implanted:Qty: 1 on 11/11/2021 by Carlos Manuel Acevedo MD at [facility] Right: Knee [employer] 10/05/2031 [id number] / / [id number] Cmpnt Ptlr Std 28mm 1 Pg Wire Kn Ser A Implanted:Qty: 1 on 11/11/2021 by Carlos Manuel Acevedo MD at [facility] Right: Knee [employer] 10/23/2025 [id number] / / [id number] Brng 47lla48nn Vngrd Arcm Kn Ant Stab Implanted:Qty: 1 on 11/11/2021 by Carlos Manuel Acevedo MD at [facility] Right: Knee [employer] 09/02/2026 [id number] / / [id number] Brng 60ull96ns Vngrd Arcm Kn Ant Stab Implanted:Qty: 1 on 07/14/2022 by Carlos Manuel Acevedo MD at [facility] Left: Knee [employer] 03/31/2027 [id number] / / [id number] Cmnt Bone Plc R 40gm Grn Implanted:Qty: 1 on 07/14/2022 by Carlos Manuel Acevedo MD at [facility] Left: Knee [employer] 08/08/2024 [id number] / / [id number] Cmpnt Fem Kn Lt Cr Cmnt Prm Vngrd Intlk 67.5mm Implanted:Qty: 1 on 07/14/2022 by Carlos Manuel Acevedo MD at [facility] Left: Knee [employer] 03/06/2032 [id number] / / [id number] Tray Tib 75mm Kn Cocr I Beam Implanted:Qty: 1 on 07/14/2022 by Carlos Manuel Acevedo MD at [facility] Left: Knee [employer] 03/22/2032 [id number] / / [id number] Cmpnt Ptlr Std 28mm 3 Pg Kn Ser A Implanted:Qty: 1 on 07/14/2022 by Carlos Manuel Acevedo MD at [facility] Left: Knee [employer] 05/23/2027 [id number] / / [id number] Procedures Procedure Name Priority Date/Time Associated Diagnosis Comments EKG 12-LEAD Routine 09/13/2024 9:45 AM CDT Pre-op evaluation COMPREHENSIVE METABOLIC PANEL STAT 09/13/2024 9:14 AM CDT Pre-op evaluation CBC W AUTO DIFFERENTIAL STAT 09/13/2024 9:14 AM CDT Pre-op evaluation XR HIP RIGHT 2VW OR MORE Routine 06/16/2024 10:17 AM CDT Right hip pain from Last 3 Months Results * EKG 12-Lead (09/13/2024 9:45 AM CDT) Ventricular Rate 67 BPM [facility] Atrial Rate 67 BPM [facility] P-R Interval 166 ms [facility] QRS Duration ms 90 ms [facility] Q-T Interval ms 418 ms [facility] QTC Calculation (Bezet) 441 ms [facility] Calculated P [place] 53 degrees [facility] Calculated R [place] -4 degrees [facility] Calculated T [place] 93 degrees [facility] Interpretation EKG Normal sinus rhythm Inferior infarct , age undetermined Anterior infarct (cited on or before 16-OCT-2021) Abnormal ECG When compared with ECG of 06-JUN-2022 12:26, Premature ventricular complexes are no longer Present Inferior infarct is now Present Inverted T waves have replaced nonspecific T wave abnormality in Lateral leads Confirmed by VIDA MANTILLA, MIGNON ([id number]) on 09/13/2024 10:01:21 AM [facility] 09/13/2024 9:45 AM CDT 09/13/2024 10:01 AM CDT us Emma Quick DO ECG ORDERABLES Edited Result - Final [facility] * CBC W AUTO DIFFERENTIAL (09/13/2024 9:14 AM CDT) WBC 7.1 4.0 - 10.7 x10E9/L 09/13/2024 9:28 AM CDT [facility] RBC Count 4.07 3.90 - 5.20 x10E12/L 09/13/2024 9:28 AM CDT [facility] Hemoglobin 12.4 11.9 - 15.8 g/dL 09/13/2024 9:28 AM CDT [facility] Hematocrit 38.0 34.8 - 46.1 % 09/13/2024 9:28 AM CDT [facility] MCV 93.4 80.0 - 98.0 fL 09/13/2024 9:28 AM CDT [facility] MCH 30.5 26.7 - 33.6 pg 09/13/2024 9:28 AM CDT [facility] MCHC 32.6 31.7 - 36.3 g/dL 09/13/2024 9:28 AM CDT [facility] RDW-CV 12.4 11.3 - 14.8 % 09/13/2024 9:28 AM CDT [facility] Platelet Count 323 150 - 420 x10E9/L 09/13/2024 9:28 AM CDT [facility] MPV 9.6 7.8 - 11.4 fL 09/13/2024 9:28 AM CDT [facility] Neutrophil % 66.9 41.0 - 74.0 % 09/13/2024 9:28 AM CDT [facility] Lymphocyte % 18.8 17.0 - 47.0 % 09/13/2024 9:28 AM CDT [facility] Monocyte % 8.0 3.0 - 11.0 % 09/13/2024 9:28 AM CDT [facility] Eosinophil % 4.8 0.0 - 7.0 % 09/13/2024 9:28 AM CDT [facility] Basophil % 1.1 0.0 - 1.6 % 09/13/2024 9:28 AM CDT [facility] Immature Granulocytes % 0.4 0.0 - 1.0 % 09/13/2024 9:28 AM CDT [facility] Neutrophil Absolute 4.78 1.60 - 7.50 x10E9/L 09/13/2024 9:28 AM CDT [facility] Lymphocyte Absolute 1.34 1.00 - 4.40 x10E9/L 09/13/2024 9:28 AM CDT [facility] Monocyte Absolute 0.57 0.15 - 1.00 x10E9/L 09/13/2024 9:28 AM CDT [facility] Eosinophil Absolute 0.34 0.00 - 0.60 x10E9/L 09/13/2024 9:28 AM CDT [facility] Basophil Absolute 0.08 0.00 - 0.13 x10E9/L 09/13/2024 9:28 AM CDT [facility] Blood BLOOD SPECIMEN / Unknown Venipuncture / Unknown 09/13/2024 9:14 AM CDT 09/13/2024 9:19 AM CDT Steph Vergara GREASE BUFFER-BREAKER UP LAB - HEMATOLOGY ORDERABL ES Final Result [facility] [address] [place] [address] * (ABNORMAL) COMPREHENSIVE METABOLIC PANEL (09/13/2024 9:14 AM CDT) Glucose 121(H) 70 - 99 mg/dL 09/13/2024 9:35 AM CDT [facility] Sodium 138 136 - 145 mmol/L 09/13/2024 9:35 AM CDT [facility] Potassium 4.0 3.5 - 5.1 mmol/L 09/13/2024 9:35 AM CDT [facility] Chloride 103 98 - 107 mmol/L 09/13/2024 9:35 AM CDT [facility] CO2 25 22 - 29 mmol/L 09/13/2024 9:35 AM CDT [facility] Calcium 9.8 8.4 - 10.4 mg/dL 09/13/2024 9:35 AM CDT [facility] Anion Gap 10 6 - 16 mmol/L 09/13/2024 9:35 AM CDT [facility] BUN 23 7 - 26 mg/dL 09/13/2024 9:35 AM CDT [facility] Creatinine 1.10 0.57 - 1.11 mg/dL 09/13/2024 9:35 AM CDT [facility] Alkaline Phosphatase 91 40 - 150 U/L 09/13/2024 9:35 AM CDT [facility] ALT 17 6 - 57 U/L 09/13/2024 9:35 AM CDT [facility] AST 23 10 - 48 U/L 09/13/2024 9:35 AM CDT [facility] Protein Total 7.4 6.4 - 8.3 gm/dL 09/13/2024 9:35 AM CDT [facility] Albumin 4.1 3.1 - 4.5 gm/dL 09/13/2024 9:35 AM T [facility] Bilirubin Total 0.4 0.2 - 1.2 mg/dL 09/13/2024 9:35 AM T [facility] eGFR by CKD-EPI 52(L) >=90 mL/min/1.7 3 m2 09/13/2024 9:35 AM T [facility] Comment:Estimated Glomerular Filtration Rate (eGFR) calculated using the CKD-EPI Creatinine Equation (2020), per the National Kidney Foundation and [place] [employer]ph[employer] recommendations. Blood BLOOD SPECIMEN / Unknown Venipuncture / Unknown 09/13/2024 9:14 AM CDT 09/13/2024 9:19 AM CDT Steph Vergara GREASE BUFFER-BREAKER UP LAB - CHEMISTRY ORDERABLE S Final Result [facility] [address] [place] [address] * XR Hip Right 2Vw or More (06/16/2024 10:17 AM CDT) Narrative [facility] [address] - 06/16/2024 10:17 AM CDT Please see progress note in Epic for results. Jane MILLER DIAGNOST[facility]AG[facility] ORDERABLES Final Result [facility] [address] from Last 3 Months Additional Health Concerns Active Problems Noted Date Diagnosed Date Autogenerated Problem 06/16/2024 Insurance MEDICARE [facility] MEDICARE [facility] Advance Directives * Full Code (Latest Code [...] 1:40 PM 04/08/2011 11:08 PM Care Teams Filler Operator Relationship Specialty Start Date End Date Vonda Leahy MD [address] [place] [address] PCP - General Family Medicine 07/23/21 Alexis Andersen DO [address] [facility] [address] [facility], [address] [address] Internal Medicine 07/02/22 Alexis Andersen DO [address] [facility] [address], [address] [address] Internal Medicine 09/13/24 Chaparrita Rivera APRN-CHANELL [address] [address] Nurse Practitioner 09/13/24 Manjula Gallegos MD [address] [phone] Rheumatology 09/13/24
--- OUTSIDE RECORDS SUMMARY | 2024-09-13 12:31 | XMS_ITS | Patient Health Record ---
Author Organization [facility] Address [address] [facility] [address] [place], [place] [address] Care Team Providers Care Sprinkler Worker Name Role Phone IGLESIA TREVINO MD Primary Care Provider Unavailable Manjula Gallegos Unavailable [phone] Chaparrita Rivera Unavailable [phone] ALLERGIES Allergen (clinical drug ingredient) Drug/Non Drug Allergy documented on EMR Reaction Allergy Type Onset Date Status Tetanus (uncoded) swelling, loss of consciousness Allergy Active Sulfa (uncoded) hives Allergy Acti ve RESULTS Component Value Reference Range Notes AST (SGOT) Reviewed date:10/23/2023 03:44:56 PM Interpretation: Performing Lab:[facility], [address] [place] [address], Phone - [phone], Director - PhDFreedomi Notes/Report: AST (SGOT) 15 0-40 IU/L Creatinine, Serum Reviewed date:10/23/2023 03:45:51 PM Interpretation: Performing Lab:[facility], [address] [facility], Phone - [phone], Director - PhDRicchiuti Notes/Report: Creatinine 1.21 0.57-1.00 mg/dL eGFR 47 >59 mL/min/1.73 ALT (SGPT) Reviewed date:10/23/2023 03:44:56 PM Interpretation: Performing Lab:[facility], [address] [facility], Phone - [phone], Director - PhDRicflaviai Notes/Report: ALT (SGPT) 13 0-32 IU/L CBC With Differential/Platel et Reviewed date:10/23/2023 03:46:11 PM Interpretation: Performing Lab:[facility], [address] [place] [address], Phone - [phone], Director - [facility] Notes/Report: WBC 6.1 3.4-10.8 x10E3/uL [...] Westergren Reviewed date:10/23/2023 03:46:00 PM Interpretation: Performing Lab[facility], [address] [place] [address], Phone - [phone], Director - [facility] Notes/Report: Sedimentation Rate-Barronergren 19 0-40 mm/hr Rheumatoid Arthritis Factor Reviewed date:10/23/2023 03:46:11 PM Interpretation: Performing Lab:[facility], [address] [place] [address], Phone - [phone], Director - Sascha Notes/Report: Rheumatoid Factor (RF) <10.0 <14.0 IU/mL C-Reactive Protein, Quant Reviewed date:10/23/2023 03:46:11 PM Interpretation: Performing Lab:[address], Phone - [phone], [facility] Notes/Report: C-Reactive Protein, Quant 16 0-10 mg/L CCP IgG Antibodies Reviewed date:10/23/2023 03:45:55 PM Interpretation: Performing Lab:[address], Phone - [phone], [facility] Notes/Report: Anti-CCP Ab, IgG/IgA 77 0-19 units Negative <20 Weak positive 20 - 39 Moderate positive 40 - 59 Strong positive >59 AST (SGOT) Reviewed date:04/21/2024 03:04:50 PM Interpretation: Performing Lab:[address], Phone - [phone], [facility] Notes/Report: AST (SGOT) 17 0-40 IU/L Creatinine, Serum Reviewed date:04/21/2024 03:04:50 PM Interpretation: Performing Lab:[address], Phone - [phone], [facility] Notes/Report: Creatinine 1.03 0.57-1.00 mg/dL eGFR 56 >59 mL/min/1.73 ALT (SGPT) Reviewed date:04/21/2024 03:04:50 PM Interpretation: Performing Lab:[address], Phone - [phone], [facility] Notes/Report: ALT (SGPT) 12 0-32 IU/L CBC With Differential/Platel et Reviewed date:04/21/2024 03:04:50 PM Interpretation: Performing Lab:[address], Phone - [phone], [facility] Notes/Report: WBC 6.5 3.4-10.8 x10E3/uL RBC [...] Westergren Reviewed date:04/21/2024 03:04:50 PM Interpretation: Performing Lab:[facility] [address], Phone - [phone], Director - [facility] Notes/Report: Sedimentation Rate-Westergren 19 0-40 mm/hr Rheumatoid Arthritis Factor Reviewed date:04/21/2024 03:04:50 PM Interpretation: Performing Lab:[facility], [address] [place] [address], Phone - [phone], Director - [facility] Notes/Report: Rheumatoid Factor (RF) <10.0 <14.0 IU/mL C-Reactive Protein, Quant Reviewed date:04/21/2024 03:04:50 PM Interpretation: Performing Lab:[facility], [address] [place] [address], Phone - [phone], Director - [facility] Notes/Report: C-Reactive Protein, Quant 14 0-10 mg/L CCP IgG Antibodies Reviewed date:04/21/2024 03:04:50 PM Interpretation: Performing Lab:[facility], [address] [place] [address], Phone - [phone], Director - [facility] Notes/Report: Anti-CCP [...] Notes Problem Sleeping difficulty (G47.9) Active confirmed 918965132 Problem Dry eye (H04.129) Active confirmed 1622 26582 Problem Polyarthralgia (M25.50) Active confirmed 39400837 Problem Dry mouth (R68.2) Active confirmed 8771 5008 Problem Low back pain at multiple sites (M54.5) Active confirmed Problem Primary generalized (osteo)arthritis (M15.0) Active confirmed 194887983 Problem Positive anti-CCP test (R76.8) Active confirmed 074729952 Problem Essential (primary) hypertension (I10) Active confirmed 38275632 VITAL SIGNS Heart Rate 59 /min 04/20/2024 Blood pressure diastolic 89 mm Hg 04/20/2024 Height 65 in 04/20/2024 Blood pressure systolic 160 mm Hg 04/20/2024 Weight 254 lbs 04/20/2024 BMI 42.26 kg/m2 04/20/2024 Encounters Encounter Location Date Provider Diagnosis [facility] Paty [facility], [facility] [address] [place], [place] [phone] 10/22/2023 Chaparrita Rivera Primary generalized (osteo)arthritis M15.0 ; Positive anti-CCP test R76.8 and Other intermediate designer (current) drug therapy Z79.899 [facility], [facility] Paty Burciaga, [address] [place], [place] [phone] 04/20/2024 Chaparrita Rivera Primary generalized (osteo)arthritis M15.0 ; Positive anti-CCP test R76.8 and Other residential (current) drug therapy Z79.899 [facility] [address] [facility], [address] [place], [place] [phone] 10/22/2023 Manjula Gallegos [facility] [address] [facility], [facility] [address] [place], [place] [phone] 10/23/2023 Manjula Gallegos ASSESSMENTS Encounter Date Diagnosis [...] help with pain. F/u scheduled. 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 Continue current therapy. Avoid OTC NSAIDS. Labs today. Continue eye exam. Discussed if creatinine is elevated may need to stop NSAIDS (meloxicam). On Duloxetine. Continue PT. F/u scheduled. 04/20/2024 Other intermediate designer (current) drug therapy (ICD-10 - Z79.899) RA(positive [...] Vazquez , 10/13/2024 10:20:00 AM, [address] [facility], [address], [place], [place], [phone], Insurance Providers Payer Name Payer Address Payer Phone Subscriber Number Group Number Insured Name Patient Relationship to Insured Coverage Start Date Coverage End Date MEDICARE [address] [address] [place] [address] [id number] Matilde Breen Self - patient is the insured DEVIN Conde/SHANA [facility] [address] [place] [address] [id number] Matilde Breen Self - patient is the insured 3 MEDICAL (GENERAL) HISTORY Medical History History ICD Code depression tension headaches sinus problems thyroid disease anxiety irregular heart beat difficulty breathing diarrhea Lack of bladder control Hot Flashes high blood pressure hemorrhoids frequent urination Surgical History Surgery Date(Month/Year) prolapse 2012 esophagus 1996,2001 hysterectomy 1979
--- OUTSIDE RECORDS SUMMARY | 2024-09-13 12:31 | XMS_ITS ---
Author Organization [facility] Address [address] [place], [place] [address] Care Team Providers Care Motorized Squad Sergeant Name Role Phone IGLESIA TREVINO MD Primary Care Provider Unavailable Manjula Gallegos Unavailable [phone] Chaparrita Rivera Unavailable [phone] ALLERGIES Allergen (clinical drug ingredient) Drug/Non Drug Allergy documented on EMR Reaction Allergy Type Onset Date Status Tetanus (uncoded) swelling, loss of consciousness Allergy Active Sulfa (uncoded) hives Allergy Acti ve RESULTS Component Value Reference Range Notes AST (SGOT) Reviewed date:04/21/2024 03:04:50 PM Interpretation: Performing Lab:[facility], [address] [place] [address], Phone - [phone], Director - PhDFreedomi Notes/Report: AST (SGOT) 17 0-40 IU/L Creatinine, Serum Reviewed date:04/21/2024 03:04:50 PM Interpretation: Performing Lab:[facility], [address] [place] [address], Phone - [phone], Director - PhDRicchiuti Notes/Report: Creatinine 1.03 0.57-1.00 mg/dL eGFR 56 >59 mL/min/1.73 ALT (SGPT) Reviewed date:04/21/2024 03:04:50 PM Interpretation: Performing Lab:[facility], [address] [facility], Phone - [phone], Director - PhDRicflaviai Notes/Report: ALT (SGPT) 12 0-32 IU/L CBC With Differential/Platel et Reviewed date:04/21/2024 03:04:50 PM Interpretation: Performing Lab:[facility], [address] [facility], Phone - [phone], Director - Sascha Notes/Report: WBC 6.5 3.4-10.8 [...] Westergren Reviewed date:04/21/2024 03:04:50 PM Interpretation: Performing Lab:[facility], [address] [facility], Phone - [phone], Director - Sascha Notes/Report: Sedimentation Rate-Westergren 19 0-40 mm/hr Rheumatoid Arthritis Factor Reviewed date:04/21/2024 03:04:50 PM Interpretation: Performing Lab:[facility], [address] [facility], Phone - [phone], Director - Sascha Notes/Report: Rheumatoid Factor (RF) <10.0 <14.0 IU/mL C-Reactive Protein, Quant Reviewed date:04/21/2024 03:04:50 PM Interpretation: Performing Lab[facility], [address] [facility], Phone - [phone], Director - Sascha Notes/Report: C-Reactive Protein, Quant 14 0-10 mg/L CCP IgG Antibodies Reviewed date:04/21/2024 03:04:50 PM Interpretation: Performing Lab[facility], [address] [facility], Phone - [phone], Director - Sascha Notes/Report: Anti-CCP Ab, IgG/IgA [...] Location Date Provider Diagnosis [facility], [address] [place], [place] [id number] 04/20/2024 Chaparrita Rivera Primary generalized (osteo)arthritis M15.0 ; Positive anti-CCP test R76.8 and Other fpc (current) drug therapy Z79.899 ASSESSMENTS Encounter Date [...] help with pain. F/u scheduled. 04/20/2024 Other terminal system operator (current) drug therapy (ICD-10 - Z79.899) [...] Name:Chaparrita mcknight, 10/13/2024 10:20:00 AM, [address] [facility], [address], [place], [place], [id number], Progress Notes * Examination Category Sub-Category Detail [...]
--- OUTSIDE RECORDS SUMMARY | 2024-09-13 12:31 | XMS_ITS | Encounter Summary ---
Author Organization [facility] Address [address] [facility] [place] [address] Care Team Providers Care Regulatory Compliance Specialist Name Role Phone Vonda Leahy MD Primary Care Provider Alexis Andersen DO Unavailable Alexis Andersen DO Unavailable Chaparrita Rivera APRN-HOURLY SHIFT MANAGER Unavailable [phone] Manjula Gallegos MD Unavailable Encounter Details Date Type Department Care Team (Late st Contact Info) Description 03/06/2022 Lab Requisition [facility] [address] [facility] [place] [id number] Juan Yuan MD [address] [place] [address] Social History Tobacco Use Types [...] on file Legal Sex Female 1:01 PM EQUINE PHARMACOLOGY TECHNICIAN Gender Identity Not on file Sexual Orientation Not on file documented as of this encounter Functional Status * Is person deaf or have serious hearing difficulty? Answer Date of Assessment Author No 11/13/2021 2:21 PM Roshan Negron RN * Is person blind or have serious difficulty seeing? Answer Date of Assessment Author No 11/13/2021 2:21 PM Roshan Negron RN * Does person have serious difficulty walking/climbing stairs? Answer Date of Assessment Author Yes 11/13/2021 2:21 PM CDT Roshan Miranda RN * Does person have difficulty dressing/bathing? Answer Date of Assessment Author Yes 11/13/2021 2:21 PM Roshan Negron RN * Does person have difficulty doing errands alone? Answer Date of Assessment Author Yes 11/13/2021 2:21 PM Roshan Negron RN documented as of this encounter Mental Status * Does person have difficulty concentrating/remembering/making decisions? Answer Entry Date Author No 11/13/2021 2:21 PM Roshan Negron RN documented in this encounter Plan of Treatment Upcoming Encounters Date Type Department Care Team (Latest Contact Info) Description 10/06/2024 10:45 AM CDT Hospital Encounter [facility] - Perioperative Surgery [address] [place] [address] [place] [address] [address] [address] Surgery General 10/06/2024 10:45 AM CDT - 10/06/2024 1:31 PM CDT Surgery [facility] - Perioperative Surgery [address] [place] [address] [place] [address] [address] [place] [address] RIGHT TOTAL ANTERIOR HIP ARTHROPLASTY 10/06/2024 11:00 AM CDT Procedure visit [facility] [address] [place] [address], [address] [address] 10/24/2024 4:00 PM CDT Office Visit [facility] [address] [place] [address], [address] [place] [address] [place] [address] [address] [address] 11/11/2024 9:45 AM CDT Office Visit [facility] [address] [place] [address], [address] [address] Maribell Ramirez PA-C [address] [address] [address] 12/19/2024 2:50 PM EQUINE PHARMACOLOGY TECHNICIAN Office Visit [address], [address] [place] [address] [place] [address] [address] [address] Scheduled Procedures Name Priority Associated Diagnoses Date/Ti me ARTHROPLASTY TOTAL HIP (ANTERIOR) 10/06/2024 10:45 AM CDT documented as of this encounter Procedures Procedure Name Priority Date/Time Associated Diagnosis Comments DERMATOPATHOLOGY Routine 03/04/2022 12:0 0 AM EQUINE PHARMACOLOGY TECHNICIAN documented in this encounter Results * DERMATOPATHOLOGY (03/04/2022 12:00 AM EQUINE PHARMACOLOGY TECHNICIAN) Case Report Dermatopathology Report Case: [id number] Authorizing Provider: Juan Yuan MD Collected: 03/04/2022 12:00 AM Ordering Location: [facility] Lab Received: 03/06/2022 01:29 PM Pathologist: Elizabeth Garvin MD Specimen: Skin, right medial cheek 3:47 PM EQUINE PHARMACOLOGY TECHNICIAN DERMATOPATHOLOGY LABORATORY Final Diagnosis Specimen A. SKIN, right medial cheek: SEBACEOUS HYPERPLASIA, SUPERFICIAL PORTIONS OF (L73.8) (see microscopic description and comment) 3:47 PM EQUINE PHARMACOLOGY TECHNICIAN DERMATOPATHOLOGY LABORATORY at 1547 EQUINE PHARMACOLOGY TECHNICIAN Clinical History R/O SCC, BCC 3 3:47 PM [facility] DERMATOPATHOLOGY LABORATORY Gross Description Specimen A: Received is one formalin filled container labeled with the patient's name and designated right medial cheek. The specimen consists of a shave biopsy measuring 3x3x1 mm. Jar 0. 3 3:47 PM [facility] DERMATOPATHOLOGY LABORATORY Microscopic Description Specimen A. SKIN, right medial cheek: There are superficial portions of prominent sebaceous gland lobules surrounding a dilated hair follicle. Additional deeper sections were obtained and reviewed. COMMENT: Given the superficial nature of the biopsy specimen, a deeper dermal process cannot be excluded. 3 3:47 PM [facility] DERMATOPATHOLOGY LABORATORY Disclaimer An external and internal positive and negative controls are appropriate for the histochemical, immunohistochemical and immunofluorescence stain(s) in this case (if any), except where stated explicitly. The performance characteristics of the stain(s) cited in this report were developed and its performance characteristic determined by the Dermatopathology Laboratory at [facility], directed by Dr. Sadia Barillas. These tests need not be, and therefore are not, approved by the [place] Food and Drug Administration. The tests are used for clinical purposes. Billing Codes Specimen Charges Stain Charges 00196 1 3 3:47 PM EQUINE PHARMACOLOGY TECHNICIAN DERMATOPATHOLOGY LABORATORY Embedded Images 3 3:47 PM [facility] DERMATOPATHOLOGY LABORATORY Pathology/Cytolog y TISSUE SPECIMEN FROM SKIN / Unknown 03/04/2022 03/06/2022 1:29 PM EQUINE PHARMACOLOGY TECHNICIAN Juan Yuan MD LAB - PATHOLOGY/CYTOLOGY ORD ERABLES Final Result DERMATOPATHOLOGY LABORATORY [facility] - Department of Dermatology [address], [address] [phone] documented in this encounter Visit Diagnoses Not on filedocumented in this encounter Care Teams Regulatory Compliance Specialist Relationship Specialty Start Date End Date Vonda Leahy MD [address] [place] [phone] PCP - General Family Medicine 07/23/21 Alexis Andersen DO [address] [facility] [address] [place] [address] Internal Medicine 07/02/22 Alexis Andersen DO [address] [facility] [address], [facility] [address] [place] [address] Internal Medicine 09/13/24 Chaparrita Rivera APRN-HOURLY SHIFT MANAGER [address] [address] Nurse Practitioner 09/13/24 Manjula Gallegos MD [address] [address] Rheumatology 09/13/24 documented as of this encounter
--- OUTSIDE RECORDS SUMMARY | 2024-09-13 12:31 | XMS_ITS | Encounter Summary ---
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 Gender Identity Not on file Sexual [...] Description 10/06/2024 10:45 AM CDT Hospital Encounter [facility] - Perioperative Surgery [address] [place] [address] [place] [address] [facility] [address] [place] [address] Surgery General 10/06/2024 10:45 AM CDT - 10/06/2024 1:31 PM CDT Surgery [facility] - Perioperative Surgery [address] [place] [address] [place] [address] [address] [address] RIGHT TOTAL ANTERIOR HIP ARTHROPLASTY 10/06/2024 11:00 AM CDT Procedure visit [facility] [address] [place] [address] 10/24/2024 4:00 PM CDT Office Visit [address] [address] [place] [address] [address] [address] 11/11/2024 9:45 AM CDT Office Visit [address] [address] Maribell Ramirez PA-C [address] [address] [address] 12/19/2024 2:50 PM LOADING UNIT OPERATOR Office Visit [address], [address] [address] [place] [address] [address] [address] Scheduled Procedures Name Priority Associated Diagnoses Date/Ti [...] documented as of this encounter Care Teams Textile Bag Sewer Relationship Specialty Start Date End Date Vonda Leahy MD [address] [place] [address] PCP - General Family Medicine 07/23/21 Alexis Andersen DO [address] [facility] [address] [place] [address] Internal Medicine 07/02/22 Alexis Andersen DO [address] [facility] [address] [place] [address] Internal Medicine 09/13/24 Chaparrita Rivera APRN-ADMINISTRATIVE SECRETARY [address] [address] Nurse Practitioner 09/13/24 Manjula Gallegos MD [address] [address] Rheumatology 09/13/24 documented as of this encounter
[2024-09-13 12:34] VITALS: BP 203/67; PULSE 69; RESP 16; TEMP 36.3; O2SAT 97
--- OUTSIDE RECORDS SUMMARY | 2024-09-13 13:47 | XMS_ITS | Clinical Summary ---
Author Organization [facility] Address [address] [facility] [place] [address] Care Team Providers Care Therapeutic Riding Instructor Name Role Phone Vonda Leahy MD Primary Care Provider Alexis Andersen DO Unavailable Alexis Andersen DO Unavailable Chaparrita Rivera APRN-ELECTROPHONIC ENGINEER Unavailable [phone] Manjula Gallegos MD Unavailable Source Comments [facility],non-owned Affiliates and Associated Physician Practices is amultiple site organization consisting of ambulatory clinics and hospital sitesin [place], [place], [place] and [place]. This disclosure is being madepursuant to the [...] (Flonase) 50 MCG/ACT nasal sprayIndicatio ns:Allergic Rhinitis Encampment 2 (two) sprays into each nostril once [...] Description 09/13/2024 8:45 AM CDT Hospital Encounter [facility] [address] [place] [address] Vivek Mckeon IV, MD 09/13/2024 Results Follow-Up [facility] [address] [place] [address] Steph Vergara APRN-CNP 09/13/2024 Travel 08/19/2024 9:50 AM CDT Office Visit [facility] [address] [facility], [address] [place] [address] Vivek Mckeon IV, MD Right hip pain (Primary Dx) 06/22/2024 Travel 06/16/2024 10:30 AM CDT Office Visit [facility] [address] [facility], [address] [place] [address] Jane Chung PA Right hip pain (Primary Dx) 06/16/2024 10:10 AM CDT Ancillary Procedure [facility] - Radiology [address] [place] [address] Jane Chung PA Right hip [...] on file 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 Gender Identity Not on file Sexual Orientation [...] Description 10/06/2024 10:45 AM CDT Hospital Encounter [facility] - Perioperative Surgery [address] [place] [address] [place] [address] [address] [address] [address] Surgery General 10/06/2024 10:45 AM CDT - 10/06/2024 1:31 PM CDT Surgery [facility] - Perioperative Surgery [address] [place] [address] [place] [address] [address] [address] [address] RIGHT TOTAL ANTERIOR HIP ARTHROPLASTY 10/06/2024 11:00 AM CDT Procedure visit [address] [phone] 10/24/2024 4:00 PM CDT Office Visit [address], [address] [address] [place] [address] [place] [address] [address] 11/11/2024 9:45 AM CDT Office Visit [address], [address] [phone] Maribell Ramirez, PA-C [address] [address] [address] [address] 12/19/2024 2:50 PM HOSPITAL INSURANCE CLERK Office Visit [facility] [address] [facility], [facility] [address] [place] [address] [place] [address] [facility] [address] [place] [address] Scheduled Procedures Name Priority Associated [...] [employer] Implanted Type Area Machined Parts Quality Inspector Device Identifier Shelf Expiration Date Model / Serial / Lot Glenn Bone [place]-G Hv 40/20 Implanted:Qty: 1 on 11/11/2021 by Carlos Manuel Acevedo MD at [facility] Right: Knee [employer] 03/07/2023 600-15-100 / / [id number] Tray Tib 71mm Kn Cocr I Beam Implanted:Qty: 1 on 11/11/2021 by Carlos Manuel Acevedo MD at [facility] Right: Knee [employer] 09/07/2031 [id number] / / [id number] Cmpnt Fem Kn Rt Cr Cmnt Prm Vngrd Intlk 67.5 Mm Implanted:Qty: 1 on 11/11/2021 by Carlos Manuel Acevedo MD at [facility] Right: Knee [employer] 10/05/2031 [id number] / / [id number] Cmpnt Ptlr Std 28mm 1 Pg Wire Kn Ser A Implanted:Qty: 1 on 11/11/2021 by Carlos Manuel Acevedo MD at [facility] Right: Knee [employer] 10/23/2025 [id number] / / [id number] Brng 48lro93we Vngrd Arcm Kn Ant Stab Implanted:Qty: 1 on 11/11/2021 by Carlos Manuel Acevedo MD at [facility] Right: Knee [employer] 09/02/2026 [id number] / / [id number] Brng [id number] Vngrd Arcm Kn Ant Stab Implanted:Qty: 1 on 07/14/2022 by Carlos Manuel Acevedo MD at [facility] Left: Knee [employer] 03/31/2027 [id number] / / [id number] Cmnt Bone Plc R 40gm Grn Implanted:Qty: 1 on 07/14/2022 by Carlos Manuel Acevedo MD at [facility] Left: Knee [employer] 08/08/2024 [id number] / / [id number] Cmpnt Fem Kn Lt Cr Cmnt Prm Vngrd Intlk 67.5mm Implanted:Qty: 1 on 07/14/2022 by Carlos Manuel Acevedo MD at [facility] Left: Knee [employer] 03/06/2032 [id number] / / [id number] Tray Tib 75mm Kn Cocr I Beam Implanted:Qty: 1 on 07/14/2022 by Carlos Manuel Acevedo MD at [facility] Left: Knee [employer] 03/22/2032 [id number] / / [id number] Cmpnt Ptlr Std 28mm 3 Pg Kn Ser A Implanted:Qty: 1 on 07/14/2022 by Carlos Manuel Acevedo MD at [facility] Left: Knee [employer] 05/23/2027 [id number] / / [id number] Procedures Procedure Name Priority Date/Time Associated Diagnosis [...] (Bezet) 441 ms [facility] MUSE Calculated P [place] 53 degrees [facility] MUSE Calculated R [place] -4 degrees [facility] MUSE Calculated T [place] 93 degrees [facility]USE Interpretation EKG Normal sinus rhythm Inferior infarct , age undetermined Anterior infarct (cited on or before 16-OCT-2021) Abnormal ECG When compared with ECG of 06-JUN-2022 12:26, Premature ventricular complexes are no longer Present Inferior infarct is now Present Inverted T waves have replaced nonspecific T wave abnormality in Lateral leads Confirmed by VIDA MANTILLA, IMGNON ([id number]) on 09/13/2024 10:01:21 AM [facility] MUSE 09/13/2024 9:45 AM CDT 09/13/2024 10:01 AM CDT us Emma Quick DO ECG ORDERABLES Edited Result - Final [facility]USE * CBC W AUTO DIFFERENTIAL (09/13/2024 9:14 AM CDT) WBC 7.1 4.0 - 10.7 x10E9/L 09/13/2024 9:28 AM CDT [facility] RBC Count 4.07 3.90 - 5.20 x10E12/L 09/13/2024 9:28 AM CDT [facility] Hemoglobin 12.4 11.9 - 15.8 g/dL 09/13/2024 9:28 AM CDT [facility] Hematocrit 38.0 34.8 - 46.1 % 09/13/2024 9:28 AM CDT [facility] MCV 93.4 80.0 - 98.0 fL 09/13/2024 9:28 AM CDT [facility] MCH 30.5 26.7 - 33.6 pg 09/13/2024 9:28 AM CDT [facility] MCHC 32.6 31.7 - 36.3 g/dL 09/13/2024 9:28 AM CDT [facility] RDW-CV 12.4 11.3 - 14.8 % 09/13/2024 9:28 AM CDT [facility] Platelet Count 323 150 - 420 x10E9/L 09/13/2024 9:28 AM CDT [facility] MPV 9.6 7.8 - 11.4 fL 09/13/2024 9:28 AM CDT [facility] Neutrophil % 66.9 41.0 - 74.0 % 09/13/2024 9:28 AM CDT [facility] Lymphocyte % 18.8 17.0 - 47.0 % 09/13/2024 9:28 AM CDT [facility] Monocyte % 8.0 3.0 - 11.0 % 09/13/2024 9:28 AM CDT [facility] Eosinophil % 4.8 0.0 - 7.0 % 09/13/2024 9:28 AM CDT [facility] Basophil % 1.1 0.0 - 1.6 % 09/13/2024 9:28 AM CDT [facility] Immature Granulocytes % 0.4 0.0 - 1.0 % 09/13/2024 9:28 AM CDT [facility] Neutrophil Absolute 4.78 1.60 - 7.50 x10E9/L 09/13/2024 9:28 AM CDT [facility] Lymphocyte Absolute 1.34 1.00 - 4.40 x10E9/L 09/13/2024 9:28 AM CDT [facility] Monocyte Absolute 0.57 0.15 - 1.00 x10E9/L 09/13/2024 9:28 AM CDT [facility] Eosinophil Absolute 0.34 0.00 - 0.60 x10E9/L 09/13/2024 9:28 AM CDT [facility] Basophil Absolute 0.08 0.00 - 0.13 x10E9/L 09/13/2024 9:28 AM CDT [facility] Blood BLOOD SPECIMEN / Unknown Venipuncture / Unknown 09/13/2024 9:14 AM CDT 09/13/2024 9:19 AM CDT Steph Vergara FILM CUTTER-ELECTROPHONIC ENGINEER LAB - HEMATOLOGY ORDERABL ES Final Result [facility] [address] [place] [address] * (ABNORMAL) COMPREHENSIVE METABOLIC PANEL (09/13/2024 9:14 AM CDT) Glucose 121(H) 70 - 99 mg/dL 09/13/2024 9:35 AM CDT [facility] Sodium 138 136 - 145 mmol/L 09/13/2024 9:35 AM CDT [facility] Potassium 4.0 3.5 - 5.1 mmol/L 09/13/2024 9:35 AM CDT [facility] Chloride 103 98 - 107 mmol/L 09/13/2024 9:35 AM CDT [facility] CO2 25 22 - 29 mmol/L 09/13/2024 9:35 AM CDT [facility] Calcium 9.8 8.4 - 10.4 mg/dL 09/13/2024 9:35 AM CDT [facility] Anion Gap 10 6 - 16 mmol/L 09/13/2024 9:35 AM CDT [facility] BUN 23 7 - 26 mg/dL 09/13/2024 9:35 AM CDT [facility] Creatinine 1.10 0.57 - 1.11 mg/dL 09/13/2024 9:35 AM CDT [facility] Alkaline Phosphatase 91 40 - 150 U/L 09/13/2024 9:35 AM CDT [facility] ALT 17 6 - 57 U/L 09/13/2024 9:35 AM CDT [facility] AST 23 10 - 48 U/L 09/13/2024 9:35 AM CDT [facility] Protein Total 7.4 6.4 - 8.3 gm/dL 09/13/2024 9:35 AM CDT [facility] Albumin 4.1 3.1 - 4.5 gm/dL 09/13/2024 9:35 AM T [facility] Bilirubin Total 0.4 0.2 - 1.2 mg/dL 09/13/2024 9:35 AM T [facility] eGFR by CKD-EPI 52(L) >=90 mL/min/1.7 3 m2 09/13/2024 9:35 AM T [facility] Comment:Estimated Glomerular Filtration Rate (eGFR) calculated using the CKD-EPI Creatinine Equation (2020), per the National Kidney Foundation and [place] [employer] Nephrology recommendations. Blood BLOOD SPECIMEN / Unknown Venipuncture / Unknown 09/13/2024 9:14 AM CDT 09/13/2024 9:19 AM CDT Steph Vergara FILM CUTTER-ELECTROPHONIC ENGINEER LAB - CHEMISTRY ORDERABLE S Final Result [facility] [address] [place] [address] * XR Hip Right 2Vw or More (06/16/2024 10:17 AM CDT) Narrative [facility] [address] - 06/16/2024 10:17 AM CDT Please see progress note in Epic for results. Jane MILLER DIAGNOSTIC IMAGING ORDERABLES Final Result [facility] [address] from Last 3 Months Additional Health Concerns Active Problems Noted Date Diagnosed Date Autogenerated Problem 06/16/2024 Insurance MEDICARE [facility] Address: [address] [place] [address] MEDICARE [facility] Advance Directives * Full Code (Latest Code [...] 1:40 PM 04/08/2011 11:08 PM Care Teams Therapeutic Riding Instructor Relationship Specialty Start Date End Date Vonda Leahy MD [address] [place] [address] PCP - General Family Medicine 07/23/21 Alexis Andersen DO [address] [facility] [address] [facility], [address] [address] Internal Medicine 07/02/22 Alexis Andersen DO [address] [facility] [address], [address] [address] Internal Medicine 09/13/24 Chaparrita Rivera APRN-CHANELL [address] [address] Nurse Practitioner 09/13/24 Manjula Gallegos MD [address] [phone] Rheumatology 09/13/24
--- OUTSIDE RECORDS SUMMARY | 2024-09-13 13:47 | XMS_ITS | Encounter Summary ---
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 Gender Identity Not on file Sexual Orientation [...] Description 10/06/2024 10:45 AM CDT Hospital Encounter On license of [facility] - Perioperative Surgery [address] [place] [address] [place] [address] [facility] [address] [place] [address] Surgery General 10/06/2024 10:45 AM CDT - 10/06/2024 1:31 PM CDT Surgery On license of [facility] - Perioperative Surgery [address] [place] [address] [place] [address] [address] [address] RIGHT TOTAL ANTERIOR HIP ARTHROPLASTY 10/06/2024 11:00 AM CDT Procedure visit [facility] [address] [place] [address] 10/24/2024 4:00 PM CDT Office Visit [address] [address] [place] [address] [address] [address] 11/11/2024 9:45 AM CDT Office Visit [address] [address] Maribell Ramirez PA-C [address] [address] [address] 12/19/2024 2:50 PM FINANCIAL ADMINISTRATIVE ASSISTANT Office Visit [address], [address] [address] [place] [address] [address] [address] Scheduled Procedures Name Priority Associated Diagnoses Date/Ti [...] documented as of this encounter Care Teams Crop And Soil Technician Relationship Specialty Start Date End Date Vonda Leahy MD [address] [place] [address] PCP - General Family Medicine 07/23/21 Alexis Andersen DO [address] [facility] [address] [place] [address] Internal Medicine 07/02/22 Alexis Andersen DO [address] [facility] [address] [place] [address] Internal Medicine 09/13/24 Chaparrita Rivera APRN-WELL LOGGING CAPTAIN MUD ANALYSIS [address] [address] Nurse Practitioner 09/13/24 Manjula Gallegos MD [address] [address] Rheumatology 09/13/24 documented as of this encounter
--- OUTSIDE RECORDS SUMMARY | 2024-09-13 13:47 | XMS_ITS | Encounter Summary ---
Author Organization [facility] Health Address [address] [facility] [address] Care Team Providers Care Applications Programmer Analyst Name Role Phone Vonda Leahy MD Primary Care Provider Alexis Andersen DO Unavailable Alexis Andersen DO Unavailable Chaparrita Rivera GRAND SCRIBE-HEEL TRIMMER Unavailable Manjula Gallegos MD Unavailable Encounter Details Date Type Department Care Team (Late st Contact Info) Description 09/13/2024 Results Follow-Up [facility] Pretesting Center [address] [place] [address] Steph Vergara APRN-CNP [address] [address] [place] [address] Social History Tobacco Use Types [...] on file 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 Gender Identity Not on file Sexual [...] Description 10/06/2024 10:45 AM CDT Hospital Encounter [facility] - Perioperative Surgery [address] [place] [address] [place] [address] [address] [address] Surgery General 10/06/2024 10:45 AM CDT - 10/06/2024 1:31 PM CDT Surgery [facility] - Perioperative Surgery [address] [place] [address] [place] [address] [address] [address] RIGHT TOTAL ANTERIOR HIP ARTHROPLASTY 10/06/2024 11:00 AM CDT Procedure visit [address] [address] 10/24/2024 4:00 PM CDT Office Visit [address] [address] [place] [address] [address] [address] 11/11/2024 9:45 AM CDT Office Visit [address] [address] Maribell Ramirez PAAdonisC [address] [address] [address] 12/19/2024 2:50 PM HIGH PRESSURE KETTLE OPERATOR Office Visit [facility] [address] [place] [address] [place] [address] [address] [address] Scheduled Procedures Name Priority Associated Diagnoses Date/Ti [...] documented as of this encounter Care Teams Applications Programmer Analyst Relationship Specialty Start Date End Date Vonda Leahy MD [address] [place] [address] PCP - General Family Medicine 07/23/21 Alexis Andersen DO [address] [place] [address] Internal Medicine 07/02/22 Alexis Andersen DO [address] [place] [address] Internal Medicine 09/13/24 Chaparrita Rivera APRN-HEEL TRIMMER [address] [facility] [address] [place] [address] Nurse Practitioner 09/13/24 Manjula Gallegos MD [address] [address] Rheumatology 09/13/24 documented as of this encounter
--- OUTSIDE RECORDS SUMMARY | 2024-09-13 13:47 | XMS_ITS | Encounter Summary ---
Author Organization [facility] Health Address [address] [facility] [place] [address] Care Team Providers Care Videotape Recording Engineer Name Role Phone Vonda Leahy MD Primary Care Provider Alexis Andersen DO Unavailable Alexis Andersen DO Unavailable Chaparrita Rivera APRN-SLEEP TECHNOLOGIST Unavailable [phone] Manjula Gallegos MD Unavailable Encounter Details Date Type Department Care Team (Late st Contact Info) Description 03/06/2022 Lab Requisition [facility] [address] [place] [phone] Juan Yuan MD [address] [place] [address] Social History Tobacco Use Types [...] on file 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 Gender Identity Not on file Sexual [...] Description 10/06/2024 10:45 AM CDT Hospital Encounter [facility] - Perioperative Surgery [address] [place] [address] [place] [address] [address] [address] Surgery General 10/06/2024 10:45 AM CDT - 10/06/2024 1:31 PM CDT Surgery [facility] - Perioperative Surgery [address] [place] [address] [place] [address] [address] [place] [address] RIGHT TOTAL ANTERIOR HIP ARTHROPLASTY 10/06/2024 11:00 AM CDT Procedure visit [facility] [address] [place] [address], [address] [address] 10/24/2024 4:00 PM CDT Office Visit [facility] [address] [place] [address], [address] [place] [address] [place] [address] [address] [address] 11/11/2024 9:45 AM CDT Office Visit [facility] [address] [place] [address], [address] [address] Maribell Ramirez PA-C [address] [address] [address] 12/19/2024 2:50 PM FREIGHT MANAGER Office Visit [address], [address] [place] [address] [place] [address] [address] [address] Scheduled Procedures Name Priority Associated Diagnoses Date/Ti me ARTHROPLASTY TOTAL HIP (ANTERIOR) 10/06/2024 10:45 AM CDT documented as of this encounter Procedures Procedure Name Priority Date/Time Associated Diagnosis Comments DERMATOPATHOLOGY Routine 03/04/2022 12:0 0 AM FREIGHT MANAGER documented in this encounter Results * DERMATOPATHOLOGY (03/04/2022 12:00 AM FREIGHT MANAGER) Case Report Dermatopathology Report Case: [id number] Authorizing Provider: Juan Yuan MD Collected: 03/04/2022 12:00 AM Ordering Location: [facility] Received: 03/06/2022 01:29 PM Pathologist: Elizabeth Garvin MD Specimen: Skin, right medial cheek 3:47 PM FREIGHT MANAGER DERMATOPATHOLOGY LABORATORY Final Diagnosis Specimen A. SKIN, right medial cheek: SEBACEOUS HYPERPLASIA, SUPERFICIAL PORTIONS OF (L73.8) (see microscopic description and comment) 3:47 PM FREIGHT MANAGER DERMATOPATHOLOGY LABORATORY at 1547 FREIGHT MANAGER Clinical History R/O SCC, BCC 3 3:47 PM [facility] DERMATOPATHOLOGY LABORATORY Gross Description Specimen A: Received is one formalin filled container labeled with the patient's name and designated right medial cheek. The specimen consists of a shave biopsy measuring 3x3x1 mm. Jar 0. 3 3:47 PM [facility] DERMATOPATHOLOGY LABORATORY Microscopic Description Specimen A. SKIN, right medial cheek: There are superficial portions of prominent sebaceous gland lobules surrounding a dilated hair follicle. Additional deeper sections were obtained and reviewed. COMMENT: Given the superficial nature of the biopsy specimen, a deeper dermal process cannot be excluded. 3 3:47 PM [facility] DERMATOPATHOLOGY LABORATORY Disclaimer An external and internal positive and negative controls are appropriate for the histochemical, immunohistochemical and immunofluorescence stain(s) in this case (if any), except where stated explicitly. The performance characteristics of the stain(s) cited in this report were developed and its performance characteristic determined by the Dermatopathology Laboratory at [facility], directed by Dr. Sadia Barillas. These tests need not be, and therefore are not, approved by the [place] Food and Drug Administration. The tests are used for clinical purposes. Billing Codes Specimen Charges Stain Charges 90002 1 3 3:47 PM FREIGHT MANAGER DERMATOPATHOLOGY LABORATORY Embedded Images 3 3:47 PM [facility] DERMATOPATHOLOGY LABORATORY Pathology/Cytolog y TISSUE SPECIMEN FROM SKIN / Unknown 03/04/2022 03/06/2022 1:29 PM FREIGHT MANAGER Juan Yuan MD LAB - PATHOLOGY/CYTOLOGY ORD ERABLES Final Result DERMATOPATHOLOGY LABORATORY [facility] - Department of Dermatology [address], [address] [phone] documented in this encounter Visit Diagnoses Not on filedocumented in this encounter Care Teams Videotape Recording Engineer Relationship Specialty Start Date End Date Vonda Leahy MD [address] [place] [phone] PCP - General Family Medicine 07/23/21 Alexis Andersen DO [address] [facility] [address] [place] [address] Internal Medicine 07/02/22 Alexis Andersen DO [address] [facility] [address], [facility] [address] [place] [address] Internal Medicine 09/13/24 Chaparrita Rivera APRN-SLEEP TECHNOLOGIST [address] [address] Nurse Practitioner 09/13/24 Manjula Gallegos MD [address] [address] Rheumatology 09/13/24 documented as of this encounter
--- OUTSIDE RECORDS SUMMARY | 2024-09-13 13:47 | XMS_ITS | Encounter Summary ---
Author Organization [facility] Health Address [address] [facility] [place] [address] Care Team Providers Care Internet Application Developer Name Role Phone Vonda Leahy MD Primary Care Provider Alexis Andersen DO Unavailable Alexis Andersen DO Unavailable Chaparrita Rivera APRN-FIELD SERVICES MANAGER Unavailable Manjula Gallegos MD Unavailable Encounter Details Date Type Department Care Team (Late st Contact Info) Description 09/13/2024 8:45 AM CDT Hospital Encounter [facility] [address] [place] [address] [place] [address] [address] [place] [address] Social History Tobacco Use Types [...] on file Legal Sex Female 1:01 PM IDENTIFICATION AND RECORDS COMMANDER Gender Identity Not on file Sexual Orientation [...] encounter Discharge Instructions * Patient Instructions* Vergara StephFABRICIO-FIELD SERVICES MANAGER - 09/13/2024 9:10 AM CDT Our anesthesia team is requiring a documented note of cardiac risk stratification (clearance) prior to surgery. Please give a call to your construction project mgr's office in order to schedule an appointment in his/her office prior to surgery. Please ensure the documented clearance note has been received byyour surgeon's office a minimum of 3 business days prior to your surgery date. The completed construction project mgr documented note can then be faxed to your surgeon's office, OR to our office at fax # [phone] (Surgery Evaluation Center). Date of surgery: 10/06/2024 [...] have a time change. Our address is [address] [place] [address]. Park in parking lot 1 or 2. Please report to the [facility]. Take the elevators across from outpatient registration to the second floor, exit left out of the elevator and enter theOutpatient Surgery waiting room on the left hand side. Sign in and be seated. Bring a copy of your living will or power of correctional cook form if we do not have a [...] and proof of identification, such as your sprinkler truck driver's license, with you to the hospital, and any necessary co-insurance. Leave weapons at home (pocket knives, sharps, guns, pepper spray, etc). If you are having any problems on the day of surgery, please call the Ambulatory Surgery desk at [phone]. When you arrive to the hospital the day of your surgery you will enter the [facility]. Masking optional and no longer required. 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 Dilated tortuous right coronary artery with possible fistula to the right ventricle. Recommend correlation with catheter angiography. 2. Dilated, tortuous left coronary system without definite evidence of fistula. 3. No coronary atherosclerosis in either the right or left coronary system. Echocardiogram 07/04/21 in [facility] Recent Labs Component Name 09/13/24 0914 10/16/21 [...] made aware and was advised to contact construction project mgr's office accordingly to schedule an appointment YESSI. [...] Diabetes No results for input(s): HGBA1C, A1C, [id number], EAG in the last 22238 hours. N/A Non-diabetic Cardiac Records reviewed-NSR 67 [...] and consultation with other providers. Steph Vergara APRN-FIELD SERVICES MANAGER [1] Past Medical History: Diagnosis Date Acid [...] fluticasone propionate (Flonase) 50 MCG/ACT nasal spray [place] 2 (two) sprays into each nostril oncedaily [...] Encounter [facility] - Perioperative Surgery [address] [place] [address] [place] [address] [address] [address] Surgery General 10/06/2024 10:45 AM CDT - 10/06/2024 1:31 PM CDT Surgery [facility] - Perioperative Surgery [address] [place] [address] [place] [address] [address] [address] RIGHT TOTAL ANTERIOR HIP ARTHROPLASTY 10/06/2024 11:00 AM CDT Procedure visit [facility] [address] [place] [address] 10/24/2024 4:00 PM CDT Office Visit [address] [address] [place], [place] [address] [address] 11/11/2024 9:45 AM CDT Office Visit [facility] [address] [place] [address] [place] [address] Maribell Ramirez PA-C [address] [address] 12/19/2024 2:50 PM IDENTIFICATION AND RECORDS COMMANDER Office Visit [facility] Orthopedics [address] [facility], [address] [address] [place] [address] [address] [address] Scheduled Procedures Name Priority Associated [...] (Bezet) 441 ms [facility] MUSE Calculated P [place] 53 degrees [facility] MUSE Calculated R [place] -4 degrees [facility]USE Calculated T [place] 93 degrees [facility] Interpretation EKG Normal sinus rhythm Inferior infarct , age undetermined Anterior infarct (cited on or before 16-OCT-2021) Abnormal ECG When compared with ECG of 06-JUN-2022 12:26, Premature ventricular complexes are no longer Present Inferior infarct is now Present Inverted T waves have replaced nonspecific T wave abnormality in Lateral leads Confirmed by VIDA MANTILLA, MIGNON ([id number]) on 09/13/2024 10:01:21 AM [facility] 09/13/2024 9:4 5 AM CDT 09/13/2024 10:01 AM CDT us Emma Quick DO ECG ORDERABLES Edited Result - Final [facility] * (ABNORMAL) COMPREHENSIVE METABOLIC PANEL (09/13/2024 9:14 AM CDT) Glucose 121(H) 70 - 99 mg/dL 09/13/2024 9:35 AM CDT [facility] Sodium 138 136 - 145 mmol/L 09/13/2024 9:35 AM CDT [facility] Potassium 4.0 3.5 - 5.1 mmol/L 09/13/2024 9:35 AM CDT [facility] Chloride 103 98 - 107 mmol/L 09/13/2024 9:35 AM CDT [facility] CO2 25 22 - 29 mmol/L 09/13/2024 9:35 AM CDT [facility] Calcium 9.8 8.4 - 10.4 mg/dL 09/13/2024 9:35 AM CDT [facility] Anion Gap 10 6 - 16 mmol/L 09/13/2024 9:35 AM CDT [facility] BUN 23 7 - 26 mg/dL 09/13/2024 9:35 AM CDT [facility] Creatinine 1.10 0.57 - 1.11 mg/dL 09/13/2024 9:35 AM CDT [facility] Alkaline Phosphatase 91 40 - 150 U/L 09/13/2024 9:35 AM CDT [facility] ALT 17 6 - 57 U/L 09/13/2024 9:35 AM CDT [facility] AST 23 10 - 48 U/L 09/13/2024 9:35 AM CDT [facility] Protein Total 7.4 6.4 - 8.3 gm/dL 09/13/2024 9:35 AM CDT [facility] Albumin 4.1 3.1 - 4.5 gm/dL 09/13/2024 9:35 AM CDT [facility] Bilirubin Total 0.4 0.2 - 1.2 mg/dL 09/13/2024 9:35 AM CDT [facility] eGFR by CKD-EPI 52(L) >=90 mL/min/1.7 3 m2 09/13/2024 9:35 AM CDT [facility] Comment:Estimated Glomerular Filtration Rate (eGFR) calculated using the CKD-EPI Creatinine Equation (2020), per the National Kidney Foundation and [place] [employer] Neph[employer] recommendations. Blood BLOOD SPECIMEN / Unknown Venipuncture / Unknown 09/13/2024 9:14 AM CDT 09/13/2024 9:19 AM CDT Steph Vergara HORSE IDENTIFIER-FIELD SERVICES MANAGER LAB - CHEMISTRY ORDERABLE S Final Result [facility] [address] [place] [address] * CBC W AUTO DIFFERENTIAL (09/13/2024 9:14 AM CDT) WBC 7.1 4.0 - 10.7 x10E9/L 09/13/2024 9:28 AM CDT [facility] RBC Count 4.07 3.90 - 5.20 x10E12/L 09/13/2024 9:28 AM CDT [facility] Hemoglobin 12.4 11.9 - 15.8 g/dL 09/13/2024 9:28 AM CDT [facility] Hematocrit 38.0 34.8 - 46.1 % 09/13/2024 9:28 AM CDT [facility] MCV 93.4 80.0 - 98.0 fL 09/13/2024 9:28 AM CDT [facility] MCH 30.5 26.7 - 33.6 pg 09/13/2024 9:28 AM CDT [facility] MCHC 32.6 31.7 - 36.3 g/dL 09/13/2024 9:28 AM CDT [facility] RDW-CV 12.4 11.3 - 14.8 % 09/13/2024 9:28 AM CDT [facility] Platelet Count 323 150 - 420 x10E9/L 09/13/2024 9:28 AM CDT [facility] MPV 9.6 7.8 - 11.4 fL 09/13/2024 9:28 AM CDT [facility] Neutrophil % 66.9 41.0 - 74.0 % 09/13/2024 9:28 AM CDT [facility] Lymphocyte % 18.8 17.0 - 47.0 % 09/13/2024 9:28 AM CDT [facility] Monocyte % 8.0 3.0 - 11.0 % 09/13/2024 9:28 AM CDT [facility] Eosinophil % 4.8 0.0 - 7.0 % 09/13/2024 9:28 AM CDT [facility] Basophil % 1.1 0.0 - 1.6 % 09/13/2024 9:28 AM CDT [facility] Immature Granulocytes % 0.4 0.0 - 1.0 % 09/13/2024 9:28 AM CDT [facility] Neutrophil Absolute 4.78 1.60 - 7.50 x10E9/L 09/13/2024 9:28 AM CDT [facility] Lymphocyte Absolute 1.34 1.00 - 4.40 x10E9/L 09/13/2024 9:28 AM CDT [facility] Monocyte Absolute 0.57 0.15 - 1.00 x10E9/L 09/13/2024 9:28 AM CDT [facility] Eosinophil Absolute 0.34 0.00 - 0.60 x10E9/L 09/13/2024 9:28 AM CDT [facility] Basophil Absolute 0.08 0.00 - 0.13 x10E9/L 09/13/2024 9:28 AM CDT [facility] Blood BLOOD SPECIMEN / Unknown Venipuncture / Unknown 09/13/2024 9:14 AM CDT 09/13/2024 9:19 AM CDT Steph Vergara HORSE IDENTIFIER-FIELD SERVICES MANAGER LAB - HEMATOLOGY ORDERABL ES Final Result [facility] [address] [place] [address] documented in this encounter Visit Diagnoses Diagnosis Pre-op evaluation- Primary Preoperative examination, unspecified documented in this encounter Additional Health Concerns Active Problems Noted Date Diagnosed Date Autogenerated Problem 06/16/2024 documented as of this encounter Care Teams Internet Application Developer Relationship Specialty Start Date End Date Vonda Leahy MD [address] [place] [address] PCP - General Family Medicine 07/23/21 Alexis Andersen DO [address] [facility] [address], [address] [address] Internal Medicine 07/02/22 Alexis Andersen DO [address] [facility] [address], [address] [address] Internal Medicine 09/13/24 Chaparrita Rivera APRN-FIELD SERVICES MANAGER [address] [address] Nurse Practitioner 09/13/24 Manjula Gallegos MD [address] [address] Rheumatology 09/13/24 documented as of this encounter
--- OUTSIDE RECORDS SUMMARY | 2024-09-13 13:48 | XMS_ITS | Referral Summary ---
Author Organization [facility] Address [address] [place] [address] Care Team Providers Care Sap Integration Architect Name Role Phone Vonda Leahy MD Primary Care Provider Allergies No known active allergies Social History Tobacco Use Types Packs/Day Years Used Date Smoking Tobacco: Never Assessed Comments No Sex and Gender Information Value Date Recorded Sex Assigned at Not on file Legal Sex Female 2:44 AM GLUE REEL OPERATOR Gender Identity Not on file Sexual Orientation Not on file Last Filed Vital Signs Vital Sign Reading Time Taken Comments Blood Pressure 168/79 07/10/2021 10:24 AM CDT Pulse 52 07/10/2021 10:24 AM CDT Temperature - - Respiratory Rate - - Oxygen Saturation - - Inhaled Oxygen Concentration - - Weight 98.9 kg (218 lb) 12/31/2019 8:25 AM GLUE REEL OPERATOR Height 165.1 cm (5' 5) 12/31/2019 8:25 AM GLUE REEL OPERATOR Body Mass Index 36.28 12/31/2019 8:25 AM GLUE REEL OPERATOR Plan of Treatment Not on file Procedures [...] to Health Maintenance Insurance MEDICARE [facility] MEDICARE [facility] MEDICARE SUPPLEMENT MEDICARE [facility] MEDICARE SUPPLEMENT Care Teams Sap Integration Architect Relationship Specialty Start Date End Date Vonda Leahy MD PCP - General Family Practice 01/16/22
--- OUTSIDE RECORDS SUMMARY | 2024-09-13 13:48 | XMS_ITS | Clinical Summary ---
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 Gender Identity Not on file Sexual Orientation Not on file Obstetrics History Para Term AB IAB SAB Ectopic Multiple Livin g Live Births 2 2 2 Date Outcome GA Total Labor Labor/2nd/3rd Weight Sex Type Anes PTL Meerdith A1 A5 Name Clin Term Term Last Filed Vital Signs Vital Sign Reading Time Taken Comments Blood Pressure 168/79 07/10/2021 10:24 AM CDT Pulse 52 07/10/2021 10:24 AM CDT Temperature - - Respiratory Rate - - Oxygen Saturation - - Inhaled Oxygen Concentration - - Weight 98.9 kg (218 lb) 12/31/2019 8:25 AM OCCUPATIONAL MEDICINE SPECIALIST Height 165.1 cm (5' 5) 12/31/2019 8:25 AM OCCUPATIONAL MEDICINE SPECIALIST Body Mass Index 36.28 12/31/2019 8:25 AM OCCUPATIONAL MEDICINE SPECIALIST Plan of Treatment Health Maintenance Due Date [...] Recently Relevant to Health Maintenance Insurance MEDICARE [facility] MEDICARE BLUE CROSS MEDICARE SUPPLEMENT MEDICARE [facility] MEDICARE SUPPLEMENT Care Teams Research Physiologist Relationship Specialty Start Date End Date Vonda Leahy MD PCP - General Family Practice 01/16/22
--- NOTE | 2024-09-13 15:13 | ED.GENADULT ---
HPI - General Adult General Chief complaint: Extremity Problem,Nontraumatic Stated complaint: Lower extremity swelling Time Seen by Provider: 09/13/24 13:17 History of Present Illness HPI narrative: This 74-year-old female chief lower extremity swelling. Patient was at her chiropractor earlier today when he commented that her right leg looks swollen. Patient agreed that it did look swollen although she is not sure how long it has been like that or if it is always like that. Patient does have a history of knee surgery on that side although that was performed several years ago. She has no pain. No history of DVTs or PEs. No recent surgery or immobilization or travel. Related Data Home Medications ?Medication ?Instructions ?Recorded ?Confirmed ?Last Taken ?Type cholecalciferol (vitamin D3) 50 2,000 unit PO DAILY 12/17/18 07/18/24 04/26/24 History mcg (2,000 unit) tablet hydroxychloroquine 200 mg tablet 200 mg PO BID 05/21/23 07/18/24 04/26/24 History acetaminophen 650 mg 1,300 mg PO Q8H PRN pain 04/05/24 07/26/24 07/26/24 History tablet,extended release (Arthritis Pain Relief (acetaminophen) ER) ferrous sulfate 325 mg (65 mg 650 mg PO DAILY 04/05/24 07/18/24 04/26/24 History iron) tablet (iron) meloxicam 7.5 mg tablet 3.75 mg PO DAILY 06/09/24 07/18/24 Unknown History duloxetine 60 mg capsule,delayed 60 mg PO DAILY 07/05/24 07/26/24 07/26/24 History release hydralazine 50 mg tablet 75 mg PO BID 07/05/24 07/26/24 07/26/24 History hydrocodone 5 mg-acetaminophen 325 1 tablet PO QHS PRN pain 07/05/24 07/18/24 Unknown History mg tablet levothyroxine 175 mcg tablet 175 mcg PO DAILY 07/05/24 07/18/24 Unknown History metoprolol succinate 25 mg 25 mg PO DAILY 07/05/24 07/26/24 07/26/24 History tablet,extended release 24 hr albuterol sulfate 90 mcg/actuation 2 puff inhalation Q4-6H PRN 07/15/24 07/18/24 Unknown History aerosol inhaler shortness of breath or wheezing fluticasone propionate 50 2 spray intranasal DAILY PRN nasal 07/15/24 07/21/24 Unknown History mcg/actuation nasal congestion spray,suspension (Flonase Allergy Relief) Allergies Allergy/AdvReac Type Severity Reaction Status Date / Time Sulfa (Sulfonamide Allergy Unknown Hives Verified 09/13/24 12:40 Antibiotics) Tetanus Vaccines and Toxoid Allergy Unknown Swelling Verified 09/13/24 12:40 codeine AdvReac Other Verified 09/13/24 12:40 [facility] Past Medical History Medical History PSVT (paroxysmal supraventricular tachycardia) Degenerative spondylolisthesis (~10/2023) Lumbar xray 11/02/23 severe lumbar spondylosis Posterior calcaneal exostosis Flexion contracture of knee Arthritis Anxiety Hyperthyroidism Abnormality of heart beat Vision changes Chronic headaches Claustrophobia Insomnia Degenerative arthritis of knee, bilateral Achilles tendinitis of both lower extremities Chronic GERD Essential (primary) hypertension Hypothyroidism, unspecified Obstructive sleep apnea (adult) (pediatric) Surgical History Surgical History History of knee replacement procedure of right knee History of esophagogastroduodenoscopy (EGD) H/O: hysterectomy Family History Family History Grandparent Family history of coronary artery disease Father Colon cancer Mother Cerebrovascular accident Other Depression HLD (hyperlipidemia) Heart disease Hypertension Social History Social History Smoking status: Never smoker Second hand tobacco smoke exposure: No Alcohol intake: current Alcohol use details: rarely glass of wine Substance use: never Substance use type: does not use Lack of Transportation: No Lack of Food: Never True Current Housing: I Have Housing Concerned About Future Housing: No Difficulty Paying Gas/Electric Bills: No Difficulty Paying for Meds: No Currently Unemployed: No Education: Bachelor's Degree Difficulty w/ Childcare or Family Care: No Living arrangements: with family Additional [facility] Occupation/Education: occupation 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 Gender identity (if verbalized by the patient): Female Sexual Orientation (if Verbalized by the Patient): Straight or Heterosexual Spiritual care concerns: No Agree to blood products: Yes Exam Narrative: APPEARANCE: No apparent distress. Head: atraumatic. EYES: EOMI, NOSE: Atraumatic NECK: Trachea midline RESPIRATORY: No increased rate of breathing CTAB, speaking full sentences CARDIOVASCULAR: RRR, +2 pitting edema the right lower extremity, pulses intact x4 ABDOMINAL: Non-distended MUSCULOSKELETAl: No obvious deformities NEURO: Alert. Moving 4/4 extremities SKIN:: Warm, dry. Normal color PSYCHIATRIC: Normal affect Course Vital Signs Vital signs: Vital Signs Temperature 97.3 F L 09/13/24 12:34 Pulse Rate 69 09/13/24 12:34 Respiratory Rate 16 09/13/24 12:34 Blood Pressure 203/67 H 09/13/24 12:34 Pulse Oximetry 97 09/13/24 12:34 Temperature 97.3 F L 09/13/24 12:34 Pulse Rate 69 09/13/24 12:34 Respiratory Rate 16 09/13/24 12:34 Blood Pressure 203/67 H 09/13/24 12:34 Pulse Oximetry 97 09/13/24 12:34 Medical Decision Making MDM Narrative Medical decision making narrative: -Course: 74-year-old female presenting with right lower extremity edema. Venous ultrasound was reviewed by the radiologist bedside and there was no evidence of DVT. PACs was down in the official report will be delayed. Patient does not of his edema is new or old but given knee surgery this may be a chronic finding. Patient will be discharged to follow-up with her primary care physician for further management. -DDX includes but is not limited to: DVT, dependent edema Vital Signs Vital Signs: Vital Signs Temperature 97.3 F L 09/13/24 12:34 Pulse Rate 69 09/13/24 12:34 Respiratory Rate 16 09/13/24 12:34 Blood Pressure 203/67 H 09/13/24 12:34 Pulse Oximetry 97 09/13/24 12:34 Temperature 97.3 F L 09/13/24 12:34 Pulse Rate 69 09/13/24 12:34 Respiratory Rate 16 09/13/24 12:34 Blood Pressure 203/67 H 09/13/24 12:34 Pulse Oximetry 97 09/13/24 12:34 Discharge Plan Discharge Clinical Impression: Leg edema, right Patient Disposition: Home Condition: Stable Instructions: Antibiotic Form, Edema (ED) Additional Instructions: Please follow-up with your primary care physician in 1 week.. If you develop any chest pain shortness breath or new symptoms he can return to the ED for re-evaluation Patient Language: Pashto Prescriptions: No Action duloxetine 60 mg capsule,delayed release(DR/EC) 60 mg PO DAILY Patient Comments: QAM hydralazine 50 mg tablet 75 mg PO BID levothyroxine 175 mcg tablet 175 mcg PO DAILY Patient Comments: QAM metoprolol succinate 25 mg tablet extended release 24 hr 25 mg PO DAILY Patient Comments: QAM hydrocodone-acetaminophen 5-325 mg tablet 1 tablet PO QHS PRN (Reason: pain) zolpidem [Ambien] 10 mg tablet 10 mg PO QHS PRN (Reason: sleep) Qty: 90 0RF cholecalciferol (vitamin D3) 2,000 unit tablet 2,000 unit PO DAILY hydroxychloroquine 200 mg tablet 200 mg PO BID meloxicam 7.5 mg tablet 3.75 mg PO DAILY fluticasone propionate [Flonase Allergy Relief] 50 mcg/actuation spray,suspension 2 spray NASAL DAILY PRN (Reason: nasal congestion) albuterol sulfate 90 mcg/actuation HFA aerosol inhaler 2 puff INHALATION Q4-6H PRN (Reason: shortness of breath or wheezing) losartan-hydrochlorothiazide 100-12.5 mg tablet 1 tablet PO DAILY Qty: 90 1RF Patient Comments: QAM omeprazole 20 mg capsule,delayed release(DR/EC) 20 mg PO BID Qty: 180 1RF hydromorphone 2 mg tablet 2 mg PO .q12 MDD 2 PRN (Reason: pain) 14 Days Qty: 28 0RF Rx Instructions: Take 1 tab p.o. b.i.d. p.r.n. for severe pain, max 2 per day. Do not combine with hydrocodone. Do not drive until familiar with medications effects. call clinic for refill ferrous sulfate [iron] 325 mg (65 mg iron) tablet 650 mg PO DAILY acetaminophen [Arthritis Pain Relief (acetam)] 650 mg tablet extended release 1,300 mg PO Q8H PRN (Reason: pain) Follow-up/Referrals: Jennifer Child NP [Primary Care Provider] -
[2024-09-13 15:21] VITALS: BP 152/62
== END 2024-09-13 15:46 | disposition home or self-care (01) ==
PROVIDERS: Emergency Provider Emergency Medicine; PCP Nurse Practitioner Family
DX: R60.0 Localized edema (principal); I10 Essential (primary) hypertension; E03.9 Hypothyroidism, unspecified; M17.0 Bilateral primary osteoarthritis of knee; K21.9 Gastro-esophageal reflux disease without esophagitis; G47.33 Obstructive sleep apnea (adult) (pediatric); F41.9 Anxiety disorder, unspecified; Z96.651 Presence of right artificial knee joint; Z90.710 Acquired absence of both cervix and uterus; Z79.899 Other long term (current) drug therapy
CPT/HCPCS: 93971; 99284

== ENCOUNTER 2024-09-20 14:57 | Outpatient (CLI) | payer MEDICARE, SELFPAY ==
--- OUTSIDE RECORDS SUMMARY | 2024-09-20 15:24 | XMS_ITS | Encounter Summary ---
Author Organization [facility] Health Address [address] [facility] [place] [address] Care Team Providers Care Notch Machine Operator Name Role Phone Vonda Leahy MD Primary Care Provider Alexis Andersen DO Unavailable Alexis Andersen DO Unavailable Chaparrita Rivera APRN-LINEN ROOM HOUSEPERSON Unavailable Manjula Gallegos MD Unavailable Alexis Andersen DO Unavailable Encounter Details Date Type Department Care Team (Late st Contact Info) Description 09/13/2024 Results Follow-Up [facility] [address] [place] [address] Steph Vergara APRN-CNP [address] [place] [address] Social History Tobacco Use Types [...] on file Legal Sex Female 1:01 PM RESPIRATORY DIRECTOR Gender Identity Not on file Sexual Orientation [...] Chacha Romero RN documented in this encounter Progress Notes * Livia Masterson RN - 09/13/2024 4:04 PM CDT Labs from SEC visit faxed to PCP via EPIC per instructions. documented in this encounter Plan of Treatment Upcoming Encounters Date Type Department Care Team (Latest Contact Info) Description 10/06/2024 10:45 AM CDT Hospital Encounter [facility] - Perioperative Surgery [address] [place] [address] [place] [address] [address] [address] Surgery General 10/06/2024 10:45 AM CDT - 10/06/2024 1:31 PM CDT Surgery [facility] - Perioperative Surgery [address] [place] [address] [place] [address] [address] [address] RIGHT TOTAL ANTERIOR HIP ARTHROPLASTY 10/06/2024 11:00 AM CDT Procedure visit [address] [phone] 10/24/2024 4:00 PM CDT Office Visit [address] [phone] [place] [address] [address] [address] 11/11/2024 9:45 AM CDT Office Visit [address] [phone] Maribell Ramirez, PA-C [address] [address] [address] 12/19/2024 2:50 PM RESPIRATORY DIRECTOR Office Visit [facility] [address] [place] [phone] [place] [address] [facility] [address] [place] [address] Scheduled Procedures Name Priority Associated Diagnoses Date/Ti me ARTHROPLASTY TOTAL HIP (ANTERIOR) 10/06/2024 10:45 AM CDT documented as of this encounter Visit Diagnoses Not on filedocumented in this encounter Care Teams Notch Machine Operator Relationship Specialty Start Date End Date Vonda Leahy MD [address] [place] [address] PCP - General Family Medicine 07/23/21 Alexis Andersen DO [address] [facility] [address], [address] [address] Internal Medicine 07/02/22 Alexis Andersen DO [address] [facility] [address], [address] [address] Internal Medicine 09/13/24 Chaparrita Rivera APRN-CHANELL [address] [address] Nurse Practitioner 09/13/24 Manjula Gallegos MD [address] [address] Rheumatology 09/13/24 Alexis Andersen DO [address] [facility] [address], [address] [address] Internal Medicine 09/13/24 documented as of this encounter
--- OUTSIDE RECORDS SUMMARY | 2024-09-20 15:24 | XMS_ITS | Encounter Summary ---
Author Organization [facility] Address [address] [facility] [place] [address] Care Team Providers Care Mobile Equipment Servicer Name Role Phone Vonda Leahy MD Primary Care Provider Alexis Andersen DO Unavailable Alexis Andersen DO Unavailable Chaparrita Rivera Unavailable Manjula Gallegos MD Unavailable Alexis Andersen DO Unavailable Encounter Details Date Type Department Care Team (Late st Contact Info) Description 03/06/2022 Lab Requisition [facility] Care [facility] [address] [facility] [place] [phone] Juan Yuan MD [address] [place] [address] Social History Tobacco Use Types [...] on file Legal Sex Female 1:01 PM HOSPICE VOLUNTEER COORDINATOR Gender Identity Not on file Sexual Orientation Not on file documented as of this encounter Functional Status * Is person deaf or have serious hearing difficulty? Answer Date of Assessment Author No 11/13/2021 2:21 PM CDT Roshan Miranda RN * Is person blind or have serious difficulty seeing? Answer Date of Assessment Author No 11/13/2021 2:21 PM CDT Roshan Miranda RN * Does person have serious difficulty walking/climbing stairs? Answer Date of Assessment Author Yes 11/13/2021 2:21 PM CDT Roshan Miranda RN * Does person have difficulty dressing/bathing? Answer Date of Assessment Author Yes 11/13/2021 2:21 PM HEMANTT Roshan Miranda RN * Does person have [...] Description 10/06/2024 10:45 AM CDT Hospital Encounter Replaced by [facility] - Perioperative Surgery [address] [place] [address] [place] [address] [address] [place] [address] Surgery General 10/06/2024 10:45 AM CDT - 10/06/2024 1:31 PM CDT Surgery Replaced by [facility] - Perioperative Surgery [address] [place] [address] [place] [address] [address] [place] [address] RIGHT TOTAL ANTERIOR HIP ARTHROPLASTY 10/06/2024 11:00 AM CDT Procedure visit [facility] Orthopedics [address] [place] [address], [address] [address] 10/24/2024 4:00 PM CDT Office Visit [facility] [address] [place] [address], [address] [phone] [place] [address] [address] [address] 11/11/2024 9:45 AM CDT Office Visit [facility] Orthopedics [address] [place] [address], [address] [phone] Maribell Ramirez PA-C [address] [address] [phone] 12/19/2024 2:50 PM HOSPICE VOLUNTEER COORDINATOR Office Visit [address] [phone] [place] [address] [address] [address] Scheduled Procedures Name Priority Associated Diagnoses Date/Ti me ARTHROPLASTY TOTAL HIP (ANTERIOR) 10/06/2024 10:45 AM CDT documented as of this encounter Procedures Procedure Name Priority Date/Time Associated Diagnosis Comments DERMATOPATHOLOGY Routine 03/04/2022 12:0 0 AM HOSPICE VOLUNTEER COORDINATOR documented in this encounter Results * DERMATOPATHOLOGY (03/04/2022 12:00 AM HOSPICE VOLUNTEER COORDINATOR) Case Report Dermatopathology Report Case: [id number] Authorizing Provider: Juan Yuan MD Collected: 03/04/2022 12:00 AM Ordering Location: [facility] Received: 03/06/2022 01:29 PM Pathologist: Elizabeth Garvin MD Specimen: Skin, right medial cheek 3:47 PM HOSPICE VOLUNTEER COORDINATOR DERMATOPATHOLOGY LABORATORY Final Diagnosis Specimen A. SKIN, right medial cheek: SEBACEOUS HYPERPLASIA, SUPERFICIAL PORTIONS OF (L73.8) (see microscopic description and comment) 3 3:47 PM HOSPICE VOLUNTEER COORDINATOR DERMATOPATHOLOGY LABORATORY at [address] [facility] Clinical History R/O SCC, BCC 3 3:47 PM [facility] DERMATOPATHOLOGY LABORATORY Gross Description Specimen A: Received is one formalin filled container labeled with the patient's name and designated right medial cheek. The specimen consists of a shave biopsy measuring 3x3x1 mm. Jar 0. 3 3:47 PM [facility] DERMATOPATHOLOGY LABORATORY Microscopic Description Specimen A. SKIN, right medial cheek: There are superficial portions of prominent sebaceous gland lobules surrounding a dilated hair follicle. Additional deeper sections were obtained and reviewed. COMMENT: Given the superficial nature of the biopsy specimen, a deeper dermal process cannot be excluded. 3 3:47 PM [facility] DERMATOPATHOLOGY LABORATORY Disclaimer An external and internal positive and negative controls are appropriate for the histochemical, immunohistochemical and immunofluorescence stain(s) in this case (if any), except where stated explicitly. The performance characteristics of the stain(s) cited in this report were developed and its performance characteristic determined by the Dermatopathology Laboratory at [facility], directed by Dr. Sadia Barillas. These tests need not be, and therefore are not, approved by the [place] Food and Drug Administration. The tests are used for clinical purposes. Billing Codes Specimen Charges Stain Charges 56669 1 3 3:47 PM [facility] DERMATOPATHOLOGY LABORATORY Embedded Images 3 3:47 PM [facility] DERMATOPATHOLOGY LABORATORY Pathology/Cytolog y TISSUE SPECIMEN FROM SKIN / Unknown 03/04/2022 03/06/2022 1:29 PM [facility] us Juan Yuan MD LAB - PATHOLOGY/CYTOLOGY ORD ERABLES Final Result DERMATOPATHOLOGY LABORATORY [facility] - Department of Dermatology [address] [phone] documented in this encounter Visit Diagnoses Not on filedocumented in this encounter Care Teams Mobile Equipment Servicer Relationship Specialty Start Date End Date Vonda Leahy MD [address] [place] [address] PCP - General Family Medicine 07/23/21 Alexis Andersen DO [address] [facility] [address], [facility] [address] [place] [address] Internal Medicine 07/02/22 Alexis Andersen DO [address] [facility] [address], [facility] [address] [place] [address] Internal Medicine 09/13/24 Chaparrita Rivera APRN-EMBEDDED FIRMWARE DEVELOPER [address] [address] Nurse Practitioner 09/13/24 Manjula Gallegos MD [address] [phone] Rheumatology 09/13/24 Alexis Andersen DO [address] [facility] [address], [address] [address] Internal Medicine 09/13/24 documented as of this encounter
--- OUTSIDE RECORDS SUMMARY | 2024-09-20 15:24 | XMS_ITS | Clinical Summary ---
Author Organization [facility] Address [address] [place] [address] Care Team Providers Care Landscape Account Manager Name Role Phone Vonda Leahy MD Primary Care Provider Allergies No known active allergies Surgical History Surgery Date Site/Laterality Comments HYSTERECTOMY Social History Tobacco Use Types Packs/Day Years Used Date Smoking Tobacco: Never Assessed Comments No Sex and Gender Information Value Date Recorded Sex Assigned at Not on file Legal Sex Female 2:44 AM TRAWL NET MAKER Gender Identity Not on file Sexual Orientation [...] 98.9 kg (218 lb) 12/31/2019 8:25 AM TRAWL NET MAKER Height 165.1 cm (5' 5) 12/31/2019 8:25 AM TRAWL NET MAKER Body Mass Index 36.28 12/31/2019 8:25 AM TRAWL NET MAKER Plan of Treatment Health Maintenance Due Date [...] Recently Relevant to Health Maintenance Insurance MEDICARE [facility] MEDICARE BLUE CROSS MEDICARE SUPPLEMENT MEDICARE [facility] MEDICARE SUPPLEMENT Care Teams Landscape Account Manager Relationship Specialty Start Date End Date Vonda Leahy MD PCP - General Family Practice 01/16/22
--- OUTSIDE RECORDS SUMMARY | 2024-09-20 15:24 | XMS_ITS | Clinical Summary ---
Author Organization [facility] Address [address] [place] [address] Care Team Providers Care Script Editor Name Role Phone Vonda Leahy MD Primary Care Provider Alexis Andersen DO Unavailable Alexis Andersen DO Unavailable Chaparrita Rivera Unavailable Manjula Gallegos MD Unavailable Alexis Andersen DO Unavailable Source Comments [facility],non-owned Affiliates and Associated Physician Practices is amultiple site organization consisting of ambulatory clinics and hospital sitesin [place], [place], [place] and [place]. This disclosure is being madepursuant to the Care Everywhere program and may not contain all information available regarding this patient. Last updated 17.[facility] Allergies Active Allergy Reactions Criticality Noted Date [...] mouth 2 times daily. 60 Cap 2 02/28/20 12 Active omeprazole (PriLOSEC) 40 MG capsuleIndicat [...] (Flonase) 50 MCG/ACT nasal sprayIndicatio ns:Allergic Rhinitis [place] 2 (two) sprays into each nostril once [...] Care Team Description 09/13/2024 8:45 AM CDT - 09/13/2024 11:59 PM CDT Hospital [facility] [address] [place], [place] [id number] Vivek Mckeon IV, MD Discharge Disposition: Home or Self Care 09/13/2024 Results Follow-Up [facility] [address] [place], [place] [id number] Steph Vergara APRN-CNP 09/13/2024 Travel 08/19/2024 9:50 AM CDT Office Visit [facility] [address] [place] [phone] Vivek Mckeon IV, MD Right hip pain (Primary Dx) 06/22/2024 Travel from Last 3 Months Family History Medical [...] on file Legal Sex Female 1:01 PM DIESEL SERVICE TECHNICIAN Gender Identity Not on file Sexual [...] Description 10/06/2024 10:45 AM CDT Hospital Encounter [facility] - Perioperative Surgery [address] [place] [address] [place] [address] [address] [address] Surgery General 10/06/2024 10:45 AM CDT - 10/06/2024 1:31 PM CDT Surgery [facility] - Perioperative Surgery [address] [place] [address] [place] [address] [address] [address] [address] RIGHT TOTAL ANTERIOR HIP ARTHROPLASTY 10/06/2024 11:00 AM CDT Procedure visit [address] [address] 10/24/2024 4:00 PM CDT Office Visit [facility] [address] [place] [phone] [place] [address] [address] [address] [address] 11/11/2024 9:45 AM CDT Office Visit [facility] [address] [place] [phone] Maribell Ramirez PAAdonisC [address] [address] [address] 12/19/2024 2:50 PM DIESEL SERVICE TECHNICIAN Office Visit [facility] [address] [place] [phone] [place] [address] [address] [place] [address] Scheduled Procedures Name Priority Associated Diagnoses Date/Ti [...] this topic Medical Devices Implanted Type Area Research Engineer Device Identifier Shelf Expiration Date Model / Serial / Lot Glenn Bone Cotuit-G Hv 40/20 Implanted:Qty: 1 on 11/11/2021 by Carlos Manuel Acevedo MD at [facility] Right: Knee [employer] 03/07/2023 [id number] / / [id number] Tray Tib 71mm Kn Cocr I Beam Implanted:Qty: 1 on 11/11/2021 by Carlos Manuel Acevedo MD at [facility] Right: Knee [employer] 09/07/2031 [id number] / / [id number] Cmpnt Fem Kn Rt Cr Cmnt Prm Vngrd Intlk 67.5 Mm Implanted:Qty: 1 on 11/11/2021 by Carlos Manuel Acevedo MD at [facility] Right: Knee [employer] 10/05/2031 [id number] / / [id number] Cmpnt Ptlr Std 28mm 1 Pg Wire Kn Ser A Implanted:Qty: 1 on 11/11/2021 by Carlos Manuel Acevedo MD at [facility] Right: Knee [employer] 10/23/2025 [id number] / / [id number] Brng [id number] Vngrd Arcm Kn Ant Stab Implanted:Qty: 1 on 11/11/2021 by Carlos Manuel Acevedo MD at [facility] Right: Knee [employer] 09/02/2026 [id number] / / [id number] Brng [id number] Vngrd Arcm Kn Ant Stab Implanted:Qty: 1 on 07/14/2022 by Carlos Manuel Acevedo MD at [facility] Left: Knee [employer] 03/31/2027 [id number] / / [id number] Cmnt Bone Plc R 40gm Grn Implanted:Qty: 1 on 07/14/2022 by Carlos Manuel Acevedo MD at [facility] Left: Knee [employer] 08/08/2024 [id number] / / [id number] Cmpnt Fem Kn Lt Cr Cmnt Prm Vngrd Intlk 67.5mm Implanted:Qty: 1 on 07/14/2022 by Carlos Manuel Acevedo MD at [facility] Left: Knee [employer] 03/06/2032 [id number] / / [id number] Tray Tib 75mm Kn Cocr I Beam Implanted:Qty: 1 on 07/14/2022 by Carlos Manuel Acevedo MD at [facility] Left: Knee [employer] 03/22/2032 [id number] / / [id number] Cmpnt Ptlr Std 28mm 3 Pg Kn Ser A Implanted:Qty: 1 on 07/14/2022 by Carlos Manuel Acevedo MD at [facility] Left: Knee [employer] 05/23/2027 [id number] / / [id number] Procedures Procedure Name Priority Date/Time Associated Diagnosis Comments EKG 12-LEAD Routine 09/13/2024 9:45 AM CDT Pre-op evaluation COMPREHENSIVE METABOLIC PANEL STAT 09/13/2024 9:14 AM CDT Pre-op evaluation CBC W AUTO DIFFERENTIAL STAT 09/13/2024 9:14 AM CDT Pre-op evaluation from Last 3 Months Results * EKG 12-Lead (09/13/2024 9:45 AM CDT) Ventricular Rate 67 BPM [facility] Atrial Rate 67 BPM [facility] P-R Interval 166 ms [facility] QRS Duration ms 90 ms [facility] Q-T Interval ms 418 ms [facility] QTC Calculation (Bezet) 441 ms [facility] Calculated P [place] 53 degrees [facility] Calculated R [place] -4 degrees [facility] Calculated T [place] 93 degrees [facility] Interpretation EKG Normal sinus rhythm Inferior infarct , age undetermined Anterior infarct (cited on or before 16-OCT-2021) Abnormal ECG When compared with ECG of 06-JUN-2022 12:26, Premature ventricular complexes are no longer Present Inferior infarct is now Present Inverted T waves have replaced nonspecific T wave abnormality in Lateral leads Confirmed by VIDA MANTILLA, MIGNON ([id number]) on 09/13/2024 10:01:21 AM [facility] 09/13/2024 9:45 AM CDT 09/13/2024 10:01 AM CDT us Emma Quick DO ECG ORDERABLES Edited Result - Final [facility] * CBC W AUTO DIFFERENTIAL (09/13/2024 9:14 AM CDT) WBC 7.1 4.0 - 10.7 x10E9/L 09/13/2024 9:28 AM CDT [facility] RBC Count 4.07 3.90 - 5.20 x10E12/L 09/13/2024 9:28 AM CDT [facility] Hemoglobin 12.4 11.9 - 15.8 g/dL 09/13/2024 9:28 AM CDT [facility] Hematocrit 38.0 34.8 - 46.1 % 09/13/2024 9:28 AM CDT [facility] MCV 93.4 80.0 - 98.0 fL 09/13/2024 9:28 AM CDT [facility] MCH 30.5 26.7 - 33.6 pg 09/13/2024 9:28 AM CDT [facility] MCHC 32.6 31.7 - 36.3 g/dL 09/13/2024 9:28 AM CDT [facility] RDW-CV 12.4 11.3 - 14.8 % 09/13/2024 9:28 AM CDT [facility] Platelet Count 323 150 - 420 x10E9/L 09/13/2024 9:28 AM CDT [facility] MPV 9.6 7.8 - 11.4 fL 09/13/2024 9:28 AM CDT [facility] Neutrophil % 66.9 41.0 - 74.0 % 09/13/2024 9:28 AM CDT [facility] Lymphocyte % 18.8 17.0 - 47.0 % 09/13/2024 9:28 AM CDT [facility] Monocyte % 8.0 3.0 - 11.0 % 09/13/2024 9:28 AM CDT [facility] Eosinophil % 4.8 0.0 - 7.0 % 09/13/2024 9:28 AM CDT [facility] Basophil % 1.1 0.0 - 1.6 % 09/13/2024 9:28 AM CDT [facility] Immature Granulocytes % 0.4 0.0 - 1.0 % 09/13/2024 9:28 AM CDT [facility] Neutrophil Absolute 4.78 1.60 - 7.50 x10E9/L 09/13/2024 9:28 AM CDT [facility] Lymphocyte Absolute 1.34 1.00 - 4.40 x10E9/L 09/13/2024 9:28 AM CDT [facility] Monocyte Absolute 0.57 0.15 - 1.00 x10E9/L 09/13/2024 9:28 AM CDT [facility] Eosinophil Absolute 0.34 0.00 - 0.60 x10E9/L 09/13/2024 9:28 AM CDT [facility] Basophil Absolute 0.08 0.00 - 0.13 x10E9/L 09/13/2024 9:28 AM CDT [facility] Blood BLOOD SPECIMEN / Unknown Venipuncture / Unknown 09/13/2024 9:14 AM CDT 09/13/2024 9:19 AM CDT Steph Vergara RETAIL CASHIER ASSOCIATE-OCEAN IMPORT REPRESENTATIVE LAB - HEMATOLOGY ORDERABL ES Final Result [facility] [address] [place] [address] * (ABNORMAL) COMPREHENSIVE METABOLIC PANEL (09/13/2024 9:14 AM CDT) Glucose 121(H) 70 - 99 mg/dL 09/13/2024 9:35 AM [facility] Sodium 138 136 - 145 mmol/L 09/13/2024 9:35 AM CDT [facility] Potassium 4.0 3.5 - 5.1 mmol/L 09/13/2024 9:35 AM CDT [facility] Chloride 103 98 - 107 mmol/L 09/13/2024 9:35 AM T [facility] CO2 25 22 - 29 mmol/L 09/13/2024 9:35 AM T [facility] Calcium 9.8 8.4 - 10.4 mg/dL 09/13/2024 9:35 AM [facility] Anion Gap 10 6 - 16 mmol/L 09/13/2024 9:35 AM CDT [facility] BUN 23 7 - 26 mg/dL 09/13/2024 9:35 AM CDT [facility] Creatinine 1.10 0.57 - 1.11 mg/dL 09/13/2024 9:35 AM T [facility] Alkaline Phosphatase 91 40 - 150 U/L 09/13/2024 9:35 AM CDT [facility] ALT 17 6 - 57 U/L 09/13/2024 9:35 AM CDT [facility] AST 23 10 - 48 U/L 09/13/2024 9:35 AM CDT [facility] Protein Total 7.4 6.4 - 8.3 gm/dL 09/13/2024 9:35 AM CDT [facility] Albumin 4.1 3.1 - 4.5 gm/dL 09/13/2024 9:35 AM CDT [facility] Bilirubin Total 0.4 0.2 - 1.2 mg/dL 09/13/2024 9:35 AM CDT [facility] eGFR by CKD-EPI 52(L) >=90 mL/min/1.7 3 m2 09/13/2024 9:35 AM CDT [facility] Comment:Estimated Glomerular Filtration Rate (eGFR) calculated using the CKD-EPI Creatinine Equation (2020), per the National Kidney Foundation and [place] [employer]ph[employer] recommendations. Blood BLOOD SPECIMEN / Unknown Venipuncture / Unknown 09/13/2024 9:14 AM CDT 09/13/2024 9:19 AM CDT Steph Vergara RETAIL CASHIER ASSOCIATE-OCEAN IMPORT REPRESENTATIVE LAB - CHEMISTRY ORDERABLE S Final Result [facility] [address] [place] [address] from Last 3 Months Insurance MEDICARE [facility] MEDICARE [facility] Advance Directives * Full Code (Latest [...] 1:40 PM 04/08/2011 11:08 PM Care Teams Script Editor Relationship Specialty Start Date End Date Vonda Leahy MD [address] [place] [address] PCP - General Family Medicine 07/23/21 Alexis Andersen DO [address] [facility] [address], [address] [address] Internal Medicine 07/02/22 Alexis Andersen DO [address] [facility] [address], [address] [address] Internal Medicine 09/13/24 Chaparrita Rivera APRN-OCEAN IMPORT REPRESENTATIVE [address] [address] Nurse Practitioner 09/13/24 Manjula Gallegos MD [address] [address] Rheumatology 09/13/24 Alexis Andersen DO [address] [facility], [address] [address] Internal Medicine 09/13/24
[2024-09-20 19:03] LABS: Hematocrit 38.7 % (37.0-47.0); Hemoglobin 12.6 g/dL (12.0-15.0); Immature Granulocyte Percent A 0.3 % (0-0.5); Lymphocytes Absolute Auto 1.67 K/mm3 (0.9-3.2); Mean Corpuscular HGB Conc 32.6 g/dl (32-36); Mean Corpuscular Hemoglobin 30.9 pg (26-34); Mean Corpuscular Volume 94.9 fl (80-100); Nucleated Red Blood Cells Absolute Auto 0.000 K/mm3 (0.0-0.012); Nucleated Red Blood Cells Perc 0.0 % (0.0-0.2); Platelet Count Result 351 k/mm3 (150-375); Red Blood Count 4.08 M/mm3 (4.2-5.4); White Blood Count 9.1 K/mm3 (4.5-10.0)
[2024-09-20 19:45] LABS: Alanine Aminotransferase 20 U/L (6-35); Albumin Level 4.5 g/dL (3.5-5.1); Alkaline Phosphatase 82 U/L (38-126); Anion Gap 13 mmol/L (4-12); Aspartate Amino Transferase 30 U/L (14-36); Bilirubin,Total 0.6 mg/dL (0.2-1.3); Blood Urea Nitrogen 27 mg/dL (7-17); Calcium 9.9 mg/dL (8.4-10.2); Carbon Dioxide 25 mmol/L (22-30); Chloride 98 mmol/L (98-107); Estimated Glomerular Filt Rate 49; Glucose 87 mg/dL (65-110); Magnesium 1.8 mg/dL (1.6-2.3); Potassium 4.3 mmol/L (3.4-5.0); Sodium 136 mmol/L (137-145); Total Protein 8.0 g/dL (6.3-8.2)
[2024-09-20 19:57] LABS: Thyroid Stimulating Hormone Reflex 17.800 uIU/mL (0.465-4.68)
[2024-09-20 20:31] LABS: Hemoglobin A1C 5.3 % (<5.7)
[2024-09-20 20:38] LABS: Free T4 Free Thyroxine Reflex 1.49 ng/dL (0.78-2.19)
[2024-09-21 06:16] LABS: Total Triiodothyronine (T3) 1.02 NG/ML (0.82-1.58)
== END 2024-09-20 14:58 | disposition home or self-care (01) ==
LOC: ANHGOSHLAB 14:58
PROVIDERS: PCP Nurse Practitioner Family; Visit Provider Nurse Practitioner Family
DX: E03.9 Hypothyroidism, unspecified (principal); R73.9 Hyperglycemia, unspecified; I10 Essential (primary) hypertension
CPT/HCPCS: 36415; 80053; 83036; 83735; 84439; 84443; 84480; 85025

== ENCOUNTER 2024-12-21 08:47 | Outpatient (CLI) | payer MEDICARE, SELFPAY ==
--- OUTSIDE RECORDS SUMMARY | 2023-10-22 04:40 | XMS_ITS ---
Author Organization [facility] Address [address] [place], [place] [id number] Care Team Providers Care Data Transcriber Name Role Phone IGLESIA TREVINO MD Primary Care Provider Unavailable Manjula Gallegos Unavailable [phone] Chaparrita Rivera Unavailable [phone] ALLERGIES Allergen (clinical drug ingredient) Drug/Non Drug Allergy documented on EMR Reaction Allergy Type Onset Date Status Tetanus (uncoded) swelling, loss of consciousness Allergy Active Sulfa (uncoded) hives Allergy Acti ve RESULTS Component Value Reference Range Notes AST (SGOT) Reviewed date:10/23/2023 03:44:56 PM Interpretation: Performing Lab:[facility], [address] [place] [address], Phone - [phone], Director - PhDFreedomi Notes/Report: AST (SGOT) 15 0-40 IU/L Creatinine, Serum Reviewed date:10/23/2023 03:45:51 PM Interpretation: Performing Lab:[facility], [address] [place] [address], Phone - [phone], Director - PhDRicchiuti Notes/Report: Creatinine 1.21 0.57-1.00 mg/dL eGFR 47 >59 mL/min/1.73 ALT (SGPT) Reviewed date:10/23/2023 03:44:56 PM Interpretation: Performing Lab:[facility], [address] [facility], Phone - [phone], Director - PhDRicflaviai Notes/Report: ALT (SGPT) 13 0-32 IU/L CBC With Differential/Platel et Reviewed date:10/23/2023 03:46:11 PM Interpretation: Performing Lab:[facility], [address] [facility], Phone - [phone], Director - Sascha Notes/Report: WBC 6.1 3.4-10.8 [...] Westergren Reviewed date:10/23/2023 03:46:00 PM Interpretation: Performing Lab:[facility], [address] [facility], Phone - [phone], Director - Sascha Notes/Report: Sedimentation Rate-Suzanneren 19 0-40 mm/hr Rheumatoid Arthritis Factor Reviewed date:10/23/2023 03:46:11 PM Interpretation: Performing Lab:[facility], [address] [facility], Phone - [phone], Director - Sascha Notes/Report: Rheumatoid Factor (RF) <10.0 <14.0 IU/mL C-Reactive Protein, Quant Reviewed date:10/23/2023 03:46:11 PM Interpretation: Performing Lab:[facility], [address] [facility], Phone - [phone], Director - Sascha Notes/Report: C-Reactive Protein, Quant 16 0-10 mg/L CCP IgG Antibodies Reviewed date:10/23/2023 03:45:55 PM Interpretation: Performing Lab[facility], [address] [facility], Phone - [phone], Director - Sascha Notes/Report: Anti-CCP Ab, IgG/IgA [...] [facility] [address], [address] [place], [place] [phone] 10/22/2023 Chaparrita Rivera Primary generalized (osteo)arthritis M15.0 ; Positive anti-CCP test R76.8 and Other rat exterminator (current) drug therapy Z79.899 ASSESSMENTS Encounter Date [...] Duloxetine. Continue PT. F/u scheduled. 10/22/2023 Other rat exterminator (current) drug therapy (ICD-10 - Z79.899) RA(positive [...]
--- OUTSIDE RECORDS SUMMARY | 2023-10-22 04:44 | XMS_ITS ---
Author Organization [facility] Address [address] [place], [place] [id number] Care Team Providers Care Anode Crew Supervisor Name Role Phone IGLESIA TREVINO MD Primary Care Provider Manjula Caldwell [phone] MEDICATIONS Medication SIG (Take, Route, Frequency, Duration) Notes Start Date End Date Status Hydroxychloroquine Sulfate 2 00 mg 1 tab(s) orally 2 times a day for 90 days Active meloxicam 15 mg 1 tab(s) orally once a day for 90 days Active Encounters Encounter Location Date Provider Diagnosis [facility] [address] [place], [place] [id number] 10/22/2023 Manjula Gallegos PLAN OF TREATMENT Medication Medication Name Sig Start Date Stop Date Notes Hydroxychloroquine Sulfate 200 mg 1 tab( s) orally 2 times a day for 90 days meloxicam 15 mg 1 tab(s) orally once a day for 90 days
--- OUTSIDE RECORDS SUMMARY | 2023-10-23 09:45 | XMS_ITS ---
Author Organization [facility] Address [address] [place], [place] [id number] Care Team Providers Care Clinic Business Manager Name Role Phone URIEL MANTILLA, IGLESIA Primary Care Provider Unavailable Manjula Gallegos Unavailable [phone] Encounters Encounter Location Date Provider Diagnosis [facility] [address], [address] [place], [place] [phone] 10/23/2023 Manjula Gallegos PLAN OF TREATMENT No Information
--- OUTSIDE RECORDS SUMMARY | 2024-04-20 04:20 | XMS_ITS ---
Author Organization [facility] Address [address] [place], [place] [id number] Care Team Providers Care Sales Service Executive Name Role Phone IGLESIA TREVINO MD Primary Care Provider Unavailable Manjula Gallegos Unavailable [phone] Chaparrita Rivera Unavailable [phone] ALLERGIES Allergen (clinical drug ingredient) Drug/Non Drug Allergy documented on EMR Reaction Allergy Type Onset Date Status Tetanus (uncoded) swelling, loss of consciousness Allergy Active Sulfa (uncoded) hives Allergy Acti ve RESULTS Component Value Reference Range Notes AST (SGOT) Reviewed date:04/21/2024 03:04:50 PM Interpretation: Performing Lab:[facility], [address] [place] [address], Phone - [phone], Director - PhDFreedomi Notes/Report: AST (SGOT) 17 0-40 IU/L Creatinine, Serum Reviewed date:04/21/2024 03:04:50 PM Interpretation: Performing Lab:[facility], [address] [place] [address], Phone - [phone], Director - PhDRicchiuti Notes/Report: Creatinine 1.03 0.57-1.00 mg/dL eGFR 56 >59 mL/min/1.73 ALT (SGPT) Reviewed date:04/21/2024 03:04:50 PM Interpretation: Performing Lab:[facility] [place], [address] [facility], Phone - [phone], Director - PhDRicflaviai Notes/Report: ALT (SGPT) 12 0-32 IU/L CBC With Differential/Platel et Reviewed date:04/21/2024 03:04:50 PM Interpretation: Performing Lab:[facility] [place], [address] [facility], Phone - [phone], Director - Sascha Notes/Report: WBC 6.5 3.4-10.8 [...] Westergren Reviewed date:04/21/2024 03:04:50 PM Interpretation: Performing Lab:[facility] [place], [address] [facility], Phone - [phone], Director - Sascha Notes/Report: Sedimentation Rate-Westergren 19 0-40 mm/hr Rheumatoid Arthritis Factor Reviewed date:04/21/2024 03:04:50 PM Interpretation: Performing Lab:[facility] [place], [address] [facility], Phone - [phone], Director - Sascha Notes/Report: Rheumatoid Factor (RF) <10.0 <14.0 IU/mL C-Reactive Protein, Quant Reviewed date:04/21/2024 03:04:50 PM Interpretation: Performing Lab:[facility], [address] [facility], Phone - [phone], Director - Sascha Notes/Report: C-Reactive Protein, Quant 14 0-10 mg/L CCP IgG Antibodies Reviewed date:04/21/2024 03:04:50 PM Interpretation: Performing Lab:[facility], [address] [facility], Phone - [phone], Director - Sascha Notes/Report: Anti-CCP Ab, IgG/IgA [...] Location Date Provider Diagnosis [facility], [address] [place], [place] [phone] 04/20/2024 Chaparrita Rivera Primary generalized (osteo)arthritis M15.0 ; Positive anti-CCP test R76.8 and 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 F/u scheduled. 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
--- OUTSIDE RECORDS SUMMARY | 2024-10-13 04:20 | XMS_ITS ---
Author Organization [facility] Address [address] [place], [place] [id number] Care Team Providers Care Cooker Soda Name Role Phone IGLESIA TREVINO MD Primary Care Provider Unavailable Manjula Gallegos Unavailable [phone] Chaparrita Rivera Unavailable [phone] REASON FOR VISIT 6 mo f/u Encounters Encounter Location Date Provider Diagnosis [facility] [address] [place], [place] [id number] 10/13/2024 Chaparrita Rivera PLAN OF TREATMENT No Information
--- OUTSIDE RECORDS SUMMARY | 2024-12-21 09:13 | XMS_ITS | Encounter Summary ---
Author Organization [facility] Address [address] [facility] [place] [address] Care Team Providers Care Adjunct English Instructor Name Role Phone Vonda Leahy MD Primary Care Provider Alexis Andersen DO Unavailable Alexis Andersen DO Unavailable Cahparrita Rivera APRN-SENIOR FINANCIAL REPORTING ANALYST Unavailable [phone] Manjula Gallegos MD Unavailable Alexis Andersen DO Unavailable Encounter Details Date Type Department Care Team (Late st Contact Info) Description 03/06/2022 Lab Requisition [facility] [address] [facility] [place] [phone] Juan Yuan MD [address] [place] [address] Social History Tobacco Use Types [...] on file Legal Sex Female 1:01 PM DIRECTOR OF INFORMATICS Gender Identity Not on file Sexual Orientation Not on file documented as of this encounter Functional Status * Is person deaf or have serious hearing difficulty? Answer Date of Assessment Author No 11/13/2021 2:21 PM CDRoshan Smith RN * Is person blind or have serious difficulty seeing? Answer Date of Assessment Author No 11/13/2021 2:21 PM CDRoshan Smith RN * Does person have serious difficulty walking/climbing stairs? Answer Date of Assessment Author Yes 11/13/2021 2:21 PM Roshan Negron RN * Does person have difficulty dressing/bathing? [...] Care Team (Late st Contact Info) Description 02/27/2025 12:10 PM DIRECTOR OF INFORMATICS Office Visit [facility] [address] [place] [phone] [place], [place] [address] [place] [address] documented as of this encounter Procedures Procedure Name Priority Date/Time Associated Diagnosis Comments DERMATOPATHOLOGY Routine 03/04/2022 12:0 0 AM DIRECTOR OF INFORMATICS documented in this encounter Results * DERMATOPATHOLOGY (03/04/2022 12:00 AM DIRECTOR OF INFORMATICS) Case Report Dermatopathology Report Case: [id number] Authorizing Provider: uJan Yuan MD Collected: 03/04/2022 12:00 AM Ordering Location: [facility] Received: 03/06/2022 01:29 PM Pathologist: Elizabeth Garvin MD Specimen: Skin, right medial cheek 3 3:47 PM [facility] DERMATOPATHOLOGY [facility]OR[facility]ORY Final Diagnosis Specimen A. SKIN, right medial cheek: SEBACEOUS HYPERPLASIA, SUPERFICIAL PORTIONS OF (L73.8) (see microscopic description and comment) 3:47 PM [facility] DERMATOPATHOLOGY [facility]ORATORY at [address] [facility] Clinical History R/O SCC, BCC 3:47 PM [facility] DERMATOPATHOLOGY [facility] Gross Description Specimen A: Received is one formalin filled container labeled with the patient's name and designated right medial cheek. The specimen consists of a shave biopsy measuring 3x3x1 mm. Jar 0. 3:47 PM [facility] DERMATOPATHOLOGY [facility]OR[facility]ORY Microscopic Description Specimen A. SKIN, right medial cheek: There are superficial portions of prominent sebaceous gland lobules surrounding a dilated hair follicle. Additional deeper sections were obtained and reviewed. COMMENT: Given the superficial nature of the biopsy specimen, a deeper dermal process cannot be excluded. 3:47 PM [facility] DERMATOPATHOLOGY [facility]ORATORY Disclaimer An external and internal positive and negative controls are appropriate for the histochemical, immunohistochemical and immunofluorescence stain(s) in this case (if any), except where stated explicitly. The performance characteristics of the stain(s) cited in this report were developed and its performance characteristic determined by the Dermatopathology Laboratory at [facility], directed by Dr. Sadia Barillas. These tests need not be, and therefore are not, approved by the [place] Food and Drug Administration. The tests are used for clinical purposes. Billing Codes Specimen Charges Stain Charges 24806 1 3 3:47 PM [facility] DERMATOPATHOLOGY [facility]ORATORY Embedded Images 3:47 PM [facility] DERMATOPATHOLOGY [facility]ORY Pathology/Cytolog y TISSUE SPECIMEN FROM SKIN / Unknown 03/04/2022 03/06/2022 1:29 PM [facility] Juan Yuan MD LAB - PATHOLOGY/CYTOLOGY ORD ERABLES Final Result DERMATOPATHOLOGY LABORATORY [facility] - Department of Dermatology [facility] [address] [facility], [address]rd [address] [phone] documented in this encounter Visit Diagnoses Not on filedocumented in this encounter Care Teams Adjunct English Instructor Relationship Specialty Start Date End Date Vonda Leahy MD [address] [place] [address] PCP - General Family Medicine 07/23/21 Alexis Andersen DO [address], [address] [address] Internal Medicine 07/02/22 Alexis Andersen DO [address] [facility] [address], [address] [address] Internal Medicine 09/13/24 Chaparrita Rivera APRN-SENIOR FINANCIAL REPORTING ANALYST [address] [address] Nurse Practitioner 09/13/24 Manjula Gallegos MD [address] [address] Rheumatology 09/13/24 Alexis Andersen DO [address] [facility] [address], [address] [address] Internal Medicine 09/13/24 documented as of this encounter
--- OUTSIDE RECORDS SUMMARY | 2024-12-21 09:13 | XMS_ITS | Clinical Summary ---
Author Organization [facility] Address [address] [place] [address] Care Team Providers Care Venetian Blind Assembler Name Role Phone Vonda Leahy MD Primary Care Provider Alexis Andersen DO Unavailable Alexis Andersen DO Unavailable Chaparrita Rivera APRN-CATHETER BUILDER Unavailable [phone] Manjula Gallegos MD Unavailable Alexis Andersen DO Unavailable Source Comments [facility],non-owned Affiliates and Associated Physician Practices is amultiple site organization consisting of ambulatory clinics and hospital sitesin [place], [place], [place] and [place]. This disclosure is being madepursuant to the Care Everywhere program and may not contain all information available regarding this patient. Last updated 17.[facility] Allergies Active Allergy Reactions Criticality Noted [...] the patient. docusate sodium (COLACE) 100 MG capsuleIndicati ons:Constipatio n Take 1 Cap by mouth 2 times daily. 60 Cap 2 04/08/19 12 Active omeprazole (PriLOSEC) 40 MG capsuleIndicati ons:Gastroesoph ageal Reflux Disease Take 1 (one) capsule by mouth daily before breakfast Reasons: Gastroesophageal Reflux Disease 06/08/19 22 Active meloxicam (MOBIC) 15 MG tabletIndicatio ns:Rheumatoid Arthritis Take 0.5 (one-half) tablet by mouth once daily Reasons: Rheumatoid Arthritis 06/20/19 22 Active DULoxetine (CYMBALTA) 30 MG capsuleIndicati ons:Major Depressive Disorder Take 2 (two) capsules by mouth once daily Reasons: Major Depressive Disorder 07/04/19 22 Active levothyroxine (Synthroid) 200 MCG tabletIndicatio ns:Hypothyroidi sm Take 1 (one) tablet by mouth once daily Reasons: Underactive Thyroid 05/03/19 22 Active hydrALAZINE (Apresoline) 50 MG tabletIndicatio ns:Hypertension Take 1.5 (one and one-half) tablets by mouth 2 times daily Reasons: High Blood Pressure 09/17/19 22 Active fluticasone propionate (Flonase) 50 MCG/ACT nasal sprayIndication s:Allergic Rhinitis [place] 2 (two) sprays into each nostril once daily Reasons: Allergic Rhinitis Active zolpidem (Ambien) 10 MG tabletIndicatio ns:Insomnia Take 1 (one) tablet by mouth nightly as needed for Insomnia Reasons: Trouble Sleeping Active Vitamin D, Cholecalciferol , 25 MCG (1000 UT) CAPSIndications :Vitamin D Deficiency Take 3 (three) capsules by mouth once daily Reasons: Vitamin D Deficiency Acti ve losartan-hydroC HLOROthiazide (Hyzaar) 100-12.5 MG tabletIndicatio ns:Hypertension Take 1 (one) tablet by mouth once daily Reasons: High Blood Pressure Active metoprolol succinate XL 24hr (Toprol XL) 25 MG tabletIndicatio ns:Hypertension Take 1 (one) tablet by mouth once daily Reasons: High Blood Pressure 05/31/19 23 Active FeroSul 325 (65 Fe) MG tabletIndicatio ns:Iron Deficiency Take 1 (one) tablet by mouth once daily Reasons: Iron Deficiency 04/16/19 23 Active hydroxychloroqu ine (Plaquenil) 200 MG tabletIndicatio ns:Rheumatoid Arthritis Take 1 (one) tablet by mouth 2 times daily Reasons: Rheumatoid Arthritis Acti ve polyethylene glycol 3350 (GlycoLax) 17 GM/SCOOP powderIndicatio ns:Constipation Take 17 (seventeen) g by mouth once daily as needed for Constipation Reasons: Constipation Active HYDROmorphone (Dilaudid) 2 MG tablet TAKE 1 TABLET BY MOUTH EVERY 12 HOURS NEEDED FOR SEVERE PAIN . DO NOT EXCEED 2 PER 24 HOURS. DO NOT COMBINE WITH HYDROCODONE. DO NOT DRIVE UNTIL FAMILIAR WITH MEDICATIONS EFFECTS. CALL CLINIC FOR REFILL 09/08/19 25 Active oxyCODONE, immediate release, (Roxicodone) 10 MG tabletIndicatio ns:S/P hip replacement, unspecified laterality Take 0.5 (one-half) tablet to 1 (one) tablet by mouth every 4 hours as needed for Pain (pain) 42 tablet 10/25/19 25 Active Active Problems Problem Noted Date Diagnosed Date Achilles tendinitis of both lower extremities Bilateral knee pain 10/13/2024 Chronic GERD 10/13/2024 Claustrophobia 10/13/2024 Degenerative arthritis of knee, bilateral 2024 Joint pain 10/13/2024 Insomnia 10/13/2024 Hypothyroidism, unspecified 10/13/2024 History of colon polyps 10/13/2024 Flexion contracture of knee 10/13/2024 Expiratory wheezing 10/13/2024 Family hx of colon cancer 10/13/2024 Elevated C-reactive protein (CRP) 10/13/2024 Dry eye 10/13/2024 Depression with anxiety 10/13/2024 Essential (primary) hypertension 10/13/2024 Left leg pain 10/13/2024 Left shoulder pain 10/13/2024 Localized edema 10/13/2024 Obstructive sleep apnea (adult) (pediatric) 05/2024 Posterior calcaneal exostosis 10/13/2024 Primary generalized (osteo)arthritis 10/13/2024 SOB (shortness of breath) on exertion 10/13/2024 S/P hip replacement, unspecified laterality 09/10 Primary osteoarthritis of both knees 08/01/2021 Encounters Date Type Department Care Team Description 12/19/2024 3:05 PM GEAR REPAIR SUPERVISOR Ancillary Procedure [facility] - Radiology [address] [place] [phone] Vivek Mckeon IV, MD S/P total right hip arthroplasty 12/19/2024 2:50 PM GEAR REPAIR SUPERVISOR Office Visit [facility] [address] [place] [address], [address] [phone] Vivek Mckeon IV, MD S/P total right hip arthroplasty (Primary Dx) 11/10/2024 10:00 AM CDT Office Visit [facility] [address] [place] [address], [address] [phone] Jane Chung PA S/P total right hip arthroplasty (Primary Dx) 11/10/2024 9:55 AM CDT Ancillary Procedure [facility] - Radiology [address] [place] [phone] Jane Chung PA S/P total right hip arthroplasty 10/24/2024 4:30 PM CDT Ancillary Procedure [facility] - Radiology [address] [place] [phone] Vivek Mckeon IV, MD S/P total right hip arthroplasty, DOS 10/06/24; S/P total right hip arthroplasty 10/24/2024 4:00 PM CDT Office Visit [facility] [address] [place] [address], [address] [phone] Vivek Mckeon IV, MD S/P total right hip arthroplasty, DOS 10/06/24 (Primary Dx) 10/24/2024 Refill [facility] [address] [place] [address], [address] [phone] Vivek Mckeon IV, MD MEDICATION REFILL 10/24/2024 Refill [facility] [address] [place] [address], [address] [phone] Vivek Mckeon IV, MD MEDICATION REFILL 10/14/2024 Telephone [facility] [address] [place] [address], [address] [phone] Vivek Mckeon IV, MD Refill Request 10/13/2024 Refill [facility] [address] [facility], [address] [place] [address] Vivek Mckeon IV, MD Refill Request 10/11/2024 Orders Only [facility] [address] [place] [phone] Vivek Mckeon IV, MD 10/06/2024 12:47 PM CDT Anesthesia Event [facility] - Perioperative Surgery [address] [place] [phone] Emma Quick, Saul Chauhan 10/06/2024 12:25 PM CDT - 10/06/2024 3:11 PM CDT Surgery [facility] - Perioperative Surgery [address] [place] [address] Vivek Mckeon IV, MD RIGHT TOTAL ANTERIOR HIP ARTHROPLASTY 10/06/2024 9:57 AM CDT - 10/07/2024 1:30 PM CDT Hospital Encounter [facility] [address] [place] [address] Vivek Mckeon IV, MD Surgery General Discharge Disposition: Home Health Care Sv 10/06/2024 Travel from Last 3 Months Family History [...] often do you have a drink containing alcohol? Never 10/06/2024 Q2: How many drinks containi ng alcohol do you have on a typical day when you are drinking? Patient does not drink Q3: How often do you have si x or more drinks on one occasion? Never 10/06/2024 Hunger Vital Sign Answer Date Recorded Within the past 12 months, y ou worried that your food would run out before you got the money to buy more. Never true 10/08/19 25 Within the past 12 months, t he food you bought just didn't last and you didn't have money to get more. Never true 10/07/2024 Comments No Sex and Gender Information Value Date Recorded Sex Assigned at Not on file Legal Sex Female 1:01 PM GEAR REPAIR SUPERVISOR Gender Identity Not on file Sexual Orientation Not on file Last Filed Vital Signs Vital Sign Reading Time Taken Comments Blood Pressure 167/54 10/07/2024 10:00 AM CDT Pulse 66 10/07/2024 10:00 AM CDT Temperature 37.4 C (99.3 F) 10/07/2024 7:20 AM CDT Respiratory Rate 17 10/06/2024 11:16 PM CDT Oxygen Saturation 96% 10/07/2024 10:00 AM CDT Inhaled Oxygen Concentration - - Weight 112.5 kg (248 lb) 10/06/2024 4:40 PM CDT Height 160 cm (5' 3) 10/06/2024 4:40 PM CDT Body Mass Index 43.93 10/06/2024 4:40 PM CDT Plan of Treatment Upcoming Encounters Date Type Department Care Team (Late st Contact Info) Description 02/27/2025 12:10 PM GEAR REPAIR SUPERVISOR Office Visit [facility] Orthopedics [id number] [place] [phone] [place] [id number] [address] Health Maintenance Due Date Last Done Comments BONE DENSITY TESTING 1950 MEDICARE AWV 12 MONTHS 1950 HEPATITIS C SCREENING 02/04/1966 DTAP/TDAP/TD VACCINES (1 - Tdap) 02/08/1967 PNEUMOCOCCAL VACCINE 50+ (1 of 1 - PCV) 02/08/1998 ZOSTER VACCINE (1 of 2) 02/08/1998 Respiratory Syncytial Virus (RSV) Vaccine Pt: or over 60 yrs (1 - 1-dose 75+ series) 02/08/2023 DEPRESSION SCREENING 02/10/2024 COVID-19 VACCINE (2024- season) 2024 12/03/2020, 05/02/2020, 04/10/2020 INFLUENZA VACCINE (#1) 2024 , 11/09/2018, 11/09/2017, Additional history exists HEPATITIS B VACCINE Aged Out No longe [...] A/C/Y/W VACCINE Aged Out No longer eligible based on patient's age to complete this topic Medical Devices Implanted Type Area Catch Basin Cleaner Device Identifier Shelf Expiration Date Model / Serial / Lot Glenn Bone [place]-G Hv 40/20 Implanted:Qty: 1 on 11/11/2021 by Carlos Manuel Acevedo MD at [facility] Right: Knee [employer] 03/07/2023 600-15-100 / / [id number] Tray Tib 71mm Kn Cocr I Beam Implanted:Qty: 1 on 11/11/2021 by Carlos Manuel Acevedo MD at [facility] Right: Knee [employer] 09/07/2031 [id number] / / [id number] Cmpnt Fem Kn Rt Cr Cmnt Prm Vngrd Intlk 67.5 Mm Implanted:Qty: 1 on 11/11/2021 by Carlos Manuel Acevedo MD at [facility] Right: Knee [employer] 10/05/2031 [id number] / / [id number] Cmpnt Ptlr Std 28mm 1 Pg Wire Kn Ser A Implanted:Qty: 1 on 11/11/2021 by Carlos Manuel Acevedo MD at [facility] Right: Knee [employer] 10/23/2025 [id number] / / [id number] Brng [id number] Vngrd Arcm Kn Ant Stab Implanted:Qty: 1 on 11/11/2021 by Carlos Manuel Acevedo MD at [facility] Right: Knee [employer] 09/02/2026 [id number] / / [id number] Brng [id number] Vngrd Arcm Kn Ant Stab Implanted:Qty: 1 on 07/14/2022 by Carlos Manuel Acevedo MD at [facility] Left: Knee [employer] 03/31/2027 [id number] / / [id number] Cmnt Bone Plc R 40gm Grn Implanted:Qty: 1 on 07/14/2022 by Carlos Manuel Acevedo MD at [facility] Left: Knee [employer] 08/08/2024 [id number] / / [id number] Cmpnt Fem Kn Lt Cr Cmnt Prm Vngrd Intlk 67.5mm Implanted:Qty: 1 on 07/14/2022 by Carlos Manuel Acevedo MD at [facility] Left: Knee [employer] 03/06/2032 [id number] / / [id number] Tray Tib 75mm Kn Cocr I Beam Implanted:Qty: 1 on 07/14/2022 by Carlos Manuel Acevedo MD at [facility] Left: Knee [employer] 03/22/2032 [id number] / / [id number] Cmpnt Ptlr Std 28mm 3 Pg Kn Ser A Implanted:Qty: 1 on 07/14/2022 by Carlos Manuel Acevedo MD at [facility] Left: Knee [employer] 05/23/2027 [id number] / / [id number] Shell Actb 52mm Hip 3 Hl Clr Cd [place] Implanted:Qty: 1 on 10/06/2024 by Vivek Mckeon IV, MD at [facility] Right: Hip [employer] 02/12/2034 [id number] / / [id number] Bone Screw Self-Tappng 6.5mm Diameter 35mm Length Implanted:Qty: 1 on 10/06/2024 by Vivek Mckeon IV, MD at [facility] Right: Hip [employer] 02/23/2034 / / [id number] Sandro Liner Actb G7 +5mm E Ofst 36mm Lngvt Implanted:Qty: 1 on 10/06/2024 by Vivek Mckeon IV, MD at [facility] Right: Hip [employer] 07/18/2029 [id number] BILL ONLY / / [id number] Stem Fem 139mm Hip 126d 3 1214 Lat Ofst Implanted:Qty: 1 on 10/06/2024 by Vivek Mckeon IV, MD at [facility] Right: Hip [employer] 11/17/2030 [id number] / / [id number] Head Fem -3mm 01/22 Tpr 36mm Hip Rev Implanted:Qty: 1 on 10/06/2024 by Vivek Mckeon IV, MD at [facility] Right: Hip [employer] 07/25/2034 [id number] / / [id number] Explanted Type Area Catch Basin Cleaner Device Identifier Shelf Expiration Date Model / Serial / Lot Pin Hlf 255mm 5mm Jtx Lng Orth Ss 45mm Explanted:Qty: 1 on 10/06/2024 at [facility] [employer] [id number] / / Procedures Procedure Name Priority Date/Time Associated Diagnosis Comments XR HIP RIGHT 2VW OR MORE Routine 12/19/2024 3:09 PM GEAR REPAIR SUPERVISOR S/P total right hip arthroplasty XR PELVIS W RIGHT HIP 2VW Routine 11/10/2024 9:52 AM CDT S/P total right hip arthroplasty XR HIP RIGHT 2VW OR MORE Routine 10/24/2024 4:34 PM CDT S/P total right hip arthroplasty BASIC METABOLIC PANEL (CALCIUM TOTAL) AM Draw 10/07/2024 3:43 AM CDT Chronic kidney disease, unspecified CKD stage FL MEHREEN SURGERY Routine 10/06/2024 2:44 PM CDT Pain NEURAXIAL BLOCK Routine 10/06/2024 1:51 PM CDT MD TOTAL HIP REPLACEMENT 10/06/2024 12:35 PM CDT Special Needs S&N(JERONIMO) NOTIFIED-KS from Last 3 Months Results * XR Hip Right 2Vw or More (12/19/2024 3:09 PM GEAR REPAIR SUPERVISOR) Only the most recent of2 resultswithin the time period is included. Narrative [facility] [address] - 12/19/2024 3:09 PM GEAR REPAIR SUPERVISOR Please see progress note in Epic for results. Vivek Mckeon IV, MD DIAGNOSTIC IMAGING ORDERABLES Final Result Performing Organization Address [facility] Co de Phone Number [facility] [address] * XR Pelvis W Right Hip 2Vw (11/10/2024 9:52 AM CDT) Narrative [facility] [address] - 11/10/2024 9:52 AM CDT Please see progress note in Epic for results. Jane MILLER DIAGNOSTIC IMAGING ORDERABLES Final Result Performing Organization Address City/[facility]/ZIP Co de Phone Number [facility] [address] * (ABNORMAL) BASIC METABOLIC PANEL (CALCIUM TOTAL) (10/07/2024 3:43 AM CDT) Glucose 122(H) 70 - 99 mg/dL 10/07/2024 4:14 AM CDT [facility] Sodium 132(L) 136 - 145 mmol/L 10/07/2024 4:14 AM CDT [facility] Potassium 4.4 3.5 - 5.1 mmol/L 10/07/2024 4:14 AM CDT [facility] Chloride 100 98 - 107 mmol/L 10/07/2024 4:14 AM CDT [facility] CO2 21(L) 22 - 29 mmol/L 10/07/2024 4:14 AM CDT [facility] Calcium 9.0 8.4 - 10.4 mg/dL 10/07/2024 4:14 AM CDT [facility] Anion Gap 11 6 - 16 mmol/L 10/07/2024 4:14 AM CDT [facility] BUN 23 7 - 26 mg/dL 10/07/2024 4:14 AM CDT [facility] Creatinine 0.96 0.57 - 1.11 mg/dL 10/07/2024 4:14 AM CDT [facility] eGFR by CKD-EPI 61(L) >=90 mL/min/1.7 3 m2 10/07/2024 4:14 AM CDT [facility] Comment:Estimated Glomerular Filtration Rate (eGFR) calculated using the CKD-EPI Creatinine Equation (2020), per the National Kidney Foundation and [place] Society of Nephrology recommendations. Blood BLOOD SPECIMEN / Unknown Venipuncture / Unknown 10/07/2024 3:43 AM CDT 10/07/2024 3:50 AM CDT Vivek Mckeon IV, MD LAB - CHEMISTRY ORDERABLES Fin al Result Performing Organization Address [facility] de Phone Number [facility] [id number] [place] [phone] * [place] Mehreen Surgery (10/06/2024 2:44 PM CDT) Narrative [facility] - 10/06/2024 2:45 PM CDT For details of this study, please see the providers note. Vivek Mckeon IV, MD FLUOROSCOPY ORDERABLES Final R esult Performing Organization Address [facility] de Phone Number [facility] [address] [place] [address] * Neuraxial Block (10/06/2024 1:51 PM CDT) Narrative Mary Vences APRN-CRNA - 10/06/2024 1:51 PM CDT Mary Vences APRN-CRNA 10/06/2024 1:55 PM Neuraxial Block Note Pre-Procedure: Procedure Name: Neuraxial Block Patient Location: OR Indications: surgical anesthesia Pre-Anesthetic Checklist: Patient identified, IV Checked, Risks and benefits discussed, Surgical consent verified, Monitors and equipment, Site examined, Pre-op evaluation done, Time-out performed, Informed consent obtained, Questions answered/anesthesia questions answered and Allergies reviewed Anticoagulation/ Anti-thrombosis status confirmed? Yes Supplemental O2: room air Monitors: BP and continuous pluse ox Patient Condition: sedated, meaningful contact maintained throughout procedure Patient Sedated? Yes Procedure: Block Type: Spinal Prep: Chloraprep Sterile Field: mask, cap/hat, sterile established and sterile gloves Approach: midline Skin was localized? Yes Spinal Block: Is this procedure for postop pain? Yes Needle Type: spinal needle Needle Gauge: 25 Needle Length: 90 mm Placement Site: L3-4 Number of Attempts: 1 CSF: free flow, aspiration before injection Degree of difficulty: none Procedure Tolerance: tolerated well Sensory Level: mid-lumbar Motor Blockade: Yes Position post procedure: supine Vital Signs: Vital signs monitored and stable throughout. See anesthesia record for details. Staff: Anesthesia Provider: Mary Vences APRN-CRNA - performed the procedure Emma Quick DO GENERAL ANESTHESIA ORDERABLES F inal Result from Last 3 Months Insurance MEDICARE [facility] Advance Directives * Full Code (Latest Code Status on File) Date Activated Date Inactivated Comments 10/06/2024 3:54 PM 10/07/2024 2:46 PM * Full Code Date Activated Date Inactivated Comments 07/16/2022 1:18 PM 10/06/2024 10:03 AM To update th e patient's code status, place a code status order. Do not modify or discontinue any currently active code status orders. * Full Code Date Activated Date Inactivated Comments 07/14/2022 10:40 AM 07/15/2022 5:30 PM * Full Code Date Activated Date Inactivated Comments 11/11/2021 3:32 PM 11/13/2021 3:28 PM * FULL RESUSCITATION Date Activated Date Inactivated Comments 04/07/2011 1:40 PM 04/08/2011 11:08 PM Care Teams Venetian Blind Assembler Relationship Specialty Start Date End Date Vonda Leahy MD [address] [place] [phone] PCP - General Family Medicine 07/23/21 Alexis Andersen DO [address] [facility] [address] [place] [address] Internal Medicine 07/02/22 Alexis Andersen DO [address] [facility] [address], [address] [address] Internal Medicine 09/13/24 Chaparrita Rivera APRN-CATHETER BUILDER [address] [address] Nurse Practitioner 09/13/24 Manjula Gallegos MD [address] [phone] Rheumatology 09/13/24 Alexis Andersen DO [address] [facility] [address], [address] [address] Internal Medicine 09/13/24
--- OUTSIDE RECORDS SUMMARY | 2024-12-21 09:15 | XMS_ITS | Clinical Summary ---
Author Organization [facility] Address [address] [place] [address] Care Team Providers Care Resident Hall Director Name Role Phone Vonda Leahy MD Primary Care Provider Allergies No known active allergies Surgical History Surgery Date Site/Laterality Comments HYSTERECTOMY Social History Tobacco Use Types Packs/Day Years Used Date Smoking Tobacco: Never Assessed Comments No Sex and Gender Information Value Date Recorded Sex Assigned at Not on file Legal Sex Female 2:44 AM PRINTING SERVICES COORDINATOR Gender Identity Not on file Sexual [...] 98.9 kg (218 lb) 12/31/2019 8:25 AM PRINTING SERVICES COORDINATOR Height 165.1 cm (5' 5) 12/31/2019 8:25 AM PRINTING SERVICES COORDINATOR Body Mass Index 36.28 12/31/2019 8:25 AM PRINTING SERVICES COORDINATOR Plan of Treatment Health Maintenance Due Date [...] CENTER MEDICARE BLUE CROSS MEDICARE SUPPLEMENT MEDICARE [facility] MEDICARE SUPPLEMENT Care Teams Resident Hall Director Relationship Specialty Start Date End Date Vonda Leahy MD PCP - General Family Practice 01/16/22
[2024-12-21 13:13] LABS: Hematocrit 37.8 % (37.0-47.0); Hemoglobin 11.8 g/dL (12.0-15.0); Immature Granulocyte Percent A 0.3 % (0-0.5); Lymphocytes Absolute Auto 1.38 K/mm3 (0.9-3.2); Mean Corpuscular HGB Conc 31.2 g/dl (32-36); Mean Corpuscular Hemoglobin 29.6 pg (26-34); Mean Corpuscular Volume 94.7 fl (80-100); Nucleated Red Blood Cells Absolute Auto 0.000 K/mm3 (0.0-0.012); Nucleated Red Blood Cells Perc 0.0 % (0.0-0.2); Platelet Count Result 302 k/mm3 (150-375); Red Blood Count 3.99 M/mm3 (4.2-5.4); White Blood Count 6.6 K/mm3 (4.5-10.0)
[2024-12-21 13:18] LABS: Alanine Aminotransferase 17 U/L (6-35); Albumin Level 4.3 g/dL (3.5-5.1); Alkaline Phosphatase 94 U/L (38-126); Anion Gap 9 mmol/L (4-12); Aspartate Amino Transferase 31 U/L (14-36); Bilirubin,Total 0.5 mg/dL (0.2-1.3); Blood Urea Nitrogen 21 mg/dL (7-17); Calcium 9.5 mg/dL (8.4-10.2); Carbon Dioxide 27 mmol/L (22-30); Chloride 101 mmol/L (98-107); Cholesterol 155 mg/dL (0-200); Estimated Glomerular Filt Rate 60; Glucose 84 mg/dL (65-110); HDL Direct 52 mg/dL; Potassium 4.2 mmol/L (3.4-5.0); Sodium 137 mmol/L (137-145); Total Protein 7.7 g/dL (6.3-8.2); Triglycerides 110 mg/dL (<150)
[2024-12-21 13:35] LABS: Free T4 Free Thyroxine 0.86 ng/dL (0.78-2.19)
[2024-12-21 13:55] LABS: Thyroid Stimulating Hormone 28.600 uIU/mL (0.465-4.680)
[2024-12-21 14:42] LABS: Hemoglobin A1C 5.3 % (<5.7)
[2024-12-22 10:33] LABS: Iron 34 ug/dL (37-170)
[2024-12-22 10:44] LABS: Percent Iron Saturation 12 % (20-50)
[2024-12-22 11:09] LABS: Ferritin 135.00 ng/mL (11.1-264)
[2024-12-22 11:10] LABS: Thyroid Stimulating Hormone Reflex 29.300 uIU/mL (0.465-4.68)
[2024-12-22 11:44] LABS: Vitamin B12 530.0 pg/mL (239-931)
[2024-12-22 12:31] LABS: Free T4 Free Thyroxine Reflex 0.91 ng/dL (0.78-2.19)
[2024-12-22 14:19] LABS: Total Triiodothyronine (T3) 1.06 NG/ML (0.82-1.58)
== END 2024-12-21 08:48 | disposition home or self-care (01) ==
LOC: ANHGOSHLAB 08:48
PROVIDERS: Family Medicine; Nurse Practitioner Family; PCP Nurse Practitioner Family; Visit Provider Nurse Practitioner Family
DX: I10 Essential (primary) hypertension (principal); E03.9 Hypothyroidism, unspecified; E55.9 Vitamin D deficiency, unspecified; D50.9 Iron deficiency anemia, unspecified; R73.01 Impaired fasting glucose
CPT/HCPCS: 36415; 80053; 80061; 82306; 82607; 82728; 82746; 83036; 83540; 83550; 84439; 84443; 84480; 85025

== ENCOUNTER 2025-01-12 08:29 | Outpatient (CLI) | payer MEDICARE, SELFPAY ==
--- OUTSIDE RECORDS SUMMARY | 2023-10-22 04:40 | XMS_ITS ---
Author Organization [facility] Address [address] [place], [place] [id number] Care Team Providers Care Freight Associate Name Role Phone IGLESIA TREVINO MD Primary Care Provider Unavailable Manjula Gallegos Unavailable [phone] Chaparrita Rivera Unavailable [phone] ALLERGIES Allergen (clinical drug ingredient) Drug/Non Drug Allergy documented on EMR Reaction Allergy Type Onset Date Status Tetanus (uncoded) swelling, loss of consciousness Allergy Active Sulfa (uncoded) hives Allergy Acti ve RESULTS Component Value Reference Range Notes AST (SGOT) Reviewed date:10/23/2023 03:44:56 PM Interpretation: Performing Lab:[facility], [address] [place] [address], Phone - [phone], Director - PhDFreedomi Notes/Report: AST (SGOT) 15 0-40 IU/L Creatinine, Serum Reviewed date:10/23/2023 03:45:51 PM Interpretation: Performing Lab:[facility], [address] [place] [address], Phone - [phone], Director - PhDRicchiuti Notes/Report: Creatinine 1.21 0.57-1.00 mg/dL eGFR 47 >59 mL/min/1.73 ALT (SGPT) Reviewed date:10/23/2023 03:44:56 PM Interpretation: Performing Lab:[facility], [address] [facility], Phone - [phone], Director - PhDRicflaviai Notes/Report: ALT (SGPT) 13 0-32 IU/L CBC With Differential/Platel et Reviewed date:10/23/2023 03:46:11 PM Interpretation: Performing Lab:[facility], [address] [facility], Phone - [phone], Director - Sascha Notes/Report: WBC 6.1 3.4-10.8 x10E3/uL RBC 3.82 3.77-5.28 x10E6/uL Hemoglobin 11.6 11.1-15.9 g/dL Hematocrit 35.8 34.0-46.6 % MCV 94 79-97 fL MCH 30.4 26.6-33.0 pg MCHC 32.4 31.5-35.7 g/dL RDW 11.9 11.7-15.4 % Platelets 286 150-450 x10E3/uL Neutrophils 67 Not Estab. % Lymphs 17 Not Estab. % Monocytes 9 Not Estab. % Eos 6 Not Estab. % Basos 1 Not Estab. % Immature Cells Neutrophils (Absolute) 4.1 1.4-7.0 x10E3/uL Lymphs (Absolute) 1.1 0.7-3.1 x10E3/uL Monocytes(Absolute) 0.5 0.1-0.9 x10E3/uL Eos (Absolute) 0.4 0.0-0.4 x10E3/uL Baso (Absolute) 0.1 0.0-0.2 x10E3/uL Immature Granulocytes 0 Not Estab. % Immature Grans (Abs) 0.0 0.0-0.1 x10E3/uL NRBC Hematology Comments: Sed Rate - Westergren Reviewed date:10/23/2023 03:46:00 PM Interpretation: Performing Lab:[facility], [address] [facility], Phone - [phone], Director - Sascha Notes/Report: Sedimentation Rate-Suzanneren 19 0-40 mm/hr Rheumatoid Arthritis Factor Reviewed date:10/23/2023 03:46:11 PM Interpretation: Performing Lab:[facility], [address] [facility], Phone - [phone], Director - Sascha Notes/Report: Rheumatoid Factor (RF) <10.0 <14.0 IU/mL C-Reactive Protein, Quant Reviewed date:10/23/2023 03:46:11 PM Interpretation: Performing Lab[facility], [address] [facility], Phone - [phone], Director - Sascha Notes/Report: C-Reactive Protein, Quant 16 0-10 mg/L CCP IgG Antibodies Reviewed date:10/23/2023 03:45:55 PM Interpretation: Performing [facility], [address] [facility], Phone - [phone], Director - Sascha Notes/Report: Anti-CCP Ab, IgG/IgA 77 0-19 units Negative <20 Weak positive 20 - 39 Moderate positive 40 - 59 Strong positive >59 REASON FOR VISIT 6 month f/u MEDICATIONS Medication SIG (Take, Route, Frequency, Duration) Notes Start Date End Date Status Flonase 50 mcg/inh 1 spray(s) in each nostril once a day Active DULoxetine 30 mg 1 cap(s) orally 2 times a day Active hydrALAZINE 50 mg 1 tab(s) oral bid Active levothyroxine 175 mcg (0.175 mg) 1 tab(s) orally once a day Active omeprazole 20 mg 1 cap(s) orally once a day Active Hydroxychloroquine Sulfate 2 00 mg 1 tab(s) orally 2 times a day Active metoprolol 50 mg 1 tab(s) orally once a day Active meloxicam 15 mg 1 tab(s) orally once a day Active Losartan-HCTZ 100/12.5mg Active VITAL SIGNS BMI 41.93 kg/m2 10/22/2023 Blood pressure systolic 154 mm Hg 10/22/19 24 Blood pressure diastolic 58 mm Hg 024 Heart Rate 69 /min 10/22/2023 Height 65 in 10/22/2023 Weight 252 lbs 10/22/2023 Encounters Encounter Location Date Provider Diagnosis [facility] [address], [address] [place], [place] [id number] 10/22/2023 Chaparrita Rivera Primary generalized (osteo)arthritis M15.0 ; Positive anti-CCP test R76.8 and Other oil heaterman (current) drug therapy Z79.899 ASSESSMENTS Encounter Date Diagnosis Assessment Notes Treatment Notes Treatment Clinical Notes Section Notes 10/22/2023 Primary generalized (osteo)arthritis (ICD-10 - M15.0) RA(positive CCP abs) with OA-stable on HCQ and meloxicam. Continue current therapy. Avoid OTC NSAIDS. Labs today. Continue eye exam. Discussed if creatinine is elevated may need to stop NSAIDS (meloxicam). On Duloxetine. Continue PT. F/u scheduled. 10/22/2023 Positive anti-CCP test (ICD-10 - R76.8) RA(positive CCP abs) with OA-stable on HCQ and meloxicam. Continue current therapy. Avoid OTC NSAIDS. Labs today. Continue eye exam. Discussed if creatinine is elevated may need to stop NSAIDS (meloxicam). On Duloxetine. Continue PT. F/u scheduled. 10/22/2023 Other oil heaterman (current) drug therapy (ICD-10 - Z79.899) RA(positive CCP abs) with OA-stable on HCQ and meloxicam. Continue current therapy. Avoid OTC NSAIDS. Labs today. Continue eye exam. Discussed if creatinine is elevated may need to stop NSAIDS (meloxicam). On Duloxetine. Continue PT. F/u scheduled. PLAN OF TREATMENT Medication Medication Name Sig Start Date Stop Date Notes Flonase 50 mcg/inh 1 spray(s) in each nostril once a day DULoxetine 30 mg 1 cap(s) orally 2 ti mes a day levothyroxine 175 mcg (0.175 mg) 1 tab(s ) orally once a day Hydroxychloroquine Sulfate 200 mg 1 tab( s) orally 2 times a day metoprolol 50 mg 1 tab(s) orally once a day meloxicam 15 mg 1 tab(s) orally once a day Losartan-HCTZ 100/12.5mg Next Appt Details Follow Up: 6 Months, Reason: Progress Notes * Examination Category Sub-Category Detail Notes Category Not es General Constitutional: No acute distress HEENT: PERRLA, Neck supple, Normal sclerae and conjunctivae Abdomen: soft, no organomegal y or masses /Rectal: not done Skin: No cutaneous lesions . No subcutaneous nodules noted in the 4 extremities Neurological: No focal neurologica l findings Heme/Lymphatic: No cervical, axillar y, or inguinal adenopathy Psych: Alert, oriented x 3, Normal affect Musculoskeletal: Normal strength. No muscle atrophy Joint Exam Shoulders No swelling. No tenderness. NROM. Bilateral Achiles swelling Elbows No swelling. No tend erness. NROM. Wrists No swelling. No tend erness. NROM., Hips No tenderness, gavi l ROM, no instability or deformity Knees No swelling, bilater al, total knee replacement, , NROM. No instability or deformity, Ankles No swelling, no tend erness, NROM., No instability or deformity. All MCPs No swelling, no tend erness, no deformity unless noted below. All PIPs No swelling, no tend erness, no deformity unless noted below. All DIPs No swelling, no tend erness, no deformity unless noted below. All MTPs No swelling, no tend erness, NROM, no deformity unless noted below. CMCs bilateral, 1+ tender ness PIP3 left, 1+ tenderness History and Physical Notes * HPI (History of Present Illness) Category Sub-Category Detail Notes Category Not es Rheumatology Joint pain knees and hips Mrs. Breen returns today for follow up and treatment of seropositive RA and OA. She has continued on HCQ and is tolerating well. She is up to date with eye exam. Was seen by Ortho for right hip bursitis. She had an injection and is in PT. It is helping. She reports benefit with medications. Denies fever/infections or shortness of breath. States her thumbs are feeling better. Joint swelling Dyspnea/SOB dry eyes dry mouth Raynaud's/ dicoloration of fingers rash dysphagia photosensitivity Back pain Oral sores Crohn's/ ulcerative colitis Family History of Rheumatic Disease NSAID's difficulty sleeping Physical Examination Category Sub-Category Detail Notes Section Note s MDHAQ Summary Function (0-10):: 2.3 Pain (0-10):: 7.5 Patient Global Assessment of Disease Activity (0 -10):: 2 RAPID3 Score (0-30):: 11.8 Physician Global Assessment of Disease Activity (0-10):: 2 Prognosis Good w/tx Erosive Damage No
--- OUTSIDE RECORDS SUMMARY | 2023-10-22 04:44 | XMS_ITS ---
Author Organization [facility] Address [address] [place], [place] [id number] Care Team Providers Care Welding Machine Operator Thermit Name Role Phone IGLESIA TREVINO MD Primary Care Provider Manjula Caldwell [phone] MEDICATIONS Medication SIG (Take, Route, Frequency, Duration) Notes Start Date End Date Status Hydroxychloroquine Sulfate 2 00 mg 1 tab(s) orally 2 times a day for 90 days Active meloxicam 15 mg 1 tab(s) orally once a day for 90 days Active Encounters Encounter Location Date Provider Diagnosis [facility] [address] [place], [place] [id number] 10/22/2023 Manjula Gallegos PLAN OF TREATMENT Medication Medication Name Sig Start Date Stop Date Notes Hydroxychloroquine Sulfate 200 mg 1 tab( s) orally 2 times a day for 90 days meloxicam 15 mg 1 tab(s) orally once a day for 90 days
--- OUTSIDE RECORDS SUMMARY | 2023-10-23 09:45 | XMS_ITS ---
Author Organization [facility] Address [address] [place], [place] [id number] Care Team Providers Care Inclined Railway Operator Name Role Phone URIEL MANTILLA, IGLESIA Primary Care Provider Unavailable Manjula Gallegos Unavailable [phone] Encounters Encounter Location Date Provider Diagnosis [facility] [address], [address] [place], [place] [phone] 10/23/2023 Manjula Gallegos PLAN OF TREATMENT No Information
--- OUTSIDE RECORDS SUMMARY | 2024-04-20 04:20 | XMS_ITS ---
Author Organization [facility] Address [address] [place], [place] [id number] Care Team Providers Care Specialty Therapist Name Role Phone IGLESIA TREVINO MD Primary Care Provider Unavailable Manjula Gallegos Unavailable [phone] Chaparrita Rivera Unavailable [phone] ALLERGIES Allergen (clinical drug ingredient) Drug/Non Drug Allergy documented on EMR Reaction Allergy Type Onset Date Status Tetanus (uncoded) swelling, loss of consciousness Allergy Active Sulfa (uncoded) hives Allergy Acti ve RESULTS Component Value Reference Range Notes AST (SGOT) Reviewed date:04/21/2024 03:04:50 PM Interpretation: Performing Lab:[facility], [address] [place] [address], Phone - [phone], Director - PhDFreedomi Notes/Report: AST (SGOT) 17 0-40 IU/L Creatinine, Serum Reviewed date:04/21/2024 03:04:50 PM Interpretation: Performing Lab:[facility], [address] [place] [address], Phone - [phone], Director - PhDRicchiuti Notes/Report: Creatinine 1.03 0.57-1.00 mg/dL eGFR 56 >59 mL/min/1.73 ALT (SGPT) Reviewed date:04/21/2024 03:04:50 PM Interpretation: Performing Lab:[facility], [address] [facility], Phone - [phone], Director - PhDRicflaviai Notes/Report: ALT (SGPT) 12 0-32 IU/L CBC With Differential/Platel et Reviewed date:04/21/2024 03:04:50 PM Interpretation: Performing Lab:[email or web address], [address] [facility], Phone - [phone], Director - Sascha Notes/Report: WBC 6.5 3.4-10.8 x10E3/uL RBC 3.93 3.77-5.28 x10E6/uL Hemoglobin 12.1 11.1-15.9 g/dL Hematocrit 36.4 34.0-46.6 % MCV 93 79-97 fL MCH 30.8 26.6-33.0 pg MCHC 33.2 31.5-35.7 g/dL RDW 12.2 11.7-15.4 % Platelets 294 150-450 x10E3/uL Neutrophils 66 Not Estab. % Lymphs 19 Not Estab. % Monocytes 9 Not Estab. % Eos 4 Not Estab. % Basos 1 Not Estab. % Immature Cells Neutrophils (Absolute) 4.4 1.4-7.0 x10E3/uL Lymphs (Absolute) 1.2 0.7-3.1 x10E3/uL Monocytes(Absolute) 0.6 0.1-0.9 x10E3/uL Eos (Absolute) 0.3 0.0-0.4 x10E3/uL Baso (Absolute) 0.1 0.0-0.2 x10E3/uL Immature Granulocytes 1 Not Estab. % Immature Grans (Abs) 0.0 0.0-0.1 x10E3/uL NRBC Hematology Comments: Sed Rate - Westergren Reviewed date:04/21/2024 03:04:50 PM Interpretation: Performing Lab:[email or web address], [address] [facility], Phone - [phone], Director - Sascha Notes/Report: Sedimentation Rate-Westergren 19 0-40 mm/hr Rheumatoid Arthritis Factor Reviewed date:04/21/2024 03:04:50 PM Interpretation: Performing Lab:[email or web address], [address] [facility], Phone - [phone], Director - Sascha Notes/Report: Rheumatoid Factor (RF) <10.0 <14.0 IU/mL C-Reactive Protein, Quant Reviewed date:04/21/2024 03:04:50 PM Interpretation: Performing Lab:[facility], [address] [facility], Phone - [phone], Director - Sascha Notes/Report: C-Reactive Protein, Quant 14 0-10 mg/L CCP IgG Antibodies Reviewed date:04/21/2024 03:04:50 PM Interpretation: Performing Lab:[facility], [address] [facility], Phone - [phone], Director - Sascha Notes/Report: Anti-CCP Ab, IgG/IgA 67 0-19 units Negative <20 Weak positive 20 - 39 Moderate positive 40 - 59 Strong positive >59 MEDICATIONS Medication SIG (Take, Route, Frequency, Duration) Notes Start Date End Date Status metoprolol 50 mg 1 tab(s) orally once a day Active hydrALAZINE 50 mg 1 tab(s) oral bid Active meloxicam 15 mg 1 tab(s) orally once a day Active Losartan-HCTZ 100/12.5mg Active Hydroxychloroquine Sulfate 2 00 mg 1 tab(s) orally 2 times a day Active DULoxetine 30 mg 1 cap(s) orally 2 times a day Active Flonase 50 mcg/inh 1 spray(s) in each nostril once a day Active levothyroxine 175 mcg (0.175 mg) 1 tab(s) orally once a day Active omeprazole 20 mg 1 cap(s) orally once a day Active VITAL SIGNS BMI 42.26 kg/m2 04/20/2024 Blood pressure systolic 160 mm Hg 04/21/19 25 Blood pressure diastolic 89 mm Hg 025 Heart Rate 59 /min 04/20/2024 Height 65 in 04/20/2024 Weight 254 lbs 04/20/2024 Encounters Encounter Location Date Provider Diagnosis [facility], [address] [place], [place] [id number] 04/20/2024 Chaparrita Rivera Primary generalized (osteo)arthritis M15.0 ; Positive anti-CCP test R76.8 and Other jail (current) drug therapy Z79.899 ASSESSMENTS Encounter Date Diagnosis Assessment Notes Treatment Notes Treatment Clinical Notes Section Notes 04/20/2024 Primary generalized (osteo)arthritis (ICD-10 - M15.0) RA(positive CCP abs) with OA-worsening back and right hip pain. Diagnosed with Spinal stenosis and DJD. Seeing pain mgmt. Also, has a right hip labral tear. Will be seeing Ortho. Continue HCQ and eye exams for RA. She has no synovitis on exam. Limit Meloxicam to 1/2 tab daily due to elevated creatinine. Check labs today. Ask PCP to increase Duloxetine to 90 mg to help with pain. F/u scheduled. 04/20/2024 Positive anti-CCP test (ICD-10 - R76.8) RA(positive CCP abs) with OA-worsening back and right hip pain. Diagnosed with Spinal stenosis and DJD. Seeing pain mgmt. Also, has a right hip labral tear. Will be seeing Ortho. Continue HCQ and eye exams for RA. She has no synovitis on exam. Limit Meloxicam to 1/2 tab daily due to elevated creatinine. Check labs today. Ask PCP to increase Duloxetine to 90 mg to help with pain. F/u scheduled. 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 Diagnosed with Spinal stenosis and DJD. Seeing pain mgmt. Also, has a right hip labral tear. Will be seeing Ortho. Continue HCQ and eye exams for RA. She has no synovitis on exam. Limit Meloxicam to 1/2 tab daily due to elevated creatinine. Check labs today. Ask PCP to increase Duloxetine to 90 mg to help with pain. F/u scheduled. PLAN OF TREATMENT Medication Medication Name Sig Start Date Stop Date Notes metoprolol 50 mg 1 tab(s) orally once a day hydrALAZINE 50 mg 1 tab(s) oral bid meloxicam 15 mg 1 tab(s) orally once a day Losartan-HCTZ 100/12.5mg Hydroxychloroquine Sulfate 200 mg 1 tab( s) orally 2 times a day DULoxetine 30 mg 1 cap(s) orally 2 ti mes a day Flonase 50 mcg/inh 1 spray(s) in each nostril once a day levothyroxine 175 mcg (0.175 mg) 1 tab(s ) orally once a day omeprazole 20 mg 1 cap(s) orally once a day Next Appt Details Follow Up: 6 Months, [...] Exam Shoulders No swelling. No tenderness. NROM. Small nodule to palm of left hand Elbows No swelling. No tend erness. NROM. [...] unless noted below. CMCs bilateral, 1+ tender ness, small nodule proximal to CMC joint PIP3 left, 1+ tenderness History and Physical Notes * HPI (History of Present Illness) Category Sub-Category Detail Notes Category Not es Rheumatology Joint pain knees and hips Mrs. Breen returns today for follow up and treatment of seropositive RA and OA. Having a lot of back pain. Seeing pain mgmt. Will be having injections in her back next week. She has DJD and spinal stenosis. Was also told she has a labral tear in her right hip. Right hip injection helped some. Hasn't seen Ortho yet. Did try a steroid burst which helped some. Was given Hydrocodone, but it didn't really help much. She is taking Tylenol arthritis and a 1/2 tab of meloxicam. Having a hard time sleeping due to the pain in her back. It is also worsened with walking and prolonged standing. She has continued on HCQ and is tolerating well. She is up to date with eye exam. Denies fever/infections or shortness of breath. She does mention to tiny tender nodules on her hands. One in the palmar surface of left hand and the other just proximal to right CMC joint. Joint swelling Dyspnea/SOB dry eyes dry mouth Raynaud's/ dicoloration of fingers rash dysphagia photosensitivity Back pain Oral sores Crohn's/ ulcerative colitis Family History of Rheumatic Disease NSAID's difficulty sleeping Physical Examination Category Sub-Category Detail Notes Section Note s MDHAQ Summary Function (0-10):: PATIENT DID NOT COMPLE TE Pain (0-10):: PATIENT DID NOT COMPLETE Patient Global Assessment of Disease Activity (0-10):: PATIENT DID NOT COMPLETE RAPID3 Score (0-30):: COULD NOT SCORE PATIENT DID NOT COMPLETE ALL CATEGORIES Physician Global Assessment of Disease Activity (0-10):: 3 Prognosis Good w/tx Erosive Damage No
--- OUTSIDE RECORDS SUMMARY | 2024-10-13 04:20 | XMS_ITS ---
Author Organization [facility] Address [address] [place], [place] [id number] Care Team Providers Care Guncotton Packer Name Role Phone IGLESIA TREVINO MD Primary Care Provider Unavailable Manjula Gallegos Unavailable [phone] Chaparrita Rivera Unavailable [phone] REASON FOR VISIT 6 mo f/u Encounters Encounter Location Date Provider Diagnosis [facility] [address] [place], [place] [id number] 10/13/2024 Chaparrita Rivera PLAN OF TREATMENT No Information
--- OUTSIDE RECORDS SUMMARY | 2025-01-12 08:46 | XMS_ITS | Patient Health Record ---
Author Organization [facility] Address [address] [facility] [address] [place], [place] [address] Care Team Providers Care Supply Aide Name Role Phone IGLESIA TREVINO MD Primary Care Provider Unavailable Manjula Gallegos Unavailable [phone] Chaparrita Rivera Unavailable [phone] ALLERGIES Allergen (clinical drug ingredient) Drug/Non Drug Allergy documented on EMR Reaction Allergy Type Onset Date Status Tetanus (uncoded) swelling, loss of consciousness Allergy Active Sulfa (uncoded) hives Allergy Acti ve RESULTS Component Value Reference Range Notes AST (SGOT) Reviewed date:04/21/2024 03:04:50 PM Interpretation: Performing Lab:[facility] [place], [address] [place] [address], Phone - [phone], Director - PhDFreedomi Notes/Report: AST (SGOT) 17 0-40 IU/L Creatinine, Serum Reviewed date:04/21/2024 03:04:50 PM Interpretation: Performing Lab:[facility] [place], [address] [facility], Phone - [phone], Director - PhDRicchiuti Notes/Report: Creatinine 1.03 0.57-1.00 mg/dL eGFR 56 >59 mL/min/1.73 ALT (SGPT) Reviewed date:04/21/2024 03:04:50 PM Interpretation: Performing Lab:[facility] [place], [address] [facility], Phone - [phone], Director - PhDRicflaviai Notes/Report: ALT (SGPT) 12 0-32 IU/L CBC With Differential/Platel et Reviewed date:04/21/2024 03:04:50 PM Interpretation: Performing Lab:[facility] [place], [address] [place] [address], Phone - [phone], [facility]Report: WBC 6.5 3.4-10.8 x10E3/uL RBC 3.93 [...] Westergren Reviewed date:04/21/2024 03:04:50 PM Interpretation: Performing Lab:[facility] [place], [address] [facility], Phone - [phone], Director [facility] Notes/Report: Sedimentation Rate-Westergren 19 0-40 mm/hr Rheumatoid Arthritis Factor Reviewed date:04/21/2024 03:04:50 PM Interpretation: Performing Lab:[facility], [address] [place] [address], Phone - [phone], Director [facility] Notes/Report: Rheumatoid Factor (RF) <10.0 <14.0 IU/mL C-Reactive Protein, Quant Reviewed date:04/21/2024 03:04:50 PM Interpretation: Performing [facility] [address] [facility], Phone - [phone], Director - Sascha Notes/Report: C-Reactive Protein, Quant 14 0-10 mg/L CCP IgG Antibodies Reviewed date:04/21/2024 03:04:50 PM Interpretation: Performing Lab[facility] [address] [facility], Phone - [phone], Director - Sascha Notes/Report: Anti-CCP Ab, IgG/IgA [...] Notes Problem Sleeping difficulty (G47.9) Active confirmed 571772929 Problem Dry eye (H04.129) Active confirmed 1622 23344 Problem Polyarthralgia (M25.50) Active confirmed 98290224 Problem Dry mouth (R68.2) Active confirmed 6471 5008 Problem Low back pain at multiple sites (M54.5) Active confirmed Low back pain (finding) (890103548) Problem Primary generalized (osteo)arthritis (M15.0) Active confirmed 350675169 Problem Positive anti-CCP test (R76.8) Active confirmed 196012302 Problem Essential (primary) hypertension (I10) Active confirmed 23116544 VITAL SIGNS Heart Rate 59 /min 04/20/2024 Blood pressure diastolic 89 mm Hg 04/20/2024 Height 65 in 04/20/2024 Blood pressure systolic 160 mm Hg 04/20/2024 Weight 254 lbs 04/20/2024 BMI 42.26 kg/m2 04/20/2024 Encounters Encounter Location Date Provider Diagnosis [facility] [address] [facility], [address] [place], [place] [phone] 04/20/2024 Chaparrita Rivera Primary generalized (osteo)arthritis M15.0 ; Positive anti-CCP test R76.8 and Other cmv driver (current) drug therapy Z79.899 [facility] [address] [facility], [address] [place], [place] [phone] 10/13/2024 Chaparrita Rivera ASSESSMENTS Encounter Date Diagnosis Assessment Notes Treatment Notes Treatment Clinical Notes Section Notes 04/20/2024 Positive anti-CCP test (ICD-10 - R76.8) [...] help with pain. F/u scheduled. 04/20/2024 Other fpc (current) drug therapy (ICD-10 - Z79.899) RA(positive [...] ord er 08/09/2020 Eye exam - Plaquenil 06/19/2022 Eye exam - Plaquenil 02/19/2022 X ray : Foot Left- outside order 021 X ray : Foot Right- outside order 2020 Lab slip given 04/22/2023 PT Evaluate and treat 06/19/2022 Insurance Providers Payer Name Payer Address Payer Phone Subscriber Number Group Number Insured Name Patient Relationship to Insured Coverage Start Date Coverage End Date MEDICARE [address] [address] [place] [address] [id number] Matilde Breen Self - patient is the insured [facility] [address] [place] [address] [id number] Matilde Breen Self - patient is the insured 3 MEDICAL (GENERAL) HISTORY Medical History History ICD Code depression tension headaches sinus problems thyroid disease anxiety irregular heart beat difficulty breathing diarrhea Lack of bladder control Hot Flashes high blood pressure hemorrhoids frequent urination Surgical History Surgery Date(Month/Year) prolapse 2012 esophagus 1997,2002 hysterectomy 1979
--- OUTSIDE RECORDS SUMMARY | 2025-01-12 08:46 | XMS_ITS | Clinical Summary ---
Author Organization [facility] Address [address] [facility] [place] [address] Care Team Providers Care Naval Designer Name Role Phone Vonda Leahy MD Primary Care Provider Alexis Andersen DO Unavailable Alexis Andersen DO Unavailable Chaparrita Rivera APRN-CLEARANCE REPRESENTATIVE Unavailable Manjula Gallegos MD Unavailable Alexis Andersen DO Unavailable Source Comments [facility],non-owned Affiliates and Associated Physician Practices is amultiple site organization consisting of ambulatory clinics and hospital sitesin [place], [place], [place] and [place]. This disclosure is being madepursuant to the Care Everywhere program and may not contain all information available regarding this patient. Last updated 17.[facility] Allergies Active Allergy Reactions Criticality Noted [...] (Flonase) 50 MCG/ACT nasal sprayIndication s:Allergic Rhinitis [place] 2 (two) sprays into each nostril once [...] Encounters Date Type Department Care Team Description 12/29/2024 Office Visit External [facility] [address] [facility], [address] [place] [address] Vivek Mckeon IV, MD 12/29/2024 Office Visit External [facility] [address] [place] [address], [address] [phone] Vivek Mckeon IV, MD 12/19/2024 3:05 PM AD TERMINAL MAKEUP OPERATOR Ancillary Procedure [facility] Health Orthopedics - Radiology [address] [place] [phone] Vivek Mckeon IV, MD S/P total right hip arthroplasty 12/19/2024 2:50 PM AD TERMINAL MAKEUP OPERATOR Office Visit [facility] [address] [place] [phone] Vivek Mckeon IV, MD S/P total right hip arthroplasty (Primary Dx) 11/10/2024 10:00 AM CDT Office Visit [facility] [address] [place] [phone] Jane Chung PA S/P total right hip arthroplasty (Primary Dx) 11/10/2024 9:55 AM CDT Ancillary Procedure [facility] Health Orthopedics - Radiology [address] [place] [phone] Jane Chung PA S/P total right hip arthroplasty 10/24/2024 4:30 PM CDT Ancillary Procedure [facility] Health Orthopedics - Radiology [address] [place] [phone] Vivek Mckeon IV, MD S/P total right hip arthroplasty, DOS 10/06/24; S/P total right hip arthroplasty 10/24/2024 4:00 PM CDT Office Visit [facility] [address] [place] [address], [address] [phone] Vivek Mckeon IV, MD S/P total right hip arthroplasty, DOS 10/06/24 (Primary Dx) 10/24/2024 Refill [facility] [address] [place] [address], [address] [phone] Vivek Mckeon IV, MD MEDICATION REFILL 10/24/2024 Refill [facility] [address] [facility], [address] [place] [address] Vivek Mckeon IV, MD MEDICATION REFILL 10/14/2024 Telephone [facility] [address] [facility], [facility] [address] [place] [address] Vivek Mkceon IV, MD Refill Request 10/13/2024 Refill [facility] [address] [facility], [facility] [address] [place] [address] Vivek Mckeon IV, MD Refill Request from Last 3 Months Family History Medical [...] on file Legal Sex Female 1:01 PM AD TERMINAL MAKEUP OPERATOR Gender Identity Not on file Sexual [...] st Contact Info) Description 02/27/2025 12:10 PM AD TERMINAL MAKEUP OPERATOR Office Visit [facility] [address] [phone] [place] [address] [address] Health Maintenance Due Date Last [...] series) 02/08/2023 DEPRESSION SCREENING 02/10/2024 COVID-19 VACCINE ( - season) 2024 12/03/2020, 05/02/2020, 04/10/2020 INFLUENZA VACCINE [...] this topic Medical Devices Implanted Type Area Metal Trim Erector Device Identifier Shelf Expiration Date Model / Serial / Lot Glenn Bone [place]-G Hv 40/20 Implanted:Qty: 1 on 11/11/2021 by Carlos Manuel Acevedo MD at [facility] Right: Knee [employer] 03/07/2023 600-15-100 / / [id number] Tray Tib 71mm Kn Cocr I Beam Implanted:Qty: 1 on 11/11/2021 by Carlos Manuel Acevedo MD at [facility] Right: Knee [employer] 09/07/2031 [id number] / / [id number] Cmpnt Fem Kn Rt Cr Cmnt Prm Vngrd Intlk 67.5 Mm Implanted:Qty: 1 on 11/11/2021 by Carlos Manuel Acevedo MD at [facility] Right: Knee [employer] 10/05/2031 [id number] / / [id number] Cmpnt Ptlr Std 28mm 1 Pg Wire Kn Ser A Implanted:Qty: 1 on 11/11/2021 by Carlos Manuel Acevedo MD at [facility] Right: Knee [employer] 10/23/2025 [id number] / / [id number] Brng [id number] Vngrd Arcm Kn Ant Stab Implanted:Qty: 1 on 11/11/2021 by Carlos Manuel Acevedo MD at [facility] Right: Knee [employer] 09/02/2026 [id number] / / [id number] Brng [id number] Vngrd Arcm Kn Ant Stab Implanted:Qty: 1 on 07/14/2022 by Carlos Manuel Acevedo MD at [facility] Left: Knee [employer] 03/31/2027 [id number] / / [id number] Cmnt Bone Plc R 40gm Grn Implanted:Qty: 1 on 07/14/2022 by Carlos Manuel Acevedo MD at [facility] Left: Knee [employer] 08/08/2024 [id number] / / [id number] Cmpnt Fem Kn Lt Cr Cmnt Prm Vngrd Intlk 67.5mm Implanted:Qty: 1 on 07/14/2022 by Carlos Manuel Acevedo MD at [facility] Left: Knee [employer] 03/06/2032 [id number] / / [id number] Tray Tib 75mm Kn Cocr I Beam Implanted:Qty: 1 on 07/14/2022 by Carlos Manuel Acevedo MD at [facility] Left: Knee [employer] 03/22/2032 [id number] / / [id number] Cmpnt Ptlr Std 28mm 3 Pg Kn Ser A Implanted:Qty: 1 on 07/14/2022 by Carlos Manuel Acevedo MD at [facility] Left: Knee [employer] 05/23/2027 [id number] / / [id number] Shell Actb 52mm Hip 3 Hl Clr Cd [place] Implanted:Qty: 1 on 10/06/2024 by Vivek Mckeon IV, MD at [facility] Right: Hip [employer] 02/12/2034 [id number] / / [id number] Bone Screw Self-Tappng 6.5mm Diameter 35mm Length Implanted:Qty: 1 on 10/06/2024 by Vivek Mckeon IV, MD at [facility] Right: Hip [employer] 02/23/2034 / / [id number] Sandro Liner Actb G7 +5mm E Ofst 36mm Lngvt Implanted:Qty: 1 on 10/06/2024 by Vivek Mckeon IV, MD at [facility] Right: Hip [employer] 07/18/2029 [id number] BILL ONLY / / [id number] Stem Fem 139mm Hip 126d 3 01/22 Lat Ofst Implanted:Qty: 1 on 10/06/2024 by Vivek Mckeon IV, MD at [facility] Right: Hip [employer] 11/17/2030 [id number] / / [id number] Head Fem -3mm /14 Tpr 36mm Hip Rev Implanted:Qty: 1 on 10/06/2024 by Vivek Mckeon IV, MD at [facility] Right: Hip [employer] 07/25/2034 [id number] / / [id number] Explanted Type Area Metal Trim Erector Device Identifier Shelf Expiration Date Model / Serial / Lot Pin Hlf 255mm 5mm Jtx Lng Orth Ss 45mm Explanted:Qty: 1 on 10/06/2024 at [facility] [employer] [id number] / / Procedures Procedure Name Priority Date/Time Associated Diagnosis Comments XR HIP RIGHT 2VW OR MORE Routine 12/19/2024 3:09 PM AD TERMINAL MAKEUP OPERATOR S/P total right hip arthroplasty XR PELVIS W RIGHT HIP 2VW Routine 11/10/2024 9:52 AM CDT S/P total right hip arthroplasty XR HIP RIGHT 2VW OR MORE Routine 10/24/2024 4:34 PM CDT S/P total right hip arthroplasty from Last 3 Months Results * XR Hip Right 2Vw or More (12/19/2024 3:09 PM AD TERMINAL MAKEUP OPERATOR) Only the most recent of2 resultswithin the time period is included. Narrative [facility] [address] - 12/19/2024 3:09 PM AD TERMINAL MAKEUP OPERATOR Please see progress note in Epic for results. us Vivek Mckeon IV, MD DIAGNOSTIC IMAGING ORDERABLES Final Result [facility] [address] * XR Pelvis W Right Hip 2Vw (11/10/2024 9:52 AM CDT) Narrative [facility] [address] - 11/10/2024 9:52 AM CDT Please see progress note in Epic for results. us Jane MILLER DIAGNOSTIC IMAGING ORDERABLES Final Result [facility] [address] from Last 3 Months Insurance MEDICARE PENDING SALE TO [facility] Address: [address] [place] [address] MEDICARE PENDING SALE TO [facility] Advance Directives * Full Code (Latest [...] 1:40 PM 04/08/2011 11:08 PM Care Teams Naval Designer Relationship Specialty Start Date End Date Vonda Leahy MD [address] [place] [phone] PCP - General Family Medicine 07/23/21 Alexis Andersen DO [address] [facility] [address] [place] [address] Internal Medicine 07/02/22 Alexis Andersen DO [address] [facility] [address] [place] [address] Internal Medicine 09/13/24 Chaparrita Rivera APRN-CHANELL [address] [facility] [address] [place] [address] Nurse Practitioner 09/13/24 Manjula Gallegos MD [address] [facility] [address] [place] [phone] Rheumatology 09/13/24 Alexis Andersen DO [address] [facility] [address] [place] [address] Internal Medicine 09/13/24
--- OUTSIDE RECORDS SUMMARY | 2025-01-12 08:46 | XMS_ITS | Encounter Summary ---
Author Organization [facility] Address [address] [place] [address] Care Team Providers Care Cleaner Touch Up Worker Name Role Phone Vonda Leahy MD Primary Care Provider Alexis Andersen DO Unavailable Alexis Andersen DO Unavailable Chaparrita Rivera APRN-MANAGER VALUATION Unavailable Manjula Gallegos MD Unavailable Alexis Andersen DO Unavailable Encounter Details Date Type Department Care Team (Late st Contact Info) Description 03/06/2022 Lab Requisition [facility] Care DermPath Lab [address] [facility] [place] [phone] Juan Yuan MD [address] [place] [address] Social History Tobacco Use Types [...] on file Legal Sex Female 1:01 PM GREY WASHER Gender Identity Not on file Sexual Orientation [...] st Contact Info) Description 02/27/2025 12:10 PM GREY WASHER Office Visit [facility] Orthopedics [address] [place] [phone] [place] [address] [place] [address] documented as of this encounter Procedures Procedure Name Priority Date/Time Associated Diagnosis Comments DERMATOPATHOLOGY Routine 03/04/2022 12:0 0 AM GREY WASHER documented in this encounter Results * DERMATOPATHOLOGY (03/04/2022 12:00 AM GREY WASHER) Case Report Dermatopathology Report Case: [id number] Authorizing Provider: Juan Yuan MD Collected: 03/04/2022 12:00 AM Ordering Location: [facility] DermPath Lab Received: 03/06/2022 01:29 PM Pathologist: Elizabeth Garvin MD Specimen: Skin, right medial cheek 3 3:47 PM [facility] DERMATOPATHOLOGY LABORATORY Final Diagnosis Specimen A. SKIN, right medial cheek: SEBACEOUS HYPERPLASIA, SUPERFICIAL PORTIONS OF (L73.8) (see microscopic description and comment) 3:47 PM [facility] DERMATOPATHOLOGY LABORATORY at [address] [facility] Clinical History R/O SCC, BCC 3:47 PM [facility] DERMATOPATHOLOGY LABORATORY Gross Description Specimen A: Received is one formalin filled container labeled with the patient's name and designated right medial cheek. The specimen consists of a shave biopsy measuring 3x3x1 mm. Jar 0. 3:47 PM [facility] DERMATOPATHOLOGY LABORATORY Microscopic Description Specimen A. SKIN, right medial cheek: There are superficial portions of prominent sebaceous gland lobules surrounding a dilated hair follicle. Additional deeper sections were obtained and reviewed. COMMENT: Given the superficial nature of the biopsy specimen, a deeper dermal process cannot be excluded. 3:47 PM [facility] DERMATOPATHOLOGY LABORATORY Disclaimer An external and internal positive and negative controls are appropriate for the histochemical, immunohistochemical and immunofluorescence stain(s) in this case (if any), except where stated explicitly. The performance characteristics of the stain(s) cited in this report were developed and its performance characteristic determined by the Dermatopathology Laboratory at [facility], directed by Dr. Saida Barillas. These tests need not be, and therefore are not, approved by the [place] Food and Drug Administration. The tests are used for clinical purposes. Billing Codes Specimen Charges Stain Charges 48167 1 3 3:47 PM [facility] DERMATOPATHOLOGY LABORATORY Embedded Images 3:47 PM [facility] DERMATOPATHOLOGY LABORATORY Pathology/Cytolog y TISSUE SPECIMEN FROM SKIN / Unknown 03/04/2022 03/06/2022 1:29 PM [facility] Juan Yuan MD LAB - PATHOLOGY/CYTOLOGY ORD ERABLES Final Result DERMATOPATHOLOGY LABORATORY [facility] - Department of Dermatology [facility] [address] [facility], [address]rd [address] [phone] documented in this encounter Visit Diagnoses Not on filedocumented in this encounter Care Teams Cleaner Touch Up Worker Relationship Specialty Start Date End Date Vonda Leahy MD [address] [place] [address] PCP - General Family Medicine 07/23/21 Alexis Andersen DO [address], [address] [address] Internal Medicine 07/02/22 Alexis Andersen DO [address] [facility] [address], [address] [address] Internal Medicine 09/13/24 Chaparrita Rivera APRN-MANAGER VALUATION [address] [address] Nurse Practitioner 09/13/24 Manjula Gallegos MD [address] [phone] Rheumatology 09/13/24 Alexis Andersen DO [address] [facility] [address], [address] [address] Internal Medicine 09/13/24 documented as of this encounter
--- OUTSIDE RECORDS SUMMARY | 2025-01-12 08:47 | XMS_ITS | Clinical Summary ---
Author Organization [facility] Address [address] [place] [address] Care Team Providers Care Crane Crew Supervisor Name Role Phone Vonda Leahy MD Primary Care Provider Allergies No known active allergies Surgical History Surgery Date Site/Laterality Comments HYSTERECTOMY Social History Tobacco Use Types Packs/Day Years Used Date Smoking Tobacco: Never Assessed Comments No Sex and Gender Information Value Date Recorded Sex Assigned at Not on file Legal Sex Female 2:44 AM CHEMICAL WASTE MANAGEMENT TECHNICIAN Gender Identity Not on file Sexual [...] 98.9 kg (218 lb) 12/31/2019 8:25 AM CHEMICAL WASTE MANAGEMENT TECHNICIAN Height 165.1 cm (5' 5) 12/31/2019 8:25 AM CHEMICAL WASTE MANAGEMENT TECHNICIAN Body Mass Index 36.28 12/31/2019 8:25 AM CHEMICAL WASTE MANAGEMENT TECHNICIAN Plan of Treatment Health Maintenance Due Date [...] CENTER MEDICARE BLUE CROSS MEDICARE SUPPLEMENT MEDICARE [facility] MEDICARE SUPPLEMENT Care Teams Crane Crew Supervisor Relationship Specialty Start Date End Date Vonda Leahy MD PCP - General Family Practice 01/16/22
== END 2025-01-12 08:30 | disposition home or self-care (01) ==
LOC: ANHAUDASC 08:30
PROVIDERS: PCP Nurse Practitioner Family; Visit Provider Nurse Practitioner Family
DX: H90.3 Sensorineural hearing loss, bilateral (principal); I10 Essential (primary) hypertension
CPT/HCPCS: 92557; 92567

== ENCOUNTER 2025-01-17 14:56 | Outpatient (CLI) | payer MEDICARE, SELFPAY ==
--- OUTSIDE RECORDS SUMMARY | 2023-10-22 04:40 | XMS_ITS ---
Author Organization [facility] Address [address] [place], [place] [id number] Care Team Providers Care Heating And Cooling Systems Engineer Name Role Phone IGLESIA TREVINO MD Primary Care Provider Unavailable Manjula Gallegos Unavailable [phone] Chaparrita Rivera Unavailable [phone] ALLERGIES Allergen (clinical drug ingredient) Drug/Non Drug Allergy documented on EMR Reaction Allergy Type Onset Date Status Tetanus (uncoded) swelling, loss of consciousness Allergy Active Sulfa (uncoded) hives Allergy Acti ve RESULTS Component Value Reference Range Notes AST (SGOT) Reviewed date:10/23/2023 03:44:56 PM Interpretation: Performing Lab:[facility], [address] [place] [address], Phone - [phone], Director - PhDFreedomi Notes/Report: AST (SGOT) 15 0-40 IU/L Creatinine, Serum Reviewed date:10/23/2023 03:45:51 PM Interpretation: Performing Lab:[facility], [address] [place] [address], Phone - [phone], Director - PhDRicchiuti Notes/Report: Creatinine 1.21 0.57-1.00 mg/dL eGFR 47 >59 mL/min/1.73 ALT (SGPT) Reviewed date:10/23/2023 03:44:56 PM Interpretation: Performing Lab:[facility], [address] [facility], Phone - [phone], Director - PhDRicflaviai Notes/Report: ALT (SGPT) 13 0-32 IU/L CBC With Differential/Platel et Reviewed date:10/23/2023 03:46:11 PM Interpretation: Performing Lab:[facility], [address] [facility], Phone - [phone], Director - Sascha Notes/Report: WBC 6.1 3.4-10.8 [...] Westergren Reviewed date:10/23/2023 03:46:00 PM Interpretation: Performing Lab:[facility], [address] [facility], Phone - [phone], Director - Sascha Notes/Report: Sedimentation Rate-Suzanneren 19 0-40 mm/hr Rheumatoid Arthritis Factor Reviewed date:10/23/2023 03:46:11 PM Interpretation: Performing Lab:[facility], [address] [facility], Phone - [phone], Director - Sascha Notes/Report: Rheumatoid Factor (RF) <10.0 <14.0 IU/mL C-Reactive Protein, Quant Reviewed date:10/23/2023 03:46:11 PM Interpretation: Performing Lab[facility], [address] [facility], Phone - [phone], Director - Sascha Notes/Report: C-Reactive Protein, Quant 16 0-10 mg/L CCP IgG Antibodies Reviewed date:10/23/2023 03:45:55 PM Interpretation: Performing Lab[email or web address], [address] [facility], Phone - [phone], Director - Sascha Notes/Report: Anti-CCP Ab, IgG/IgA [...] [facility] [address], [address] [place], [place] [phone] 10/22/2023 Chaparrita Rivera Primary generalized (osteo)arthritis M15.0 ; Positive anti-CCP test R76.8 and Other terminal carman (current) drug therapy Z79.899 ASSESSMENTS Encounter Date [...] Duloxetine. Continue PT. F/u scheduled. 10/22/2023 Other terminal carman (current) drug therapy (ICD-10 - Z79.899) RA(positive [...]
--- OUTSIDE RECORDS SUMMARY | 2023-10-22 04:44 | XMS_ITS ---
Author Organization [facility] Address [address] [place], [place] [id number] Care Team Providers Care Pm Technician Name Role Phone IGLESIA TREVINO MD Primary Care Provider Manjula Caldwell [phone] MEDICATIONS Medication SIG (Take, Route, Frequency, Duration) Notes Start Date End Date Status Hydroxychloroquine Sulfate 2 00 mg 1 tab(s) orally 2 times a day for 90 days Active meloxicam 15 mg 1 tab(s) orally once a day for 90 days Active Encounters Encounter Location Date Provider Diagnosis [facility] [address] [place], [place] [id number] 10/22/2023 Manjula Gallegos PLAN OF TREATMENT Medication Medication Name Sig Start Date Stop Date Notes Hydroxychloroquine Sulfate 200 mg 1 tab( s) orally 2 times a day for 90 days meloxicam 15 mg 1 tab(s) orally once a day for 90 days
--- OUTSIDE RECORDS SUMMARY | 2023-10-23 09:45 | XMS_ITS ---
Author Organization [facility] Address [address] [place], [place] [id number] Care Team Providers Care Air Control/Anti Air Warfare Officer Name Role Phone URIEL MANTILLA, IGLESIA Primary Care Provider Unavailable Manjula Gallegos Unavailable [phone] Encounters Encounter Location Date Provider Diagnosis [facility] [address], [address] [place], [place] [id number] 10/23/2023 Manjula Gallegos PLAN OF TREATMENT No Information
--- OUTSIDE RECORDS SUMMARY | 2024-04-20 04:20 | XMS_ITS ---
Author Organization [facility] Address [address] [place], [place] [id number] Care Team Providers Care Deck Steward Name Role Phone IGLESIA TREVINO MD Primary Care Provider Unavailable Manjula Gallegos Unavailable [phone] Chaparrita Rivera Unavailable [phone] ALLERGIES Allergen (clinical drug ingredient) Drug/Non Drug Allergy documented on EMR Reaction Allergy Type Onset Date Status Tetanus (uncoded) swelling, loss of consciousness Allergy Active Sulfa (uncoded) hives Allergy Acti ve RESULTS Component Value Reference Range Notes AST (SGOT) Reviewed date:04/21/2024 03:04:50 PM Interpretation: Performing Lab:[facility] [place], [address] [place] [address], Phone - [phone], Director - PhDFreedomi Notes/Report: AST (SGOT) 17 0-40 IU/L Creatinine, Serum Reviewed date:04/21/2024 03:04:50 PM Interpretation: Performing Lab:[facility], [address] [place] [address], Phone - [phone], Director - PhDRicchiuti Notes/Report: Creatinine 1.03 0.57-1.00 mg/dL eGFR 56 >59 mL/min/1.73 ALT (SGPT) Reviewed date:04/21/2024 03:04:50 PM Interpretation: Performing Lab:[facility], [address] [facility], Phone - [phone], Director - PhDRicflaviai Notes/Report: ALT (SGPT) 12 0-32 IU/L CBC With Differential/Platel et Reviewed date:04/21/2024 03:04:50 PM Interpretation: Performing Lab:[facility] [place], [address] [facility], Phone - [phone], Director - Sascha Notes/Report: WBC 6.5 3.4-10.8 [...] Westergren Reviewed date:04/21/2024 03:04:50 PM Interpretation: Performing Lab:[facility] [place], [address] [facility], Phone - [phone], Director - Sascha Notes/Report: Sedimentation Rate-Westergren 19 0-40 mm/hr Rheumatoid Arthritis Factor Reviewed date:04/21/2024 03:04:50 PM Interpretation: Performing Lab:[facility], [address] [facility], Phone - [phone], Director - Sascha Notes/Report: Rheumatoid Factor (RF) <10.0 <14.0 IU/mL C-Reactive Protein, Quant Reviewed date:04/21/2024 03:04:50 PM Interpretation: Performing Lab:[facility], [address] [facility], Phone - [phone], Director - Sascha Notes/Report: C-Reactive Protein, Quant 14 0-10 mg/L CCP IgG Antibodies Reviewed date:04/21/2024 03:04:50 PM Interpretation: Performing Lab:[facility], [address] [facility], Phone - [phone], Director - Sascha Notes/Report: Anti-CCP Ab, IgG/IgA [...] Location Date Provider Diagnosis [facility], [address] [place], [place] [phone] 04/20/2024 Chaparrita Rivera Primary generalized (osteo)arthritis M15.0 ; Positive anti-CCP test R76.8 and Other halfway (current) drug therapy Z79.899 ASSESSMENTS Encounter Date [...] with pain. F/u scheduled. 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
--- OUTSIDE RECORDS SUMMARY | 2024-10-13 04:20 | XMS_ITS ---
Author Organization [facility] Address [address] [place], [place] [id number] Care Team Providers Care Orthodontist Assistant Name Role Phone IGLESIA TREVINO MD Primary Care Provider Unavailable Manjula Gallegos Unavailable [phone] Chaparrita Rivera Unavailable [phone] REASON FOR VISIT 6 mo f/u Encounters Encounter Location Date Provider Diagnosis [facility] [address], [address] [place], [place] [id number] 10/13/2024 Chaparrita Rivera PLAN OF TREATMENT No Information
--- NOTE | ~2025-01-17 | MR_ITS ---
EXAMINATION: MR thoracic spine wo con DATE: 01/17/2025 16:38 INDICATION: Pain in thoracic spine TECHNIQUE: Magnetic resonance imaging (MRI) of the thoracic spine was performed without intravenous contrast. Sagittal localizer T1-weighted FSE of the cervical spine was obtained. Thoracic spine sequences included sagittal T2-weighted FSE, sagittal T1-weighted FSE, sagittal T2-weighted FS FSE, and axial T2-weighted FSE. COMPARISON: None FINDINGS: No acute or aggressive bony or soft tissue process seen. Degenerative changes involving disc spaces and posterior elements throughout the thoracic spine. No spinal canal stenosis or discrete disc protrusion seen. Approximately 2.5 mm anterolisthesis T1 on T2. Degenerative changes also seen in the lower cervical spine. The spinal cord in the thoracic spine appears normal in signal. No spinal canal stenosis or discrete disc protrusion. IMPRESSION: 1. Degenerative changes throughout the thoracic spine with no spinal canal stenosis or discrete disc protrusion; the thoracic spinal cord appears normal in signal. 2. Approximately 2.5 mm anterolisthesis T1 and T2. Degenerative changes also seen in the lower cervical spine. Consider correlation with cervical spine MRI. Reviewed, dictated and finalized at location A. PRESSER IMPRESSION: 1. Degenerative changes throughout the thoracic spine with no spinal canal sten osis or discrete disc protrusion; the thoracic spinal cord appears normal in si gnal. 2. Approximately 2.5 mm anterolisthesis T1 and T2. Degenerative changes also se en in the lower cervical spine. Consider correlation with cervical spine MRI.
--- NOTE | ~2025-01-17 | MR_ITS ---
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 COMPARISON: January 19, 2024 TECHNIQUE: Multiplanar lumbar spine MRI without contrast FINDINGS: Degenerative changes present throughout the lumbar spine involving disc spaces and posterior elements. The conus tapers normally at the L1-2 level. Level specific findings as follows: T12-L1: Degenerative disc and facet changes contribute to moderate bilateral neural foraminal narrowing. No spinal canal stenosis or discrete disc protrusion. L1-2: Borderline spinal canal stenosis associated with severe degenerative changes in the posterior elements and posterior spondylosis. Moderately severe bilateral neural foraminal narrowing and stenosis developing in the lateral recesses. L2-3: Degenerative disc and facet changes contributes to mild to moderate spinal canal stenosis, and stenosis of the lateral recesses. Moderately severe left and mild to moderate right-sided neural foraminal narrowing. L3-4: Disc bulge and severe facet arthropathy result in severe spinal canal stenosis/thecal sac compression. Moderate to severe bilateral neural foraminal narrowing. Similar appearance to last year. L4-5: Moderate to advanced degenerative disc narrowing. Disc bulge and severe facet arthropathy result in severe spinal canal stenosis/thecal sac compression. There is moderate to advanced bilateral neural foraminal narrowing. At L5-S1, there is moderate degenerative disc narrowing. There is advanced facet arthropathy. No spinal canal stenosis. There is severe bilateral neural foraminal narrowing, left worse than right. IMPRESSION: Advanced multilevel degenerative changes including multilevel spinal canal stenosis. Neural foraminal narrowing also present at all levels. Overall similar appearance to the January 2024 exam. See level specific findings as above. Reviewed, dictated and finalized at location A. ICATION DEVELOPMENT TEAM LEAD IMPRESSION: Advanced multilevel degenerative changes including multilevel spinal canal sten osis. Neural foraminal narrowing also present at all levels. Overall similar ap pearance to the January 2024 exam. See level specific findings as above.
--- OUTSIDE RECORDS SUMMARY | 2025-01-17 17:34 | XMS_ITS | Patient Health Record ---
Author Organization [facility] Address [address] [facility] [address] [place], [place] [address] Care Team Providers Care Shop Tech Name Role Phone IGLESIA TREVINO MD Primary Care Provider Unavailable Manjula Gallegos Unavailable [phone] Chaparrita Rivera Unavailable [phone] ALLERGIES Allergen (clinical drug ingredient) Drug/Non Drug Allergy documented on EMR Reaction Allergy Type Onset Date Status Tetanus (uncoded) swelling, loss of consciousness Allergy Active Sulfa (uncoded) hives Allergy Acti ve RESULTS Component Value Reference Range Notes AST (SGOT) Reviewed date:04/21/2024 03:04:50 PM Interpretation: Performing Lab:[facility] [place], [address] [place] [address], Phone - [phone], Director - PhDFreedomi Notes/Report: AST (SGOT) 17 0-40 IU/L Creatinine, Serum Reviewed date:04/21/2024 03:04:50 PM Interpretation: Performing Lab:[facility] [place], [address] [facility], Phone - [phone], Director - PhDRicchiuti Notes/Report: Creatinine 1.03 0.57-1.00 mg/dL eGFR 56 >59 mL/min/1.73 ALT (SGPT) Reviewed date:04/21/2024 03:04:50 PM Interpretation: Performing Lab:[facility] [place], [address] [facility], Phone - [phone], Director - PhDRicflaviai Notes/Report: ALT (SGPT) 12 0-32 IU/L CBC With Differential/Platel et Reviewed date:04/21/2024 03:04:50 PM Interpretation: Performing Lab:[facility], [address] [place] [address], Phone - [phone], Director - [facility] Notes/Report: WBC 6.5 3.4-10.8 x10E3/uL RBC [...] Westergren Reviewed date:04/21/2024 03:04:50 PM Interpretation: Performing Lab:[facility], [address] [facility], Phone - [phone], Director - [facility] Notes/Report: Sedimentation Rate-Westergren 19 0-40 mm/hr Rheumatoid Arthritis Factor Reviewed date:04/21/2024 03:04:50 PM Interpretation: Performing Lab:[facility], [address] [place] [address], Phone - [phone], Director - [facility] Notes/Report: Rheumatoid Factor (RF) <10.0 <14.0 IU/mL C-Reactive Protein, Quant Reviewed date:04/21/2024 03:04:50 PM Interpretation: Performing Lab:[facility], [address] [facility], Phone - [phone], Director - Sascha Notes/Report: C-Reactive Protein, Quant 14 0-10 mg/L CCP IgG Antibodies Reviewed date:04/21/2024 03:04:50 PM Interpretation: Performing Lab[facility], [address] [facility], Phone - [phone], Director - Sascha Notes/Report: Anti-CCP Ab, IgG/IgA [...] Notes Problem Sleeping difficulty (G47.9) Active confirmed 580557903 Problem Dry eye (H04.129) Active confirmed 1622 13689 Problem Polyarthralgia (M25.50) Active confirmed 33947662 Problem Dry mouth (R68.2) Active confirmed 1071 5008 Problem Low back pain at multiple sites (M54.5) Active confirmed Low back pain (finding) (411273787) Problem Primary generalized (osteo)arthritis (M15.0) Active confirmed 422921394 Problem Positive anti-CCP test (R76.8) Active confirmed 214332396 Problem Essential (primary) hypertension (I10) Active confirmed 16293696 VITAL SIGNS Heart Rate 59 /min 04/20/2024 Blood pressure diastolic 89 mm Hg 04/20/2024 Height 65 in 04/20/2024 Blood pressure systolic 160 mm Hg 04/20/2024 Weight 254 lbs 04/20/2024 BMI 42.26 kg/m2 04/20/2024 Encounters Encounter Location Date Provider Diagnosis [facility] [address] [facility], [address] [place], [place] [phone] 04/20/2024 Chaparrita Rivera Primary generalized (osteo)arthritis M15.0 ; Positive anti-CCP test R76.8 and 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 F/u scheduled. 04/20/2024 Other intermediate (current) drug therapy (ICD-10 - Z79.899) RA(positive [...] Date Coverage End Date MEDICARE [address] [address] [place] [address] [id number] Matilde Breen Self - patient is the insured [facility] [address] [place] [address] [id number] Matilde Breen Self - patient is the insured 3 MEDICAL (GENERAL) HISTORY Medical History History ICD Code depression tension headaches sinus problems thyroid disease anxiety irregular heart beat difficulty breathing diarrhea Lack of bladder control Hot Flashes high blood pressure hemorrhoids frequent urination Surgical History Surgery Date(Month/Year) prolapse 2012 esophagus 1997,2002 hysterectomy 1979
--- OUTSIDE RECORDS SUMMARY | 2025-01-17 17:34 | XMS_ITS | Encounter Summary ---
Author Organization [facility] Address [address] [facility] [place] [address] Care Team Providers Care Ordnance Officer Name Role Phone Vonda Leahy MD Primary Care Provider Alexis Andersen DO Unavailable Alexis Andersen DO Unavailable Chaparrita Rivera APRN-NETWORK OPERATIONS TECHNICIAN Unavailable [phone] Manjula Gallegos MD Unavailable Alexis Andersen DO Unavailable Encounter Details Date Type Department Care Team (Late st Contact Info) Description 03/06/2022 Lab Requisition [facility] Care D[facility] Lab [address] [facility] [place] [phone] Juan Yuan MD [address] [place] [address] Social History Tobacco Use Types [...] on file Legal Sex Female 1:01 PM SOLAR FABRICATION TECHNICIAN Gender Identity Not on file Sexual [...] st Contact Info) Description 02/27/2025 12:10 PM SOLAR FABRICATION TECHNICIAN Office Visit [facility] Orthopedics [id number] [place] [phone] [place] [address] [place] [phone] documented as of this encounter Procedures Procedure Name Priority Date/Time Associated Diagnosis Comments DERMATOPATHOLOGY Routine 03/04/2022 12:0 0 AM SOLAR FABRICATION TECHNICIAN documented in this encounter Results * DERMATOPATHOLOGY (03/04/2022 12:00 AM SOLAR FABRICATION TECHNICIAN) Case Report Dermatopathology Report Case: [id number] Authorizing Provider: Juan Yuan MD Collected: 03/04/2022 12:00 AM Ordering Location: [facility] DermPath Lab Received: 03/06/2022 01:29 PM Pathologist: Elizabeth Garvin MD Specimen: Skin, right medial cheek 3 3:47 PM [facility] DERMATOPATHOLOGY LABORATORY Final Diagnosis Specimen A. SKIN, right medial cheek: SEBACEOUS HYPERPLASIA, SUPERFICIAL PORTIONS OF (L73.8) (see microscopic description and comment) 3:47 PM [facility] DERMATOPATHOLOGY LABORATORY at [address] [facility] Clinical History R/O SCC, BCC 3:47 PM [facility] DERMATOPATHOLOGY LABORATORY Gross Description Specimen A: Received is one formalin filled container labeled with the patient's name and designated right medial cheek. The specimen consists of a shave biopsy measuring 3x3x1 mm. Jar 0. 3:47 PM [facility] DERMATOPATHOLOGY LABORATORY Microscopic Description Specimen A. SKIN, right medial cheek: There are superficial portions of prominent sebaceous gland lobules surrounding a dilated hair follicle. Additional deeper sections were obtained and reviewed. COMMENT: Given the superficial nature of the biopsy specimen, a deeper dermal process cannot be excluded. 3:47 PM [facility] DERMATOPATHOLOGY LABORATORY Disclaimer An external and internal positive and negative controls are appropriate for the histochemical, immunohistochemical and immunofluorescence stain(s) in this case (if any), except where stated explicitly. The performance characteristics of the stain(s) cited in this report were developed and its performance characteristic determined by the Dermatopathology Laboratory at [facility], directed by Dr. Sadia Barillas. These tests need not be, and therefore are not, approved by the [place] Food and Drug Administration. The tests are used for clinical purposes. Billing Codes Specimen Charges Stain Charges 81549 1 3 3:47 PM [facility] DERMATOPATHOLOGY LABORATORY Embedded Images 3:47 PM [facility] DERMATOPATHOLOGY LABORATORY Pathology/Cytolog y TISSUE SPECIMEN FROM SKIN / Unknown 03/04/2022 03/06/2022 1:29 PM [facility] Juan Yuan MD LAB - PATHOLOGY/CYTOLOGY ORD ERABLES Final Result DERMATOPATHOLOGY LABORATORY [facility] - Department of Dermatology [facility] [address] [facility], 3rd Floor [address] [phone] documented in this encounter Visit Diagnoses Not on filedocumented in this encounter Care Teams Ordnance Officer Relationship Specialty Start Date End Date Vonda Leahy MD [address] [place] [address] PCP - General Family Medicine 07/23/21 Alexis Andersen DO [address], [address] [address] Internal Medicine 07/02/22 Alexis Andersen DO [address] [facility] [address], [address] [address] Internal Medicine 09/13/24 Chaparrita Rivera APRN-NETWORK OPERATIONS TECHNICIAN [address] [address] Nurse Practitioner 09/13/24 Manjula Gallegos MD [address] [address] Rheumatology 09/13/24 Alexis Andersen DO [address] [facility] [address], [address] [address] Internal Medicine 09/13/24 documented as of this encounter
--- OUTSIDE RECORDS SUMMARY | 2025-01-17 17:34 | XMS_ITS | Clinical Summary ---
Author Organization [facility] Address [address] [place] [address] Care Team Providers Care County Surveyor Name Role Phone Vonda Leahy MD Primary Care Provider Alexis Andersen DO Unavailable Alexis Andersen DO Unavailable Chaparrita Rivera APRN-CERTIFIED RETINAL ANGIOGRAPHER Unavailable Manjula Gallegos MD Unavailable Alexis Andersen DO Unavailable Source Comments [facility],non-owned Affiliates and Associated Physician Practices is amultiple site organization consisting of ambulatory clinics and hospital sitesin [place], [place], [place] and [place]. This disclosure is being madepursuant to the Care Everywhere program and may not contain all information available regarding this patient. Last updated 17.[facility] Allergies Active Allergy Reactions Criticality Noted [...] (Flonase) 50 MCG/ACT nasal sprayIndication s:Allergic Rhinitis Iva 2 (two) sprays into each nostril once [...] Care Team Description 12/29/2024 Office Visit External [facility] Orthopedics [address] [facility], [address] [place] [address] Vivek Mckeon IV, MD 12/29/2024 Office Visit External [facility] Orthopedics [address] [place] [address], [address] [phone] Vivek Mckeon IV, MD 12/19/2024 3:05 PM WET END TESTER Ancillary Procedure [facility] - Radiology [address] [place] [phone] Vivek Mckeon IV, MD S/P total right hip arthroplasty 12/19/2024 2:50 PM WET END TESTER Office Visit [facility] Orthopedics [address] [place] [phone] Vivek Mckeon IV, MD S/P total right hip arthroplasty (Primary Dx) 11/10/2024 10:00 AM CDT Office Visit [facility] Orthopedics [address] [place] [phone] Jane Chung PA S/P total right hip arthroplasty (Primary Dx) 11/10/2024 9:55 AM CDT Ancillary Procedure [facility] - Radiology [address] [place] [phone] Jane Chung PA S/P total right hip arthroplasty 10/24/2024 4:30 PM CDT Ancillary Procedure [facility] - Radiology [address] [place] [phone] Vivek Mckeon IV, MD S/P total right hip arthroplasty, DOS 10/06/24; S/P total right hip arthroplasty 10/24/2024 4:00 PM CDT Office Visit [facility] Orthopedics [address] [place] [address], [address] [phone] Vivek Mckeon IV, MD S/P total right hip arthroplasty, DOS 10/06/24 (Primary Dx) 10/24/2024 Refill [facility] [address] [place] [address], [address] [phone] Vivek Mckeon IV, MD MEDICATION REFILL 10/24/2024 Refill [facility] [address] [facility], [address] [place] [phone] Vivek Mckeon IV, MD MEDICATION REFILL from Last 3 Months Family History Medical [...] on file Legal Sex Female 1:01 PM WET END TESTER Gender Identity Not on file Sexual Orientation [...] st Contact Info) Description 02/27/2025 12:10 PM WET END TESTER Office Visit [facility] [address] [phone] [place] [address] [address] Health Maintenance Due Date Last [...] this topic Medical Devices Implanted Type Area Solar Energy Sales Specialist Device Identifier Shelf Expiration Date Model / Serial / Lot Glenn Bone Chuckey-G Hv 40/20 Implanted:Qty: 1 on 11/11/2021 by Carlos Manuel Acevedo MD at [facility] Right: Knee [employer] 03/07/2023 [id number] / / [id number] Tray Tib 71mm Kn Cocr I Beam Implanted:Qty: 1 on 11/11/2021 by Carlos Manuel Acevedo MD at [facility] Right: Knee [employer] 09/07/2031 [id number] / / [id number] Cmpnt Fem Kn Rt Cr Cmnt Prm Vngrd Intlk 67.5 Mm Implanted:Qty: 1 on 11/11/2021 by Carlos Manuel Acevedo MD at [facility] Right: Knee [employer] 10/05/2031 [id number] / / [id number] Cmpnt Ptlr Std 28mm 1 Pg Wire Kn Ser A Implanted:Qty: 1 on 11/11/2021 by Carlos Manuel Acevedo MD at [facility] Right: Knee [employer] 10/23/2025 [id number] / / [id number] Brng [id number] Vngrd Arcm Kn Ant Stab Implanted:Qty: 1 on 11/11/2021 by Carlos Manuel Acevedo MD at [facility] Right: Knee [employer] 09/02/2026 [id number] / / [id number] Brng [id number] Vngrd Arcm Kn Ant Stab Implanted:Qty: 1 on 07/14/2022 by Carlos Manuel Acevedo MD at [facility] Left: Knee [employer] 03/31/2027 [id number] / / [id number] Cmnt Bone Plc R 40gm Grn Implanted:Qty: 1 on 07/14/2022 by Carlos Manuel Acevedo MD at [facility] Left: Knee [employer] 08/08/2024 [id number] / / [id number] Cmpnt Fem Kn Lt Cr Cmnt Prm Vngrd Intlk 67.5mm Implanted:Qty: 1 on 07/14/2022 by Carlos Manuel Acevedo MD at [facility] Left: Knee [employer] 03/06/2032 [id number] / / [id number] Tray Tib 75mm Kn Cocr I Beam Implanted:Qty: 1 on 07/14/2022 by Carlos Manuel Acevedo MD at [facility] Left: Knee [employer] 03/22/2032 [id number] / / [id number] Cmpnt Ptlr Std 28mm 3 Pg Kn Ser A Implanted:Qty: 1 on 07/14/2022 by Carlos Manuel Acevedo MD at [facility] Left: Knee [employer] 05/23/2027 [id number] / / [id number] Shell Actb 52mm Hip 3 Hl Clr Cd [place] Implanted:Qty: 1 on 10/06/2024 by Vivek Mckeon IV, MD at [facility] Right: Hip [employer] 02/12/2034 [id number] / / [id number] Bone Screw Self-Tappng 6.5mm Diameter 35mm Length Implanted:Qty: 1 on 10/06/2024 by Vivek Mckeon IV, MD at [facility] Right: Hip [employer] 02/23/2034 / / [id number] Sandro Liner Actb G7 +5mm E Ofst 36mm Lngvt Implanted:Qty: 1 on 10/06/2024 by Vivek Mckeon IV, MD at [facility] Right: Hip [employer] 07/18/2029 [id number] BILL ONLY / / [id number] Stem Fem 139mm Hip 126d 3 12/14 Lat Ofst Implanted:Qty: 1 on 10/06/2024 by Vivek Mckeon IV, MD at [facility] Right: Hip [employer] 11/17/2030 [id number] / / [id number] Head Fem -3mm 12/14 Tpr 36mm Hip Rev Implanted:Qty: 1 on 10/06/2024 by Vivek Mckeon IV, MD at [facility] Right: Hip [email or web address] 07/25/2034 [id number] / / [id number] Explanted Type Area Solar Energy Sales Specialist Device Identifier Shelf Expiration Date Model / Serial / Lot Pin Hlf 255mm 5mm Jtx Lng Orth Ss 45mm Explanted:Qty: 1 on 10/06/2024 at [facility] [employer] [id number] / / Procedures Procedure Name Priority Date/Time Associated Diagnosis Comments XR HIP RIGHT 2VW OR MORE Routine 12/19/2024 3:09 PM WET END TESTER S/P total right hip arthroplasty XR PELVIS W RIGHT HIP 2VW Routine 11/10/2024 9:52 AM CDT S/P total right hip arthroplasty XR HIP RIGHT 2VW OR MORE Routine 10/24/2024 4:34 PM CDT S/P total right hip arthroplasty from Last 3 Months Results * XR Hip Right 2Vw or More (12/19/2024 3:09 PM WET END TESTER) Only the most recent of2 resultswithin the time period is included. Narrative [facility] [address] - 12/19/2024 3:09 PM WET END TESTER Please see progress note in Epic for results. us Vivek Mckeon IV, MD DIAGNOSTIC IMAGING ORDERABLES Final Result [facility] [address] * XR Pelvis W Right Hip 2Vw (11/10/2024 9:52 AM CDT) Narrative [facility] [address] - 11/10/2024 9:52 AM CDT Please see progress note in Epic for results. us Jane MILLER DIAGNOSTIC IMAGING ORDERABLES Final Result [facility] [address] from Last 3 Months Insurance MEDICARE ANTHEM MEDICARE ANTH Advance Directives * Full Code (Latest Code [...] 1:40 PM 04/08/2011 11:08 PM Care Teams County Surveyor Relationship Specialty Start Date End Date Vonda Leahy MD [address] [place] [address] PCP - General Family Medicine 07/23/21 Alexis Andersen DO [address] [facility] [address] [facility], [address] [address] Internal Medicine 07/02/22 Alexis Andersen DO [address] [facility] [address] [facility] [address] [place] [address] Internal Medicine 09/13/24 Chaparrita Rivera APRN-CERTIFIED RETINAL ANGIOGRAPHER [address] [address] Nurse Practitioner 09/13/24 Manjula Gallegos MD [address] [phone] Rheumatology 09/13/24 Alexis Andersen DO [address] [facility] [address] [place] [address] Internal Medicine 09/13/24
--- OUTSIDE RECORDS SUMMARY | 2025-01-17 17:36 | XMS_ITS | Clinical Summary ---
Author Organization [facility] Address [address] [place] [address] Care Team Providers Care Stock Shipper Name Role Phone Vonda Leahy MD Primary Care Provider Allergies No known active allergies Surgical History Surgery Date Site/Laterality Comments HYSTERECTOMY Social History Tobacco Use Types Packs/Day Years Used Date Smoking Tobacco: Never Assessed Comments No Sex and Gender Information Value Date Recorded Sex Assigned at Not on file Legal Sex Female 2:44 AM ELECTRIC FREIGHT CAR OPERATOR Gender Identity Not on file Sexual [...] 98.9 kg (218 lb) 12/31/2019 8:25 AM ELECTRIC FREIGHT CAR OPERATOR Height 165.1 cm (5' 5) 12/31/2019 8:25 AM ELECTRIC FREIGHT CAR OPERATOR Body Mass Index 36.28 12/31/2019 8:25 AM ELECTRIC FREIGHT CAR OPERATOR Plan of Treatment Health Maintenance Due [...] Relevant to Health Maintenance Insurance MEDICARE [facility] MEDICARE BLUE CROSS MEDICARE SUPPLEMENT MEDICARE [facility] MEDICARE SUPPLEMENT Care Teams Stock Shipper Relationship Specialty Start Date End Date Vonda Leahy MD PCP - General Family Practice 01/16/22
== END 2025-01-17 14:57 | disposition home or self-care (01) ==
PROVIDERS: PCP Nurse Practitioner Family; Visit Provider Nurse Practitioner Adult Health
DX: M47.816 Spondylosis without myelopathy or radiculopathy, lumbar region (principal); M47.817 Spondylosis without myelopathy or radiculopathy, lumbosacral region; M51.369 Other intervertebral disc degeneration, lumbar region without mention of lumbar back pain or lower extremity pain
CPT/HCPCS: 72146; 72148